=== PATIENT | male | born 1960 | race Caucasian/White ===

== ENCOUNTER 2017-04-04 11:56 | Inpatient (IN) | payer OTHER ==
--- NOTE | 2017-04-04 12:45 | ED ---
General Adult HPI - General Chief complaint: Shortness of Breath Stated complaint: SOB Time Seen by Provider: 04/04/17 12:10 Source: patient, RN notes reviewed Mode of arrival: wheelchair Limitations: no limitations - History of Present Illness Initial comments: This is a 57-year-old male who presents to the emergency department with difficulty breathing. Patient states he is also noted that his swelling in his legs become worse. Patient states his been ongoing for about 5 days. Patient states lying flat also increases the difficulty breathing. Patient states he has no history of any heart disease that he knows of his never been diagnosed are heard of congestive heart failure. Patient denies any recent trip or travel. Patient denies any abdominal pain patient denies nausea vomiting diarrhea. Patient denies headache patient denies numbness weakness. Patient denies any lightheadedness dizziness or near syncopal episode. - Related Data Home Medications Medication Instructions Recorded Confirmed Fluticasone/Vilanterol [Breo 1 inhalation INHALATION RT-DAILY 04/04/17 04/04/17 Ellipta 200-25 Mcg INH] Allergies Allergy/AdvReac Type Severity Reaction Status Date / Time ibuprofen Allergy Rash/Hives Verified 04/04/17 12:45 Review of Systems ROS Statement: Those systems with pertinent positive or pertinent negative responses have been documented in the HPI. ROS Other: All systems not noted in ROS Statement are negative. Past Medical History Past Medical History: COPD Additional Past Medical History / Comment(s): pad History of Any Multi-Drug Resistant Organisms: None Reported Additional Past Surgical History / Comment(s): varicose veins Past Psychological History: No Psychological Hx Reported Smoking Status: Never smoker Past Alcohol Use History: None Reported Past Drug Use History: None Reported General Exam - General Exam Comments Initial Comments: GENERAL: Patient is well-developed and well-nourished. Patient is nontoxic and well- hydrated and is in mild distress. ENT: Neck is soft and supple. No significant lymphadenopathy is noted. Oropharynx is clear. Moist mucous membranes. Neck has full range of motion without eliciting any pain. EYES: The sclera were anicteric and conjunctiva were pink and moist. Extraocular movements were intact and pupils were equal round and reactive to light. Eyelids were unremarkable. PULMONARY: Unlabored respirations. Good breath sounds bilaterally. No audible rales rhonchi or wheezing was noted. CARDIOVASCULAR: Patient is tachycardic at about 100 beats a minute. ABDOMEN: Soft and nontender with normal bowel sounds. No palpable organomegaly was noted. There is no palpable pulsatile mass. SKIN: Skin is clear with no lesions or rashes and otherwise unremarkable. NEUROLOGIC: Patient is alert and oriented x3. Cranial nerves II through XII are grossly intact. Motor and sensory are also intact. Normal speech, volume and content. Symmetrical smile. MUSCULOSKELETAL: Normal extremities with adequate strength and full range of motion. 2+ edema bilaterally patient has no calf tenderness. LYMPHATICS: No significant lymphadenopathy is noted PSYCHIATRIC: Normal psychiatric evaluation. Normal interpersonal interactions appears functionally intact in deals appropriately with others. No signs of depression. No signs of anxiety. Limitations: no limitations Course Vital Signs 04/04/17 04/04/17 04/04/17 12:09 14:22 14:23 Temperature 97.4 F L Pulse Rate 105 H 98 Respiratory 18 22 22 Rate Blood Pressure 136/82 139/88 O2 Sat by Pulse 93 L 97 Oximetry 04/04/17 16:04 Temperature Pulse Rate 79 Respiratory 16 Rate Blood Pressure 150/85 O2 Sat by Pulse 99 Oximetry Medical Decision Making - Medical Decision Making EKG shows sinus tachycardia with PVCs at about 104 bpm TN interval 186 QRS is 96 QT interval 348 QTC is 457. This EKG shows some T-wave inversions in leads V4 V5 and V6 Patient's d-dimer was elevated so I went ahead and did a CAT scan patient's CAT scan showed pulmonary embolism bilaterally. Spoke with Dr. Nava he agreed to admit the patient admitted the patient - Lab Data Result diagrams: 04/04/17 12:25 04/04/17 12:25 Lab Results 04/04/17 04/04/17 04/04/17 Range/Units 12:25 12:25 12:25 WBC 7.4 (3.8-10.6) k/uL RBC 5.05 (4.30-5.90) m/uL Hgb 16.2 (13.0-17.5) gm/dL Hct 48.0 (39.0-53.0) % MCV 95.0 (80.0-100.0) fL MCH 32.0 (25.0-35.0) pg MCHC 33.7 (31.0-37.0) g/dL RDW 13.8 (11.5-15.5) % Plt Count 190 (150-450) k/uL Neutrophils % 71 % Lymphocytes % 21 % Monocytes % 4 % Eosinophils % 2 % Basophils % 1 % Neutrophils # 5.2 (1.3-7.7) k/uL Lymphocytes # 1.5 (1.0-4.8) k/uL Monocytes # 0.3 (0-1.0) k/uL Eosinophils # 0.2 (0-0.7) k/uL Basophils # 0.1 (0-0.2) k/uL PT (9.0-12.0) sec INR (<1.2) APTT (22.0-30.0) sec D-Dimer (<0.60) mg/L FEU Sodium 140 (137-145) mmol/L Potassium 4.3 (3.5-5.1) mmol/L Chloride 104 (98-107) mmol/L Carbon Dioxide 26 (22-30) mmol/L Anion Gap 10 mmol/L BUN 15 (9-20) mg/dL Creatinine 0.87 (0.66-1.25) mg/dL Est GFR (MDRD) Af Amer >60 (>60 ml/min/1.73 sqM) Est GFR (MDRD) Non-Af >60 (>60 ml/min/1.73 sqM) Glucose 133 H (74-99) mg/dL Calcium 9.2 (8.4-10.2) mg/dL Magnesium 1.8 (1.6-2.3) mg/dL Total Bilirubin 1.1 (0.2-1.3) mg/dL AST 36 (17-59) U/L ALT 59 (21-72) U/L Alkaline Phosphatase 88 (38-126) U/L Total Creatine Kinase 72 (55-170) U/L CK-MB (CK-2) 2.6 H* (0.0-2.4) ng/mL CK-MB (CK-2) Rel Index 3.6 Troponin I 0.023 (0.000-0.034) ng/mL NT-Pro-B Natriuret Pep pg/mL Total Protein 6.4 (6.3-8.2) g/dL Albumin 4.0 (3.5-5.0) g/dL 04/04/17 04/04/17 Range/Units 12:25 12:25 WBC (3.8-10.6) k/uL RBC (4.30-5.90) m/uL Hgb (13.0-17.5) gm/dL Hct (39.0-53.0) % MCV (80.0-100.0) fL MCH (25.0-35.0) pg MCHC (31.0-37.0) g/dL RDW (11.5-15.5) % Plt Count (150-450) k/uL Neutrophils % % Lymphocytes % % Monocytes % % Eosinophils % % Basophils % % Neutrophils # (1.3-7.7) k/uL Lymphocytes # (1.0-4.8) k/uL Monocytes # (0-1.0) k/uL Eosinophils # (0-0.7) k/uL Basophils # (0-0.2) k/uL PT 11.2 (9.0-12.0) sec INR 1.1 (<1.2) APTT 24.7 (22.0-30.0) sec D-Dimer 1.64 H (<0.60) mg/L FEU Sodium (137-145) mmol/L Potassium (3.5-5.1) mmol/L Chloride (98-107) mmol/L Carbon Dioxide (22-30) mmol/L Anion Gap mmol/L BUN (9-20) mg/dL Creatinine (0.66-1.25) mg/dL Est GFR (MDRD) Af Amer (>60 ml/min/1.73 sqM) Est GFR (MDRD) Non-Af (>60 ml/min/1.73 sqM) Glucose (74-99) mg/dL Calcium (8.4-10.2) mg/dL Magnesium (1.6-2.3) mg/dL Total Bilirubin (0.2-1.3) mg/dL AST (17-59) U/L ALT (21-72) U/L Alkaline Phosphatase (38-126) U/L Total Creatine Kinase (55-170) U/L CK-MB (CK-2) (0.0-2.4) ng/mL CK-MB (CK-2) Rel Index Troponin I (0.000-0.034) ng/mL NT-Pro-B Natriuret Pep 1830 pg/mL Total Protein (6.3-8.2) g/dL Albumin (3.5-5.0) g/dL Critical Care Time Critical Care Time: Yes Total Critical Care Time: 35 Disposition Clinical Impression: Pulmonary embolism Disposition: ADMITTED IP TO THIS HOSP Referrals: Moreno Domingo MD [Primary Care Provider] - 1-2 days Time of Disposition: 16:50
--- NOTE | 2017-04-04 13:06 | XR ---
EXAMINATION TYPE: XR chest 2V DATE OF EXAM: 04/04/2017 COMPARISON: CT chest May 05, 2015 HISTORY: Difficulty in breathing. TECHNIQUE: Frontal and lateral views of the chest are obtained. FINDINGS: There is no focal air space opacity, pleural effusion, or pneumothorax seen. The cardiac silhouette size is mildly enlarged on current study. The osseous structures are intact. IMPRESSION: Cardiomegaly without acute pulmonary process.
[2017-04-04 13:07] LABS: Basophils # (A) 0.1 k/uL (0-0.2); Basophils % (A) 1 %; CH 32.1; Eosinophils # (A) 0.2 k/uL (0-0.7); Eosinophils % (A) 2 %; HDW 2.56; HGB 16.2 gm/dL (13.0-17.5); Luc # (Auto) 0.08; Luc % (Auto) 1; Lymphocytes # (A) 1.5 k/uL (1.0-4.8); Lymphocytes % (A) 21 %; MCHC 33.7 g/dL (31.0-37.0); Mean Platelet Volume 8.6; Monocytes # (A) 0.3 k/uL (0-1.0); Monocytes % (A) 4 %; Neutrophils # (A) 5.2 k/uL (1.3-7.7); Neutrophils % (A) 71 %; RBC 5.05 m/uL (4.30-5.90); RDW 13.8 % (11.5-15.5); WBC 7.4 k/uL (3.8-10.6); WBC (Perox) 7.16
[2017-04-04 13:17] LABS: ALT 59 U/L (21-72); AST 36 U/L (17-59); Alkaline Phosphatase 88 U/L (38-126); Anion Gap 10 mmol/L; Blood Urea Nitrogen 15 mg/dL (9-20); Calcium 9.2 mg/dL (8.4-10.2); Carbon Dioxide 26 mmol/L (22-30); Chloride 104 mmol/L (98-107); Glucose 133 mg/dL (74-99); Magnesium 1.8 mg/dL (1.6-2.3); Non-African American GFR(MDRD) >60 (>60 ml/min/1.73 sqM); Potassium 4.3 mmol/L (3.5-5.1); Sodium 140 mmol/L (137-145); Total Bilirubin 1.1 mg/dL (0.2-1.3); Total Protein 6.4 g/dL (6.3-8.2)
[2017-04-04 13:39] LABS: INR 1.1 (<1.2); Partial Thromboplastin Time 24.7 sec (22.0-30.0); Prothrombin Time 11.2 sec (9.0-12.0)
[2017-04-04 14:24] LABS: Troponin I 0.023 ng/mL (0.000-0.034)
[2017-04-04 14:35] LABS: Creatine Kinase MB 2.6 ng/mL (0.0-2.4)
[2017-04-04] MEDS ORDERED: RX INFO: IV CONTRAST WAS GIVEN 1 EACH MISC MISCELLANE PRN (14:51)
[2017-04-04] MEDS ORDERED: HEPARIN SODIUM,PORCINE 10,000 UNIT/ML 1 ML VIAL IV ONE (15:57)
--- NOTE | 2017-04-04 15:59 | CT ---
EXAMINATION TYPE: CT chest angio for PE DATE OF EXAM: 04/04/2017 COMPARISON: NONE HISTORY: SOB, limb swelling CT DLP: 855.6 mGycm. Automated Exposure Control for Dose Reduction was Utilized. CONTRAST: CTA scan of the thorax is performed with IV Contrast, patient injected with 80 mL of Omnipaque 350, p ulmonary embolism protocol. MIP Images are created on CT scanner and reviewed. FINDINGS: LUNGS: There is segmental and subsegmental pulmonary emboli to the left lower lobe and right lower lo be. The remainder of the pulmonary arteries are unaffected and well opacified. There is no evidence o f right heart strain as there is no bowing of the intraventricular septum. There is enlargement of th e main pulmonary artery measuring up to 3.5 cm, although this is thought to be unrelated. There is a small right pleural effusion and trace left pleural effusion with associated bibasilar dependent subs egmental atelectasis. Additionally there is mild interseptal lobular thickening and reflux of contras t into the inferior vena cava. Cardiomegaly is also seen. Findings suggest a degree of decompensated congestive heart failure. No pulmonary mass is identified. There is no pleural effusion or pneumoth orax seen. The tracheobronchial tree is patent. MEDIASTINUM: There is satisfactory enhancement of the pulmonary artery and its branches, there is no CT evidence for pulmonary embolism. There are no greater than 1 cm hilar or mediastinal lymph nodes. No cardiomegaly or pericardial effusion is seen. OTHER: No additional significant abnormality is seen. IMPRESSION: 1. Segmental and subsegmental pulmonary emboli to the lower lobes. 2. Small right pleural effusion and interseptal lobular thickening as well as cardiomegaly. Findings are favored to represent a degree of congestive heart failure rather than right heart strain. 3. Enlargement of the main pulmonary artery, which may clinically relate to pulmonary arterial hypert ension. Findings were communicated to Dr. Garcia by Dr. De La Fuente at 1556 on 04/04/2017.
[2017-04-04] MEDS ORDERED: SODIUM CHLORIDE 0.9% 1,000 ML IV STA (16:12)
[2017-04-04] MEDS: HEPARIN SODIUM,PORCINE/D5W PMX 25,000 UNIT in DEXTROSE/WATER 1 500ML.BAG IV SCH (16:17)
--- NOTE | 2017-04-04 20:15 | P.HPIM ---
History of Present Illness H&P Date: 04/04/17 Chief Complaint: shortness of breath chest pressure Mr. Baxter presented to the emergency room with difficulty breathing and chest pressure which initially 3 weeks ago. His a female cabana attendant had tried to get him to go to the Hospital for approximately 2 weeks,he finally consented. Upon evaluation it was discover had a DVT that appears in the left lower extreme I was subsequently called patient ri for anticoagulant therapy and subsequent antiplatelet therap. Patient has no other complaints, has a history of hypertension and low back pain Review of Systems Ears, nose, mouth and throat: Reports as per HPI Cardiovascular: Reports as per HPI, Reports decreased exercise tolerance, Reports high blood pressure, Reports rapid heart beat, Reports shortness of breath Respiratory: Reports dyspnea Gastrointestinal: Reports as per HPI Genitourinary: Reports as per HPI Musculoskeletal: Reports low back pain Integumentary: Reports as per HPI Neurological: Reports as per HPI Psychiatric: Reports as per HPI Endocrine: Reports as per HPI Past Medical History Past Medical History: COPD Additional Past Medical History / Comment(s): pad History of Any Multi-Drug Resistant Organisms: None Reported Additional Past Surgical History / Comment(s): varicose veins Past Psychological History: No Psychological Hx Reported Smoking Status: Never smoker Past Alcohol Use History: None Reported Past Drug Use History: None Reported Medications and Allergies Home Medications Medication Instructions Recorded Confirmed Type Fluticasone/Vilanterol [Breo 1 inhalation INHALATION RT-DAILY 04/04/17 04/04/17 History Ellipta 200-25 Mcg INH] Allergies Allergy/AdvReac Type Severity Reaction Status Date / Time ibuprofen Allergy Rash/Hives Verified 04/04/17 12:45 Physical Exam Osteopathic Statement: *. No significant issues noted on an osteopathic structural exam other than those noted in the History and Physical/Consult. Vitals: Vital Signs Temp Pulse Pulse Resp BP BP Pulse Ox 04/04/17 17:49 97 F L 102 H 20 139/91 94 L 04/04/17 17:23 98.2 F 97 20 147/91 95 04/04/17 16:04 79 16 150/85 99 04/04/17 14:23 22 04/04/17 14:22 98 22 139/88 97 04/04/17 12:09 97.4 F L 105 H 18 136/82 93 L Intake and Output 04/04/17 04/04/17 04/04/17 06:59 14:59 22:59 Other: Weight 127.006 kg Patient Weight 04/05/17 06:59 Weight 127.006 kg General: [Patient awake, alert and oriented times 3. Patient in no acute distress.] HEENT: [PERRL. EOMI. No pharyngeal erythema or exudate.] Neck: [No adenopathy.] Cardiac: [Heart regular in rate and rhythm. No S3. No S4. No clicks, rubs. No murmur.] Lungs: [Clear to auscultation bilaterally.]bilateral expiraton wheezes with fine crackles Abdomen: [No mass. No organomegaly. Bowel sounds presnt and normoactive in all 4 quadrants.] Extremes: [No edema no cyanosis no claudication normal pulses] : [] Musculoskeletal: [No joint erythema, edema or tenderness.] Skin: [No rash.] Neurologic: [No lateralizing deficits. CN II - XII grossly intact.] Lymphatic: [No adenopathy.] Results CBC & Chem 7: 04/04/17 12:25 04/04/17 12:25 Labs: Abnormal Lab Results - Last 24 Hours (Table) 04/04/17 04/04/17 04/04/17 Range/Units 12:25 12:25 12:25 D-Dimer 1.64 H (<0.60) mg/L FEU Glucose 133 H (74-99) mg/dL CK-MB (CK-2) 2.6 H* (0.0-2.4) ng/mL Thrombosis Risk Factor Assmnt - DVT/VTE Prophylaxis DVT/VTE Prophylaxis: Pharmacologic Prophylaxis ordered (patient's diagnosis is pulmonary embolus) - Choose All That Apply Each Factor Represents 1 point: Abnormal pulmonary function (COPD), Age 41-60 years, Obesity (BMI >25) Thrombosis Risk Factor Assessment Total Risk Factor Score: 3 Thrombosis Risk Factor Assessment Level: Moderate Risk Assessment and Plan (1) Pulmonary embolism Narrative/Plan: patient has known currently on rescue inhalers as well asfluticasone and Breo Patient is on heparin drip and will be switched over to xarelto or eliquis Status: Acute Time with Patient: Greater than 30
[2017-04-04] MEDS ORDERED: FUROSEMIDE 10 MG/ML 10 ML VIAL IV STA (23:28)
[2017-04-04] MEDS ORDERED: FUROSEMIDE 10 MG/ML 4 ML VIAL ONE (23:37)
[2017-04-05] MEDS: HEPARIN SODIUM,PORCINE/D5W PMX 25,000 UNIT in DEXTROSE/WATER 1 500ML.BAG IV SCH ×2 (03:54→16:27)
[2017-04-05] MEDS: SYMBICORT 160-4.5 MCG INHALER INHALATION SCH ×2 (08:43→21:10)
[2017-04-05] MEDS ORDERED: HEPARIN SODIUM,PORCINE 5,000 UNIT/ML 1 ML VIAL IV PRN (09:51)
--- NOTE | 2017-04-05 16:28 | P.PN ---
Subjective Principal diagnosis: Patient awake alert vital signs are stable patient has bilateral pulmonary embolus. Symptoms have improved patient has diminished chest discomfort as well as he is breathing significantly better Objective - Vital Signs Vital signs: Vital Signs Temp 96.7 F L 04/05/17 12:00 Pulse 95 04/05/17 12:00 Resp 22 04/05/17 12:00 BP 127/92 04/05/17 12:00 Pulse Ox 97 04/05/17 12:00 Intake & Output 04/04/17 04/05/17 04/05/17 18:59 06:59 18:59 Intake Total 543.020 7399 Output Total 6550 475 Balance -5721.991 1274 Weight 127.006 kg 135 kg Intake: IV 225 549 Heparin Sodium,Porcine/ 225 549 D5w Pmx 25,000 unit In Dextrose/Water 1 500ml. bag @ 18 UNITS/KG/HR 45. 72 mls/hr IV .[id number] TRISTEN Rx#:[id number] Intake, IV Titration 603.009 900 Amount Heparin Sodium,Porcine/ 453.009 D5w Pmx 25,000 unit In Dextrose/Water 1 500ml. bag @ 18 UNITS/KG/HR 45. 72 mls/hr IV .[id number] TRISTEN Rx#:[id number] Sodium Chloride 0.9% 1, 150 900 000 ml @ 75 mls/hr IV . [id number] STA Rx#:[id number] Oral 300 Output: Urine 6550 475 Other: Voiding Method Urinal Urinal # Voids 400 - Exam General: [Patient awake, alert and oriented times 3. Patient in no acute distress.] HEENT: [PERRL. EOMI. No pharyngeal erythema or exudate.] Neck: [No adenopathy.] Cardiac: [Heart regular in rate and rhythm. No S3. No S4. No clicks, rubs. No murmur.] Lungs: Patient's lungs are clear however slightly diminished bibasilar crackles are noted Abdomen: [No mass. No organomegaly. Bowel sounds presnt and normoactive in all 4 quadrants.] Extremes: [No edema no cyanosis no claudication normal pulses] : [] Musculoskeletal: [No joint erythema, edema or tenderness.] Skin: [No rash.] Neurologic: [No lateralizing deficits. CN II - XII grossly intact.] Lymphatic: [No adenopathy.] - Labs CBC & Chem 7: 04/04/17 12:25 04/04/17 12:25 Labs: Abnormal Lab Results - Last 24 Hours (Table) 04/04/17 04/04/17 04/05/17 Range/Units 22:27 22:37 05:52 APTT 110.2 H* 64.2 H (22.0-30.0) sec Troponin I 0.038 H* (0.000-0.034) ng/mL Assessment and Plan (1) Pulmonary embolism Narrative/Plan: patient has known currently on rescue inhalers as well asfluticasone and Breo Patient is on heparin drip and will be switched over to xarelto or eliquis Status: Acute Plan: Second troponin was elevated waiting on #3 we will consult cardiology
[2017-04-06] MEDS: HEPARIN SODIUM,PORCINE/D5W PMX 25,000 UNIT in DEXTROSE/WATER 1 500ML.BAG IV SCH ×3 (04:54→22:48)
[2017-04-06] MEDS: SYMBICORT 160-4.5 MCG INHALER INHALATION SCH ×2 (09:14→20:02)
--- NOTE | 2017-04-06 12:44 | P.CRDCN ---
History of Present Illness Consult date: 04/06/17 History of present illness: This is a 57-year-old gentleman with history of COPD who has been experiencing increasing shortness of breath over the last 2 weeks. He also noticed increasing swelling of the legs. In view of ongoing symptoms patient came to the emergency room. Evaluation is consistent with a DVT and also segmental and subsegmental pulmonary emboli. Patient is currently being treated with anti- cognition therapy. We're asked to see the patient because of abnormal troponin values and also BNP. Patient denied any hypertension, diabetes, previous myocardial infarctions or strokes. Patient seemed to feeling slightly better since admission here. We are going to get an echocardiogram to assess LV function. Chest x-ray however did not reveal any significant CHF. His troponin pattern is not consistent with acute myocardial injury pattern. Review of Systems REVIEW OF SYSTEMS: CONSTITUTIONAL:. Patient is doing well. No complaints of fever or chills. He doesn't appear to be in acute distress EYES: Denies diplopia, blurring of vision EARS, NOSE, MOUTH, THROAT: Denies headaches, denies sore throat. CARDIOVASCULAR: As per HPI RESPIRATORY: As per HPI. GASTROINTESTINAL: Denies change in appetite, denies abdominal pain, denies diarrhea GENITOURINARY: Denies hematuria, denies infections. MUSKULOSKELETAL: Denies pain, denies swelling. Denies any cramps or claudication INTEGUMENTARY: Bilateral leg swelling. NEUROLOGICAL: Denies focal weakness, or visual disturbance. Denies any dizziness or syncope PSYCHIATRIC: Denies anxiety, denies depression. HEMATOLOGIC/LYMPHATIC: Denies any bleeding, denies enlarged lymph nodes. Past Medical History Past Medical History: COPD, Rheumatoid Arthritis (RA) Additional Past Medical History / Comment(s): pad History of Any Multi-Drug Resistant Organisms: None Reported Additional Past Surgical History / Comment(s): varicose veins sx 1991 Past Anesthesia/Blood Transfusion Reactions: No Reported Reaction Smoking Status: Never smoker - Past Family History Mother Family Medical History: Cancer Additional Family Medical History / Comment(s): bone cancer Father History Unknown: Yes Additional Family Medical History / Comment(s): never knew his dad Medications and Allergies Home Medications Medication Instructions Recorded Confirmed Type Fluticasone/Vilanterol [Breo 1 inhalation INHALATION RT-DAILY 04/04/17 04/04/17 History Ellipta 200-25 Mcg INH] Allergies Allergy/AdvReac Type Severity Reaction Status Date / Time ibuprofen Allergy Rash/Hives Verified 04/04/17 12:45 Physical Exam Vitals: Vital Signs Temp Pulse Resp BP Pulse Ox 04/06/17 11:55 98 18 04/06/17 11:54 97.2 F L 98 18 125/79 98 04/06/17 09:15 100 04/06/17 08:00 96.9 F L 96 18 133/92 95 04/06/17 04:00 100 16 126/77 91 L 04/05/17 23:54 90 16 117/58 90 L 04/05/17 19:45 98.4 F 97 18 140/88 97 04/05/17 16:00 97.0 F L 102 H 22 116/73 95 Intake and Output 04/05/17 04/06/17 04/06/17 22:59 06:59 14:59 Intake Total 1450.155 584.345 Output Total 400 600 300 Balance 1050.155 -15.655 -300 Intake: IV 750 110 0.9 110 Sodium Chloride 0.9% 1, 750 000 ml @ 75 mls/hr IV . [id number] STA Rx#:[id number] Intake, IV Titration 478.155 474.345 Amount Heparin Sodium,Porcine/ 478.155 474.345 D5w Pmx 25,000 unit In Dextrose/Water 1 500ml. bag @ 18 UNITS/KG/HR 45. 72 mls/hr IV .[id number] TRISTEN Rx#:[id number] Oral 222 Output: Urine 400 600 300 Other: Voiding Method Urinal Urinal # Voids 1 Weight 135.2 kg GENERAL EXAM: Patient is alert and oriented and doesn't appear to be in any acute distress HEENT: Normocephalic. Normal reaction of pupils, equal size, normal range of extraocular motion. No erythema or exudates in the throat. NECK: No masses, no nuchal rigidity. CHEST: No chest wall deformity. LUNGS: Diminished air exchange and dullness to percussion HEART: S1 and S2 normal with no audible mumurs or gallops. Regular rhythm, femorals equal on both sides.. ABDOMEN: No hepatosplenomegaly, normal bowel sounds, no guarding or rigidity. SKIN: No rashes CENTRAL NERVOUS SYSTEM: No focal deficits. EXTREMITIES: No cyanosis, clubbing or edema. Results 04/04/17 12:25 04/04/17 12:25 Coagulation 04/06/17 Range/Units 06:46 APTT 58.5 H (22.0-30.0) sec Current Medications Generic Name Dose Route Start Last Admin Trade Name Freq PRN Reason Stop Dose Admin Budesonide/Formoterol Fumarate 2 puff 04/05/17 08:00 04/06/17 09:14 Symbicort 160-4.5 Mcg Inhaler INHALATION 2 puff RT-BID TRISTEN Administration Heparin Sodium (Porcine) 0 unit 04/05/17 09:51 Heparin IV PER PROTOCOL PRN PER PROTOCOL Protocol Heparin Sodium/Dextrose 25,000 500 mls @ 45.72 mls/hr 04/04/17 15:57 04:54 unit/ IV Solution IV 15 units/kg/hr .[id number] TRISTEN 38.1 mls/hr Protocol Administration 18 UNITS/KG/HR Miscellaneous Information 1 each 04/04/17 14:51 Rx Info: Iv Contrast Was Given MISCELLANE 04/06/17 14:51 DAILY PRN Per Protocol Intake and Output 04/05/17 04/06/17 04/06/17 22:59 06:59 14:59 Intake Total 1450.155 584.345 Output Total 400 600 300 Balance 1050.155 -15.655 -300 Intake: IV 750 110 0.9 110 Sodium Chloride 0.9% 1, 750 000 ml @ 75 mls/hr IV . [id number] STA Rx#:[id number] Intake, IV Titration 478.155 474.345 Amount Heparin Sodium,Porcine/ 478.155 474.345 D5w Pmx 25,000 unit In Dextrose/Water 1 500ml. bag @ 18 UNITS/KG/HR 45. 72 mls/hr IV .[id number] TRISTEN Rx#:[id number] Oral 222 Output: Urine 400 600 300 Other: Voiding Method Urinal Urinal # Voids 1 Weight 135.2 kg 04/04/17 12:25 04/04/17 12:25 EKG Interpretations (text) Sinus rhythm and sinus tachycardia and nonspecific ST-T abnormalities. APCs. Small Q waves in inferior leads Assessment and Plan (1) Troponin level elevated Status: Acute (2) Congestive heart failure Status: Acute (3) Pulmonary embolism Status: Acute Plan: Continue with current medical therapy. I will try to get an echocardiogram done to assess LV function. Troponin values are elevated but not consistent with acute coronary syndrome. However underlying ischemic heart disease cannot be completely excluded. May need further evaluation to rule out ischemic heart disease as an outpatient.
--- NOTE | 2017-04-06 15:03 | P.PN ---
Subjective Principal diagnosis: Patient awake alert vital signs are stable patient has bilateral pulmonary embolus. Symptoms have improved patient has diminished chest discomfort as well as he is breathing significantly better. However patient had elevated troponins and cardiology evaluation has been initiated Objective - Vital Signs Vital signs: Vital Signs Temp 97.2 F L 04/06/17 11:54 Pulse 98 04/06/17 11:55 Resp 18 04/06/17 11:55 BP 125/79 04/06/17 11:54 Pulse Ox 98 04/06/17 11:54 Intake & Output 04/05/17 04/06/17 04/06/17 18:59 06:59 18:59 Intake Total 2449.155 1334.345 824.935 Output Total 475 1000 300 Balance 1974.155 334.345 524.935 Weight 135.2 kg Intake: IV 549 860 456 0.9 110 Heparin Sodium,Porcine/ 549 456 D5w Pmx 25,000 unit In Dextrose/Water 1 500ml. bag @ 18 UNITS/KG/HR 45. 72 mls/hr IV .[id number] [facility] Rx#:[id number] Sodium Chloride 0.9% 1, 750 000 ml @ 75 mls/hr IV . [id number] [facility] Rx#:[id number] Intake, IV Titration 1378.155 474.345 368.935 Amount Heparin Sodium,Porcine/ 478.155 474.345 368.935 D5w Pmx 25,000 unit In Dextrose/Water 1 500ml. bag @ 18 UNITS/KG/HR 45. 72 mls/hr IV .[id number] [facility] Rx#:[id number] Sodium Chloride 0.9% 1, 900 000 ml @ 75 mls/hr IV . [id number] [facility] Rx#:[id number] Oral 522 Output: Urine 475 1000 300 Other: Voiding Method Urinal Urinal # Voids 1 - Exam General: [Patient awake, alert and oriented times 3. Patient in no acute distress.] HEENT: [PERRL. EOMI. No pharyngeal erythema or exudate.] Neck: [No adenopathy.] Cardiac: [Heart regular in rate and rhythm. No S3. No S4. No clicks, rubs. No murmur.] Lungs: Patient's lungs are clear however slightly diminished bibasilar crackles are noted Abdomen: [No mass. No organomegaly. Bowel sounds presnt and normoactive in all 4 quadrants.] Extremes: [No edema no cyanosis no claudication normal pulses] : [] Musculoskeletal: [No joint erythema, edema or tenderness.] Skin: [No rash.] Neurologic: [No lateralizing deficits. CN II - XII grossly intact.] Lymphatic: [No adenopathy.] - Labs CBC & Chem 7: 04/04/17 12:25 04/04/17 12:25 Labs: Abnormal Lab Results - Last 24 Hours (Table) 04/06/17 Range/Units 06:46 APTT 58.5 H (22.0-30.0) sec Assessment and Plan (1) Pulmonary embolism Narrative/Plan: patient has known currently on rescue inhalers as well asfluticasone and Breo Patient is on heparin drip and will be switched over to xarelto or eliquis Troponins were slightly elevated cardiology consult is pending echocardiogram to be obtained Status: Acute Plan: Second troponin was elevated waiting on #3 we will consult cardiology
[2017-04-07] MEDS: HEPARIN SODIUM,PORCINE/D5W PMX 25,000 UNIT in DEXTROSE/WATER 1 500ML.BAG IV SCH (02:42)
[2017-04-07 05:59] LABS: CH 32.3; CHCM 33.6; HCT 46.3 % (39.0-53.0); HDW 2.55; HGB 15.2 gm/dL (13.0-17.5); MCH 31.6 pg (25.0-35.0); MCHC 32.7 g/dL (31.0-37.0); MCV 96.5 fL (80.0-100.0); Mean Platelet Volume 7.9; WBC 6.6 k/uL (3.8-10.6)
[2017-04-07 07:09] LABS: Anion Gap 10 mmol/L; Blood Urea Nitrogen 14 mg/dL (9-20); Carbon Dioxide 23 mmol/L (22-30); Chloride 106 mmol/L (98-107); Glucose 115 mg/dL (74-99); Non-African American GFR(MDRD) >60 (>60 ml/min/1.73 sqM); Potassium 4.2 mmol/L (3.5-5.1); Sodium 139 mmol/L (137-145)
[2017-04-07] MEDS ORDERED: FUROSEMIDE 40 MG TAB PO STA (08:23)
[2017-04-07] MEDS: CARVEDILOL 3.125 MG TAB PO SCH ×2 (08:56→16:43)
[2017-04-07] MEDS: LISINOPRIL 2.5 MG TAB PO SCH (08:56)
[2017-04-07] MEDS: SPIRONOLACTONE 25 MG TAB PO SCH (08:56)
[2017-04-07] MEDS: SYMBICORT 160-4.5 MCG INHALER INHALATION SCH ×2 (08:57→20:06)
--- NOTE | 2017-04-07 11:01 | ECHOF ---
Referral Reason:elevated troponin MEASUREMENTS -------- HEIGHT: 182.9 cm WEIGHT: 136.1 kg BP: 117/77 RVIDd: 5.3 cm (< 3.3) IVSd: 1.5 cm (0.6 - 1.1) LVIDd: 6.1 cm (3.9 - 5.3) LVPWd: 1.2 cm (0.6 - 1.1) IVSs: 1.4 cm LVIDs: 5.9 cm LVPWs: 1.1 cm LAESV Index (A-L): 46.44 ml/m Ao Diam: 3.6 cm (2.0 - 3.7) AV Cusp: 2.2 cm (1.5 - 2.6) LA Diam: 5.2 cm (2.7 - 3.8) MV EXCURSION: 18.221 mm (> 18.000) MV EF SLOPE: 107 mm/s (70 - 150) EPSS: 1.6 cm MV E Juarez: 0.95 m/s MV DecT: 119 ms MV A Juarez: 0.23 m/s MV E/A Ratio: 4.07 RAP: 20.00 mmHg RVSP: 57.48 mmHg FINDINGS -------- Sinus rhythm. This was a technically adequate study. There is mild concentric left ventricular hypertrophy. There is severe global hypokinesis of LV . Overall left ventricular systolic function is severely impaired with, an EF < 20%. Mitral Doppler inflow pattern suggests diastolic filling abnormality 48.42. The right ventricle is severely enlarged. LA is severely dilated >40 ml/m2 The right atrial size is normal. 1.5MG OF DEFINITY UTLIZED: 2 OR MORE WALL SEGMENTS NOT VISUALIZED. There is mild aortic valve sclerosis. There is no evidence of aortic regurgitation. Mild mitral annular calcification present. Mild mitral regurgitation is present. Mild tricuspid regurgitation present. There is moderate pulmonary hypertension. The right ventricular systolic pressure, as measured by Doppler, is 57.48mmHg. There is no pulmonic regurgitation present. The aortic root size is normal. The inferior vena cava is dilated with no significant inspiratory collapse which is consistent estimated right atrial pressure of >20 mmHg. There is no pericardial effusion. CONCLUSIONS -------- 1. There is mild concentric left ventricular hypertrophy. 2. Mild mitral regurgitation is present. 3. Mild tricuspid regurgitation present. 4. There is moderate pulmonary hypertension. 5. The right ventricular systolic pressure, as measured by Doppler, is 57.48mmHg. 6. There is no pulmonic regurgitation present. 7. The inferior vena cava is dilated with no significant inspiratory collapse which is consistent estimated right atrial pressure of >20 mmHg. 8. There is no pericardial effusion. 9. There is severe global hypokinesis of LV . 10. Overall left ventricular systolic function is severely impaired with, an EF < 20%. 11. Mitral Doppler inflow pattern suggest diastolic filling abnormality 48.42. 12. The right ventricle is severely enlarged. 13. LA is severely dilated >40 ml/m2 14. 1.5MG OF DEFINITY UTLIZED: 2 OR MORE WALL SEGMENTS NOT VISUALIZED. 15. There is mild aortic valve sclerosis. 16. Mild mitral annular calcification present. [employer]ING [employer]UID TENDER: Ann Payan RDCS
--- NOTE | 2017-04-07 13:23 | P.PN ---
Subjective Principal diagnosis: Shortness of breath This is a 57-year-old gentleman with history of COPD who has been experiencing increasing shortness of breath over the last 2 weeks. He also noticed increasing swelling of the legs. In view of ongoing symptoms patient came to the emergency room. Evaluation is consistent with a DVT and also segmental and subsegmental pulmonary emboli. Patient is currently being treated with anti- cognition therapy. We're asked to see the patient because of abnormal troponin values and also BNP. Patient denied any hypertension, diabetes, previous myocardial infarctions or strokes. Patient seemed to feeling slightly better since admission here. We are going to get an echocardiogram to assess LV function. Chest x-ray however did not reveal any significant CHF. His troponin pattern is not consistent with acute myocardial injury pattern. 04/07/2017 Echocardiogram with Doppler study was performed which revealed an ejection fraction of less than 20%. EKG also suggests the possibility of old inferior wall myocardial infarction. We will start the patient on Coreg, Cipro, and Aldactone. Initiate Lasix as well. Continue IV heparin. Patient will need to be initiated on Xarelto per PE protocol. Patient will continue on anticoagulation for approximately 6 months, then he will require cardiac catheterization at that time to rule out any underlying coronary artery disease as part of the workup to determine why the patient has cardiomyopathy. Objective - Vital Signs Vital signs: Vital Signs Temp 97.7 F 04/07/17 08:30 Pulse 100 04/07/17 08:30 Resp 18 04/07/17 08:30 BP 122/72 04/07/17 08:30 Pulse Ox 94 L 04/07/17 08:30 Intake & Output 04/06/17 04/07/17 04/07/17 18:59 06:59 18:59 Intake Total 1064.935 535.155 0467.8 Output Total 834 168 1016 Balance 764.935 141.645 221.8 Weight 134.9 kg Intake: IV 456 180 384.8 0.9 180 80 Heparin Sodium,Porcine/ 456 304.8 D5w Pmx 25,000 unit In Dextrose/Water 1 500ml. bag @ 18 UNITS/KG/HR 45. 72 mls/hr IV .[id number] [facility] Rx#:[id number] Intake, IV Titration 368.935 461.645 Amount Heparin Sodium,Porcine/ 368.935 461.645 D5w Pmx 25,000 unit In Dextrose/Water 1 500ml. bag @ 18 UNITS/KG/HR 45. 72 mls/hr IV .[id number] [facility] Rx#:[id number] Oral 240 837 Output: Urine 817 995 1711 Other: Voiding Method Toilet Urinal # Voids 1 - Exam PHYSICAL EXAMINATION: HEENT: Head is atraumatic, normocephalic. Pupils equal, round. Neck is supple. There is elevated jugular venous pressure. HEART EXAMINATION: Heart S1, S2 normal. No murmur or gallop heard. CHEST EXAMINATION: Lungs are clear with mild diminished air entry to the bases. ABDOMEN: Soft, obese, nontender. Bowel sounds are heard. No organomegaly noted. EXTREMITIES: 2+ peripheral pulses with trace evidence of peripheral edema and no calf tenderness noted. NEUROLOGIC patient is awake, alert and oriented -3. . - Labs CBC & Chem 7: 04/07/17 05:50 04/07/17 05:50 Labs: Abnormal Lab Results - Last 24 Hours (Table) 04/07/17 04/07/17 Range/Units 05:50 05:50 APTT 67.4 H (22.0-30.0) sec Glucose 115 H (74-99) mg/dL Assessment and Plan (1) SOB (shortness of breath) Status: Acute (2) Pulmonary embolism Status: Acute (3) Systolic CHF, acute on chronic Status: Acute (4) Troponin level elevated Status: Acute (5) Cardiomyopathy Status: Acute Plan: From cardiology's perspective, we'll start the patient on Coreg and lisinopril and Aldactone today. We will also initiate Xarelto per PE protocol. Start the patient on a small dose of Lasix. Patient will require to be on anticoagulation for 6 months, following that will need further workup to rule out any underlying coronary artery disease. This was all explained to the patient in detail. We will also obtain a bilateral venous duplex study. DNP note has been reviewed, I agree with a documented findings and plan of care. Patient was seen and examined.
[2017-04-07] MEDS: RIVAROXABAN 15 MG TAB PO SCH (16:02)
[2017-04-07] MEDS: FUROSEMIDE 10 MG/ML 4 ML VIAL IV SCH ×2 (16:03→20:21)
--- NOTE | 2017-04-07 19:22 | P.PN ---
Subjective Principal diagnosis: Patient awake alert vital signs are stable patient has bilateral pulmonary embolus. Symptoms have improved patient has diminished chest discomfort as well as he is breathing significantly better. However patient had elevated troponins and cardiology evaluation has been initiated echocardiogram performed this morning revealed an ejection fraction of less than 20%. EKG also suggests the possibility of an old inferior wall myocardial infarction. Cardiology started this patient on lisinopril and Coreg and Aldactone. IV heparin was continuing. Patient was started on the Xarelto per PE protocol. Patient will be required to continue anticoagulant therapy for approximately 6 months, at which time he will require cardiac catheterization to rule out any underlying coronary artery disease process as part of the workup to determine why the patient has a cardiomyopathy. Objective - Vital Signs Vital signs: Vital Signs Temp 96.7 F L 04/07/17 16:00 Pulse 83 04/07/17 16:00 Resp 18 04/07/17 16:00 BP 126/84 04/07/17 16:00 Pulse Ox 94 L 04/07/17 16:00 Intake & Output 04/07/17 04/07/17 04/08/17 06:59 18:59 06:59 Intake Total 999.720 9849.8 Output Total 500 2500 Balance 141.645 -441.2 Weight 134.9 kg Intake: IV 180 384.8 0.9 180 80 Heparin Sodium,Porcine/ 304.8 D5w Pmx 25,000 unit In Dextrose/Water 1 500ml. bag @ 18 UNITS/KG/HR 45. 72 mls/hr IV .[id number] [facility] Rx#:[id number] Intake, IV Titration 461.645 Amount Heparin Sodium,Porcine/ 461.645 D5w Pmx 25,000 unit In Dextrose/Water 1 500ml. bag @ 18 UNITS/KG/HR 45. 72 mls/hr IV .[id number] [facility] Rx#:[id number] Oral 1674 Output: Urine 500 2500 - Exam General: [Patient awake, alert and oriented times 3. Patient in no acute distress.] HEENT: [PERRL. EOMI. No pharyngeal erythema or exudate.] Neck: [No adenopathy.] Cardiac: [Heart regular in rate and rhythm. No S3. No S4. No clicks, rubs. No murmur.] Lungs: Patient's lungs are clear however slightly diminished bibasilar crackles are noted Abdomen: [No mass. No organomegaly. Bowel sounds presnt and normoactive in all 4 quadrants.] Extremes: [No edema no cyanosis no claudication normal pulses] : [] Musculoskeletal: [No joint erythema, edema or tenderness.] Skin: [No rash.] Neurologic: [No lateralizing deficits. CN II - XII grossly intact.] Lymphatic: [No adenopathy.] - Labs CBC & Chem 7: 04/07/17 05:50 04/07/17 05:50 Labs: Abnormal Lab Results - Last 24 Hours (Table) 04/07/17 04/07/17 Range/Units 05:50 05:50 APTT 67.4 H (22.0-30.0) sec Glucose 115 H (74-99) mg/dL Assessment and Plan (1) Pulmonary embolism Narrative/Plan: Patient was started on xarelto per PE protocol. Will require further cardiac evaluation in the future. Echocardiogram revealed patient's ejection fraction was less than 20% Status: Acute Plan: Patient will be started on xarelto per PE protocol, and will require further cardiac evaluation to assess cardiomyopathy Time with Patient: Greater than 30
[2017-04-08] MEDS: RIVAROXABAN 15 MG TAB PO SCH ×2 (06:42→17:28)
[2017-04-08] MEDS: CARVEDILOL 3.125 MG TAB PO SCH ×2 (06:42→17:28)
[2017-04-08 07:12] LABS: Anion Gap 11 mmol/L; Blood Urea Nitrogen 19 mg/dL (9-20); Calcium 9.4 mg/dL (8.4-10.2); Carbon Dioxide 30 mmol/L (22-30); Chloride 99 mmol/L (98-107); Glucose 121 mg/dL (74-99); Non-African American GFR(MDRD) >60 (>60 ml/min/1.73 sqM); Potassium 4.1 mmol/L (3.5-5.1); Sodium 140 mmol/L (137-145)
[2017-04-08] MEDS: SYMBICORT 160-4.5 MCG INHALER INHALATION SCH ×2 (09:00→21:10)
[2017-04-08] MEDS: LISINOPRIL 2.5 MG TAB PO SCH (10:01)
[2017-04-08] MEDS: FUROSEMIDE 40 MG TAB PO SCH ×2 (10:01→17:28)
[2017-04-08] MEDS: SPIRONOLACTONE 25 MG TAB PO SCH (10:01)
--- NOTE | 2017-04-08 18:02 | P.PN ---
Subjective Principal diagnosis: Patient awake alert vital signs are stable patient has bilateral pulmonary embolus. Symptoms have improved patient has diminished chest discomfort as well as he is breathing significantly better. However patient had elevated troponins and cardiology evaluation has been initiated echocardiogram performed this morning revealed an ejection fraction of less than 20%. EKG also suggests the possibility of an old inferior wall myocardial infarction. Cardiology started this patient on lisinopril and Coreg and Aldactone. IV heparin was continuing. Patient was started on the Xarelto per PE protocol. Patient will be required to continue anticoagulant therapy for approximately 6 months, at which time he will require cardiac catheterization to rule out any underlying coronary artery disease process as part of the workup to determine why the patient has a cardiomyopathy. Objective - Vital Signs Vital signs: Vital Signs Temp 97.5 F L 04/08/17 16:50 Pulse 88 04/08/17 16:50 Resp 18 04/08/17 16:50 BP 126/82 04/08/17 16:50 Pulse Ox 94 L 04/08/17 16:50 Intake & Output 04/07/17 04/08/17 04/08/17 18:59 06:59 18:59 Intake Total 2058.8 240 Output Total 2500 3400 700 Balance -441.2 -3400 -460 Weight 128.4 kg Intake: IV 384.8 0.9 80 Heparin Sodium,Porcine/ 304.8 D5w Pmx 25,000 unit In Dextrose/Water 1 500ml. bag @ 18 UNITS/KG/HR 45. 72 mls/hr IV .[id number] [facility] Rx#:[id number] Oral 1674 240 Output: Urine 2500 3400 700 Other: Voiding Method Toilet Urinal # Voids 2 - Exam General: [Patient awake, alert and oriented times 3. Patient in no acute distress.] HEENT: [PERRL. EOMI. No pharyngeal erythema or exudate.] Neck: [No adenopathy.] Cardiac: [Heart regular in rate and rhythm. No S3. No S4. No clicks, rubs. No murmur.] Lungs: Patient's lungs are clear however slightly diminished bibasilar crackles are noted Abdomen: [No mass. No organomegaly. Bowel sounds presnt and normoactive in all 4 quadrants.] Extremes: [No edema no cyanosis no claudication normal pulses] : [] Musculoskeletal: [No joint erythema, edema or tenderness.] Skin: [No rash.] Neurologic: [No lateralizing deficits. CN II - XII grossly intact.] Lymphatic: [No adenopathy.] - Labs CBC & Chem 7: 04/07/17 05:50 04/08/17 06:31 Labs: Abnormal Lab Results - Last 24 Hours (Table) 04/08/17 Range/Units 06:31 Glucose 121 H (74-99) mg/dL Assessment and Plan (1) Pulmonary embolism Narrative/Plan: Patient was started on xarelto per PE protocol. Will require further cardiac evaluation in the future. Echocardiogram revealed patient's ejection fraction was less than 20% Status: Acute Plan: Patient will be started on xarelto per PE protocol, and will require further cardiac evaluation to assess cardiomyopathy
--- NOTE | 2017-04-08 18:30 | P.PN ---
Subjective Principal diagnosis: Bilateral pulmonary emboli, cardiomyopathy This patient was admitted to the hospital with increasing shortness of breath and evidence of bilateral pulmonary emboli. Patient also had some abnormal EKG findings. Echo Cardigan showed evidence of cardiomyopathy. Patient was started on several medications including Coreg and spironolactone . Patient is feeling much better. Patient activity to be increased. If stable, patient could be discharged home tomorrow. Follow-up in the office in about one to 2 weeks. Patient will require further cardiac workup as an outpatient to determine the etiology of his cardiomyopathy Objective - Vital Signs Vital signs: Vital Signs Temp 97.5 F L 04/08/17 16:50 Pulse 88 04/08/17 16:50 Resp 18 04/08/17 16:50 BP 126/82 04/08/17 16:50 Pulse Ox 94 L 04/08/17 16:50 Intake & Output 04/07/17 04/08/17 04/08/17 18:59 06:59 18:59 Intake Total 2058.8 240 Output Total 2500 3400 700 Balance -441.2 -3400 -460 Weight 128.4 kg Intake: IV 384.8 0.9 80 Heparin Sodium,Porcine/ 304.8 D5w Pmx 25,000 unit In Dextrose/Water 1 500ml. bag @ 18 UNITS/KG/HR 45. 72 mls/hr IV .[id number] [facility] Rx#:[id number] Oral 1674 240 Output: Urine 2500 3400 700 Other: Voiding Method Toilet Urinal # Voids 2 - Exam GENERAL EXAM: Patient is alert and oriented and doesn't appear to be in any acute distress HEENT: Normocephalic. Normal reaction of pupils, equal size, normal range of extraocular motion. No erythema or exudates in the throat. NECK: No masses, no nuchal rigidity. CHEST: No chest wall deformity. LUNGS: Accept the falls except the falls HEART: S1 and S2 normal with no audible mumurs or gallops. Regular rhythm, femorals equal on both sides.. ABDOMEN: No hepatosplenomegaly, normal bowel sounds, no guarding or rigidity. SKIN: No rashes CENTRAL NERVOUS SYSTEM: No focal deficits. EXTREMITIES: No cyanosis, clubbing or edema. - Labs CBC & Chem 7: 04/07/17 05:50 04/08/17 06:31 Labs: Abnormal Lab Results - Last 24 Hours (Table) 04/08/17 Range/Units 06:31 Glucose 121 H (74-99) mg/dL Assessment and Plan (1) Troponin level elevated Status: Acute (2) Congestive heart failure Status: Acute (3) Pulmonary embolism Status: Acute Plan: The patient is feeling much better. His lab values showed normal electrolytes and potassium levels. He'll continue current medical therapy. Possible discharge within next 24 hours
[2017-04-09 06:04] LABS: Anion Gap 13 mmol/L; Blood Urea Nitrogen 21 mg/dL (9-20); Calcium 9.8 mg/dL (8.4-10.2); Carbon Dioxide 26 mmol/L (22-30); Chloride 100 mmol/L (98-107); Glucose 104 mg/dL (74-99); Non-African American GFR(MDRD) >60 (>60 ml/min/1.73 sqM); Potassium 4.6 mmol/L (3.5-5.1); Sodium 139 mmol/L (137-145)
[2017-04-09] MEDS: CARVEDILOL 3.125 MG TAB PO SCH (06:19)
[2017-04-09] MEDS: RIVAROXABAN 15 MG TAB PO SCH (06:19)
[2017-04-09] MEDS: SYMBICORT 160-4.5 MCG INHALER INHALATION SCH (08:04)
[2017-04-09 08:17] VITALS: RESP 18
[2017-04-09] MEDS: LISINOPRIL 2.5 MG TAB PO SCH (09:59)
[2017-04-09] MEDS: FUROSEMIDE 40 MG TAB PO SCH (09:59)
[2017-04-09] MEDS: SPIRONOLACTONE 25 MG TAB PO SCH (09:59)
--- NOTE | 2017-04-09 10:41 | P.PN ---
Subjective Principal diagnosis: Severe cardiomyopathy This is a pleasant 57-year-old gentleman who presented to the hospital with difficulty breathing and was found to have bilateral PE. An echocardiogram was performed during his hospitalization and showed severe cardiomyopathy with an ejection fraction of 20% and the patient was started on medications including beta chino, JUANI inhibitor as well as Aldactone. I'll follow-up with him today, he denies having any chest pain or discomfort or difficulty breathing. From the cardiovascular standpoint overview he can be discharged home and he needs to follow-up with Dr. Dr. Jameson in about 2 weeks were further workup will be needed. Objective - Vital Signs Vital signs: Vital Signs Temp 97.0 F L 04/09/17 08:00 Pulse 90 04/09/17 08:00 Resp 18 04/09/17 08:00 BP 118/79 04/09/17 08:00 Pulse Ox 95 04/09/17 08:00 Intake & Output 04/08/17 04/09/17 04/09/17 18:59 06:59 18:59 Intake Total 600 360 Output Total 1700 1400 Balance -1100 -1040 Weight 125.8 kg Intake: Oral 600 360 Output: Urine 1700 1400 Other: Voiding Method Toilet Toilet Toilet Urinal Urinal Urinal - Constitutional General appearance: Present: no acute distress - Respiratory Respiratory: bilateral: CTA - Cardiovascular Rhythm: regular Heart sounds: normal: S1, S2 - Labs CBC & Chem 7: 04/07/17 05:50 04/09/17 05:26 Labs: Abnormal Lab Results - Last 24 Hours (Table) 04/09/17 Range/Units 05:26 BUN 21 H (9-20) mg/dL Glucose 104 H (74-99) mg/dL Assessment and Plan Plan: This is a pleasant 57-year-old gentleman who was admitted with bilateral PE and was found to have severe cardiomyopathy. The patient can be discharged home.
--- NOTE | 2017-04-09 12:26 | P.DS ---
Providers Date of admission: 04/04/17 16:50 Expected date of discharge: 04/09/17 Attending physician: Prasanth Nava Consults: 04/05/17 16:25 Consult Physician Urgent Consulting Provider: Kelly Aaron Consult Reason/Comments: Pulmonary embolus, second troponin was elevated waiting on #3 Do you want consulting provider notified?: Yes Primary care physician: Moreno Domingo - Discharge Diagnosis(es) (1) Pulmonary embolism Patient was admitted with bilateral pulmonary emboli started on heparin was subsequently started on xarelto Patient's second troponin was slightly elevated third troponin was elevated cardiology consult was performed and echo was ordered Was determined the patient had a cardiac ejection fraction of less than 20% this patient has never been studied and has been somewhat noncompliant with blood pressure meds over the years Mr. Ruiz is being discharged home today on his lisinopril and Coreg, Lasix, spironolactone,xarelto and Symbicort He is going to be on antiplatelet therapy per PE protocol for 4 months then he needs to be studied from a cardiac point of view to assess why he has the cardiomyopathy. Mr. Ruiz will be seen in our office in follow-up next week he'll also see cardiology in follow-up next week General: [Patient awake, alert and oriented times 3. Patient in no acute distress.] HEENT: [PERRL. EOMI. No pharyngeal erythema or exudate.] Neck: [No adenopathy.] Cardiac: [Heart regular in rate and rhythm. No S3. No S4. No clicks, rubs. No murmur.] Lungs: [Clear to auscultation bilaterally.] Abdomen: [No mass. No organomegaly. Bowel sounds presnt and normoactive in all 4 quadrants.] Extremes: [No edema no cyanosis no claudication normal pulses] : [] Musculoskeletal: [No joint erythema, edema or tenderness.] Skin: [No rash.] Neurologic: [No lateralizing deficits. CN II - XII grossly intact.] Lymphatic: [No adenopathy.] Current Visit: Yes Status: Acute Plan - Discharge Summary New Discharge Prescriptions: New Carvedilol [Coreg] 3.125 mg PO BID #30 tablet Furosemide [Lasix] 40 mg PO BID #60 tablet Lisinopril [Zestril] 2.5 mg PO DAILY #30 tab Rivaroxaban [Xarelto] 15 mg PO BID #60 tab Spironolactone [Aldactone] 25 mg PO DAILY #30 tablet No Action Fluticasone/Vilanterol [Breo Ellipta 200-25 Mcg INH] 1 inhalation INHALATION RT-DAILY Discharge Medication List Fluticasone/Vilanterol [Breo Ellipta 200-25 Mcg INH] 1 inhalation INHALATION RT- DAILY 04/04/17 [History] Carvedilol [Coreg] 3.125 mg PO BID #30 tablet 04/08/17 [Rx] Furosemide [Lasix] 40 mg PO BID #60 tablet 04/08/17 [Rx] Lisinopril [Zestril] 2.5 mg PO DAILY #30 tab 04/08/17 [Rx] Rivaroxaban [Xarelto] 15 mg PO BID #60 tab 04/08/17 [Rx] Spironolactone [Aldactone] 25 mg PO DAILY #30 tablet 04/08/17 [Rx] Follow up Appointment(s)/Referral(s): Moreno Domingo MD [Primary Care Provider] - 1-2 days Activity/Diet/Wound Care/Special Instructions: Pt has a 30 day free supply of Xarelto filled in [facility] pharmacy.
[2017-04-09 12:48] VITALS: BP 109/72; PULSE 88; TEMP 97.5
== END 2017-04-09 13:27 | disposition home or self-care (01) | DRG 175 ==
LOC: EC 11:56 → 6SEL 16:50
PROVIDERS: ADMIT Family Medicine; ATTEND Family Medicine
DX: I26.99 Other pulmonary embolism without acute cor pulmonale (principal); I50.23 Acute on chronic systolic (congestive) heart failure; I42.9 Cardiomyopathy, unspecified; I11.0 Hypertensive heart disease with heart failure; I25.2 Old myocardial infarction; J44.9 Chronic obstructive pulmonary disease, unspecified; M06.9 Rheumatoid arthritis, unspecified; I83.90 Asymptomatic varicose veins of unspecified lower extremity; R74.8 Abnormal levels of other serum enzymes; Z79.899 Other long term (current) drug therapy; Z88.6 Allergy status to analgesic agent; Z91.14 Patient's other noncompliance with medication regimen
CPT/HCPCS: 36415; 71020; 71275; 80048; 80053; 82550; 82553; 83735; 83880; 84484; 85025; 85027; 85379; 85610; 85730; 93005; 93306; 94640; 94760; 96365; 96375; 99291

== ENCOUNTER → 2018-06-28 | Outpatient (CLI) | payer MEDICARE ==
--- NOTE | 2018-06-28 12:08 | ECHOF ---
Referral Reason:I10 HTN/I42.0 dilated cardiomyopathy MEASUREMENTS -------- HEIGHT: 182.9 cm WEIGHT: 118.8 kg BP: RVIDd: 3.2 cm (< 3.3) IVSd: 1.3 cm (0.6 - 1.1) LVIDd: 6.1 cm (3.9 - 5.3) LVPWd: 1.1 cm (0.6 - 1.1) IVSs: 1.4 cm LVIDs: 5.5 cm LVPWs: 1.3 cm LA Diam: 4.5 cm (2.7 - 3.8) LAESV Index (A-L): 36.53 ml/m Ao Diam: 4.4 cm (2.0 - 3.7) AV Cusp: 2.0 cm (1.5 - 2.6) LA Diam: 4.5 cm (2.7 - 3.8) MV EXCURSION: 24.729 mm (> 18.000) MV EF SLOPE: 153 mm/s (70 - 150) EPSS: 1.7 cm MV E Juarez: 0.96 m/s MV DecT: 127 ms MV A Juarez: 0.40 m/s MV E/A Ratio: 2.44 RAP: 5.00 mmHg RVSP: 38.41 mmHg FINDINGS -------- Sinus rhythm. This was a technically adequate study. The left ventricular size is normal. There is borderline concentric left ventricular hypertrophy. Overall left ventricular systolic function is moderate-severely impaired with, an EF between 30 - 35 %. Anterseptal Hypokinesis Septal Hypokinesis The right ventricle is normal in size. The left atrium is mildly dilated. LA is moderately dilated 34-39 ml/m2 The right atrial size is normal. There is mild aortic valve sclerosis. There is no evidence of aortic regurgitation. Mild mitral annular calcification present. Mild mitral regurgitation is present. Mild tricuspid regurgitation present. There is mild pulmonary hypertension. The right ventricular systolic pressure, as measured by Doppler, is 38.41mmHg. There is no pulmonic regurgitation present. There is no pericardial effusion. CONCLUSIONS -------- 1. The left ventricular size is normal. 2. There is borderline concentric left ventricular hypertrophy. 3. Overall left ventricular systolic function is moderate-severely impaired with, an EF between 30 - 35 %. 4. Anterseptal Hypokinesis 5. Septal Hypokinesis 6. The right ventricle is normal in size. 7. The left atrium is mildly dilated. 8. LA is moderately dilated 34-39 ml/m2 9. The right atrial size is normal. 10. There is mild aortic valve sclerosis. 11. Mild mitral annular calcification present. 12. Mild mitral regurgitation is present. 13. Mild tricuspid regurgitation present. 14. There is mild pulmonary hypertension. 15. The right ventricular systolic pressure, as measured by Doppler, is 38.41mmHg. 16. There is no pulmonic regurgitation present. 17. There is no pericardial effusion. [employer]: Ann Payan RDCS
--- NOTE | 2018-06-28 15:25 | NM ---
EXAMINATION TYPE: NM stress cardiolite complete DATE OF EXAM: 06/28/2018 COMPARISON: NONE HISTORY: Chest pain dilated cardiomyopathy TECHNIQUE: After the intravenous administration of 10.4 mCi Tc 99m Sestamibi - Rest images obtained 45 minutes post injection. The patient exercised using a LINDA protocol and 1 minute prior to peak exercise was injected with 26.6 mCi Tc 99m Sestamibi - Stress images obtained 10 minutes post injecti on. FINDINGS: Targeted heart rate was achieved during performance of the study. Review of stress and rest SPECT yenny ges demonstrates a fixed defect involving the inferior and inferoapical myocardium.. Gated analysis shows diffuse abnormal wall motion with an estimated left ventricular ejection fraction of 22 %. Repo rt called to referring physician. IMPRESSION: 1. Large area of predominantly fixed defect involving the apex, inferior septum and inferior wall. A tiny area of reversibility involving the apex not entirely excluded correlate clinically. 2. Ejection fraction of only 22%.
--- NOTE | 2018-06-29 20:33 | EST ---
EXERCISE STRESS AGE: 58 SEX: M HT: 6 foot 2 WT: 262 PROTOCOL: Cardiolite Sarthak STAGE: I DURATION OF EXERCISE: 4:48 HEART RATE REST: 85 BLOOD PRESSURE REST: 123/91 MAXIMUM HEART RATE ACHIEVED: 134 MAXIMUM BLOOD PRESSURE: 152/102 85% MPHR: 137 100% MPHR: 161 METS: 6.0 INDICATIONS: Dilated cardiomyopathy. CLINICAL INFORMATION: Baseline heart rate 85 beats per minute. Baseline blood pressure 123/91 mmHg. Baseline 12-lead ECG shows sinus rhythm with T-wave inversions in V3 to V6 as well as a high lateral leads. Occasional PVCs noted. The patient exercised on a Sarthak protocol for 4 minutes 48 seconds achieving a peak heart rate of 134 beats per minute. Normal blood pressure response to exercise. There was no ECG evidence for ischemia. No arrhythmias were noted. Nuclear portion of the stress test will be reported separately. IMPRESSION: Low exercise capacity. The patient complained of shortness of breath. PVCs are noted during stress testing. No ECG evidence for ischemia. MMODL / IJN: [id number] /
== END | disposition home or self-care (01) ==
LOC: RADNMMAIN 07:55
PROVIDERS: ATTEND Family Medicine
DX: I08.1 Rheumatic disorders of both mitral and tricuspid valves (principal); I27.20 Pulmonary hypertension, unspecified; I49.3 Ventricular premature depolarization
CPT/HCPCS: 93017; 93306; 78452; A9500

== ENCOUNTER → 2018-07-20 | Day surgery (SDC) | payer MEDICARE ==
[2018-07-19 10:34] VITALS: BMI 34.7
[~2018-07-20] MED LIST: HEPARIN SODIUM 1,000 UN/ML (10ML VL) IV ONE; HEPARIN SODIUM 1,000 UN/ML (10ML VL) ONE; IOPAMIDOL-300 50ML BTL INJ ONE; IOPAMIDOL-370 125ML BTL INJ ONE; LIDOCAINE 1% INJ 10MG/ML (20 ML MDV) ONE; LIDOCAINE 2% INJ 20 MG/ML SQ ONE; MIDAZOLAM 2 MG/2 ML VIAL IVP ONE; MIDAZOLAM 2 MG/2 ML VIAL ONE; RX INFO: IV CONTRAST WAS GIVEN 1 EACH MISC MISCELLANE PRN; SODIUM CHLORIDE 0.9% 1,000 ML IV ONE; SODIUM CHLORIDE 0.9% 1,000 ML IV SCH; VERAPAMIL 2.5 MG/ML 2 ML AMP ONE; VERAPAMIL SYRINGE (5 MG/10 ML) INTRAARTER ONE; fentaNYL (PF) 50 MCG/ML 2 ML AMP IV ONE; fentaNYL (PF) 50 MCG/ML 2 ML AMP ONE
[2018-07-20 08:34] VITALS: RESP 18; TEMP 98.4
[2018-07-20 08:41] LABS: INR 1.1 (<1.2); Prothrombin Time 10.5 sec (9.0-12.0)
--- NOTE | 2018-07-20 10:11 | P.CARDCATH ---
Date of Procedure: 07/20/18 Preoperative Diagnosis: Cardiomyopathy and positive stress test and chronic CHF Postoperative Diagnosis: Normal coronary arteries, cardiomyopathy Procedure(s) Performed: Left heart catheterization, left ventriculography Description of Procedure: HISTORY: This is a 58-year-old gentleman with history of cardiomyopathy and congestive heart failure. He was recently evaluated by nuclear stress tests to the hospital. This was reported as showing evidence of exudate defect in the inferior wall and some reversible ischemia at the apex. Patient is advised to have a cardiac catheterization for definitive diagnosis. CONSENT:I have discussed the risks, benefits and alternative therapies for the above-mentioned procedure and for both sedation/analgesia as well as necessary blood product administration, if indicated, as they pertain to this patient. The patient has indicated understanding and acceptance of the risks and procedures discussed. [] PROCEDURE: Patient was brought to the lab in a fasting state. Patient was given some IV sedation. The right wrist is infiltrated with lidocaine and right radial artery was entered using Seldinger technique. A 6-Maori catheter was left in place and selective coronary arteriography and left ventriculography was performed. Patient tolerated the procedure well. TR band was applied for hemostasis. No immediate complications were noted and patient was transferred to [facility] in a stable condition Conscious Sedation: Versed 1mg Fentanyl 50 g Duration 31minutes HEMODYNAMICS: The aortic pressure is about 110/70. Left ankle end-diastolic pressure is about 20-25. There was no gradient across the aortic valve SELECTIVE CORONARY ARTERIOGRAPHY: LEFT MAIN: Normal length free of any occlusive disease THE LEFT ANTERIOR DESCENDING CORONARY ARTERY:. Good caliber vessel giving rise to small septal and diagonal branches. The LAD and branches are free of any occlusive disease. THE LEFT CIRCUMFLEX AND IS CORONARY ARTERY: Is a good caliber vessel giving rise to good OM branches and codominant in distribution. Free of occlusive disease THE RIGHT CORONARY ARTERY: Is a dominant vessel giving rise good-sized PDA and PLV and free of any occlusive disease LEFT VENTRICULOGRAPHY:. This revealed moderate to severely enlarged left ventricle with generalized hypokinesia suggestive of nonischemic cardiomyopathy. His ejection fraction about 20%. IMPRESSION : NORMAL CORONARY ARTERIES. Nonischemic cardiomyopathy with an ejection fraction of 20%. PLAN: Maximal medical therapy. AICD implantation. PROGNOSIS: guarded
[2018-07-20 15:38] VITALS: BP 123/77; PULSE 82
== END | disposition home or self-care (01) ==
LOC: CATHCVL 07:51
PROVIDERS: ATTEND Internal Medicine Cardiovascular Disease
DX: I42.0 Dilated cardiomyopathy (principal); R94.39 Abnormal result of other cardiovascular function study; I50.22 Chronic systolic (congestive) heart failure; I25.10 Atherosclerotic heart disease of native coronary artery without angina pectoris; Z86.711 Personal history of pulmonary embolism; Z79.01 Long term (current) use of anticoagulants; Z79.899 Other long term (current) drug therapy; Z88.6 Allergy status to analgesic agent
CPT/HCPCS: 93458; 85610; C1769; C1894; J2001; J2250; J3010; J1644; Q9967 ×2

== ENCOUNTER → 2018-08-30 | Outpatient (CLI) | payer MEDICARE ==
[2018-08-30 11:07] LABS: HGB 15.9 gm/dL (13.0-17.5); MCH 31.9 pg (25.0-35.0); MCHC 33.8 g/dL (31.0-37.0); MCV 94.4 fL (80.0-100.0); Mean Platelet Volume 6.7; Platelet Count 288 k/uL (150-450); RBC 4.98 m/uL (4.30-5.90); RDW 13.3 % (11.5-15.5); WBC 8.7 k/uL (3.8-10.6)
[2018-08-30 11:24] LABS: Anion Gap 7 mmol/L; Blood Urea Nitrogen 28 mg/dL (9-20); Carbon Dioxide 31 mmol/L (22-30); Chloride 103 mmol/L (98-107); Potassium 4.8 mmol/L (3.5-5.1); Sodium 141 mmol/L (137-145)
== END | disposition home or self-care (01) ==
LOC: LABPAT 10:42
PROVIDERS: ATTEND Internal Medicine Cardiovascular Disease
DX: Z01.812 Encounter for preprocedural laboratory examination (principal); I42.0 Dilated cardiomyopathy; I50.22 Chronic systolic (congestive) heart failure
CPT/HCPCS: 36415; 80051; 82565; 84520; 85027

== ENCOUNTER 2018-09-12 07:28 | Observation (INO) | payer MEDICARE ==
[2018-09-07 10:42] VITALS: BMI 34.7
[~2018-09-12 07:28] MED LIST changes: -HEPARIN SODIUM 1,000 UN/ML (10ML VL) IV ONE; -HEPARIN SODIUM 1,000 UN/ML (10ML VL) ONE; -IOPAMIDOL-300 50ML BTL INJ ONE; -IOPAMIDOL-370 125ML BTL INJ ONE; -LIDOCAINE 1% INJ 10MG/ML (20 ML MDV) ONE; -LIDOCAINE 2% INJ 20 MG/ML SQ ONE; -MIDAZOLAM 2 MG/2 ML VIAL IVP ONE; -MIDAZOLAM 2 MG/2 ML VIAL ONE; +MORPHINE SULFATE 2 MG/ML SYRINGE IV PRN; -RX INFO: IV CONTRAST WAS GIVEN 1 EACH MISC MISCELLANE PRN; -SODIUM CHLORIDE 0.9% 1,000 ML IV ONE; -SODIUM CHLORIDE 0.9% 1,000 ML IV SCH; -VERAPAMIL 2.5 MG/ML 2 ML AMP ONE; -VERAPAMIL SYRINGE (5 MG/10 ML) INTRAARTER ONE; +ceFAZolin 1,000 MG in SODIUM CHLORIDE 0.9% IRRIGATIO 250 ML IRRIGATION ONE; +ceFAZolin IN SWFI 2 GM/20 ML SYRINGE IVP ONE; -fentaNYL (PF) 50 MCG/ML 2 ML AMP IV ONE; -fentaNYL (PF) 50 MCG/ML 2 ML AMP ONE
[2018-09-12] MEDS: SODIUM CHLORIDE 0.9% 1,000 ML IV SCH ×2 (07:53→22:22)
[2018-09-12] MEDS ORDERED: LIDOCAINE 1% INJ 10MG/ML (20 ML MDV) ONE ×2 (08:04)
[2018-09-12 08:21] LABS: INR 1.5 (<1.2); Prothrombin Time 14.7 sec (9.0-12.0)
[2018-09-12] MEDS ORDERED: IOPAMIDOL-370 50ML BTL INJ ONE (10:12)
[2018-09-12] MEDS ORDERED: PROPOFOL 10 MG/ML 20 ML VIAL IV ONE (10:20)
[2018-09-12] MEDS ORDERED: MIDAZOLAM 2 MG/2 ML VIAL ONE (10:20)
[2018-09-12] MEDS ORDERED: fentaNYL (PF) 50 MCG/ML 2 ML AMP ONE (10:20)
[2018-09-12] MEDS ORDERED: LIDOCAINE 1% (PF) 10MG/ML VIAL SQ ONE (10:45)
[2018-09-12] MEDS ORDERED: ACETAMINOPHEN TAB 325 MG TAB PO PRN (11:50)
--- NOTE | 2018-09-12 12:04 | P.PCN ---
Date of Procedure: 09/12/18 Preoperative Diagnosis: Nonischemic cardiomyopathy Postoperative Diagnosis: The same Procedure(s) Performed: Prophylactic AICD implantation for primary prevention, single-chamber Description of Procedure: HISTORY: This is a 58-year-old gentleman with history of nonischemic cardiomyopathy and congestive heart failure with an ejection fraction of 30% is advised to have prophylactic AICD implantation for primary prevention. CONSENT:I have discussed the risks, benefits and alternative therapies for the above-mentioned procedure and for both sedation/analgesia as well as necessary blood product administration, if indicated, as they pertain to this patient. The patient has indicated understanding and acceptance of the risks and procedures discussed. PROCEDURE: Patient was brought to the lab in a fasting state. Patient was prepped and draped in the usual fashion. Patient was given IV sedation by department of anesthesia. The skin below the left clavicle was infiltrated with lidocaine. An incision was made parallel to deltopectoral groove was deepened until the pectoral fascia was exposed. A pocket was created by blunt dissection and cautery. Axillary venography was performed to delineate the course of the axillary vein. 1 venous stick was performed into extrathoracic portion of the axillary vein and a single sheath was advanced over the guidewires and left in subclavian vein. Conscious Sedation: As per anesthesia LEADS: VENTRICULAR: This is manufactured by [employer]. The model number is [id number] and the serial number is [id number]., no THE DEVICE: This is manufactured by [employer] . Model number is [id number] and the serial number is [id number]. The ventricular lead is maneuvered l with help of a straight and curved stylets into the left ventricle apical region. Satisfactory position was obtained and threshold measurements were made. . THRESHOLDS: VENTRICLE: The minimum patient threshold is 0.4 V at pulse width of 0.5 with impedance of 6 and 26 ohms. R-wave: 8.4. DFT TESTING: Patient was given deep anesthesia by department of anesthesia. Ventricle fibrillation was induced with T shock. This was appropriately detected with 4 dropouts at least sensitivity. A single shock of 15 J converted patient back to sinus rhythm. Patient tolerated the procedure well The leads and pulse generator remained in the pocket after it was washed with antibiotics. Pocket was closed in the usual fashion. The fascia was closed with 2-0 Prolene ,the subcutaneous tissue was closed with 3-0 Prolene and the skin was closed with 4-0 Prolene. PROGRAMMING: HORTENCIA PROGRAMMING: MODE: VVI mode RATE: 40 OUTPUT: Ventricle: 3.5 Tachycardia therapy : This is programmed to VF zone of 1 88 bpm. The detection is programmed to 30 out of 40 and the SVT rate is programmed to 12 out of 16. The therapies are programmed to 23 J shock followed by 35 J shocks from 5. The VT zone was programmed to a rate of 167. The therapies are programmed to a bus pacing followed by ramp pacing followed by cardioversion with 25 J followed by cardioversion with 353. Monitor zone is programmed to a rate of 1 50 bpm. FINAL IMPRESSION Successful implantation of single coil single-chamber AICD, axillary venography and DFT testing COMPLICATIONS:None] PLAN. Patient will be monitored here for the next 24 hours. Prophylactic antibacterial be continued. If stable patient be discharged home tomorrow. Chest x-ray in a.m.]
[2018-09-12] MEDS: CARVEDILOL 3.125 MG TAB PO SCH (17:14)
[2018-09-12] MEDS: ceFAZolin IN SWFI 2 GM/20 ML SYRINGE IVP SCH ×2 (17:14→22:55)
[2018-09-12] MEDS: HYDROcodone/APAP 5-325MG 1 EACH TAB PO PRN (21:33)
[2018-09-12] MEDS: LACTATED RINGERS 1,000 ML IV SCH (21:34)
[2018-09-13] MEDS: ceFAZolin IN SWFI 2 GM/20 ML SYRINGE IVP SCH ×4 (04:55→22:56)
--- NOTE | 2018-09-13 08:47 | XR ---
EXAMINATION TYPE: XR chest 2V DATE OF EXAM: 09/13/2018 COMPARISON: 04/04/2017 TECHNIQUE: PA and lateral views submitted. HISTORY: Lead placement check FINDINGS: Single lead pacemaker seen the tip of the lead overlying the region of the right ventricle. Hypertrop hic and degenerative change spine. No sizable pneumothorax. Left lower lobe infiltrate noted. Underly ing COPD suspected. No sizable pneumothorax. Ectasia of the thoracic aorta. Heart mildly prominent bu t stable. IMPRESSION: 1. No pneumothorax. There is a left lower lobe infiltrate. Correlate clinically.
[2018-09-13] MEDS: FUROSEMIDE 40 MG TAB PO SCH ×2 (09:53→17:21)
[2018-09-13] MEDS: LISINOPRIL 2.5 MG TAB PO SCH (09:53)
[2018-09-13] MEDS: SPIRONOLACTONE 25 MG TAB PO SCH (09:53)
[2018-09-13] MEDS: CARVEDILOL 3.125 MG TAB PO SCH ×2 (09:53→17:28)
[2018-09-13] MEDS ORDERED: ceFAZolin 2,000 MG in DEXTROSE/WATER 1 50ML.BAG IVPB STA (13:39)
[2018-09-13] MEDS ORDERED: ceFAZolin 1,000 MG in SODIUM CHLORIDE 0.9% IRRIGATIO 250 ML IRRIGATION STA (13:41)
[2018-09-13] MEDS ORDERED: ceFAZolin IN SWFI 2 GM/20 ML SYRINGE IVP STA (13:44)
[2018-09-13] MEDS ORDERED: SODIUM CHLORIDE 0.9% 500 ML 500 ML IV ONE (15:07)
[2018-09-13] MEDS ORDERED: fentaNYL (PF) 50 MCG/ML 2 ML AMP ONE ×2 (15:22→16:15)
[2018-09-13] MEDS: fentaNYL (PF) 50 MCG/ML 2 ML AMP IV ONE ×2 (15:24→15:38)
[2018-09-13] MEDS ORDERED: MIDAZOLAM 2 MG/2 ML VIAL IV ONE (15:25)
[2018-09-13] MEDS ORDERED: LIDOCAINE 1% INJ 10MG/ML (20 ML MDV) SQ ONE ×2 (15:30→15:39)
[2018-09-13] MEDS ORDERED: MIDAZOLAM 2 MG/2 ML VIAL ONE (16:15)
[2018-09-13] MEDS ORDERED: PROPOFOL 10 MG/ML 20 ML VIAL IV ONE (16:15)
[2018-09-13] MEDS ORDERED: diphenhydrAMINE 50 MG/ML 1 ML VIAL ONE (16:15)
--- NOTE | 2018-09-13 17:03 | P.PCN ---
Date of Procedure: 09/13/18 Preoperative Diagnosis: Ventricular lead dislodgment Postoperative Diagnosis: The same Procedure(s) Performed: Replacement of the ventricular lead and DFT testing Description of Procedure: PROCEDURE NOTE: This patient's ventricular lead showed a non-capture and evidence of dislodgment. Patient was brought to the lab in fasting state. He was prepped and draped in the usual fashion. He was given IV Versed 1 mg and fentanyl 50 mg for sedation. The skin over the existing pulse generator was infiltrated with lidocaine. An incision was made along the existing suture line and the pocket was opened. The device was extracted. The leads was disconnected from the device. The lead was unscrewed. Attempts were made to reposition the lead near the apex. There was difficulty and advanced the BERNAL to the apex and findings a good location. After several attempts a satisfactory position was obtained. The R waves are more than 6.5 mV and minimum patient threshold was 0.5 at pulse width of 0.4 ms. The impedance was thousand ohms. The shock impedance was about 75. Subsequently patient was given deep sedation by department of anesthesia. Ventricle fibrillation was induced with T shock. This was appropriately detected and a single shock of 15 J converted patient back to sinus rhythm. The pocket was irrigated with antibiotics. The device and lead were placed in the pocket and pocket was closed in the usual fashion. Patient tolerated the procedure well. He did complain of burning of the eyes and which became red. Patient was given IV Benadryl. The bradycardia and tachycardia programming was restored as before. Patient remained hemodynamically stable and that of the procedure and is being transferred to telemetry unit. #1. Successful repositioning of the ventricular lead #2. DFT testing. Plan: Patient will be to monitor on telemetry unit. Prophylactic antibiotics will be continued. Internal medicine consult was obtained for management of the irritation of the eyes. If Patient is stable and discharged from tomorrow.
[2018-09-13] MEDS: HYDROcodone/APAP 5-325MG 1 EACH TAB PO PRN (17:23)
[2018-09-13] MEDS ORDERED: WARFARIN 5 MG TAB PO SCH (18:00)
[2018-09-13] MEDS: LACTATED RINGERS 1,000 ML IV SCH (20:39)
[2018-09-13] MEDS: SODIUM CHLORIDE 0.9% 1,000 ML IV SCH (20:40)
[2018-09-14] MEDS: ceFAZolin IN SWFI 2 GM/20 ML SYRINGE IVP SCH ×2 (04:59→11:43)
[2018-09-14] MEDS: LACTATED RINGERS 1,000 ML IV SCH (05:00)
[2018-09-14 08:29] VITALS: RESP 18
[2018-09-14] MEDS: SPIRONOLACTONE 25 MG TAB PO SCH (08:55)
[2018-09-14] MEDS: FUROSEMIDE 40 MG TAB PO SCH (08:55)
[2018-09-14] MEDS: CARVEDILOL 3.125 MG TAB PO SCH (08:55)
[2018-09-14] MEDS: LISINOPRIL 2.5 MG TAB PO SCH (08:57)
--- NOTE | 2018-09-14 10:45 | P.DS ---
Providers Date of admission: 09/13/18 21:22 09/12/2018 Attending physician: Gladys Jameson Primary care physician: Prasanth Nava - Discharge Diagnosis(es) (1) Cardiac defibrillator in place Current Visit: Yes Status: Acute (2) Cardiomyopathy Current Visit: No Status: Acute (3) Congestive heart failure Current Visit: No Status: Acute Hospital Course: This 58-year-old gentleman with history of nonischemic cardiomyopathy and congestive heart failure was brought in for elective prophylactic AICD implantation. Pulses was performed on the eighth of this month. However, yesterday, There appeared to be dislodgment of the lead with increased patient thresholds. Patient was brought to the lab yesterday and had repositioning of the lead. Patient remains stable since the procedure. X-ray showed proper lead position, Today. Threshold remained excellent. The pacemaker site appeared to be free of any significant bruising or bleeding. Patient is being discharged home in stable condition. His vital signs have been stable. Patient will resume his medications including Coumadin. Patient will have INR in about 3 days. Patient is given usual instructions. He was advised to avoid any heavy lifting, pushing or pulling with the left arm. He is also advised to keep the left arm below the shoulder levels. He is advised to follow the office. He patient ANY significant pain, swelling or fever. Follow-up in the office in one week Plan - Discharge Summary Discharge Rx Participant: No New Discharge Prescriptions: New Cephalexin [Keflex] 500 mg PO Q8HR #10 cap Continue Furosemide [Lasix] 40 mg PO BID #60 tablet Lisinopril [Zestril] 2.5 mg PO DAILY #30 tab Spironolactone [Aldactone] 25 mg PO DAILY #30 tablet Warfarin [Coumadin] 5 mg PO DAILY Carvedilol [Coreg] 6.25 mg PO BID HYDROcodone/APAP 5-325MG [Neversink 5-325] 1 tab PO Q6HR PRN PRN Reason: Pain Discharge Medication List Furosemide [Lasix] 40 mg PO BID #60 tablet 04/08/17 [Rx] Lisinopril [Zestril] 2.5 mg PO DAILY #30 tab 04/08/17 [Rx] Spironolactone [Aldactone] 25 mg PO DAILY #30 tablet 04/08/17 [Rx] Carvedilol [Coreg] 6.25 mg PO BID 07/19/18 [History] Warfarin [Coumadin] 5 mg PO DAILY 07/19/18 [History] HYDROcodone/APAP 5-325MG [Neversink 5-325] 1 tab PO Q6HR PRN 09/07/18 [History] Cephalexin [Keflex] 500 mg PO Q8HR #10 cap 09/14/18 [Rx] Follow up Appointment(s)/Referral(s): Gladys Jameson MD [STAFF PHYSICIAN] - 1 Week Activity/Diet/Wound Care/Special Instructions: [facility] on September 20, 2018 @ 8:30
--- NOTE | 2018-09-14 11:01 | XR ---
EXAMINATION TYPE: XR chest 2V DATE OF EXAM: 09/14/2018 COMPARISON: Prior chest x-ray 09/13/2018 HISTORY: Lead placement check TECHNIQUE: Frontal and lateral views of the chest are obtained. FINDINGS: Generator has been re-oriented in the left pectoral region. There is a lead present which is likely within the right ventricle accounting for patient rotation. No pneumothorax or pleural effu marv. Cardiac mediastinal silhouette, pulmonary vascularity and berna are not significantly changed ac counting for differences in technique. Improved aeration at the left lung base. IMPRESSION: No evident complication status post revision.
[2018-09-14 11:53] VITALS: BP 109/74; PULSE 81; TEMP 97.8
== END 2018-09-14 13:54 | disposition home or self-care (01) ==
LOC: CATHEP 07:28 → 1SOBS 11:25 → CATHEP 09-13 21:41
PROVIDERS: ADMIT Internal Medicine Cardiovascular Disease; ATTEND Internal Medicine Cardiovascular Disease
DX: I42.0 Dilated cardiomyopathy (principal); Z00.6 Encounter for examination for normal comparison and control in clinical research program; I50.22 Chronic systolic (congestive) heart failure; J44.9 Chronic obstructive pulmonary disease, unspecified; M06.9 Rheumatoid arthritis, unspecified; I73.9 Peripheral vascular disease, unspecified; I49.9 Cardiac arrhythmia, unspecified; Z88.6 Allergy status to analgesic agent; Z79.01 Long term (current) use of anticoagulants; Z79.899 Other long term (current) drug therapy; Z86.711 Personal history of pulmonary embolism
CPT/HCPCS: 93641 ×2; 33249; 33215; 85610; 71046 ×2; G0378 ×2; C1895; C1722; J2250 ×2; J1200; J0690 ×5; J2001 ×2; J3010 ×2; J2704 ×2; Q9967; 99285

== ENCOUNTER 2021-11-07 16:44 | Inpatient (IN) | payer MEDICARE ==
[2021-11-07] MEDS ORDERED: IPRATROPIUM 0.5 MG/2.5 ML NEBU INHALATION STA (16:59)
[2021-11-07] MEDS ORDERED: methylPREDNISolone SOD SUCCI 125 MG/2 ML VIAL IV STA (16:59)
[2021-11-07] MEDS ORDERED: ALBUTEROL NEBULIZED 2.5 MG/3 ML INHALATION STA (16:59)
--- NOTE | 2021-11-07 17:13 | ED ---
General Adult HPI - General Chief complaint: Neuro Symptoms/Deficit Stated complaint: Speech issues/weakness Time Seen by Provider: 11/07/21 16:55 Source: patient, RN notes reviewed, old records reviewed Mode of arrival: wheelchair Limitations: no limitations - History of Present Illness Initial comments: 61-year-old male presenting for evaluation of dyspnea, and slurred speech. His symptoms have been present for at least 2 days, mainly 3 days. He has no reported limb numbness or weakness. No headache. He has a history of COPD and is having increased dyspnea as well. No central chest pain. He reports lower extremity edema. No vomiting. No fever. - Related Data Home Medications Medication Instructions Recorded Confirmed Warfarin [Coumadin] 5 mg PO DIRECTED 07/19/18 11/07/21 Atorvastatin [Lipitor] 10 mg PO DAILY 11/07/21 11/07/21 Carvedilol [Coreg] 25 mg PO BID 11/07/21 11/07/21 Furosemide [Lasix] 40 mg PO BID@0900,1400 11/07/21 11/07/21 Sildenafil Citrate 100 mg PO DAILY PRN 11/07/21 11/07/21 lisinopriL [Zestril] 5 mg PO HS 11/07/21 11/07/21 Previous Rx's Medication Instructions Recorded Spironolactone [Aldactone] 25 mg PO DAILY #30 tablet 04/08/17 Allergies Allergy/AdvReac Type Severity Reaction Status Date / Time ibuprofen Allergy Rash/Hives Verified 11/07/21 17:57 Review of Systems ROS Statement: Those systems with pertinent positive or pertinent negative responses have been documented in the HPI. ROS Other: All systems not noted in ROS Statement are negative. Past Medical History Past Medical History: COPD, Rheumatoid Arthritis (RA), Vascular Disorder Additional Past Medical History / Comment(s): pad, see Dr Jameson H & P, SOB w/exertion History of Any Multi-Drug Resistant Organisms: None Reported Past Surgical History: Heart Catheterization Additional Past Surgical History / Comment(s): varicose veins sx 1991 Past Anesthesia/Blood Transfusion Reactions: No Reported Reaction Past Psychological History: No Psychological Hx Reported Smoking Status: Never smoker Past Alcohol Use History: Occasional Past Drug Use History: None Reported - Past Family History Mother Family Medical History: Cancer Additional Family Medical History / Comment(s): bone cancer Father History Unknown: Yes Additional Family Medical History / Comment(s): never knew his dad General Exam Limitations: no limitations General appearance: alert, in distress Head exam: Present: atraumatic, normocephalic Eye exam: Present: normal appearance, PERRL ENT exam: Present: mucous membranes dry Neck exam: Present: normal inspection. Absent: tenderness, meningismus Respiratory exam: Present: respiratory distress, decreased breath sounds, prolonged expiratory Cardiovascular Exam: Present: regular rate, normal rhythm GI/Abdominal exam: Present: soft. Absent: distended, tenderness, guarding Extremities exam: Present: pedal edema Neurological exam: Present: alert, oriented X3, motor sensory deficit (Dysarthria, NIH of 1.) Psychiatric exam: Present: anxious Skin exam: Present: warm, intact, cyanosis Course Vital Signs 11/07/21 11/07/21 11/07/21 16:51 16:59 17:07 Temperature 98.9 F Pulse Rate 65 84 86 Respiratory 24 18 18 Rate Blood Pressure 124/80 O2 Sat by Pulse 83 L 96 Oximetry 11/07/21 11/07/21 11/07/21 17:28 17:50 18:00 Temperature Pulse Rate 86 89 100 Respiratory 18 Rate Blood Pressure 128/91 O2 Sat by Pulse 98 Oximetry 11/07/21 19:00 Temperature Pulse Rate 93 Respiratory 18 Rate Blood Pressure 125/74 O2 Sat by Pulse 95 Oximetry EKG Findings - EKG Comments: EKG Findings:: EKG: Sinus rhythm rate of 92, AK interval 181, QRS duration 102, QTC 411, no ST segment elevation. Medical Decision Making - Medical Decision Making 61-year-old male presenting with greater than 2 days of dysarthria and dyspnea. History of COPD. Patient is on Coumadin with history of atrial fibrillation. Workup is initiated. Head CT negative for intracranial hemorrhage or mass effect. Chest x-ray negative for acute cardiopulmonary disease but does show possible diaphragmatic paralysis and atelectasis. He has a normal CBC. He has an elevated CO2 consistent with chronic COPD. I did perform CT angiography is as patient has history of DVT and PE. This is negative for PE. I discussed case with Dr. Nava who will admit. Patient will be treated for COPD exacerbation with IV steroids and nebulizer been on Atrovent. He will be evaluated for the possibility of acute CVA. Neurology placed on consult. - Lab Data Result diagrams: 11/07/21 17:05 11/07/21 17:05 Lab Results 11/07/21 11/07/21 11/07/21 Range/Units 17: 17: 17:05 WBC 7.8 (3.8-10.6) k/uL RBC 5.09 (4.30-5.90) m/uL Hgb 16.9 (13.0-17.5) gm/dL Hct 50.3 (39.0-53.0) % MCV 98.8 (80.0-100.0) fL MCH 33.2 (25.0-35.0) pg MCHC 33.6 (31.0-37.0) g/dL RDW 13.2 (11.5-15.5) % Plt Count 198 (150-450) k/uL MPV 7.4 Neutrophils % 60 % Lymphocytes % 27 % Monocytes % 7 % Eosinophils % 3 % Basophils % 1 % Neutrophils # 4.6 (1.3-7.7) k/uL Lymphocytes # 2.1 (1.0-4.8) k/uL Monocytes # 0.6 (0-1.0) k/uL Eosinophils # 0.2 (0-0.7) k/uL Basophils # 0.1 (0-0.2) k/uL PT 17.2 H (9.0-12.0) sec INR 1.7 H (<1.2) APTT 35.0 H (22.0-30.0) sec VBG pH (7.31-7.41) VBG pCO2 (37-51) mmHg VBG HCO3 (24-28) mmol/L Sodium 138 (137-145) mmol/L Potassium 4.2 (3.5-5.1) mmol/L Chloride 94 L (98-107) mmol/L Carbon Dioxide 39 H (22-30) mmol/L Anion Gap 5 mmol/L BUN 21 H (9-20) mg/dL Creatinine 0.71 (0.66-1.25) mg/dL Est GFR (CKD-EPI)AfAm >90 (>60 ml/min/1.73 sqM) Est GFR (CKD-EPI)NonAf >90 (>60 ml/min/1.73 sqM) Glucose 99 (74-99) mg/dL Plasma Lactic Acid Geoff (0.7-2.0) mmol/L Calcium 9.3 (8.4-10.2) mg/dL Magnesium 2.1 (1.6-2.3) mg/dL Total Bilirubin 0.7 (0.2-1.3) mg/dL AST 68 H (17-59) U/L ALT 36 (4-49) U/L Alkaline Phosphatase 114 (38-126) U/L Troponin I (0.000-0.034) ng/mL NT-Pro-B Natriuret Pep pg/mL Total Protein 7.4 (6.3-8.2) g/dL Albumin 4.2 (3.5-5.0) g/dL Coronavirus (PCR) (Not Detectd) Influenza Type A RNA (Not Detectd) Influenza Type B (PCR) (Not Detectd) 11/07/21 11/07/21 11/07/21 Range/Units 17:05 17:05 17:05 WBC (3.8-10.6) k/uL RBC (4.30-5.90) m/uL Hgb (13.0-17.5) gm/dL Hct (39.0-53.0) % MCV (80.0-100.0) fL MCH (25.0-35.0) pg MCHC (31.0-37.0) g/dL RDW (11.5-15.5) % Plt Count (150-450) k/uL MPV Neutrophils % % Lymphocytes % % Monocytes % % Eosinophils % % Basophils % % Neutrophils # (1.3-7.7) k/uL Lymphocytes # (1.0-4.8) k/uL Monocytes # (0-1.0) k/uL Eosinophils # (0-0.7) k/uL Basophils # (0-0.2) k/uL PT (9.0-12.0) sec INR (<1.2) APTT (22.0-30.0) sec VBG pH (7.31-7.41) VBG pCO2 (37-51) mmHg VBG HCO3 (24-28) mmol/L Sodium (137-145) mmol/L Potassium (3.5-5.1) mmol/L Chloride (98-107) mmol/L Carbon Dioxide (22-30) mmol/L Anion Gap mmol/L BUN (9-20) mg/dL Creatinine (0.66-1.25) mg/dL Est GFR (CKD-EPI)AfAm (>60 ml/min/1.73 sqM) Est GFR (CKD-EPI)NonAf (>60 ml/min/1.73 sqM) Glucose (74-99) mg/dL Plasma Lactic Acid Geoff 1.3 (0.7-2.0) mmol/L Calcium (8.4-10.2) mg/dL Magnesium (1.6-2.3) mg/dL Total Bilirubin (0.2-1.3) mg/dL AST (17-59) U/L ALT (4-49) U/L Alkaline Phosphatase (38-126) U/L Troponin I <0.012 (0.000-0.034) ng/mL NT-Pro-B Natriuret Pep 93 pg/mL Total Protein (6.3-8.2) g/dL Albumin (3.5-5.0) g/dL Coronavirus (PCR) (Not Detectd) Influenza Type A RNA (Not Detectd) Influenza Type B (PCR) (Not Detectd) 11/07/21 11/07/21 11/07/21 Range/Units 17:05 17:05 17:10 WBC (3.8-10.6) k/uL RBC (4.30-5.90) m/uL Hgb (13.0-17.5) gm/dL Hct (39.0-53.0) % MCV (80.0-100.0) fL MCH (25.0-35.0) pg MCHC (31.0-37.0) g/dL RDW (11.5-15.5) % Plt Count (150-450) k/uL MPV Neutrophils % % Lymphocytes % % Monocytes % % Eosinophils % % Basophils % % Neutrophils # (1.3-7.7) k/uL Lymphocytes # (1.0-4.8) k/uL Monocytes # (0-1.0) k/uL Eosinophils # (0-0.7) k/uL Basophils # (0-0.2) k/uL PT (9.0-12.0) sec INR (<1.2) APTT (22.0-30.0) sec VBG pH 7.35 (7.31-7.41) VBG pCO2 67 H (37-51) mmHg VBG HCO3 36 H (24-28) mmol/L Sodium (137-145) mmol/L Potassium (3.5-5.1) mmol/L Chloride (98-107) mmol/L Carbon Dioxide (22-30) mmol/L Anion Gap mmol/L BUN (9-20) mg/dL Creatinine (0.66-1.25) mg/dL Est GFR (CKD-EPI)AfAm (>60 ml/min/1.73 sqM) Est GFR (CKD-EPI)NonAf (>60 ml/min/1.73 sqM) Glucose (74-99) mg/dL Plasma Lactic Acid Geoff (0.7-2.0) mmol/L Calcium (8.4-10.2) mg/dL Magnesium (1.6-2.3) mg/dL Total Bilirubin (0.2-1.3) mg/dL AST (17-59) U/L ALT (4-49) U/L Alkaline Phosphatase (38-126) U/L Troponin I (0.000-0.034) ng/mL NT-Pro-B Natriuret Pep pg/mL Total Protein (6.3-8.2) g/dL Albumin (3.5-5.0) g/dL Coronavirus (PCR) Not Detected (Not Detectd) Influenza Type A RNA Not Detected (Not Detectd) Influenza Type B (PCR) Not Detected (Not Detectd) Disposition Clinical Impression: Cerebrovascular accident (CVA), COPD (chronic obstructive pulmonary disease) Disposition: ADMITTED IP TO THIS HOSP Condition: Stable Is patient prescribed a controlled substance at d/c from ED?: No Referrals: Prasanth Nava Jr, [Primary Care Provider] - 1-2 days Decision to Admit Reason: Admit from EC Decision Date: 11/07/21 Decision Time: 19:29
[2021-11-07 17:20] LABS: VBG PH 7.35 (7.31-7.41)
[2021-11-07 17:20] LABS: Basophils # (A) 0.1 k/uL (0-0.2); Basophils % (A) 1 %; Eosinophils # (A) 0.2 k/uL (0-0.7); Eosinophils % (A) 3 %; HCT 50.3 % (39.0-53.0); HGB 16.9 gm/dL (13.0-17.5); Lymphocytes # (A) 2.1 k/uL (1.0-4.8); Lymphocytes % (A) 27 %; MCH 33.2 pg (25.0-35.0); MCHC 33.6 g/dL (31.0-37.0); MCV 98.8 fL (80.0-100.0); Mean Platelet Volume 7.4; Monocytes # (A) 0.6 k/uL (0-1.0); Monocytes % (A) 7 %; Neutrophils # (A) 4.6 k/uL (1.3-7.7); Neutrophils % (A) 60 %; Platelet Count 198 k/uL (150-450); RBC 5.09 m/uL (4.30-5.90); RDW 13.2 % (11.5-15.5); WBC 7.8 k/uL (3.8-10.6)
[2021-11-07 17:33] LABS: INR 1.7 (<1.2); Prothrombin Time 17.2 sec (9.0-12.0)
[2021-11-07 17:40] LABS: ALT 36 U/L (4-49); AST 68 U/L (17-59); African American GFR (CKD) >90 (>60 ml/min/1.73 sqM); Albumin 4.2 g/dL (3.5-5.0); Alkaline Phosphatase 114 U/L (38-126); Anion Gap 5 mmol/L; Blood Urea Nitrogen 21 mg/dL (9-20); Calcium 9.3 mg/dL (8.4-10.2); Carbon Dioxide 39 mmol/L (22-30); Chloride 94 mmol/L (98-107); Glucose 99 mg/dL (74-99); Magnesium 2.1 mg/dL (1.6-2.3); Non-African American GFR(CKD) >90 (>60 ml/min/1.73 sqM); Potassium 4.2 mmol/L (3.5-5.1); Sodium 138 mmol/L (137-145); Total Bilirubin 0.7 mg/dL (0.2-1.3); Total Protein 7.4 g/dL (6.3-8.2)
--- NOTE | 2021-11-07 17:54 | CT ---
EXAMINATION TYPE: CT brain wo con DATE OF EXAM: 11/07/2021 COMPARISON: None HISTORY: weakness x [address] DLP: 1125.4 mGycm Automated exposure control for dose reduction was used. Ventricles have normal size. There is no mass effect or midline shift. There is no sign of intracrani al hemorrhage. Calvarium is intact. There is normal aeration of the mastoid sinuses. Skull base is in tact. IMPRESSION: Negative unenhanced head CT scan.
--- NOTE | 2021-11-07 18:03 | XR ---
EXAMINATION TYPE: XR chest 1V portable DATE OF EXAM: 11/07/2021 COMPARISON: 09/14/2018 HISTORY: Weakness TECHNIQUE: Single view FINDINGS: There is significant elevation of the left diaphragm. There is atelectasis left lung base. There is left axillary pacemaker. Right lung is clear. There is no heart failure. IMPRESSION: There is significant atelectasis at the left lung base which is new compared to old exam. This could relate to diaphragm paralysis.
--- NOTE | 2021-11-07 19:06 | CT ---
EXAMINATION TYPE: CT angio chest DATE OF EXAM: 11/07/2021 COMPARISON: 04/04/2017 HISTORY: ISAAC CT DLP: 1125.1 mGycm Automated exposure control for dose reduction was used. CONTRAST: Performed with IV Contrast, patient injected with 100 mL of Isovue 370. There are 3-D postprocess images. Images obtained from the thoracic inlet to the diaphragm. FINDINGS: There is significant elevation of the left diaphragm with left basilar atelectasis. There is no media stinal adenopathy. Thoracic aorta is intact. There is no aneurysm or dissection. There is no hilar ma ss. There is normal contrast opacification of the pulmonary arteries. There are no filling defects. T here is a mild thoracic dextroscoliosis. There is some degenerative spurring in the midthoracic spine . There is mild subsegmental atelectasis right lung base. Thoracic spine is intact. There is no compr ession fracture. Upper abdominal soft tissues are intact. IMPRESSION: No evidence of pulmonary embolism. Significant elevation of left diaphragm with atelectasis left lung base which is new compared to old exam and could relate to diaphragm paralysis. No suspicious pulmonary mass.
[2021-11-07] MEDS ORDERED: IPRATROPIUM-ALBUTEROL 3 ML NEB INHALATION PRN (19:21)
[2021-11-07] MEDS: IPRATROPIUM-ALBUTEROL 3 ML NEB INHALATION SCH (21:14)
--- NOTE | 2021-11-07 21:42 | US ---
EXAMINATION TYPE: US carotid duplex BILAT DATE OF EXAM: 11/07/2021 COMPARISON: NONE CLINICAL HISTORY: Stenosis. CVA, Right paralysis EXAM MEASUREMENTS: RIGHT: Peak Systolic Velocity (PSV) cm/sec ----- Right CCA: 129.7 ----- Right ICA: 98.4 ----- Right ECA: 121.0 ICA/CCA ratio: 0.8 RIGHT: End Diastole cm/sec ----- Right CCA: 31.1 ----- Right ICA: 27.3 ----- Right ECA: 19.2 LEFT: Peak Systolic Velocity (PSV) cm/sec ----- Left CCA: 141.9 ----- Left ICA: 111.3 ----- Left ECA: 117.7 ICA/CCA ratio: 0.8 LEFT: End Diastole cm/sec ----- Left CCA: 33.2 ----- Left ICA: 24.1 ----- Left ECA: 12.8 VERTEBRALS (direction of flow): Right Vertebral: Antegrade Left Vertebral: Antegrade Rhythm: Arrhythmia No significant velocity elevations IMPRESSION: There is antegrade flow in the vertebral arteries. The images and measurement suggests less than 20% stenosis in both internal carotid arteries. Criteria for Assigning % of Stenosis / Diameter reduction (Estimation based on the indirect measurements of the internal carotid artery velocities (ICA PSV). 1. Normal (no stenosis)=ICA PSV < 125 cm/s: ratio < 2.0: ICA EDV<40 cm/s. 2. Less than 50% stenosis=ICA PSV < 125 cm/s: ratio < 2.0: ICA EDV<40 cm/s. 3. 50 to 69% stenosis=ICA PSV of 125 to 230 cm/s: ration 2.0 ? 4.0: ICA EDV 40-100 cm/s. 4. Greater than 70% stenosis to near occlusion= ICA PSV > 230 cm/s: ratio > 4.0: ICA EDV > 100 cm/s. 5. Near occlusion= ICA PSV velocities may be low or undetectable: variable ratio and ICA EDV. 6. Total occlusion=unable to detect flow.
[2021-11-07 23:39] LABS: Glucose,Whole Blood 215 mg/dL (75-99)
[2021-11-08] MEDS ORDERED: levETIRAcetam IV 1,000 MG in SALINE 1 100ML.BAG IVPB STA (00:03)
[2021-11-08] MEDS ORDERED: LORazepam 2 MG/ML INJ ONE (00:14)
[2021-11-08] MEDS: LORazepam 2 MG/ML INJ IV PRN ×2 (00:17→03:23)
[2021-11-08] MEDS: methylPREDNISolone SOD SUCCI 125 MG/2 ML VIAL IV SCH ×5 (00:17→23:59)
[2021-11-08 03:35] LABS: ABG Base Excess 12.4 mmol/L; ABG HCO3 39 mmol/L (21-25); ABG PH 7.29 (7.35-7.45); ABG PO2 65 mmHg (83-108); ABG TCO2 42 mmol/L (19-24); Allen Test Performed? Yes
[2021-11-08] MEDS ORDERED: LORazepam 2 MG/ML INJ IV STA (03:37)
[2021-11-08] MEDS ORDERED: propofoL 100 ML IV ONE (03:43)
[2021-11-08 03:45] LABS: Glucose,Whole Blood 176 mg/dL (75-99)
[2021-11-08] MEDS ORDERED: NALOXONE 0.4 MG/ML 1 ML VIAL IV PRN (04:03)
[2021-11-08 04:17] LABS: ABG PCO2 82 mmHg (35-45)
--- NOTE | 2021-11-08 04:18 | P.EN ---
A team called on this patient , who was admitted today for COPD exacerbation and acute/subacute stroke (slurred speech) initial workup in the ED, CTA no acute PE, CT brain no acute pathology , VBG slightly elevated CO2 however, while on the floor, he was having seizure like activity , and tongue biting, neuro recommended loading him with keppra. A team called for worsening mental status upon evalution he is having episode where he seems to be seizing and desating down to mid 80s , and clenching his jaws. then he relaxes and oxygen improves to 92% on 3 L NC, he is not on home oxygen at home. his mental status not improving between these episodes , concerning for status epilepticus , on exam he is not moving much air, diminished breath sounds throughout , ABG repeated showing acute hypercapnic respiratory failure case discussed with ICU to admit for intubation and starting him on midazolam assessment acute metabolic encephalopathy acute hypercapnic respiratory failure status epilepticus subacute stroke intubation continue with keppra bid neuro checks midazolam for sedation ICU supportive care Total amount of critical care time spent was 42 minutes not counting procedures performed.
[2021-11-08 04:20] LABS: Glucose,Whole Blood 161 mg/dL (75-99)
[2021-11-08] MEDS: MIDAZOLAM HCL 50 MG in SODIUM CHLORIDE 0.9% 40 ML IV SCH ×2 (04:29→11:59)
[2021-11-08 04:41] LABS: ABG HCO3 37 mmol/L (21-25); ABG Oxygen Saturation 93.2 % (94-97); ABG PO2 70 mmHg (83-108); ABG TCO2 40 mmol/L (19-24); Allen Test Performed? Yes
[2021-11-08 04:54] LABS: Appearance,Urine Clear (Clear); Bilirubin,Urine Negative (Negative); Blood,Urine Negative (Negative); Color,Urine Yellow; Glucose,Urine (UA) Trace (Negative); Ketones,Urine Negative (Negative); Leukocyte Esterase,Urine Negative (Negative); Nitrite,Urine Negative (Negative); PH, Urine 6.5 (5.0-8.0); Protein,Urine Trace (Negative); Specific Gravity,Urine 1.045 (1.001-1.035); Urobilinogen,Urine <2.0 mg/dL (<2.0)
[2021-11-08] MEDS ORDERED: SODIUM CHLORIDE 0.9% 2,000 ML IV ONE (05:00)
[2021-11-08 05:07] LABS: Basophils % (A) 1 %; Eosinophils % (A) 0 %; HCT 46.2 % (39.0-53.0); Lymphocytes # (A) 0.9 k/uL (1.0-4.8); Lymphocytes % (A) 14 %; MCH 32.5 pg (25.0-35.0); MCHC 32.5 g/dL (31.0-37.0); MCV 99.9 fL (80.0-100.0); Mean Platelet Volume 7.9; Monocytes # (A) 0.1 k/uL (0-1.0); Monocytes % (A) 1 %; Neutrophils # (A) 4.9 k/uL (1.3-7.7); Neutrophils % (A) 83 %; Platelet Count 176 k/uL (150-450); RBC 4.62 m/uL (4.30-5.90); RDW 12.6 % (11.5-15.5); WBC 5.9 k/uL (3.8-10.6)
[2021-11-08 05:12] LABS: ABG PCO2 76 mmHg (35-45)
--- NOTE | 2021-11-08 05:20 | XR ---
EXAMINATION TYPE: XR chest 1V portable DATE OF EXAM: 11/08/2021 COMPARISON: Yesterday HISTORY: Tube placement TECHNIQUE: FINDINGS: The endotracheal tube is 3 cm from the teodoro. There is nasogastric tube with tip probably in the gastric fundus. There is some atelectasis at the lung bases. No obvious heart failure. There i s left axillary pacemaker noted. The bony thorax is intact. IMPRESSION: There is some atelectasis at the lung bases there is improved on the left side and increa sed on the right side compared to exam yesterday. No heart failure seen.
[2021-11-08] MEDS: NOREPINEPHRINE 4 MG in SODIUM CHLORIDE 0.9% 250 ML IV SCH ×2 (05:22→16:17)
[2021-11-08 05:38] LABS: African American GFR (CKD) >90 (>60 ml/min/1.73 sqM); Anion Gap 3 mmol/L; Blood Urea Nitrogen 20 mg/dL (9-20); Calcium 8.3 mg/dL (8.4-10.2); Carbon Dioxide 35 mmol/L (22-30); Chloride 98 mmol/L (98-107); Glucose 164 mg/dL (74-99); Non-African American GFR(CKD) >90 (>60 ml/min/1.73 sqM); Potassium 4.5 mmol/L (3.5-5.1); Sodium 136 mmol/L (137-145)
[2021-11-08] MEDS: INSULIN ASPART (NovoLOG) 100 UNIT/ML VIAL SQ SCH ×4 (05:56→23:59)
[2021-11-08] MEDS: IPRATROPIUM-ALBUTEROL 3 ML NEB INHALATION SCH ×4 (08:19→19:52)
[2021-11-08 08:53] LABS: Chol/HDL Ratio 2.22 Ratio; LDL Cholesterol,Calculated 53.5 mg/dL (0.0-131.0)
[2021-11-08] MEDS: levETIRAcetam IV 500 MG in SODIUM CHLORIDE 0.9% 100 ML IVPB SCH ×2 (08:59→20:08)
[2021-11-08] MEDS ORDERED: levETIRAcetam 500 MG TAB PO SCH (09:00)
[2021-11-08] MEDS ORDERED: LEVOFLOXACIN 500 MG TAB PO SCH (09:00)
[2021-11-08 10:09] LABS: INR 1.5 (<1.2); Prothrombin Time 15.1 sec (9.0-12.0)
[2021-11-08] MEDS: THIAMINE 100 MG/ML 2 ML VIAL IVP SCH (10:44)
[2021-11-08] MEDS: PIPERACILLIN-TAZOBACTAM 3.375 GM in SODIUM CHLORIDE 0.9% 100 ML IVPB SCH ×3 (10:44→23:58)
[2021-11-08] MEDS: CHLORHEXIDINE GLUCONATE 15 ML CUP MUCOUS MEM SCH ×2 (10:44→20:59)
[2021-11-08 10:46] LABS: Amphetamine Screen,Urine Not Detected (NotDetected); Barbiturate Screen,Urine Not Detected (NotDetected); Benzodiazepines Screen,Urine Detected (NotDetected); Cocaine Screen,Urine Not Detected (NotDetected); Methadone Screen, Urine Not Detected (NotDetected); Opiate Screen,Urine Not Detected (NotDetected); Oxycodone Screen, Urine Not Detected (NotDetected); Phencyclidine Screen,Urine Not Detected (NotDetected); Tricyclic Antidepressant,Urine Not Detected (NotDetected); Urn Cannabinoid Scrn Not Detected (NotDetected)
--- NOTE | 2021-11-08 11:03 | P.CNNES ---
History of Present Illness Consult date: 11/08/21 Requesting physician: Maurice Camargo Reason for Consult: CVA History of Present Illness: This is a 61-year-old gentleman with medical history of COPD, peripheral arterial disease, rheumatoid arthritis who presented to the emergency department on 11/07/2021 for dyspnea and slurred speech. History is obtained from medical records as well as the patient nurse. Per the ED note he's been having these symptoms for the last 2-3 days and has been having increased dyspnea. He denies of any numbness or weakness, fever, any lower extremity at edema or chest pain per the ED note. It seems overnight while he was in the hospital, she was oriented 4 then his speech was somewhat unclear at 2100 and the patient then became confused and the was unarousable he was only oriented to self is seems that he urinated on himse lf. They contact me and stated that the patient had tongue bite but there is no seizure-like activity that they witnessed so I recommended Keppra of 1 g loading dose then to start the patient on 500 mg every 12 hours as well as give Ativan 1 mg when necessary for seizure. Then it seems that the patient had another episode of seizure-like activity per the nurse's notes with body jerking and clenched jaw and the D ordered 2 mg Ativan and the patient was transferred to ICU because of respiratory status. Patient was intubated and was transferred to the ICU. Per the nurse he is on IV versed 4mg/hr and IV Propofol 40mcg/kg/min. No further seizure-like activity per ICU nurse. Some other workup in the hospital consisted of: Initial vital signs is a blood pressure of 124/80, heart rate of 65, respiratory of 24, temperature of 98.9 Fahrenheit oral and pulse ox of 83 L at room air. The patient with differential is unremarkable Chemistry panel initial carbon dioxide is 39, chloride is 94, glucose is 99, calcium is 9.3, AST is 68, ALT of 36, calcium is 9.3 Also in the ED the patient had a venous pH of 7.35 while the CO2 was 67 and the bicarbonate was 36. Patient had ABG on 11/08/2021 around 3:30 and the CO2 was 82, pH is 7.29 bicarbonate is 39. Urinalysis negative for urinary tract infection Influenza Aand B as well as the olivas virus PCR is not detected. CT of the head is reported as negative on has had computed tomography scan. I personally reviewed the CT of the head and there is no acute or subacute ischemia Carotid duplex was reported as there is antegrade flow in the vertebral arteries. Images and measurements suggest less than 20% stenosis in both internal carotid arteries. Review of Systems Review of system is limited but the parent positive and negative as per HPI. Past Medical History Past Medical History: COPD, Rheumatoid Arthritis (RA), Vascular Disorder Additional Past Medical History / Comment(s): pad, see Dr Jameson H & P, SOB w/exertion History of Any Multi-Drug Resistant Organisms: None Reported Past Surgical History: Heart Catheterization Additional Past Surgical History / Comment(s): varicose veins sx 1991 Past Anesthesia/Blood Transfusion Reactions: No Reported Reaction Past Psychological History: No Psychological Hx Reported Additional Psychological History / Comment(s): pt is independant. lives withhis sig other of 35 years( vicky barajas) and 1 pet dog. no home care services recieved. no medical equipment at home. no service in back ground. used to work construction. currently on disabilty. Smoking Status: Never smoker Past Alcohol Use History: Occasional Past Drug Use History: None Reported - Past Family History Mother Family Medical History: Cancer Additional Family Medical History / Comment(s): bone cancer Father History Unknown: Yes Additional Family Medical History / Comment(s): never knew his dad Medications and Allergies Home Medications Medication Instructions Recorded Confirmed Type Spironolactone [Aldactone] 25 mg PO DAILY #30 tablet 04/08/17 11/07/21 Rx Warfarin [Coumadin] 5 mg PO DIRECTED 07/19/18 11/07/21 History Atorvastatin [Lipitor] 10 mg PO DAILY 11/07/21 11/07/21 History Carvedilol [Coreg] 25 mg PO BID 11/07/21 11/07/21 History Furosemide [Lasix] 40 mg PO BID@0900,1400 11/07/21 11/07/21 History Sildenafil Citrate 100 mg PO DAILY PRN 11/07/21 11/07/21 History lisinopriL [Zestril] 5 mg PO HS 11/07/21 11/07/21 History Allergies Allergy/AdvReac Type Severity Reaction Status Date / Time ibuprofen Allergy Rash/Hives Verified 11/07/21 17:57 Physical Examination - Vital Signs Vital Signs: Vital Signs Temp Pulse Pulse Resp BP BP Pulse Ox 11/08/21 08:50 67 11/08/21 08:29 66 11/08/21 08:00 98.0 F 67 18 117/75 94 L 11/08/21 07:45 71 0 L 112/75 92 L 11/08/21 07:30 65 18 105/70 92 L 11/08/21 07:15 66 18 104/70 92 L 11/08/21 07:00 67 18 104/67 91 L 11/08/21 06:50 72 18 118/78 91 L 11/08/21 06:40 89 18 109/77 92 L 11/08/21 06:30 86 18 105/76 91 L 11/08/21 06:20 73 18 121/77 90 L 11/08/21 06:10 73 18 124/81 92 L 11/08/21 06:00 96 18 115/80 92 L 11/08/21 05:50 95 18 100/75 92 L 11/08/21 05:40 95 18 85/56 92 L 11/08/21 05:30 94 18 116/76 93 L 11/08/21 05:20 93 18 80/56 94 L 11/08/21 05:10 97 18 74/43 93 L 11/08/21 05:00 98.3 F 98 18 76/43 93 L 11/08/21 04:50 102 H 18 78/52 93 L 11/08/21 04:40 105 H 18 96/66 95 11/08/21 04:30 105 H 18 89/60 94 L 11/08/21 04:20 105 H 18 73/51 94 L 11/08/21 04:10 110 H 32 H 66/44 96 11/08/21 04:00 114 H 30 H 119/87 90 L 11/08/21 03:56 109 H 35 H 11/08/21 00:00 99.3 F 109 H 18 147/83 92 L 11/07/21 21:27 88 11/07/21 21:17 98.8 F 97 19 133/82 92 L 11/07/21 21:14 88 92 L 11/07/21 19:00 93 18 125/74 95 11/07/21 18:00 100 18 128/91 98 11/07/21 17:50 89 11/07/21 17:28 86 11/07/21 17:07 86 18 96 11/07/21 16:59 84 18 11/07/21 16:51 98.9 F 65 24 124/80 83 L Intake and Output 11/07/21 11/08/21 11/08/21 22:59 06:59 14:59 Intake Total 2032.715 112.933 Output Total 350 30 Balance 1682.715 82.933 Intake: IV 1000 100 0.9 NACL 100 Bolus 1000 Intake, IV Titration 1032.715 12.933 Amount Midazolam HCl 50 mg In 0.567 12.933 Sodium Chloride 0.9% 40 ml @ 1 MG/HR 1 mls/hr IV .Q24H [facility] Rx#:[id number] Norepinephrine 4 mg In 2.074 Sodium Chloride 0.9% 250 ml @ 0.05 MCG/KG/MIN 25. 923 mls/hr IV .Q9H48M [facility] Rx#:[id number] Sodium Chloride 0.9% 2, 1000 000 ml @ 999 mls/hr IV . Q2H1M [facility] Rx#:[id number] propofoL 1,000 mg In 30.074 Empty Bag 1 bag @ Titrate IV .Q0M [facility] Rx#: [id number] Output: Urine 350 30 Other: Voiding Method Indwelling Catheter Weight 136.078 kg ABP, PAP, CO, CI - Last 8 Hours Arterial Blood Pressure 111/58 Arterial Blood Pressure 117/62 Arterial Blood Pressure 106/57 Arterial Blood Pressure 99/54 Arterial Blood Pressure 103/56 Arterial Blood Pressure 105/56 Arterial Blood Pressure 126/72 Arterial Blood Pressure 110/63 Arterial Blood Pressure 107/57 Arterial Blood Pressure 115/56 Arterial Blood Pressure 120/64 Arterial Blood Pressure 125/65 Arterial Blood Pressure 94/50 Arterial Blood Pressure 107/54 Arterial Blood Pressure 134/69 Arterial Blood Pressure 71/40 Arterial Blood Pressure 80/40 Arterial Blood Pressure 79/53 GENERAL: The patient is lying in bed and is not in acute distress. CHEST: The heart rate is regular rate rhythm. No murmurs to auscultation. No carotid bruit bilaterally. LUNG: Clear to auscultation bilaterally no wheezing noted throughout. Not labored breathing. Intubated on ventilator. ABDOMEN/GI: Bowel sounds present in all 4 quadrants. No tenderness to palpation throughout. NEUROLOGICAL: Limited since inutbated on ventilator and is on IV versed 4mg/hr-->decrease to 1mg/hr in the past 2 hours and IV Propofol 40mcg/kg/min. Higher mental function: The patient is comatose GCS 7 (E1, VT, M5) No verbalizing or following commands. Cranial nerves: The primary gaze is midline upon manually opening his eye. The pupils are round, pinpoint, equal. With suction it increases to 2mm and reactive to light. No facial weakness. +ve gag reflex and is breathing over vent. Motor: The strength is unable to assess but to painful stimuli is withdrawing. Normal tone and bulk. Cerebellum: Could not assess. Sensation: Could not assess light touch. But withdraws to painful stimuli throughout. Reflexes (right/left):1+ throughout. Plantars are downgoing bilaterally. Results - Laboratory Findings CBC and BMP: 11/08/21 04:30 11/08/21 04:30 Abnormal Lab Findings: Abnormal Labs 11/07/21 11/07/21 11/07/21 17:05 17:05 17:10 Lymphocytes # PT 17.2 H INR 1.7 H APTT 35.0 H ABG pH ABG pCO2 ABG pO2 ABG HCO3 ABG Total CO2 ABG O2 Saturation VBG pCO2 67 H VBG HCO3 36 H Sodium Chloride 94 L Carbon Dioxide 39 H BUN 21 H Glucose POC Glucose (mg/dL) Calcium AST 68 H Ur Specific [place] Urine Protein Urine Glucose (UA) 11/07/21 11/08/21 11/08/21 23:33 03:24 03:30 Lymphocytes # PT INR APTT ABG pH 7.29 L ABG pCO2 82 H* ABG pO2 65 L ABG HCO3 39 H ABG Total CO2 42 H ABG O2 Saturation 91.0 L VBG pCO2 VBG HCO3 Sodium Chloride Carbon Dioxide BUN Glucose POC Glucose (mg/dL) 215 H 176 H Calcium AST Ur Specific [place] Urine Protein Urine Glucose (UA) 11/08/21 11/08/21 11/08/21 04:18 04:30 04:30 Lymphocytes # 0.9 L PT INR APTT ABG pH ABG pCO2 ABG pO2 ABG HCO3 ABG Total CO2 ABG O2 Saturation VBG pCO2 VBG HCO3 Sodium 136 L Chloride Carbon Dioxide 35 H BUN Glucose 164 H POC Glucose (mg/dL) 161 H Calcium 8.3 L AST Ur Specific [place] Urine Protein Urine Glucose (UA) 11/08/21 11/08/21 04:38 04:40 Lymphocytes # PT INR APTT ABG pH 7.30 L ABG pCO2 76 H* ABG pO2 70 L ABG HCO3 37 H ABG Total CO2 40 H ABG O2 Saturation 93.2 L VBG pCO2 VBG HCO3 Sodium Chloride Carbon Dioxide BUN Glucose POC Glucose (mg/dL) Calcium AST Ur Specific [place] 1.045 H Urine Protein Trace H Urine Glucose (UA) Trace H Assessment and Plan Assessment: Dysarthria on presentation then possible seizure-like activity (tongue bite and urinary incontinence) seems due to hypoxia/hypercapnic from COPD exacerbation. Cannot rule out seizure due to epileptic in nature or actual stroke at this time. New onset possible seizure-like activity. Hypoxic-hypercapnic encephalopathy as well as a component altered mental status due to medication effect (IV Propofol and Versed) Acute COPD exacerbation Plan: I ordered an urgent EEG. In the meantime the patient is on Keppra 500 mg IV every 12 hours and if the EEG does not show any seizure-like activity will discontinue the medication. Ordered MRI of the brain and that will happen once the patient is extubated to assess if the patient truly has any stroke or any lesion. On Ativan 1 mg every 4 hours as needed for seizure I placed the patient on thiamine 100 mg IV daily. I ordered urine drug screen and alcohol level 2-D echo is ordered and is pending Continue neuro checks PT, OT and [employer] is consulted I'll not start the patient on antiplatelet until it confirmed that the patient has a stroke on the MRI. We'll defer the rest of the medical management to the primary as well as ICU tea m Plan discussed with the patient ICU nurse. Thank you for the consultation Dr. Zambrano will start neurology coverage tomorrow AM. Goldy Ritchie M.D. Neuro-hospitalist Time with Patient: Greater than 30
[2021-11-08 11:49] LABS: Glucose,Whole Blood 159 mg/dL (75-99)
--- NOTE | 2021-11-08 12:19 | P.CNPUL ---
History of Present Illness Consult date: 11/08/21 Reason for consult: dyspnea History of present illness: 61-year-old male patient, morbidly obese, with known history of chronic hypoxic and possibly hypercapnic respiratory failure and obvious elevation of the left hemidiaphragm on chest x-rays, came in yesterday to the emergency department with slurred speech and shortness of breath. I was unable to interview the patient as the patient's current intubated on a mechanical ventilator. I'll obtain the records from the chart. Apparently, the patient has been having symptoms for the past few days mainly slurred speech, lethargy and increased shortness of breath. No reported history of chest pain. No focal neurological deficit. No reported fever or chills. No reported worsening in lower extremity edema. The patient was admitted to the hospital under the diagnosis of COPD exacerbation. He was started on bronchodilators and steroids. At around 2100 yesterday, the patient had jerky body movements that were highly suspicious for seizures. The patient bit his tongue during the process. Apparently prior to that, he was becoming much more clear mentally and acutely became confused. He also urinated on himself. There was a concern for seizure activity and the patient was given Ativan and following that the patient was given. Following the 4 mg Ativan dose, the patient became quite lethargic and obtunded. He got transferred to the intensive care unit where he was intubated and placed on a mechanical ventilator. This morning, he is sedated with a combination of prop ofol which is running at 40 mg/kg per minute. He is also on Versed there was a 4 mg an hour and this was reduced on 4 mg an hour this morning. He remains on IV Keppra. No further seizure activities have been noted. The patient is currently on a mechanical ventilator within assist-control mode at the rate of 18, tidal volume of 450, FiO2 of 60% with a PEEP of 5. Note that his initial blood gas showed a pH of 7.29 with a pCO2 of 82 and pO2 of 65. Subsequent blood gases from this morning on the above-mentioned ventilator setting shows a pH of 7.3 with a pCO2 of 76 and pO2 of 70. His blood pressure was rather soft and he was started also norepinephrine infusion currently running at 0.05 mcg/kg per minute. He has cardiomegaly on his chest x-ray. ET tube is in a good location. There is a component of interstitial edema and chronic elevation of left hemidiaphragm which was also seen on prior chest x-rays. Patient is known to have nonischemic cardiomyopathy. He has had impaired ejection fraction of less than 20%. He was taken long-term anticoagulation for prior history of DVT and pulmonary embolism. Noted the current CT angiogram showed no evidence of any PE or filling defects. As for the neuro workup, the CAT scan of the brain, CT angios of the brain, and the Doppler of the carotids showed no evidence of any acute abnormalities. On his chest x-ray, he has an AICD in place. He is afebrile. No neck stiffness. No hemodynamic instability at this point with exception of some mild hypotension that was encountered active bleeding sedated with the above-mentioned medication. On a mechanical ventilator, the patient shows no signs of any bronchospasm wheezing. Peak airway pressures around 23 cm of water. 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 lives withhis sig other of 35 years( vicky barajas) and 1 pet dog. no home care services recieved. no medical equipment at home. no service in back ground. used to work construction. currently on disabilty. Smoking Status: Never smoker Past Alcohol Use History: Occasional Past Drug Use History: None Reported - Past Family History Mother Family Medical History: AICD/Pacemaker, Cancer Additional Family Medical History / Comment(s): bone cancer Father History Unknown: Yes Additional Family Medical History / Comment(s): never knew his dad Medications and Allergies Home Medications Medication Instructions Recorded Confirmed Type Spironolactone [Aldactone] 25 mg PO DAILY #30 tablet 04/08/17 11/07/21 Rx Warfarin [Coumadin] 5 mg PO DIRECTED 07/19/18 11/07/21 History Atorvastatin [Lipitor] 10 mg PO DAILY 11/07/21 11/07/21 History Carvedilol [Coreg] 25 mg PO BID 11/07/21 11/07/21 History Furosemide [Lasix] 40 mg PO BID@0900,1400 11/07/21 11/07/21 History Sildenafil Citrate 100 mg PO DAILY PRN 11/07/21 11/07/21 History lisinopriL [Zestril] 5 mg PO HS 11/07/21 11/07/21 History Allergies Allergy/AdvReac Type Severity Reaction Status Date / Time ibuprofen Allergy Rash/Hives Verified 11/07/21 17:57 Physical Exam Vitals: Vital Signs Temp Pulse Pulse Resp BP BP Pulse Ox 11/08/21 09:00 73 18 112/75 96 11/08/21 08:50 67 11/08/21 08:45 64 18 107/65 95 11/08/21 08:30 65 66 H 101/69 94 L 11/08/21 08:29 66 11/08/21 08:15 65 18 100/67 94 L 11/08/21 08:00 98.0 F 67 18 117/75 94 L 11/08/21 07:45 71 0 L 112/75 92 L 11/08/21 07:30 65 18 105/70 92 L 11/08/21 07:15 66 18 104/70 92 L 11/08/21 07:00 67 18 104/67 91 L 11/08/21 06:50 72 18 118/78 91 L 11/08/21 06:40 89 18 109/77 92 L 11/08/21 06:30 86 18 105/76 91 L 11/08/21 06:20 73 18 121/77 90 L 11/08/21 06:10 73 18 124/81 92 L 11/08/21 06:00 96 18 115/80 92 L 11/08/21 05:50 95 18 100/75 92 L 11/08/21 05:40 95 18 85/56 92 L 11/08/21 05:30 94 18 116/76 93 L 11/08/21 05:20 93 18 80/56 94 L 11/08/21 05:10 97 18 74/43 93 L 11/08/21 05:00 98.3 F 98 18 76/43 93 L 11/08/21 04:50 102 H 18 78/52 93 L 11/08/21 04:40 105 H 18 96/66 95 11/08/21 04:30 105 H 18 89/60 94 L 11/08/21 04:20 105 H 18 73/51 94 L 11/08/21 04:10 110 H 32 H 66/44 96 11/08/21 04:00 114 H 30 H 119/87 90 L 11/08/21 03:56 109 H 35 H 11/08/21 00:00 99.3 F 109 H 18 147/83 92 L 11/07/21 21:27 88 11/07/21 21:17 98.8 F 97 19 133/82 92 L 11/07/21 21:14 88 92 L 11/07/21 19:00 93 18 125/74 95 11/07/21 18:00 100 18 128/91 98 11/07/21 17:50 89 11/07/21 17:28 86 11/07/21 17:07 86 18 96 11/07/21 16:59 84 18 11/07/21 16:51 98.9 F 65 24 124/80 83 L Intake and Output 11/07/21 11/08/21 11/08/21 22:59 06:59 14:59 Intake Total 2032.715 296.763 Output Total 350 330 Balance 1682.715 -33.237 Intake: IV 1000 200 0.9 NACL 200 Bolus 1000 Intake, IV Titration 1032.715 96.763 Amount Midazolam HCl 50 mg In 0.567 14.933 Sodium Chloride 0.9% 40 ml @ 1 MG/HR 1 mls/hr IV .Q24H [facility] Rx#:[id number] Norepinephrine 4 mg In 2.074 81.830 Sodium Chloride 0.9% 250 ml @ 0.05 MCG/KG/MIN 25. 923 mls/hr IV .Q9H48M [facility] Rx#:[id number] Sodium Chloride 0.9% 2, 1000 000 ml @ 999 mls/hr IV . Q2H1M ONE Rx#:[id number] propofoL 1,000 mg In 30.074 Empty Bag 1 bag @ Titrate IV .Q0M TRISTEN Rx#: [id number] Output: Urine 350 330 Other: Voiding Method Indwelling Catheter Weight 136.078 kg ABP, PAP, CO, CI - Last 8 Hours Arterial Blood Pressure 124/56 Arterial Blood Pressure 117/58 Arterial Blood Pressure 111/56 Arterial Blood Pressure 99/52 Arterial Blood Pressure 111/58 Arterial Blood Pressure 117/62 Arterial Blood Pressure 106/57 Arterial Blood Pressure 99/54 Arterial Blood Pressure 103/56 Arterial Blood Pressure 105/56 Arterial Blood Pressure 126/72 Arterial Blood Pressure 110/63 Arterial Blood Pressure 107/57 Arterial Blood Pressure 115/56 Arterial Blood Pressure 120/64 Arterial Blood Pressure 125/65 Arterial Blood Pressure 94/50 Arterial Blood Pressure 107/54 Arterial Blood Pressure 134/69 Arterial Blood Pressure 71/40 Arterial Blood Pressure 80/40 Arterial Blood Pressure 79/53 The patient is currently obese, comfortable with a body mass index of 38.5. The patient is sedated, and comfortable. He is on a combination of Versed and propofol. Head exam was generally normal. There was no scleral icterus or corneal arcus. Mucous membranes were moist. Neck was supple and without jugular venous distension, thyromegaly, or carotid bruits. Carotids were easily palpable bilaterally. There was no adenopathy. The patient has a laceration on his tongue tip due to a bite. The patient also has orogastric and orotracheal tube are both of them are in place. Head exam was generally normal. There was no scleral icterus or corneal arcus. Mucous membranes were moist. Lungs were clear to auscultation and percussion, and with normal diaphragmatic excursion. No wheezes or rales were noted. Cardiac exam revealed the PMI to be normally situated and sized. The rhythm was regular and no extrasystoles were noted during several minutes of auscultation. The first and second heart sounds were normal and physiologic splitting of the second heart sound was noted. There were no murmurs, rubs, clicks, or gallops. The patient is an AICD over the left anterior chest area. Incision site is dry clean and intact. Abdominal exam revealed normal bowel sounds. The abdomen was soft, non-tender, and without masses, organomegaly, or appreciable enlargement of the abdominal aorta. Examination of the extremities revealed easily palpable radial, femoral and pedal pulses. There was no cyanosis, clubbing. Trace edema lower oximetry is bilaterally. Neurologically sedated and calm and comfortable. He was around 2-3 mm in size and sluggishly reactive to light. Withdraws to deep painful stimulation all 4 extremities. No Babinski. No clonus. Results - Laboratory Findings CBC and BMP: 11/08/21 04:30 11/08/21 04:30 ABG ABG pH 7.30 (7.35-7.45) L 11/08/21 04:38 ABG pCO2 76 mmHg (35-45) H* 11/08/21 04:38 ABG pO2 70 mmHg (83-108) L 11/08/21 04:38 ABG O2 Saturation 93.2 % (94-97) L 11/08/21 04:38 PT/INR, D-dimer PT 17.2 sec (9.0-12.0) H 11/07/21 17:05 INR 1.7 (<1.2) H 11/07/21 17:05 Abnormal lab findings: Abnormal Labs 11/07/21 11/07/21 11/07/21 17:05 17:05 17:10 Lymphocytes # PT 17.2 H INR 1.7 H APTT 35.0 H ABG pH ABG pCO2 ABG pO2 ABG HCO3 ABG Total CO2 ABG O2 Saturation VBG pCO2 67 H VBG HCO3 36 H Sodium Chloride 94 L Carbon Dioxide 39 H BUN 21 H Glucose POC Glucose (mg/dL) Calcium AST 68 H Ur Specific [place] Urine Protein Urine Glucose (UA) 11/07/21 11/08/21 11/08/21 23:33 03:24 03:30 Lymphocytes # PT INR APTT ABG pH 7.29 L ABG pCO2 82 H* ABG pO2 65 L ABG HCO3 39 H ABG Total CO2 42 H ABG O2 Saturation 91.0 L VBG pCO2 VBG HCO3 Sodium Chloride Carbon Dioxide BUN Glucose POC Glucose (mg/dL) 215 H 176 H Calcium AST Ur Specific [place] Urine Protein Urine Glucose (UA) 11/08/21 11/08/21 11/08/21 04:18 04:30 04:30 Lymphocytes # 0.9 L PT INR APTT ABG pH ABG pCO2 ABG pO2 ABG HCO3 ABG Total CO2 ABG O2 Saturation VBG pCO2 VBG HCO3 Sodium 136 L Chloride Carbon Dioxide 35 H BUN Glucose 164 H POC Glucose (mg/dL) 161 H Calcium 8.3 L AST Ur Specific [place] Urine Protein Urine Glucose (UA) 11/08/21 11/08/21 04:38 04:40 Lymphocytes # PT INR APTT ABG pH 7.30 L ABG pCO2 76 H* ABG pO2 70 L ABG HCO3 37 H ABG Total CO2 40 H ABG O2 Saturation 93.2 L VBG pCO2 VBG HCO3 Sodium Chloride Carbon Dioxide BUN Glucose POC Glucose (mg/dL) Calcium AST Ur Specific [place] 1.045 H Urine Protein Trace H Urine Glucose (UA) Trace H - Diagnostic Findings Chest x-ray: image reviewed Assessment and Plan Plan: 1 altered mentation with a possibility of a seizure as the patient had seizure- like activity associated with a tongue bite and urinary incontinence. Highly likelihood for underlying malignancy. Meanwhile, the patient was having issues with dysarthria prior to his hospital admission. CAT scan of the brain and a CT angiogram came back negative for any CVA. The patient currently sedated with a combination of propofol and Versed. He was given Ativan during his seizure episodes and the patient is also on Keppra. 2 possible new onset seizure activity currently on Keppra 3 acute on chronic hypoxic and hypercapnic respiratory failure. Chest x-ray showing interstitial edema/CHF along with chronic left hemidiaphragmatic el evation or contributing to his respiratory failure in a setting of an acute neurologic event and intake of Ativan. 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 Plan Keep the patient sedated with propofol wean off Versed and discontinue monitor mental status and watch for any seizure activity continue IV Keppra proceed with an EEG Repeat the CAT scan of the brain upon discretion of neurology All of the quadrants for now and monitor the PT/INR Repeat an echocardiogram to evaluate LV function IV fluids to KVO , The patient empirically with IV Zosyn Continue bronchodilators and steroids although I'm not episodes occur breath and the patient is in a typical COPD exacerbation. He has chronic hypoxic and hypercapnic respiratory failure probably related to his obesity, diaphragmatic elevation and possibly a component of obstructive sleep apnea/obesity hypoventilation syndrome Consult neurology Keep the patient nothing by mouth for the next 24 hours and will continue to follow Hold lisinopril and Lasix and Aldactone and Coreg as the patient's blood pressure is soft and this point in time Wean off norepinephrine infusion and discontinue based on the blood pressure response Condition is critical at this point in time.
--- NOTE | 2021-11-08 12:34 | P.HPIM ---
History of Present Illness H&P Date: 11/08/21 Chief Complaint: Mental status change, slurred speech, weakness deficits This is a 61-year-old male well-known to the practice presented to the emergency room for dyspnea slurred speech symptoms apparently have been present for approximately 2 days possibly 3. Denies headache, denies chest pain, does present with increased dyspnea no lower extreme edema no vomiting no fever,poss history of COPD, patient did quit smoking several years ago, past history of paroxysmal atrial fibrillation one episode several years ago also patient has past history of myocardial infarction with cardiomyopathy and bilateral PEs approximately 7 years ago Review of Systems ROS unobtainable: due to endotracheal tube, due to mental status Constitutional: Reports as per HPI Past Medical History Past Medical History: COPD, Rheumatoid Arthritis (RA), Vascular Disorder Additional Past Medical History / Comment(s): pad, see Dr Jameson H & P, SOB w/exertion. Patient has significant history of bilateral pulmonary embolus, myocardial infarction, and paroxysmal A. fib, however the A. fib presented itself only once several years ago and his rate has been well controlled and anticoagulated with Coumadin. Patient has moderate to severe cardiomyopathy his LVEF on the last echo was approximately 34% History of Any Multi-Drug Resistant Organisms: None Reported Past Surgical History: Heart Catheterization Additional Past Surgical History / Comment(s): varicose veins sx 1991 Past Anesthesia/Blood Transfusion Reactions: No Reported Reaction Past Psychological History: No Psychological Hx Reported Additional Psychological History / Comment(s): pt is independant. lives withhis sig other of 35 years( vicky barajas) and 1 pet dog. no home care services recieved. no medical equipment at home. no service in back ground. used to work construction. currently on disabilty. Smoking Status: Never smoker Past Alcohol Use History: Occasional Past Drug Use History: None Reported - Past Family History Mother Family Medical History: Cancer Additional Family Medical History / Comment(s): bone cancer Father History Unknown: Yes Additional Family Medical History / Comment(s): never knew his dad Medications and Allergies Home Medications Medication Instructions Recorded Confirmed Type Spironolactone [Aldactone] 25 mg PO DAILY #30 tablet 04/08/17 11/07/21 Rx Warfarin [Coumadin] 5 mg PO DIRECTED 07/19/18 11/07/21 History Atorvastatin [Lipitor] 10 mg PO DAILY 11/07/21 11/07/21 History Carvedilol [Coreg] 25 mg PO BID 11/07/21 11/07/21 History Furosemide [Lasix] 40 mg PO BID@0900,1400 11/07/21 11/07/21 History Sildenafil Citrate 100 mg PO DAILY PRN 11/07/21 11/07/21 History lisinopriL [Zestril] 5 mg PO HS 11/07/21 11/07/21 History Allergies Allergy/AdvReac Type Severity Reaction Status Date / Time ibuprofen Allergy Rash/Hives Verified 11/07/21 17:57 Physical Exam Osteopathic Statement: *. No significant issues noted on an osteopathic structural exam other than those noted in the History and Physical/Consult. Vitals: Vital Signs Temp Pulse Pulse Resp BP BP Pulse Ox 11/08/21 12:00 98.0 F 68 18 101/65 94 L 11/08/21 11:45 71 111/74 95 11/08/21 11:30 70 108/71 92 L 11/08/21 11:24 68 11/08/21 11:15 65 18 100/60 93 L 11/08/21 11:13 90 11/08/21 11:00 72 21 137/85 95 11/08/21 10:45 74 18 113/65 95 11/08/21 10:30 90 24 94 L 11/08/21 10:15 74 17 105/69 95 11/08/21 10:00 89 18 97/63 94 L 11/08/21 09:45 72 18 90/59 94 L 11/08/21 09:30 74 18 119/75 94 L 11/08/21 09:15 66 18 92/62 95 11/08/21 09:00 73 18 112/75 96 11/08/21 08:50 67 11/08/21 08:45 64 18 107/65 95 11/08/21 08:30 65 101/69 94 L 11/08/21 08:29 66 11/08/21 08:15 65 18 100/67 94 L 11/08/21 08:00 98.0 F 67 18 117/75 95 11/08/21 07:45 71 112/75 92 L 11/08/21 07:30 65 18 105/70 92 L 11/08/21 07:15 66 18 104/70 92 L 11/08/21 07:00 67 18 104/67 91 L 11/08/21 06:50 72 18 118/78 91 L 11/08/21 06:40 89 18 109/77 92 L 11/08/21 06:30 86 18 105/76 91 L 11/08/21 06:20 73 18 121/77 90 L 11/08/21 06:10 73 18 124/81 92 L 11/08/21 06:00 96 18 115/80 92 L 11/08/21 05:50 95 18 100/75 92 L 11/08/21 05:40 95 18 85/56 92 L 11/08/21 05:30 94 18 116/76 93 L 11/08/21 05:20 93 18 80/56 94 L 11/08/21 05:10 97 18 74/43 93 L 11/08/21 05:00 98.3 F 98 18 76/43 93 L 11/08/21 04:50 102 H 18 78/52 93 L 11/08/21 04:40 105 H 18 96/66 95 11/08/21 04:30 105 H 18 89/60 94 L 11/08/21 04:20 105 H 18 73/51 94 L 11/08/21 04:10 110 H 32 H 66/44 96 11/08/21 04:00 114 H 30 H 119/87 90 L 11/08/21 03:56 109 H 35 H 11/08/21 00:00 99.3 F 109 H 18 147/83 92 L 11/07/21 21:27 88 11/07/21 21:17 98.8 F 97 19 133/82 92 L 11/07/21 21:14 88 92 L 11/07/21 19:00 93 18 125/74 95 11/07/21 18:00 100 18 128/91 98 11/07/21 17:50 89 11/07/21 17:28 86 11/07/21 17:07 86 18 96 11/07/21 16:59 84 18 11/07/21 16:51 98.9 F 65 24 124/80 83 L Intake and Output 11/07/21 11/08/21 11/08/21 22:59 06:59 14:59 Intake Total 2032.715 732.840 Output Total 350 630 Balance 1682.715 102.840 Intake: IV 1000 460 0.9 NACL 260 Bolus 1000 Keppra 100 zosyn 100 Intake, IV Titration 1032.715 272.840 Amount Midazolam HCl 50 mg In 0.567 18.616 Sodium Chloride 0.9% 40 ml @ 1 MG/HR 1 mls/hr IV .Q24H [facility] Rx#:[id number] Norepinephrine 4 mg In 2.074 81.830 Sodium Chloride 0.9% 250 ml @ 0.05 MCG/KG/MIN 25. 923 mls/hr IV .Q9H48M [facility] Rx#:[id number] Sodium Chloride 0.9% 2, 1000 000 ml @ 999 mls/hr IV . Q2H1M [facility] Rx#:[id number] propofoL 1,000 mg In 30.074 172.394 Empty Bag 1 bag @ Titrate IV .Q0M [facility] Rx#: [id number] Output: Urine 350 630 Other: Voiding Method Indwelling Catheter Indwelling Catheter Weight 136.078 kg ABP, PAP, CO, CI - Last 8 Hours Arterial Blood Pressure 108/51 Arterial Blood Pressure 124/59 Arterial Blood Pressure 106/53 Arterial Blood Pressure 109/51 Arterial Blood Pressure 138/62 Arterial Blood Pressure 124/60 Arterial Blood Pressure 95/51 Arterial Blood Pressure 96/52 Arterial Blood Pressure 82/42 Arterial Blood Pressure 112/57 Arterial Blood Pressure 123/63 Arterial Blood Pressure 124/56 Arterial Blood Pressure 117/58 Arterial Blood Pressure 111/56 Arterial Blood Pressure 99/52 Arterial Blood Pressure 111/58 Arterial Blood Pressure 117/62 Arterial Blood Pressure 106/57 Arterial Blood Pressure 99/54 Arterial Blood Pressure 103/56 Arterial Blood Pressure 105/56 Arterial Blood Pressure 126/72 Arterial Blood Pressure 110/63 Arterial Blood Pressure 107/57 Arterial Blood Pressure 115/56 Arterial Blood Pressure 120/64 Arterial Blood Pressure 125/65 Arterial Blood Pressure 94/50 Arterial Blood Pressure 107/54 Arterial Blood Pressure 134/69 Arterial Blood Pressure 71/40 Arterial Blood Pressure 80/40 Arterial Blood Pressure 79/53 General: Patient is intubated, mechanically ventilated, sedated, HEENT: [PERRL. EOMI. No pharyngeal erythema or exudate.] Neck: [No adenopathy.] Cardiac: [Heart regular in rate and rhythm. No S3. No S4. No clicks, rubs. No murmur.] Lungs: [Clear to auscultation bilaterally.] Abdomen: [No mass. No organomegaly. Bowel sounds presnt and normoactive in all 4 quadrants.] Extremes: [No edema no cyanosis no claudication normal pulses] : [] Musculoskeletal: [No joint erythema, edema or tenderness.] Skin: [No rash.] Neurologic: [No lateralizing deficits. CN II - XII grossly intact.] Lymphatic: [No adenopathy.] Results CBC & Chem 7: 11/08/21 04:30 11/08/21 04:30 Labs: Abnormal Lab Results - Last 24 Hours (Table) 11/07/21 11/07/21 11/07/21 Range/Units 17:05 17:05 17:10 Lymphocytes # (1.0-4.8) k/uL PT 17.2 H (9.0-12.0) sec INR 1.7 H (<1.2) APTT 35.0 H (22.0-30.0) sec ABG pH (7.35-7.45) ABG pCO2 (35-45) mmHg ABG pO2 (83-108) mmHg ABG HCO3 (21-25) mmol/L ABG Total CO2 (19-24) mmol/L ABG O2 Saturation (94-97) % VBG pCO2 67 H (37-51) mmHg VBG HCO3 36 H (24-28) mmol/L Sodium (137-145) mmol/L Chloride 94 L (98-107) mmol/L Carbon Dioxide 39 H (22-30) mmol/L BUN 21 H (9-20) mg/dL Glucose (74-99) mg/dL POC Glucose (mg/dL) (75-99) mg/dL Calcium (8.4-10.2) mg/dL AST 68 H (17-59) U/L Ur Specific Howard (1.001-1.035) Urine Protein (Negative) Urine Glucose (UA) (Negative) U Benzodiazepines Scrn (NotDetected) 11/07/21 11/08/21 11/08/21 Range/Units 23:33 03:24 03:30 Lymphocytes # (1.0-4.8) k/uL PT (9.0-12.0) sec INR (<1.2) APTT (22.0-30.0) sec ABG pH 7.29 L (7.35-7.45) ABG pCO2 82 H* (35-45) mmHg ABG pO2 65 L (83-108) mmHg ABG HCO3 39 H (21-25) mmol/L ABG Total CO2 42 H (19-24) mmol/L ABG O2 Saturation 91.0 L (94-97) % VBG pCO2 (37-51) mmHg VBG HCO3 (24-28) mmol/L Sodium (137-145) mmol/L Chloride (98-107) mmol/L Carbon Dioxide (22-30) mmol/L BUN (9-20) mg/dL Glucose (74-99) mg/dL POC Glucose (mg/dL) 215 H 176 H (75-99) mg/dL Calcium (8.4-10.2) mg/dL AST (17-59) U/L Ur Specific Howard (1.001-1.035) Urine Protein (Negative) Urine Glucose (UA) (Negative) U Benzodiazepines Scrn (NotDetected) 11/08/21 11/08/21 11/08/21 Range/Units 04:18 04:30 04:30 Lymphocytes # 0.9 L (1.0-4.8) k/uL PT (9.0-12.0) sec INR (<1.2) APTT (22.0-30.0) sec ABG pH (7.35-7.45) ABG pCO2 (35-45) mmHg ABG pO2 (83-108) mmHg ABG HCO3 (21-25) mmol/L ABG Total CO2 (19-24) mmol/L ABG O2 Saturation (94-97) % VBG pCO2 (37-51) mmHg VBG HCO3 (24-28) mmol/L Sodium 136 L (137-145) mmol/L Chloride (98-107) mmol/L Carbon Dioxide 35 H (22-30) mmol/L BUN (9-20) mg/dL Glucose 164 H (74-99) mg/dL POC Glucose (mg/dL) 161 H (75-99) mg/dL Calcium 8.3 L (8.4-10.2) mg/dL AST (17-59) U/L Ur Specific Howard (1.001-1.035) Urine Protein (Negative) Urine Glucose (UA) (Negative) U Benzodiazepines Scrn (NotDetected) 11/08/21 11/08/21 11/08/21 Range/Units 04:38 04:40 09:35 Lymphocytes # (1.0-4.8) k/uL PT 15.1 H (9.0-12.0) sec INR 1.5 H (<1.2) APTT (22.0-30.0) sec ABG pH 7.30 L (7.35-7.45) ABG pCO2 76 H* (35-45) mmHg ABG pO2 70 L (83-108) mmHg ABG HCO3 37 H (21-25) mmol/L ABG Total CO2 40 H (19-24) mmol/L ABG O2 Saturation 93.2 L (94-97) % VBG pCO2 (37-51) mmHg VBG HCO3 (24-28) mmol/L Sodium (137-145) mmol/L Chloride (98-107) mmol/L Carbon Dioxide (22-30) mmol/L BUN (9-20) mg/dL Glucose (74-99) mg/dL POC Glucose (mg/dL) (75-99) mg/dL Calcium (8.4-10.2) mg/dL AST (17-59) U/L Ur Specific Howard 1.045 H (1.001-1.035) Urine Protein Trace H (Negative) Urine Glucose (UA) Trace H (Negative) U Benzodiazepines Scrn (NotDetected) 11/08/21 11/08/21 Range/Units 10:00 11:47 Lymphocytes # (1.0-4.8) k/uL PT (9.0-12.0) sec INR (<1.2) APTT (22.0-30.0) sec ABG pH (7.35-7.45) ABG pCO2 (35-45) mmHg ABG pO2 (83-108) mmHg ABG HCO3 (21-25) mmol/L ABG Total CO2 (19-24) mmol/L ABG O2 Saturation (94-97) % VBG pCO2 (37-51) mmHg VBG HCO3 (24-28) mmol/L Sodium (137-145) mmol/L Chloride (98-107) mmol/L Carbon Dioxide (22-30) mmol/L BUN (9-20) mg/dL Glucose (74-99) mg/dL POC Glucose (mg/dL) 159 H (75-99) mg/dL Calcium (8.4-10.2) mg/dL AST (17-59) U/L Ur Specific Howard (1.001-1.035) Urine Protein (Negative) Urine Glucose (UA) (Negative) U Benzodiazepines Scrn Detected H (NotDetected) Microbiology - Last 24 Hours (Table) 11/08/21 04:55 Sputum Culture - Preliminary Sputum Thrombosis Risk Factor Assmnt - DVT/VTE Prophylaxis DVT/VTE Prophylaxis: Pharmacologic Prophylaxis ordered - Choose All That Apply Each Factor Represents 1 point: Abnormal pulmonary function (COPD), History of: (Pulmonary embolus 2) Each Risk Factor Represents 2 Points: Age 61-74 years Each Risk Factor Represents 3 Points: History of DVT/PE Thrombosis Risk Factor Assessment Total Risk Factor Score: 7 Thrombosis Risk Factor Assessment Level: High Risk Assessment and Plan Assessment: Hypoxia, intubated sedated Hypercapnia, possible CVA Known history of ischemic cardiomyopathy with paroxysmal atrial tachycardia and bilateral pulmonary embolus in the past Chronic anticoagulation with warfarin Past Ef approximately 34% History of VINOD very noncompliant with treatment could not tolerate masks Time with Patient: Greater than 30
[2021-11-08 18:37] LABS: Glucose,Whole Blood 137 mg/dL (75-99)
[2021-11-08 23:52] LABS: Glucose,Whole Blood 143 mg/dL (75-99)
[2021-11-09] MEDS: NOREPINEPHRINE 4 MG in SODIUM CHLORIDE 0.9% 250 ML IV SCH (00:33)
[2021-11-09 03:38] LABS: Basophils % (A) 0 %; Eosinophils % (A) 0 %; HGB 15.6 gm/dL (13.0-17.5); Lymphocytes # (A) 1.2 k/uL (1.0-4.8); Lymphocytes % (A) 11 %; MCH 33.1 pg (25.0-35.0); MCHC 33.2 g/dL (31.0-37.0); MCV 99.8 fL (80.0-100.0); Mean Platelet Volume 7.6; Monocytes # (A) 0.2 k/uL (0-1.0); Monocytes % (A) 2 %; Neutrophils # (A) 9.5 k/uL (1.3-7.7); Neutrophils % (A) 87 %; Platelet Count 227 k/uL (150-450); RBC 4.71 m/uL (4.30-5.90); RDW 12.9 % (11.5-15.5)
[2021-11-09] MEDS: MIDAZOLAM HCL 50 MG in SODIUM CHLORIDE 0.9% 40 ML IV SCH (03:46)
[2021-11-09 03:49] LABS: African American GFR (CKD) >90 (>60 ml/min/1.73 sqM); Anion Gap 0 mmol/L; Blood Urea Nitrogen 16 mg/dL (9-20); Calcium 8.9 mg/dL (8.4-10.2); Carbon Dioxide 35 mmol/L (22-30); Chloride 103 mmol/L (98-107); Glucose 155 mg/dL (74-99); Non-African American GFR(CKD) >90 (>60 ml/min/1.73 sqM); Potassium 4.1 mmol/L (3.5-5.1); Sodium 138 mmol/L (137-145)
[2021-11-09 05:33] LABS: ABG Base Excess 9.1 mmol/L; ABG HCO3 34 mmol/L (21-25); ABG PCO2 51 mmHg (35-45); ABG PH 7.43 (7.35-7.45); ABG PO2 73 mmHg (83-108); ABG TCO2 35 mmol/L (19-24); Allen Test Performed? Yes
[2021-11-09 05:49] LABS: Glucose,Whole Blood 135 mg/dL (75-99)
[2021-11-09] MEDS: methylPREDNISolone SOD SUCCI 125 MG/2 ML VIAL IV SCH ×3 (05:50→17:41)
[2021-11-09] MEDS: INSULIN ASPART (NovoLOG) 100 UNIT/ML VIAL SQ SCH ×3 (05:50→18:06)
[2021-11-09] MEDS: IPRATROPIUM-ALBUTEROL 3 ML NEB INHALATION SCH ×4 (08:20→19:51)
[2021-11-09] MEDS: levETIRAcetam IV 500 MG in SODIUM CHLORIDE 0.9% 100 ML IVPB SCH ×2 (08:22→20:07)
[2021-11-09] MEDS: CHLORHEXIDINE GLUCONATE 15 ML CUP MUCOUS MEM SCH ×2 (08:22→20:20)
[2021-11-09] MEDS: PIPERACILLIN-TAZOBACTAM 3.375 GM in SODIUM CHLORIDE 0.9% 100 ML IVPB SCH ×2 (08:23→15:32)
[2021-11-09] MEDS: THIAMINE 100 MG/ML 2 ML VIAL IVP SCH (08:23)
--- NOTE | 2021-11-09 09:37 | XR ---
EXAMINATION TYPE: XR chest 1V portable DATE OF EXAM: 11/09/2021 COMPARISON: 11/08/2021 HISTORY: Tube placement TECHNIQUE: Single frontal view of the chest is obtained. FINDINGS: ET and NG tube noted. There is a cardiac device. Bilateral infiltrate and small effusion. No pneumothorax. Heart size is normal. Hypertrophic and degenerative change of the spine. IMPRESSION: Stable bilateral infiltrate and small pleural effusion.
--- NOTE | 2021-11-09 09:52 | ECHOF ---
Referral Reason:Thrombus MEASUREMENTS -------- HEIGHT: 182.9 cm WEIGHT: 139.7 kg BP: IVSd: 1.3 cm (0.6 - 1.1) LVIDd: 6.1 cm (3.9 - 5.3) LVPWd: 1.2 cm (0.6 - 1.1) IVSs: 1.3 cm LVIDs: 4.8 cm LVPWs: 1.4 cm MV EXCURSION: 13.601 mm (> 18.000) MV EF SLOPE: 74 mm/s (70 - 150) EPSS: 4.1 cm MV E Juarez: 0.98 m/s MV DecT: 234 ms MV A Juarez: 0.88 m/s MV E/A Ratio: 1.11 RAP: 5.00 mmHg RVSP: 7.51 mmHg FINDINGS -------- This was a technically difficult study with suboptimal views. Pt. on a vent. The left ventricular size is normal. Left ventricular wall thickness is normal. Overall left vent ricular systolic function is mild-moderately impaired with, an EF between 40 - 45 %. The RV was not well visualized. The left atrium was not well visualized. The right atrium was not well visualized. The aortic valve was not well visualized. The mitral valve was not well visualized. The tricuspid valve was not well visualized. The pulmonic valve was not well visualized. There is no pericardial effusion. CONCLUSIONS -------- 1. Pt. on a vent. 2. The left ventricular size is normal. 3. Left ventricular wall thickness is normal. 4. Overall left ventricular systolic function is mild-moderately impaired with, an EF between 40 - 45 %. 5. There is no pericardial effusion. BREAST BUFFER: Codi Abernathy, [facility]
[2021-11-09] MEDS: PANTOPRAZOLE 40 MG/10 ML VIAL IVP SCH (10:03)
[2021-11-09] MEDS: ENOXAPARIN 40 MG/0.4 ML SYRINGE SQ SCH (10:03)
--- NOTE | 2021-11-09 10:29 | P.PN ---
Subjective Progress Note Date: 11/09/21 Principal diagnosis: Respiratory failure. 61-year-old male patient, morbidly obese, with known history of chronic hypoxic and possibly hypercapnic respiratory failure and obvious elevation of the left hemidiaphragm on chest x-rays, came in yesterday to the emergency department w ith slurred speech and shortness of breath. I was unable to interview the patient as the patient's current intubated on a mechanical ventilator. I'll obtain the records from the chart. Apparently, the patient has been having symptoms for the past few days mainly slurred speech, lethargy and increased shortness of breath. No reported history of chest pain. No focal neurological deficit. No reported fever or chills. No reported worsening in lower extremity edema. The patient was admitted to the hospital under the diagnosis of COPD exacerbation. He was started on bronchodilators and steroids. At around 2100 yesterday, the patient had jerky body movements that were highly suspicious for seizures. The patient bit his tongue during the process. Apparently prior to that, he was becoming much more clear mentally and acutely became confused. He also urinated on himself. There was a concern for seizure activity and the patient was given Ativan and following that the patient was given. Following the 4 mg Ativan dose, the patient became quite lethargic and obtunded. He got transferred to the intensive care unit where he was intubated and placed on a mechanical ventilator. This morning, he is sedated with a combination of propofol which is running at 40 mg/kg per minute. He is also on Versed there was a 4 mg an hour and this was reduced on 4 mg an hour this morning. He re madelin on IV Keppra. No further seizure activities have been noted. The patient is currently on a mechanical ventilator within assist-control mode at the rate of 18, tidal volume of 450, FiO2 of 60% with a PEEP of 5. Note that his initial blood gas showed a pH of 7.29 with a pCO2 of 82 and pO2 of 65. Subsequent blood gases from this morning on the above-mentioned ventilator setting shows a pH of 7.3 with a pCO2 of 76 and pO2 of 70. His blood pressure was rather soft and he was started also norepinephrine infusion currently running at 0.05 mcg/kg per minute. He has cardiomegaly on his chest x-ray. ET tube is in a good location. There is a component of interstitial edema and chronic elevation of left hemidiaphragm which was also seen on prior chest x-rays. Patient is known to have nonischemic cardiomyopathy. He has had impaired ejection fraction of less than 20%. He was taken long-term anticoagulation for prior history of DVT and pulmonary embolism. Noted the current CT angiogram showed no evidence of any PE or filling defects. As for the neuro workup, the CAT scan of the brain, CT angios of the brain, and the Doppler of the carotids showed no evidence of any acute abnormalities. On his chest x-ray, he has an AICD in place. He is afebrile. No neck stiffness. No hemodynamic instability at this point with exception of some mild hypotension that was encountered active bleeding sedated with the above-mentioned medication. On a mechanical ventilator, the patient shows no signs of any bronchospasm wheezing. Peak airway pressures around 23 cm of water. Progress note dated 11/09/2021. This is a 61-year-old male who was admitted to the hospital on November 07 with concerns of possible CVA. The patient was actually admitted with a COPD exacerbation, and because of worsening respiratory failure, requiring intubation on November 08. He was seen by my partner yesterday in consultation. The patient came to the intensive care unit on 11/08/2021. He currently remains on the ventilator. Ventilator settings include the volume assist control mode, rate 18, tidal volume 450, FiO2 50%, PEEP of 5. Blood gases show pO2 73, pCO2 51, and pH is 7.43. Patient is currently on saline at 20 mL an hour, propofol at 50 mcg/kg/m, and a Versed drip at 1 mg an hour. Tube feedings have not yet been started. Today, we will attempt a daily interruption of sedation, and possibly a spontaneous breathing trial. If he does poorly, we will start tube feeds. White count 11, hemoglobin hematocrit and platelet count all normal. Sodium 138, potassium 4.1, chlorides 103, CO2 35, BUN 16, creatinine 0.63. Calcium is 8.9. Chest x-ray shows stable bilateral infiltrates, and a small effusion. CT angiogram was negative for pulmonary embolism. Brain CT was negative. Objective - Vital Signs Vital signs: Vital Signs Temp 97.8 F 11/09/21 08:00 Pulse 62 11/09/21 09:00 Resp 18 11/09/21 09:00 BP 91/54 11/09/21 09:00 Pulse Ox 92 L 11/09/21 09:00 Intake & Output 11/08/21 11/09/21 11/09/21 18:59 06:59 18:59 Intake Total 3882.331 7811.943 325.267 Output Total 1210 1005 120 Balance -65.649 183.943 205.267 Weight 140 kg Intake: IV 580 440 220 0.9 NACL 380 240 20 Keppra 100 100 100 zosyn 100 100 100 Intake, IV Titration 564.351 748.943 105.267 Amount Midazolam HCl 50 mg In 18.616 30.701 5.267 Sodium Chloride 0.9% 40 ml @ 1 MG/HR 1 mls/hr IV .Q24H [facility] Rx#:[id number] Norepinephrine 4 mg In 192.782 267.180 Sodium Chloride 0.9% 250 ml @ 0.05 MCG/KG/MIN 25. 923 mls/hr IV .Q9H48M [facility] Rx#:[id number] propofoL 1,000 mg In 352.953 451.062 100 Empty Bag 1 bag @ Titrate IV .Q0M [facility] Rx#: [id number] Output: Urine 1210 1005 120 Other: Voiding Method Indwelling Catheter Indwelling Catheter Indwelling Catheter ABP, PAP, CO, CI - Last Documented Arterial Blood Pressure 105/59 - Exam No acute distress, sedated, with an orally placed endotracheal tube and NG tube. HEENT examination is grossly unremarkable. Neck supple. Full range of motion. No adenopathy thyromegaly or neck vein distention. Cardiovascular examination reveals regular rhythm rate. S1-S2 normal. No S3 or S4. No discernible murmur noted. Heart rate 64 bpm. Heart sounds are distant. Lungs reveal scattered bilateral rhonchi. Breath sounds are equal. Basilar crackles are noted. No wheezes. Breath sounds are equal bilaterally. Abdomen is soft, without bowel sounds. No masses. Extremities reveal some lower extremity edema. Some chronic venous stasis changes are also noted. No cyanosis or clubbing. Skin is without rash or lesion. Neurologic examination cannot be fully evaluated the patient's currently sedated. - Labs CBC & Chem 7: 11/09/21 03:30 11/09/21 03:30 Labs: Abnormal Lab Results - Last 24 Hours (Table) 11/08/21 11/08/21 11/08/21 Range/Units 10:00 11:47 18:36 WBC (3.8-10.6) k/uL Neutrophils # (1.3-7.7) k/uL ABG pCO2 (35-45) mmHg ABG pO2 (83-108) mmHg ABG HCO3 (21-25) mmol/L ABG Total CO2 (19-24) mmol/L Carbon Dioxide (22-30) mmol/L Creatinine (0.66-1.25) mg/dL Glucose (74-99) mg/dL POC Glucose (mg/dL) 159 H 137 H (75-99) mg/dL U Benzodiazepines Scrn Detected H (NotDetected) 11/08/21 11/09/21 11/09/21 Range/Units 23:50 03:30 03:30 WBC 11.0 H (3.8-10.6) k/uL Neutrophils # 9.5 H (1.3-7.7) k/uL ABG pCO2 (35-45) mmHg ABG pO2 (83-108) mmHg ABG HCO3 (21-25) mmol/L ABG Total CO2 (19-24) mmol/L Carbon Dioxide 35 H (22-30) mmol/L Creatinine 0.63 L (0.66-1.25) mg/dL Glucose 155 H (74-99) mg/dL POC Glucose (mg/dL) 143 H (75-99) mg/dL U Benzodiazepines Scrn (NotDetected) 11/09/21 11/09/21 Range/Units 05:30 05:47 WBC (3.8-10.6) k/uL Neutrophils # (1.3-7.7) k/uL ABG pCO2 51 H (35-45) mmHg ABG pO2 73 L (83-108) mmHg ABG HCO3 34 H (21-25) mmol/L ABG Total CO2 35 H (19-24) mmol/L Carbon Dioxide (22-30) mmol/L Creatinine (0.66-1.25) mg/dL Glucose (74-99) mg/dL POC Glucose (mg/dL) 135 H (75-99) mg/dL U Benzodiazepines Scrn (NotDetected) Microbiology - Last 24 Hours (Table) 11/08/21 04:55 Gram Stain - Preliminary Sputum Sputum Culture - Preliminary Assessment and Plan Assessment: 1 Altered mentation with a possibility of a seizure as the patient had seizure- like activity associated with a tongue bite and urinary incontinence. Highly likelihood for underlying malignancy. Meanwhile, the patient was having issues with dysarthria prior to his hospital admission. CAT scan of the brain and a CT came back negative for any CVA. The patient currently sedated with a combination of propofol and Versed. He was given Ativan during his seizure epi sodes and the patient is also on Keppra. The patient was intubated for respiratory failure on November 08. 2 Possible new onset seizure activity currently on Keppra. 3 Acute on chronic hypoxic and hypercapnic respiratory failure. Chest x-ray showing interstitial edema/CHF along with chronic left hemidiaphragmatic elevation or contributing to his respiratory failure in a setting of an acute neurologic event and intake of Ativan. Aspiration is felt to be less likely at this point in time. 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 5 COPD per history although I doubt the diagnosis and the patient has been less than nonsmoker and the patient does not show any signs of bronchospasm wheezing on today's evaluation. 6 Nonischemic cardiomyopathy with impaired left a ejection fraction of less than 20%. 7 History of AICD placement. 8 Borderline hypotension, likely drug-induced. 9 History of rheumatoid arthritis. 9 Peripheral vascular disease. 10 Previous history of DVT or pulmonary embolism and the patient was taken warfarin on outpatient basis, INR was subtherapeutic at 1.7 at time of admission. Plan: Plan dated 11/09/2021. Blood gases are reasonable. Labs and x-rays are reviewed. The patient will be taken off the Versed drip. We will attempt a daily interruption of sedation, and possibly, a spontaneous breathing trial. The patient will also be started on tube feedings if he does poorly with his daily interruption of sedation. Medications, ALLERGIES, and labs are all reviewed. Prognosis is guarded. We will continue to follow make recommendations were appropriate. Time with Patient: Greater than 30
[2021-11-09 11:38] LABS: Glucose,Whole Blood 98 mg/dL (75-99)
--- NOTE | 2021-11-09 12:06 | P.PN ---
Subjective Progress Note Date: 11/09/21 This is a 61-year-old male well-known to the practice presented to the emergency room for dyspnea slurred speech symptoms apparently have been present for approximately 2 days possibly 3. Denies headache, denies chest pain, does present with increased dyspnea no lower extreme edema no vomiting no fever,poss history of COPD, patient did quit smoking several years ago, past history of paroxysmal atrial fibrillation one episode several years ago also patient has past history of myocardial infarction with cardiomyopathy and bilateral PEs approximately 7 years ago 11/09/2021 mechanical ventilator-dependent, FiO2 50%/+5 of PEEP. Chest x-ray reporting stable bilateral infiltrates and small pleural effusion. Maintained on diprovan, Versed drips, Levophed currently off, Zosyn, IV steroids, nebulized bronchodilators. Blood sugars controlled. Sedation holiday pending. Continues on Keppra with no further seizure activity reported. Neuro. workup in progress. Echo pending. Toxicology screen detected benzodiazepines, serum alcohol less than 10. Afebrile, WBC 11. Objective - Vital Signs Vital signs: Vital Signs Temp 97.8 F 11/09/21 08:00 Pulse 64 11/09/21 10:00 Resp 19 11/09/21 10:00 BP 100/63 11/09/21 10:00 Pulse Ox 93 L 11/09/21 10:00 Intake & Output 11/08/21 11/09/21 11/09/21 18:59 06:59 18:59 Intake Total 1853.923 0751.943 349.767 Output Total 1210 1005 180 Balance -65.649 183.943 169.767 Weight 140 kg Intake: IV 580 440 220 0.9 NACL 380 240 20 Keppra 100 100 100 zosyn 100 100 100 Intake, IV Titration 564.351 748.943 129.767 Amount Midazolam HCl 50 mg In 18.616 30.701 5.267 Sodium Chloride 0.9% 40 ml @ 1 MG/HR 1 mls/hr IV .Q24H [facility] Rx#:[id number] Norepinephrine 4 mg In 192.782 267.180 Sodium Chloride 0.9% 250 ml @ 0.05 MCG/KG/MIN 25. 923 mls/hr IV .Q9H48M [facility] Rx#:[id number] propofoL 1,000 mg In 352.953 451.062 124.50 Empty Bag 1 bag @ Titrate IV .Q0M [facility] Rx#: [id number] Output: Urine 1210 1005 180 Other: Voiding Method Indwelling Catheter Indwelling Catheter Indwelling Catheter ABP, PAP, CO, CI - Last Documented Arterial Blood Pressure 149/73 - Exam PHYSICAL EXAM: VITAL SIGNS: [As above] GENERAL: mechanically ventilated,ETT present, sedated HEENT: Conjunctivae normal. eyes normal. NECK: Supple, No JVD. CARDIOVASCULAR: S1, S2 regular. No murmur RESPIRATION: Coarse, Breath sounds diminished in the bases with bibasilar crackles ABDOMEN: Soft, nontender . No guarding. no masses palpable. Bowel sounds present. LEGS: No edema. no swelling NERVOUS SYSTEM: Unable to evaluate at this time, sedated, intubated. Skin: Warm and dry, no rash Microbiology 11/08/21 04:55 Sputum Gram Stain - Preliminary 11/08/21 04:55 Sputum Sputum Culture - Preliminary - Labs CBC & Chem 7: 11/09/21 03:30 11/09/21 03:30 Labs: Abnormal Lab Results - Last 24 Hours (Table) 11/08/21 11/08/21 11/08/21 Range/Units 11:47 18:36 23:50 WBC (3.8-10.6) k/uL Neutrophils # (1.3-7.7) k/uL ABG pCO2 (35-45) mmHg ABG pO2 (83-108) mmHg ABG HCO3 (21-25) mmol/L ABG Total CO2 (19-24) mmol/L Carbon Dioxide (22-30) mmol/L Creatinine (0.66-1.25) mg/dL Glucose (74-99) mg/dL POC Glucose (mg/dL) 159 H 137 H 143 H (75-99) mg/dL 11/09/21 11/09/21 11/09/21 Range/Units 03:30 03:30 05:30 WBC 11.0 H (3.8-10.6) k/uL Neutrophils # 9.5 H (1.3-7.7) k/uL ABG pCO2 51 H (35-45) mmHg ABG pO2 73 L (83-108) mmHg ABG HCO3 34 H (21-25) mmol/L ABG Total CO2 35 H (19-24) mmol/L Carbon Dioxide 35 H (22-30) mmol/L Creatinine 0.63 L (0.66-1.25) mg/dL Glucose 155 H (74-99) mg/dL POC Glucose (mg/dL) (75-99) mg/dL 11/09/21 Range/Units 05:47 WBC (3.8-10.6) k/uL Neutrophils # (1.3-7.7) k/uL ABG pCO2 (35-45) mmHg ABG pO2 (83-108) mmHg ABG HCO3 (21-25) mmol/L ABG Total CO2 (19-24) mmol/L Carbon Dioxide (22-30) mmol/L Creatinine (0.66-1.25) mg/dL Glucose (74-99) mg/dL POC Glucose (mg/dL) 135 H (75-99) mg/dL Microbiology - Last 24 Hours (Table) 11/08/21 04:55 Gram Stain - Preliminary Sputum Sputum Culture - Preliminary Assessment and Plan Assessment: Acute COPD exacerbation Acute hypoxic, hypercapnic respiratory failure secondary to the above, mechanical ventilator-dependent Change in mental status with Dysarthria, present on admission with possible seizure-like activity, tongue bit with urinary incontinence, suspect related to the above, possible new onset seizure activity, maintained on Keppra. Hypotension, pressor dependent Hypoxic, hypercapnic encephalopathy, present on admission Chronic elevated left hemidiaphragm AICD placement related to history of ischemic cardiomyopathy, past EF less than 20% with proximal atrial tachycardia, echo pending History of bilateral pulmonary embolism Chronic anticoagulated with warfarin History of VINOD, noncompliant unable to tolerate mask Peripheral vascular disease Rheumatoid arthritis Plan: Continue current medication regime, monitoring and symptomatic treatment. Echo pending. Maintained on Keppra with Neurology workup in progress. ICU management as per commuter pilot. Scheduled for sedation holiday. Prognosis guarded given multiple complex medical issues. The impression and plan of care has been dictated as directed. : I performed a history and examination of this patient, discussed the same with the dictator. I agree with the dictator's note ,documented as a scribe. Any additional findings or plans will be noted.
[2021-11-09 12:16] LABS: ABG Base Excess 10.2 mmol/L; ABG HCO3 35 mmol/L (21-25); ABG PCO2 58 mmHg (35-45); ABG PH 7.39 (7.35-7.45); ABG PO2 67 mmHg (83-108); ABG TCO2 37 mmol/L (19-24); Allen Test Performed? Yes
[2021-11-09 17:54] LABS: Glucose,Whole Blood 127 mg/dL (75-99)
--- NOTE | 2021-11-09 18:38 | XR ---
EXAMINATION TYPE: XR chest 1V portable DATE OF EXAM: 11/09/2021 6:16 PM COMPARISON:Chest radiographs from 11/09/2021 TECHNIQUE: XR chest 1V portable Frontal view of the chest. CLINICAL INDICATION:Male, 61 years old with history of new ogt for feeding; FINDINGS: Lungs/Pleura: Similar bibasilar opacities. No evidence pneumothorax or pleural effusion. Pulmonary vascularity: Unremarkable. Heart/mediastinum: Cardiomediastinal silhouette is unremarkable. Single-lead cardiac conduction dev ice overlying the left hemithorax with lead projecting over the right ventricle. Musculoskeletal: No acute osseous pathology. Lines/Tubes: Endotracheal tube with distal tip 3.6 cm above the teodoro Nasogastric tube with its distal tip and side-port projecting under the diaphragm. IMPRESSION: 1. Nasogastric tube in appropriate position. 2. Similar bibasilar opacities which may represent atelectasis and/or airspace disease.
--- NOTE | 2021-11-09 21:02 | P.PN ---
Subjective Progress Note Date: 11/09/21 Patient was initially seen by Dr. Goldy Ritchie. Please refer to his note for details. Patient is a 61-year-old male who had questionable seizure-like episode with urine incontinence and tongue bite. He has COPD and wasn't not sure if COPD exacerbation caused ? Seizure-like activity. Patient was started on Keppra 500 mg twice a day. Patient originally came for shortness of breath, slurred speech and lethargy, and stroke has been ruled out. No evidence of PE. Patient developed respiratory distress, for which rapid response team was called and patient was found to have pCO2 of 82. Patient was intubated. Patient is intubated on ventilator and is on IV propofol running at 40 mcg/kg/m. Patient is also on Keppra 500 mg twice a day. No seizure-like activity has been noticed in the last 24 hours. Spoke to patient's nurse, who mentioned that earlier patient was off sedation for 1-1/2 hours, he did squeeze hands slightly, did not do much thumbs up. Blood gases were not favorable for extubation today. Patient was placed back on propofol. Objective - Vital Signs Vital signs: Vital Signs Temp 98.9 F 11/09/21 16:00 Pulse 82 11/09/21 19:51 Resp 20 11/09/21 19:00 BP 95/60 11/09/21 19:00 Pulse Ox 93 L 11/09/21 19:00 Intake & Output 11/09/21 11/09/21 11/10/21 06:59 18:59 06:59 Intake Total 1188.943 709.397 152.28 Output Total 1005 630 60 Balance 183.943 79.397 92.28 Weight 140 kg 140 kg Intake: IV 440 460 20 0.9 NACL 240 160 20 Keppra 100 100 zosyn 100 200 Intake, IV Titration 748.943 249.397 112.28 Amount Midazolam HCl 50 mg In 30.701 5.267 Sodium Chloride 0.9% 40 ml @ 1 MG/HR 1 mls/hr IV .Q24H [facility] Rx#:[id number] Norepinephrine 4 mg In 267.180 Sodium Chloride 0.9% 250 ml @ 0.05 MCG/KG/MIN 25. 923 mls/hr IV .Q9H48M [facility] Rx#:[id number] propofoL 1,000 mg In 451.062 244.13 112.28 Empty Bag 1 bag @ Titrate IV .Q0M [facility] Rx#: [id number] Tube Feeding 20 Output: Urine 1005 630 60 Other: Voiding Method Indwelling Catheter Indwelling Catheter ABP, PAP, CO, CI - Last Documented Arterial Blood Pressure 97/55 - Labs CBC & Chem 7: 11/09/21 03:30 11/09/21 03:30 Labs: Abnormal Lab Results - Last 24 Hours (Table) 11/08/21 11/09/21 11/09/21 Range/Units 23:50 03:30 03:30 WBC 11.0 H (3.8-10.6) k/uL Neutrophils # 9.5 H (1.3-7.7) k/uL ABG pCO2 (35-45) mmHg ABG pO2 (83-108) mmHg ABG HCO3 (21-25) mmol/L ABG Total CO2 (19-24) mmol/L ABG O2 Saturation (94-97) % Carbon Dioxide 35 H (22-30) mmol/L Creatinine 0.63 L (0.66-1.25) mg/dL Glucose 155 H (74-99) mg/dL POC Glucose (mg/dL) 143 H (75-99) mg/dL 11/09/21 11/09/21 11/09/21 Range/Units 05:30 05:47 12:08 WBC (3.8-10.6) k/uL Neutrophils # (1.3-7.7) k/uL ABG pCO2 51 H 58 H (35-45) mmHg ABG pO2 73 L 67 L (83-108) mmHg ABG HCO3 34 H 35 H (21-25) mmol/L ABG Total CO2 35 H 37 H (19-24) mmol/L ABG O2 Saturation 93.0 L (94-97) % Carbon Dioxide (22-30) mmol/L Creatinine (0.66-1.25) mg/dL Glucose (74-99) mg/dL POC Glucose (mg/dL) 135 H (75-99) mg/dL 11/09/21 Range/Units 17:52 WBC (3.8-10.6) k/uL Neutrophils # (1.3-7.7) k/uL ABG pCO2 (35-45) mmHg ABG pO2 (83-108) mmHg ABG HCO3 (21-25) mmol/L ABG Total CO2 (19-24) mmol/L ABG O2 Saturation (94-97) % Carbon Dioxide (22-30) mmol/L Creatinine (0.66-1.25) mg/dL Glucose (74-99) mg/dL POC Glucose (mg/dL) 127 H (75-99) mg/dL Microbiology - Last 24 Hours (Table) 11/08/21 04:55 Gram Stain - Preliminary Sputum Sputum Culture - Preliminary Assessment and Plan Assessment: Dysarthria on presentation then possible seizure-like activity (tongue bite and urinary incontinence) seems due to hypoxia/hypercapnic from COPD exacerbation. Cannot rule out focal seizure or actual stroke at this time. New onset possible seizure-like activity. Hypoxic-hypercapnic encephalopathy as well as a component altered mental status due to medication effect (IV Propofol) Acute COPD exacerbation Plan: Patient has not had anymore seizure activity. Patient is maintained on Keppra 500 mg IV every 12 hours, as per recommendation from Dr. Ritchie. EEG was abnormal drowsy and sleep EEG, as it should background slowing of moderate to severe degree, consistent with encephalopathy of toxic metabolic causes or medications. No epileptiform activity was seen. I would discontinue Keppra once patient is extubated and mentation normal. Ordered MRI of the brain and that will happen once the patient is extubated to assess if the patient truly has any stroke or any lesion. On Ativan 1 mg every 4 hours as needed for seizure Continue thiamine 100 mg IV daily. Urine drug screen positive for benzodiazepine. Blood alcohol level is nondetectable. 2-D echo revealed normal left ventricular size. Left ventricular wall thickness is normal. Overall left-ventricular systolic function is mildly to moderately impaired with an EF between 40-45%. No pericardial effusion. Continue neuro checks PT, OT and PACKAGE SEALER is consulted, when patient is extubated We'll defer the rest of the medical management to the primary as well as ICU team CT of the head is reported as negative on has had computed tomography scan. I could not review computed tomography scan of the head because the radiology system is down. Carotid duplex was reported as there is antegrade flow in the vertebral arteries. Images and measurements suggest less than 20% stenosis in both internal carotid arteries. Continue present management. Neurology will follow.
--- NOTE | 2021-11-09 21:08 | EEG ---
ELECTROENCEPHALOGRAM REPORT DATE OF SERVICE: 11/09/2021 PREAMBLE: This is a 61-year-old male with altered mental status. EEG FINDINGS: This is a 21-channel digital EEG recorded with video component, utilizing 10/20 international system with referential and bipolar montages. Background consists of moderately well developed and regulated, mixed frequencies of low amplitude 2-3 hertz delta, intermixed with some theta and some fast frequency beta activity seen in bihemispheric region. Background does not seem to be reactive to eye opening and closing. Some periods of generalized suppression were noted intermittently. Some intermittent sleep spindles were also seen suggestive of attainment of stage 2 sleep. Photic driving response was seen with some flash frequencies. No focal or generalized epileptiform activity was seen. IMPRESSION: This is an abnormal drowsy and sleep EEG due to background slowing of moderate to severe degree, which is suggestive of generalized cerebral dysfunction as can be seen with encephalopathy. No obvious epileptiform activity was seen. No electrographic seizures were recorded. MMODL / IJN: [id number] /
[2021-11-10 00:01] LABS: Glucose,Whole Blood 122 mg/dL (75-99)
[2021-11-10] MEDS: PIPERACILLIN-TAZOBACTAM 3.375 GM in SODIUM CHLORIDE 0.9% 100 ML IVPB SCH ×4 (00:04→23:17)
[2021-11-10] MEDS: methylPREDNISolone SOD SUCCI 125 MG/2 ML VIAL IV SCH ×5 (00:04→23:18)
[2021-11-10] MEDS: INSULIN ASPART (NovoLOG) 100 UNIT/ML VIAL SQ SCH ×5 (00:04→23:22)
[2021-11-10 04:12] LABS: Basophils % (A) 0 %; Eosinophils % (A) 0 %; HCT 45.4 % (39.0-53.0); HGB 15.2 gm/dL (13.0-17.5); Lymphocytes # (A) 0.9 k/uL (1.0-4.8); Lymphocytes % (A) 8 %; MCH 33.2 pg (25.0-35.0); MCHC 33.4 g/dL (31.0-37.0); MCV 99.5 fL (80.0-100.0); Mean Platelet Volume 7.8; Monocytes # (A) 0.4 k/uL (0-1.0); Monocytes % (A) 3 %; Neutrophils # (A) 9.6 k/uL (1.3-7.7); Neutrophils % (A) 88 %; Platelet Count 213 k/uL (150-450); RBC 4.57 m/uL (4.30-5.90); RDW 12.7 % (11.5-15.5); WBC 10.9 k/uL (3.8-10.6)
[2021-11-10 04:43] LABS: African American GFR (CKD) >90 (>60 ml/min/1.73 sqM); Anion Gap 1 mmol/L; Blood Urea Nitrogen 23 mg/dL (9-20); Carbon Dioxide 34 mmol/L (22-30); Chloride 103 mmol/L (98-107); Glucose 154 mg/dL (74-99); Non-African American GFR(CKD) >90 (>60 ml/min/1.73 sqM); Sodium 138 mmol/L (137-145)
[2021-11-10 05:41] LABS: Glucose,Whole Blood 107 mg/dL (75-99)
[2021-11-10 05:59] LABS: ABG Base Excess 10.4 mmol/L; ABG HCO3 34 mmol/L (21-25); ABG Oxygen Saturation 89.2 % (94-97); ABG PCO2 50 mmHg (35-45); ABG PH 7.45 (7.35-7.45); ABG TCO2 36 mmol/L (19-24); Allen Test Performed? Yes
[2021-11-10 06:32] LABS: ABG PO2 55 mmHg (83-108)
[2021-11-10] MEDS: IPRATROPIUM-ALBUTEROL 3 ML NEB INHALATION SCH ×4 (08:01→19:13)
[2021-11-10] MEDS: ENOXAPARIN 40 MG/0.4 ML SYRINGE SQ SCH (08:15)
[2021-11-10] MEDS: PANTOPRAZOLE 40 MG/10 ML VIAL IVP SCH (08:15)
[2021-11-10] MEDS: CHLORHEXIDINE GLUCONATE 15 ML CUP MUCOUS MEM SCH ×2 (08:15→20:41)
[2021-11-10] MEDS: levETIRAcetam IV 500 MG in SODIUM CHLORIDE 0.9% 100 ML IVPB SCH ×2 (08:16→20:41)
--- NOTE | 2021-11-10 08:24 | XR ---
EXAMINATION TYPE: XR chest 1V portable DATE OF EXAM: 11/10/2021 COMPARISON: Prior chest x-ray 11/09/2021 HISTORY: Intubated TECHNIQUE: Single frontal view of the chest is obtained. FINDINGS: Endotracheal tube, NG tube, defibrillator are all again noted. Heart is possibly enlarged although patient is rotated. No evident pneumothorax. Central vascularity appears somewhat prominentl y, abnormal attenuation is present at the left lung base. Minimal patchy basilar density noted on the right. IMPRESSION: Cardiomegaly, basilar atelectasis versus pneumonia, findings similar to prior exam there is elevation of left hemidiaphragm, rotated exam
[2021-11-10] MEDS: THIAMINE 100 MG/ML 2 ML VIAL IVP SCH (08:38)
--- NOTE | 2021-11-10 09:07 | P.PN ---
Subjective Progress Note Date: 11/10/21 Principal diagnosis: Respiratory failure. 61-year-old male patient, morbidly obese, with known history of chronic hypoxic and possibly hypercapnic respiratory failure and obvious elevation of the left hemidiaphragm on chest x-rays, came in yesterday to the emergency department w ith slurred speech and shortness of breath. I was unable to interview the patient as the patient's current intubated on a mechanical ventilator. I'll obtain the records from the chart. Apparently, the patient has been having symptoms for the past few days mainly slurred speech, lethargy and increased shortness of breath. No reported history of chest pain. No focal neurological deficit. No reported fever or chills. No reported worsening in lower extremity edema. The patient was admitted to the hospital under the diagnosis of COPD exacerbation. He was started on bronchodilators and steroids. At around 2100 yesterday, the patient had jerky body movements that were highly suspicious for seizures. The patient bit his tongue during the process. Apparently prior to that, he was becoming much more clear mentally and acutely became confused. He also urinated on himself. There was a concern for seizure activity and the patient was given Ativan and following that the patient was given. Following the 4 mg Ativan dose, the patient became quite lethargic and obtunded. He got transferred to the intensive care unit where he was intubated and placed on a mechanical ventilator. This morning, he is sedated with a combination of propofol which is running at 40 mg/kg per minute. He is also on Versed there was a 4 mg an hour and this was reduced on 4 mg an hour this morning. He re madelin on IV Keppra. No further seizure activities have been noted. The patient is currently on a mechanical ventilator within assist-control mode at the rate of 18, tidal volume of 450, FiO2 of 60% with a PEEP of 5. Note that his initial blood gas showed a pH of 7.29 with a pCO2 of 82 and pO2 of 65. Subsequent blood gases from this morning on the above-mentioned ventilator setting shows a pH of 7.3 with a pCO2 of 76 and pO2 of 70. His blood pressure was rather soft and he was started also norepinephrine infusion currently running at 0.05 mcg/kg per minute. He has cardiomegaly on his chest x-ray. ET tube is in a good location. There is a component of interstitial edema and chronic elevation of left hemidiaphragm which was also seen on prior chest x-rays. Patient is known to have nonischemic cardiomyopathy. He has had impaired ejection fraction of less than 20%. He was taken long-term anticoagulation for prior history of DVT and pulmonary embolism. Noted the current CT angiogram showed no evidence of any PE or filling defects. As for the neuro workup, the CAT scan of the brain, CT angios of the brain, and the Doppler of the carotids showed no evidence of any acute abnormalities. On his chest x-ray, he has an AICD in place. He is afebrile. No neck stiffness. No hemodynamic instability at this point with exception of some mild hypotension that was encountered active bleeding sedated with the above-mentioned medication. On a mechanical ventilator, the patient shows no signs of any bronchospasm wheezing. Peak airway pressures around 23 cm of water. Progress note dated 11/09/2021. This is a 61-year-old male who was admitted to the hospital on November 07, initi llkinsey with concerns of possible CVA. The patient was actually admitted with a COPD exacerbation, and because of worsening respiratory failure, requiring intubation on November 08. He was seen by my partner yesterday in consultation. The patient came to the intensive care unit on 11/08/2021. He currently remains on the ventilator. Ventilator settings include the volume assist control mode, rate 18, tidal volume 450, FiO2 50%, PEEP of 5. Blood gases show pO2 73, pCO2 51, and pH is 7.43. Patient is currently on saline at 20 mL an hour, propofol at 50 mcg/kg/m, and a Versed drip at 1 mg an hour. Tube feedings have not yet been started. Today, we will attempt a daily interruption of sedation, and possibly a spontaneous breathing trial. If he does poorly, we will start tube feeds. White count 11, hemoglobin hematocrit and platelet count all normal. Sodium 138, potassium 4.1, chlorides 103, CO2 35, BUN 16, creatinine 0.63. Calcium is 8.9. Chest x-ray shows stable bilateral infiltrates, and a small effusion. CT angiogram was negative for pulmonary embolism. Brain CT was negative. Progress note dated 11/10/2021. 62-year-old male, was admitted to the hospital on November 07, initially with concerns of possible CVA. In actuality, the patient was having a COPD exacerbation. Unfortunately, for worsening respiratory failure he required intubation on 11/08/2021. The patient remains on the ventilator. We did attempt a daily interruption of sedation yesterday, but he did not do well. He remains on volume assist control, rate 18, tidal volume 450, FiO2 50%, PEEP of 5. Blood gases show pO2 of 55, pCO2 of 50, and a pH is 7.45. Saturations L, currently 95%. He is on propofol at 50 mcg/kg/m, saline at 20 mL an hour, and vital high protein at 35 mL an hour, which is goal. White count 10.9, hemoglobin 15.2, hematocrit 45.4, and platelet count 313,000. Sodium 138, potassium 4, chlorides 103, CO2 34, anion gap 1, BUN 23, and creatinine 0.7. Chest x-ray reveals left greater than right basilar infiltrates. There also may be a left-sided pleural effusion. Objective - Vital Signs Vital signs: Vital Signs Temp 98.6 F 11/10/21 08:00 Pulse 80 11/10/21 08:13 Resp 22 11/10/21 08:00 BP 139/80 11/10/21 07:00 Pulse Ox 93 L 11/10/21 08:00 Intake & Output 11/09/21 11/10/21 11/10/21 18:59 06:59 18:59 Intake Total 018.219 4109.85 191.87 Output Total 630 600 165 Balance 79.397 679.85 26.87 Weight 140 kg Intake: IV 460 440 40 0.9 NACL 160 240 40 Keppra 100 100 zosyn 200 100 Intake, IV Titration 249.397 464.85 51.87 Amount Midazolam HCl 50 mg In 5.267 Sodium Chloride 0.9% 40 ml @ 1 MG/HR 1 mls/hr IV .Q24H TRISTEN Rx#:[id number] propofoL 1,000 mg In 244.13 464.85 51.87 Empty Bag 1 bag @ Titrate IV .Q0M TRISTEN Rx#: [id number] Tube Feeding 285 70 Other 90 30 Output: Urine 630 600 165 Other: Voiding Method Indwelling Catheter Indwelling Catheter Indwelling Catheter ABP, PAP, CO, CI - Last Documented Arterial Blood Pressure 146/73 - Exam No acute distress, sedated, with an orally placed endotracheal tube and NG tube. HEENT examination is grossly unremarkable. Neck supple. Full range of motion. No adenopathy thyromegaly or neck vein distention. Cardiovascular examination reveals regular rhythm rate. S1-S2 normal. No S3 or S4. No discernible murmur noted. Heart rate 80 bpm. Heart sounds are distant. Lungs reveal scattered bilateral rhonchi. Breath sounds are equal. Basilar crackles are noted. No wheezes. Breath sounds are equal bilaterally. Abdomen is soft, without bowel sounds. No masses. Extremities reveal some lower extremity edema. Some chronic venous stasis changes are also noted. No cyanosis or clubbing. Skin is without rash or lesion. Neurologic examination cannot be fully evaluated the patient's currently sedated. - Labs CBC & Chem 7: 11/10/21 03:18 11/10/21 03:18 Labs: Abnormal Lab Results - Last 24 Hours (Table) 11/09/21 11/09/21 11/10/21 Range/Units 12:08 17:52 00:00 WBC (3.8-10.6) k/uL Neutrophils # (1.3-7.7) k/uL Lymphocytes # (1.0-4.8) k/uL ABG pCO2 58 H (35-45) mmHg ABG pO2 67 L (83-108) mmHg ABG HCO3 35 H (21-25) mmol/L ABG Total CO2 37 H (19-24) mmol/L ABG O2 Saturation 93.0 L (94-97) % Carbon Dioxide (22-30) mmol/L BUN (9-20) mg/dL Glucose (74-99) mg/dL POC Glucose (mg/dL) 127 H 122 H (75-99) mg/dL 11/10/21 11/10/21 11/10/21 Range/Units 03:18 03:18 05:39 WBC 10.9 H (3.8-10.6) k/uL Neutrophils # 9.6 H (1.3-7.7) k/uL Lymphocytes # 0.9 L (1.0-4.8) k/uL ABG pCO2 (35-45) mmHg ABG pO2 (83-108) mmHg ABG HCO3 (21-25) mmol/L ABG Total CO2 (19-24) mmol/L ABG O2 Saturation (94-97) % Carbon Dioxide 34 H (22-30) mmol/L BUN 23 H (9-20) mg/dL Glucose 154 H (74-99) mg/dL POC Glucose (mg/dL) 107 H (75-99) mg/dL 11/10/21 Range/Units 05:55 WBC (3.8-10.6) k/uL Neutrophils # (1.3-7.7) k/uL Lymphocytes # (1.0-4.8) k/uL ABG pCO2 50 H (35-45) mmHg ABG pO2 55 L* (83-108) mmHg ABG HCO3 34 H (21-25) mmol/L ABG Total CO2 36 H (19-24) mmol/L ABG O2 Saturation 89.2 L (94-97) % Carbon Dioxide (22-30) mmol/L BUN (9-20) mg/dL Glucose (74-99) mg/dL POC Glucose (mg/dL) (75-99) mg/dL Assessment and Plan Assessment: 1 Altered mentation with a possibility of a seizure as the patient had seizure- like activity associated with a tongue bite and urinary incontinence. Highly likelihood for underlying malignancy. Meanwhile, the patient was having issues with dysarthria prior to his hospital admission. CAT scan of the brain and a CT came back negative for any CVA. The patient currently sedated with a combination of propofol and Versed. He was given Ativan during his seizure episodes and the patient is also on Keppra. The patient was intubated for respiratory failure on November 08. 2 Possible new onset seizure activity currently on Keppra. 3 Acute on chronic hypoxic and hypercapnic respiratory failure. Status post intubation and mechanical ventilation on 11/08/2021. Chest x-ray showing interstitial edema/CHF along with chronic left hemidiaphragmatic elevation or contributing to his respiratory failure in a setting of an acute neurologic event and intake of Ativan. Aspiration is felt to be less likely at this point in time. 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 5 COPD per history although I doubt the diagnosis and the patient has been less than nonsmoker and the patient does not show any signs of bronchospasm wheezing on today's evaluation. 6 Nonischemic cardiomyopathy with impaired left a ejection fraction of less than 20%. 7 History of AICD placement. 8 Borderline hypotension, likely drug-induced. 9 History of rheumatoid arthritis. 9 Peripheral vascular disease. 10 Previous history of DVT or pulmonary embolism and the patient was taken warfarin on outpatient basis, INR was subtherapeutic at 1.7 at time of admission. Plan: Plan dated 11/09/2021. Blood gases are reasonable. Labs and x-rays are reviewed. The patient will be taken off the Versed drip. We will attempt a daily interruption of sedation, and possibly, a spontaneous breathing trial. The patient will also be started on tube feedings if he does poorly with his daily interruption of sedation. Medications, ALLERGIES, and labs are all reviewed. Prognosis is guarded. We will continue to follow make recommendations were appropriate. Plan dated 11/10/2021. We will again attempt a daily interruption of sedation. Yesterday, he was quite agitated. He had to be re-sedated. Labs, x-rays, and medications are all reviewed. Chest x-ray reveals diffuse bilateral infiltrates, left base greater than other areas. The patient remains on Solu-Medrol, albuterol sulfate, and ipratropium bromide, and Zosyn. Continue to follow make recommendations where appropriate. Prognosis is very guarded. Time with Patient: Greater than 30
[2021-11-10 11:30] LABS: Glucose,Whole Blood 144 mg/dL (75-99)
--- NOTE | 2021-11-10 11:42 | P.PN ---
Subjective Progress Note Date: 11/10/21 This is a 61-year-old male well-known to the practice presented to the emergency room for dyspnea slurred speech symptoms apparently have been present for approximately 2 days possibly 3. Denies headache, denies chest pain, does present with increased dyspnea no lower extreme edema no vomiting no fever,poss history of COPD, patient did quit smoking several years ago, past history of paroxysmal atrial fibrillation one episode several years ago also patient has past history of myocardial infarction with cardiomyopathy and bilateral PEs approximately 7 years ago 11/09/2021 mechanical ventilator-dependent, FiO2 50%/+5 of PEEP. Chest x-ray reporting stable bilateral infiltrates and small pleural effusion. Maintained on diprovan, Versed drips, Levophed currently off, Zosyn, IV steroids, nebulized bronchodilators. Blood sugars controlled. Sedation holiday pending. Continues on Keppra with no further seizure activity reported. Neuro. workup in progress. Echo pending. Toxicology screen detected benzodiazepines, serum alcohol less than 10. Afebrile, WBC 11. 11/10/2021 continues on nebulized bronchodilators, IV steroids and Zosyn .Vent dependent, FiO2 50% /+5 PEEP. Maintained on diprovan drip. Chest x-ray cardiomegaly, basilar atelectasis versus pneumonia, central vascularity more prominent in the left lung base with minimal patchy basilar density noted on the right. Tolerating tube feeds at goal. Failed sedation holiday yesterday. No further seizure activity reported, maintained on Keppra. EEG reported abnormal drowsy and sleep EEG, background slowing of moderate to severe degree, consistent with encephalopathy of toxic metabolic causes or medications. No epileptiform activity was seen. Echo reported mild to moderate and. LV function, EF 40-45%. Objective - Vital Signs Vital signs: Vital Signs Temp 98.6 F 11/10/21 08:00 Pulse 59 L 11/10/21 10:00 Resp 20 11/10/21 10:00 BP 104/69 11/10/21 10:00 Pulse Ox 91 L 11/10/21 10:00 Intake & Output 11/09/21 11/10/21 11/10/21 18:59 06:59 18:59 Intake Total 433.705 9433.85 577.25 Output Total 630 600 300 Balance 79.397 679.85 277.25 Weight 140 kg Intake: IV 460 440 260 0.9 NACL 160 240 60 Keppra 100 100 100 zosyn 200 100 100 Intake, IV Titration 249.397 464.85 147.25 Amount Midazolam HCl 50 mg In 5.267 Sodium Chloride 0.9% 40 ml @ 1 MG/HR 1 mls/hr IV .Q24H [facility] Rx#:[id number] propofoL 1,000 mg In 244.13 464.85 147.25 Empty Bag 1 bag @ Titrate IV .Q0M [facility] Rx#: [id number] Tube Feeding 285 140 Other 90 30 Output: Urine 630 600 300 Other: Voiding Method Indwelling Catheter Indwelling Catheter Indwelling Catheter ABP, PAP, CO, CI - Last Documented Arterial Blood Pressure 107/55 - Exam PHYSICAL EXAM: VITAL SIGNS: [As above] GENERAL: mechanically ventilated,ETT present, sedated HEENT: Conjunctivae normal. eyes normal. NECK: Supple, No JVD. CARDIOVASCULAR: S1, S2 regular. No murmur RESPIRATION: Coarse, Breath sounds diminished in the bases with bibasilar crackles ABDOMEN: Soft, nontender . No guarding. no masses palpable. Bowel sounds present. LEGS: No edema. no swelling NERVOUS SYSTEM: Unable to evaluate at this time, sedated, intubated. Skin: Warm and dry, no rash - Labs CBC & Chem 7: 11/10/21 03:18 11/10/21 03:18 Labs: Abnormal Lab Results - Last 24 Hours (Table) 11/09/21 11/09/21 11/10/21 Range/Units 12:08 17:52 00:00 WBC (3.8-10.6) k/uL Neutrophils # (1.3-7.7) k/uL Lymphocytes # (1.0-4.8) k/uL ABG pCO2 58 H (35-45) mmHg ABG pO2 67 L (83-108) mmHg ABG HCO3 35 H (21-25) mmol/L ABG Total CO2 37 H (19-24) mmol/L ABG O2 Saturation 93.0 L (94-97) % Carbon Dioxide (22-30) mmol/L BUN (9-20) mg/dL Glucose (74-99) mg/dL POC Glucose (mg/dL) 127 H 122 H (75-99) mg/dL 11/10/21 11/10/21 11/10/21 Range/Units 03:18 03:18 05:39 WBC 10.9 H (3.8-10.6) k/uL Neutrophils # 9.6 H (1.3-7.7) k/uL Lymphocytes # 0.9 L (1.0-4.8) k/uL ABG pCO2 (35-45) mmHg ABG pO2 (83-108) mmHg ABG HCO3 (21-25) mmol/L ABG Total CO2 (19-24) mmol/L ABG O2 Saturation (94-97) % Carbon Dioxide 34 H (22-30) mmol/L BUN 23 H (9-20) mg/dL Glucose 154 H (74-99) mg/dL POC Glucose (mg/dL) 107 H (75-99) mg/dL 11/10/21 Range/Units 05:55 WBC (3.8-10.6) k/uL Neutrophils # (1.3-7.7) k/uL Lymphocytes # (1.0-4.8) k/uL ABG pCO2 50 H (35-45) mmHg ABG pO2 55 L* (83-108) mmHg ABG HCO3 34 H (21-25) mmol/L ABG Total CO2 36 H (19-24) mmol/L ABG O2 Saturation 89.2 L (94-97) % Carbon Dioxide (22-30) mmol/L BUN (9-20) mg/dL Glucose (74-99) mg/dL POC Glucose (mg/dL) (75-99) mg/dL Microbiology - Last 24 Hours (Table) 11/08/21 04:55 Gram Stain - Final Sputum Sputum Culture - Final Assessment and Plan Assessment: Acute COPD exacerbation Acute hypoxic, hypercapnic respiratory failure secondary to the above, mechanical ventilator-dependent Change in mental status with Dysarthria, present on admission with possible seizure-like activity, tongue bit with urinary incontinence, suspect related to the above, possible new onset seizure activity, maintained on Keppra. Hypotension, pressor dependent Hypoxic, hypercapnic encephalopathy, present on admission Chronic elevated left hemidiaphragm AICD placement related to history of ischemic cardiomyopathy, past EF less than 20% with proximal atrial tachycardia, echo pending History of bilateral pulmonary embolism Chronic anticoagulated with warfarin History of VINOD, noncompliant unable to tolerate mask Peripheral vascular disease Rheumatoid arthritis Plan: Continue current medication regime, monitoring and symptomatic treatment. Neurology recommendations noted. ICU management as per manager pricing. Scheduled for sedation holiday. Prognosis guarded given multiple complex medical issues. The impression and plan of care has been dictated as directed. : I performed a history and examination of this patient, discussed the same with the dictator. I agree with the dictator's note ,documented as a scribe. Any additional findings or plans will be noted.
[2021-11-10] MEDS: SODIUM CHLORIDE 0.9% 1,000 ML IV SCH (14:18)
[2021-11-10 17:42] LABS: Glucose,Whole Blood 138 mg/dL (75-99)
[2021-11-10 23:23] LABS: Glucose,Whole Blood 118 mg/dL (75-99)
[2021-11-11] MEDS: SODIUM CHLORIDE 0.9% 1,000 ML IV SCH ×2 (01:09→14:47)
[2021-11-11 04:40] LABS: Basophils % (A) 0 %; Eosinophils % (A) 0 %; HCT 45.2 % (39.0-53.0); HGB 14.6 gm/dL (13.0-17.5); Lymphocytes # (A) 0.6 k/uL (1.0-4.8); Lymphocytes % (A) 9 %; MCH 32.8 pg (25.0-35.0); MCHC 32.3 g/dL (31.0-37.0); MCV 101.5 fL (80.0-100.0); Macrocytosis Slight; Mean Platelet Volume 8.1; Monocytes # (A) 0.3 k/uL (0-1.0); Monocytes % (A) 4 %; Neutrophils # (A) 6.2 k/uL (1.3-7.7); Neutrophils % (A) 87 %; Platelet Count 232 k/uL (150-450); RBC 4.45 m/uL (4.30-5.90); RDW 13.2 % (11.5-15.5); WBC 7.1 k/uL (3.8-10.6)
[2021-11-11 04:56] LABS: African American GFR (CKD) >90 (>60 ml/min/1.73 sqM); Anion Gap 2 mmol/L; Blood Urea Nitrogen 23 mg/dL (9-20); Calcium 8.8 mg/dL (8.4-10.2); Carbon Dioxide 34 mmol/L (22-30); Chloride 102 mmol/L (98-107); Glucose 145 mg/dL (74-99); Non-African American GFR(CKD) >90 (>60 ml/min/1.73 sqM); Potassium 4.1 mmol/L (3.5-5.1); Sodium 138 mmol/L (137-145)
[2021-11-11 05:44] LABS: ABG Base Excess 9.4 mmol/L; ABG HCO3 33 mmol/L (21-25); ABG Oxygen Saturation 91.9 % (94-97); ABG PCO2 48 mmHg (35-45); ABG PH 7.45 (7.35-7.45); ABG PO2 62 mmHg (83-108); ABG TCO2 35 mmol/L (19-24)
[2021-11-11 05:52] LABS: Glucose,Whole Blood 126 mg/dL (75-99)
[2021-11-11] MEDS: INSULIN ASPART (NovoLOG) 100 UNIT/ML VIAL SQ SCH ×2 (05:52→11:17)
[2021-11-11] MEDS: methylPREDNISolone SOD SUCCI 125 MG/2 ML VIAL IV SCH ×4 (05:52→23:43)
[2021-11-11 05:59] LABS: Allen Test Performed? no
[2021-11-11] MEDS: PIPERACILLIN-TAZOBACTAM 3.375 GM in SODIUM CHLORIDE 0.9% 100 ML IVPB SCH ×3 (07:49→23:43)
[2021-11-11] MEDS: IPRATROPIUM-ALBUTEROL 3 ML NEB INHALATION SCH ×4 (08:03→18:59)
[2021-11-11] MEDS: THIAMINE 100 MG/ML 2 ML VIAL IVP SCH (08:04)
[2021-11-11] MEDS: PANTOPRAZOLE 40 MG/10 ML VIAL IVP SCH (08:04)
[2021-11-11] MEDS: levETIRAcetam IV 500 MG in SODIUM CHLORIDE 0.9% 100 ML IVPB SCH ×2 (08:05→20:38)
[2021-11-11] MEDS: CHLORHEXIDINE GLUCONATE 15 ML CUP MUCOUS MEM SCH (08:05)
[2021-11-11] MEDS: ENOXAPARIN 40 MG/0.4 ML SYRINGE SQ SCH (08:05)
--- NOTE | 2021-11-11 08:31 | XR ---
EXAMINATION TYPE: XR chest 1V portable DATE OF EXAM: 11/11/2021 COMPARISON: X-ray dated 11/10/2021 HISTORY: Tube placement TECHNIQUE: Single frontal view of the chest is obtained. FINDINGS: The tip of endotracheal tube is about 2.6 cm proximal to the teodoro. NG tube is seen with the tip is difficult to properly visualize, probably inferior to the diaphragm yet difficult to confirm. Left up per chest wall single lead pacemaker. Persistent pulmonary vascular congestion, pulmonary interstitial lung markings and bilateral basal pu lmonary opacities/atelectasis, which may suggest pulmonary edema however acute infection cannot be ex cluded. Please correlate clinically. Suspected pleural effusions more on the left side. Increased cardiac transverse diameter. Unchanged b jim thoracic cage. IMPRESSION: Persistent signs of pulmonary edema versus pneumonia, please correlate clinically. Other findings as described above.
--- NOTE | 2021-11-11 10:12 | P.PN ---
Subjective Progress Note Date: 11/11/21 Principal diagnosis: Respiratory failure. 61-year-old male patient, morbidly obese, with known history of chronic hypoxic and possibly hypercapnic respiratory failure and obvious elevation of the left hemidiaphragm on chest x-rays, came in yesterday to the emergency department w ith slurred speech and shortness of breath. I was unable to interview the patient as the patient's current intubated on a mechanical ventilator. I'll obtain the records from the chart. Apparently, the patient has been having symptoms for the past few days mainly slurred speech, lethargy and increased shortness of breath. No reported history of chest pain. No focal neurological deficit. No reported fever or chills. No reported worsening in lower extremity edema. The patient was admitted to the hospital under the diagnosis of COPD exacerbation. He was started on bronchodilators and steroids. At around 2100 yesterday, the patient had jerky body movements that were highly suspicious for seizures. The patient bit his tongue during the process. Apparently prior to that, he was becoming much more clear mentally and acutely became confused. He also urinated on himself. There was a concern for seizure activity and the patient was given Ativan and following that the patient was given. Following the 4 mg Ativan dose, the patient became quite lethargic and obtunded. He got transferred to the intensive care unit where he was intubated and placed on a mechanical ventilator. This morning, he is sedated with a combination of propofol which is running at 40 mg/kg per minute. He is also on Versed there was a 4 mg an hour and this was reduced on 4 mg an hour this morning. He re madelin on IV Keppra. No further seizure activities have been noted. The patient is currently on a mechanical ventilator within assist-control mode at the rate of 18, tidal volume of 450, FiO2 of 60% with a PEEP of 5. Note that his initial blood gas showed a pH of 7.29 with a pCO2 of 82 and pO2 of 65. Subsequent blood gases from this morning on the above-mentioned ventilator setting shows a pH of 7.3 with a pCO2 of 76 and pO2 of 70. His blood pressure was rather soft and he was started also norepinephrine infusion currently running at 0.05 mcg/kg per minute. He has cardiomegaly on his chest x-ray. ET tube is in a good location. There is a component of interstitial edema and chronic elevation of left hemidiaphragm which was also seen on prior chest x-rays. Patient is known to have nonischemic cardiomyopathy. He has had impaired ejection fraction of less than 20%. He was taken long-term anticoagulation for prior history of DVT and pulmonary embolism. Noted the current CT angiogram showed no evidence of any PE or filling defects. As for the neuro workup, the CAT scan of the brain, CT angios of the brain, and the Doppler of the carotids showed no evidence of any acute abnormalities. On his chest x-ray, he has an AICD in place. He is afebrile. No neck stiffness. No hemodynamic instability at this point with exception of some mild hypotension that was encountered active bleeding sedated with the above-mentioned medication. On a mechanical ventilator, the patient shows no signs of any bronchospasm wheezing. Peak airway pressures around 23 cm of water. Progress note dated 11/09/2021. This is a 61-year-old male who was admitted to the hospital on November 07, initi llkinsey with concerns of possible CVA. The patient was actually admitted with a COPD exacerbation, and because of worsening respiratory failure, requiring intubation on November 08. He was seen by my partner yesterday in consultation. The patient came to the intensive care unit on 11/08/2021. He currently remains on the ventilator. Ventilator settings include the volume assist control mode, rate 18, tidal volume 450, FiO2 50%, PEEP of 5. Blood gases show pO2 73, pCO2 51, and pH is 7.43. Patient is currently on saline at 20 mL an hour, propofol at 50 mcg/kg/m, and a Versed drip at 1 mg an hour. Tube feedings have not yet been started. Today, we will attempt a daily interruption of sedation, and possibly a spontaneous breathing trial. If he does poorly, we will start tube feeds. White count 11, hemoglobin hematocrit and platelet count all normal. Sodium 138, potassium 4.1, chlorides 103, CO2 35, BUN 16, creatinine 0.63. Calcium is 8.9. Chest x-ray shows stable bilateral infiltrates, and a small effusion. CT angiogram was negative for pulmonary embolism. Brain CT was negative. Progress note dated 11/10/2021. 62-year-old male, was admitted to the hospital on November 07, initially with concerns of possible CVA. In actuality, the patient was having a COPD exacerbation. Unfortunately, for worsening respiratory failure he required intubation on 11/08/2021. The patient remains on the ventilator. We did attempt a daily interruption of sedation yesterday, but he did not do well. He remains on volume assist control, rate 18, tidal volume 450, FiO2 50%, PEEP of 5. Blood gases show pO2 of 55, pCO2 of 50, and a pH is 7.45. Saturations L, currently 95%. He is on propofol at 50 mcg/kg/m, saline at 20 mL an hour, and vital high protein at 35 mL an hour, which is goal. White count 10.9, hemoglobin 15.2, hematocrit 45.4, and platelet count 313,000. Sodium 138, potassium 4, chlorides 103, CO2 34, anion gap 1, BUN 23, and creatinine 0.7. Chest x-ray reveals left greater than right basilar infiltrates. There also may be a left-sided pleural effusion. Progress note dated 11/11/2021. 61-year-old male, again seen in room 258. He was initially admitted to the hospital on November 07, and was admitted with a diagnosis of COPD exacerbation, respiratory failure, and required intubation on 11/08/2021. The patient remains on the ventilator. We have attempted daily interruption's of sedation, without success. We will attempt that again today. He is on the volume assist control mode, rate 18, tidal volume 450, FiO2 50%, and PEEP of 5. His gases show a pO2 of 61, pCO2 47, and pH is 7.45. The patient is receiving saline at 80 mL an hour, propofol at 25 mcg/kg/m, and vital high protein at 35 mL an hour, which is goal. On yesterday's daily interruption of sedation, the patient became very agitated. White count 7.1, hemoglobin 14.6, hematocrit 45.2, and platelet count normal. Sodium 138, potassium 4.1, chlorides 102, CO2 34, BUN 23, and creatinine 0.71. Calcium is 8.8. Chest x-rays consistent with either fluid overload and/or pneumonia. Objective - Vital Signs Vital signs: Vital Signs Temp 98.6 F 11/11/21 08:00 Pulse 76 11/11/21 10:00 Resp 29 H 11/11/21 10:00 BP 104/69 11/10/21 10:00 Pulse Ox 92 L 11/11/21 10:00 Intake & Output 11/10/21 11/11/21 11/11/21 18:59 06:59 18:59 Intake Total 1825.30 1914.7 569.869 Output Total 895 1100 275 Balance 930.30 814.7 294.869 Weight 139 kg Intake: IV 910 920 360 0.9 NACL 210 Keppra 100 100 100 Sodium Chloride 0.9% 1, 400 720 160 000 ml @ 80 mls/hr IV . [id number] TRISTEN Rx#:[id number] zosyn 200 100 100 Intake, IV Titration 435.30 484.7 109.869 Amount propofoL 1,000 mg In 435.30 484.7 109.869 Empty Bag 1 bag @ Titrate IV .Q0M TRISTEN Rx#: [id number] Tube Feeding 420 420 70 Other 60 90 30 Output: Urine 895 1100 275 Other: Voiding Method Indwelling Catheter Indwelling Catheter Indwelling Catheter ABP, PAP, CO, CI - Last Documented Arterial Blood Pressure 139/68 - Exam No acute distress, sedated, with an orally placed endotracheal tube and NG tube. Saturations are 92%. HEENT examination is grossly unremarkable. Neck supple. Full range of motion. No adenopathy thyromegaly or neck vein distention. Cardiovascular examination reveals regular rhythm rate. S1-S2 normal. No S3 or S4. No discernible murmur noted. Heart rate 76 bpm. Heart sounds are distant. Lungs reveal scattered bilateral rhonchi. Breath sounds are equal. Basilar crackles are noted. No wheezes. Breath sounds are equal bilaterally. Abdomen is soft, without bowel sounds. No masses. Extremities reveal some lower extremity edema. Some chronic venous stasis changes are also noted. No cyanosis or clubbing. Skin is without rash or lesion. Neurologic examination cannot be fully evaluated the patient's currently sedated. - Labs CBC & Chem 7: 11/11/21 03:30 11/11/21 03:30 Labs: Abnormal Lab Results - Last 24 Hours (Table) 11/10/21 11/10/21 11/10/21 Range/Units 11:29 17:40 23:22 MCV (80.0-100.0) fL Lymphocytes # (1.0-4.8) k/uL ABG pCO2 (35-45) mmHg ABG pO2 (83-108) mmHg ABG HCO3 (21-25) mmol/L ABG Total CO2 (19-24) mmol/L ABG O2 Saturation (94-97) % Carbon Dioxide (22-30) mmol/L BUN (9-20) mg/dL Glucose (74-99) mg/dL POC Glucose (mg/dL) 144 H 138 H 118 H (75-99) mg/dL 11/11/21 11/11/21 11/11/21 Range/Units 03:30 03:30 05:43 MCV 101.5 H (80.0-100.0) fL Lymphocytes # 0.6 L (1.0-4.8) k/uL ABG pCO2 48 H (35-45) mmHg ABG pO2 62 L (83-108) mmHg ABG HCO3 33 H (21-25) mmol/L ABG Total CO2 35 H (19-24) mmol/L ABG O2 Saturation 91.9 L (94-97) % Carbon Dioxide 34 H (22-30) mmol/L BUN 23 H (9-20) mg/dL Glucose 145 H (74-99) mg/dL POC Glucose (mg/dL) (75-99) mg/dL 11/11/21 Range/Units 05:51 MCV (80.0-100.0) fL Lymphocytes # (1.0-4.8) k/uL ABG pCO2 (35-45) mmHg ABG pO2 (83-108) mmHg ABG HCO3 (21-25) mmol/L ABG Total CO2 (19-24) mmol/L ABG O2 Saturation (94-97) % Carbon Dioxide (22-30) mmol/L BUN (9-20) mg/dL Glucose (74-99) mg/dL POC Glucose (mg/dL) 126 H (75-99) mg/dL Microbiology - Last 24 Hours (Table) 11/08/21 04:55 Gram Stain - Final Sputum Sputum Culture - Final Assessment and Plan Assessment: 1 Altered mentation with a possibility of a seizure as the patient had seizure- like activity associated with a tongue bite and urinary incontinence. Highly likelihood for underlying malignancy. Meanwhile, the patient was having issues with dysarthria prior to his hospital admission. CAT scan of the brain and a CT came back negative for any CVA. The patient currently sedated with a combination of propofol and Versed. He was given Ativan during his seizure episodes and the patient is also on Keppra. The patient was intubated for res piratory failure on November 08. 2 Possible new onset seizure activity currently on Keppra. 3 Acute on chronic hypoxic and hypercapnic respiratory failure. Status post intubation and mechanical ventilation on 11/08/2021. Chest x-ray showing interstitial edema/CHF along with chronic left hemidiaphragmatic elevation or contributing to his respiratory failure in a setting of an acute neurologic event and intake of Ativan. Aspiration is felt to be less likely at this point in time. 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 5 COPD per history although I doubt the diagnosis and the patient has been less than nonsmoker and the patient does not show any signs of bronchospasm wheezing on today's evaluation. 6 Nonischemic cardiomyopathy with impaired left a ejection fraction of less than 20%. 7 History of AICD placement. 8 Borderline hypotension, likely drug-induced. 9 History of rheumatoid arthritis. 9 Peripheral vascular disease. 10 Previous history of DVT or pulmonary embolism and the patient was taken warfarin on outpatient basis, INR was subtherapeutic at 1.7 at time of admission. Plan: Plan dated 11/09/2021. Blood gases are reasonable. Labs and x-rays are reviewed. The patient will be taken off the Versed drip. We will attempt a daily interruption of sedation, and possibly, a spontaneous breathing trial. The patient will also be started on tube feedings if he does poorly with his daily interruption of sedation. Medications, ALLERGIES, and labs are all reviewed. Prognosis is guarded. We will continue to follow make recommendations were appropriate. Plan dated 11/10/2021. We will again attempt a daily interruption of sedation. Yesterday, he was quite agitated. He had to be re-sedated. Labs, x-rays, and medications are all reviewed. Chest x-ray reveals diffuse bilateral infiltrates, left base greater than other areas. The patient remains on Solu-Medrol, albuterol sulfate, and ipratropium bromide, and Zosyn. Continue to follow make recommendations where appropriate. Prognosis is very guarded. Plan dated 11/11/2021. The patient remains on GI and DVT prophylaxis. The patient also remains on Zosyn, as well as updrafts with albuterol sulfate and ipratropium bromide. We will attempt another a daily interruption of sedation today. Recently, the patient has done poorly. The patient also remains on Solu-Medrol 60 mg IV push, every 6 hours. We'll follow and make recommendations where appropriate. Overall prognosis remains guarded. Additional recommendations and suggestions are forthcoming. Time with Patient: Greater than 30
--- NOTE | 2021-11-11 10:23 | P.PN ---
Subjective Progress Note Date: 11/10/21 11/10/2021: Patient was seen for a follow-up. Patient's significant other was present today. Patient continues to be intubated. Patient currently on propofol 50 mcg/kg Per minute. Per nursing report, when patient underwent a sedation holiday for half an hour, he was not communicating, extremely agitated moving all 4 extremities but not to commands. His ABG was not looking good, therefore was put back on sedation. He is not ready for extubation. I spoke to patient's significant other, who confirms that patient does have AICD. She has noticed that at his home, he sits all day, sleeps constantly. He has never been checked for sleep apnea. No history of seizures. She has noticed in the past that while he is sleeping, sometimes he would jerk. 11/09/2021: Patient was initially seen by Dr. Goldy Ritchie. Please refer to his note for details. Patient is a 61-year-old male who had questionable seizure-like episode with urine incontinence and tongue bite. He has COPD and wasn't not sure if COPD exacerbation caused ? Seizure-like activity. Patient was started on Keppra 500 mg twice a day. Patient originally came for shortness of breath, slurred speech and lethargy, and stroke has been ruled out. No evidence of PE. Patient developed respiratory distress, for which rapid response team was called and patient was found to have pCO2 of 82. Patient was intubated. Patient is intubated on ventilator and is on IV propofol running at 40 mcg/kg/m. Patient is also on Keppra 500 mg twice a day. No seizure-like activity has been noticed in the last 24 hours. Spoke to patient's nurse, who mentioned that earlier patient was off sedation for 1-1/2 hours, he did squeeze hands slightly, did not do much thumbs up. Blood gases were not favorable for extubation today. Patient was placed back on propofol. Objective - Vital Signs Vital signs: Vital Signs Temp 98.6 F 11/11/21 08:00 Pulse 76 11/11/21 10:00 Resp 29 H 11/11/21 10:00 BP 104/69 11/10/21 10:00 Pulse Ox 92 L 11/11/21 10:00 Intake & Output 11/10/21 11/11/21 11/11/21 18:59 06:59 18:59 Intake Total 1825.30 1914.7 569.869 Output Total 895 1100 275 Balance 930.30 814.7 294.869 Weight 139 kg Intake: IV 910 920 360 0.9 NACL 210 Keppra 100 100 100 Sodium Chloride 0.9% 1, 400 720 160 000 ml @ 80 mls/hr IV . [id number] TRISTEN Rx#:[id number] zosyn 200 100 100 Intake, IV Titration 435.30 484.7 109.869 Amount propofoL 1,000 mg In 435.30 484.7 109.869 Empty Bag 1 bag @ Titrate IV .Q0M TRISTEN Rx#: [id number] Tube Feeding 420 420 70 Other 60 90 30 Output: Urine 895 1100 275 Other: Voiding Method Indwelling Catheter Indwelling Catheter Indwelling Catheter ABP, PAP, CO, CI - Last Documented Arterial Blood Pressure 139/68 - Exam On examination patient is intubated, sedated. Patient on propofol 50 mcg/kg/m. Pills are round and reacting. Oculocephalics are absent. Patient has peripheral edema. Rest of the examination limited. Tone is equal. - Labs CBC & Chem 7: 11/11/21 03:30 11/11/21 03:30 Labs: Abnormal Lab Results - Last 24 Hours (Table) 11/10/21 11/10/21 11/10/21 Range/Units 11:29 17:40 23:22 MCV (80.0-100.0) fL Lymphocytes # (1.0-4.8) k/uL ABG pCO2 (35-45) mmHg ABG pO2 (83-108) mmHg ABG HCO3 (21-25) mmol/L ABG Total CO2 (19-24) mmol/L ABG O2 Saturation (94-97) % Carbon Dioxide (22-30) mmol/L BUN (9-20) mg/dL Glucose (74-99) mg/dL POC Glucose (mg/dL) 144 H 138 H 118 H (75-99) mg/dL 11/11/21 11/11/21 11/11/21 Range/Units 03:30 03:30 05:43 MCV 101.5 H (80.0-100.0) fL Lymphocytes # 0.6 L (1.0-4.8) k/uL ABG pCO2 48 H (35-45) mmHg ABG pO2 62 L (83-108) mmHg ABG HCO3 33 H (21-25) mmol/L ABG Total CO2 35 H (19-24) mmol/L ABG O2 Saturation 91.9 L (94-97) % Carbon Dioxide 34 H (22-30) mmol/L BUN 23 H (9-20) mg/dL Glucose 145 H (74-99) mg/dL POC Glucose (mg/dL) (75-99) mg/dL 11/11/21 Range/Units 05:51 MCV (80.0-100.0) fL Lymphocytes # (1.0-4.8) k/uL ABG pCO2 (35-45) mmHg ABG pO2 (83-108) mmHg ABG HCO3 (21-25) mmol/L ABG Total CO2 (19-24) mmol/L ABG O2 Saturation (94-97) % Carbon Dioxide (22-30) mmol/L BUN (9-20) mg/dL Glucose (74-99) mg/dL POC Glucose (mg/dL) 126 H (75-99) mg/dL Microbiology - Last 24 Hours (Table) 11/08/21 04:55 Gram Stain - Final Sputum Sputum Culture - Final Assessment and Plan Assessment: Dysarthria on presentation then possible seizure-like activity (tongue bite and urinary incontinence) seems due to hypoxia/hypercapnic from COPD exacerbation. Cannot rule out focal seizure or actual stroke at this time. New onset possible seizure-like activity. Hypoxic-hypercapnic encephalopathy as well as a component altered mental status due to medication effect (IV Propofol) Ventilator-dependent respiratory failure on mechanical ventilation Acute COPD exacerbation Nonischemic cardiomyopathy with impaired EF of less than 20%. History of AICD placement. Peripheral vascular disease. History of DVT. Patient on warfarin, INR was subtherapeutic 1.7 on admission. Plan: Patient has not had anymore seizure activity. Patient is maintained on Keppra 500 mg IV every 12 hours, as per recommendation from Dr. Ritchie. EEG was abnormal drowsy and sleep EEG, as it should background slowing of moderate to severe degree, consistent with encephalopathy of toxic metabolic causes or medications. No epileptiform activity was seen. I would discontinue Keppra once patient is extubated and mentation normal. Continue Keppra for now. Patient cannot have MRI because of AICD. We will check CT head. Continue thiamine 100 mg IV daily. Urine drug screen positive for benzodiazepine. Blood alcohol level is nondetectable. 2-D echo revealed normal left ventricular size. Left ventricular wall thickness is normal. Overall left-ventricular systolic function is mildly to moderately impaired with an EF between 40-45%. No pericardial effusion. We'll defer the rest of the medical management to the primary as well as ICU tea m Carotid duplex reported antegrade flow in the vertebral arteries. Images and measurements suggest less than 20% stenosis in both internal carotid arteries. Continue present management. Neurology will follow.
[2021-11-11 11:15] LABS: Glucose,Whole Blood 106 mg/dL (75-99)
[2021-11-11] MEDS ORDERED: ENALAPRILAT 1.25 MG/ML 1 ML VIAL IVP STA (11:58)
--- NOTE | 2021-11-11 13:08 | CT ---
EXAMINATION TYPE: CT brain wo con DATE OF EXAM: 11/11/2021 COMPARISON: CT dated 11/07/2021 HISTORY: AMS CT DLP: 1212.4 mGycm Automated exposure control for dose reduction was used. TECHNIQUE: CT scan of the brain is performed without IV contrast administration. FINDINGS: Unremarkable morphology of the cerebral hemispheres, cerebellum and brainstem. No acute intracranial hemorrhage. No gross acute cortical infarct. No midline shift, herniation or ventriculomegaly. Unremarkable jain-white matter differentiation, basal cisterns, sella and CP angles. No gross space-o ccupying lesion, vasogenic edema or mass effect. Unremarkable orbits. Clear visualized paranasal sinuses and mastoid air cells. Unremarkable calvarial bones. IMPRESSION: No acute intracranial hemorrhage or gross acute cortical infarct however a small acute or hyperacute infarct cannot be excluded by this CT scan. Further MRI with DWI assessment can be considered if clin ically required.
--- NOTE | 2021-11-11 13:12 | P.PN ---
Subjective Progress Note Date: 11/11/21 This is a 61-year-old male well-known to the practice presented to the emergency room for dyspnea slurred speech symptoms apparently have been present for approximately 2 days possibly 3. Denies headache, denies chest pain, does present with increased dyspnea no lower extreme edema no vomiting no fever,poss history of COPD, patient did quit smoking several years ago, past history of paroxysmal atrial fibrillation one episode several years ago also patient has past history of myocardial infarction with cardiomyopathy and bilateral PEs approximately 7 years ago 11/09/2021 mechanical ventilator-dependent, FiO2 50%/+5 of PEEP. Chest x-ray reporting stable bilateral infiltrates and small pleural effusion. Maintained on diprovan, Versed drips, Levophed currently off, Zosyn, IV steroids, nebulized bronchodilators. Blood sugars controlled. Sedation holiday pending. Continues on Keppra with no further seizure activity reported. Neuro. workup in progress. Echo pending. Toxicology screen detected benzodiazepines, serum alcohol less than 10. Afebrile, WBC 11. 11/10/2021 continues on nebulized bronchodilators, IV steroids and Zosyn .Vent dependent, FiO2 50% /+5 PEEP. Maintained on diprovan drip. Chest x-ray cardiomegaly, basilar atelectasis versus pneumonia, central vascularity more prominent in the left lung base with minimal patchy basilar density noted on the right. Tolerating tube feeds at goal. Failed sedation holiday yesterday. No further seizure activity reported, maintained on Keppra. EEG reported abnormal drowsy and sleep EEG, background slowing of moderate to severe degree, consistent with encephalopathy of toxic metabolic causes or medications. No epileptiform activity was seen. Echo reported mild to moderate and. LV function, EF 40-45%. 11/11/2021 extubated, maintaining O2 sats in the high 80s to low 90s on 5 L nasal cannula. Hypertensive .Swallow evaluation pending. IV push Vasotec 1 as per PCP, with orders to resume oral JUANI inhibitor and beta chino pending patient passes swallow evaluation . Neurology adjusted and radiology studies from MRI to head CT-pending. Alert and oriented 2-3, disoriented to year. Afebrile, normal WBC. Blood sugars controlled. Objective - Vital Signs Vital signs: Vital Signs Temp 97.9 F 11/11/21 12:00 Pulse 80 11/11/21 12:00 Resp 18 11/11/21 12:00 BP 191/95 11/11/21 12:00 Pulse Ox 88 L 11/11/21 12:00 Intake & Output 11/10/21 11/11/21 11/11/21 18:59 06:59 18:59 Intake Total 1825.30 1914.7 729.869 Output Total 895 1100 615 Balance 930.30 814.7 114.869 Weight 139 kg Intake: IV 910 920 520 0.9 NACL 210 Keppra 100 100 100 Sodium Chloride 0.9% 1, 400 720 320 000 ml @ 80 mls/hr IV . [id number] TRISTEN Rx#:[id number] zosyn 200 100 100 Intake, IV Titration 435.30 484.7 109.869 Amount propofoL 1,000 mg In 435.30 484.7 109.869 Empty Bag 1 bag @ Titrate IV .Q0M TRISTEN Rx#: [id number] Tube Feeding 420 420 70 Other 60 90 30 Output: Urine 895 1100 615 Other: Voiding Method Indwelling Catheter Indwelling Catheter Indwelling Catheter ABP, PAP, CO, CI - Last Documented Arterial Blood Pressure 158/78 - Exam PHYSICAL EXAM: VITAL SIGNS: [As above] GENERAL: Sitting up in bed, droggy, alert and oriented 2-3, disoriented to year HEENT: Conjunctivae normal. eyes normal. NECK: Supple, No JVD. CARDIOVASCULAR: S1, S2 regular. No murmur RESPIRATION: Coarse, Breath sounds diminished in the bases with bibasilar crackles ABDOMEN: Soft, nontender . No guarding. no masses palpable. Bowel sounds present. LEGS: Chronic venous stasis, minimal lower extremity edema. NERVOUS SYSTEM: Cranial nerves II through XII grossly intact Skin: Warm and dry, no rash - Labs CBC & Chem 7: 11/11/21 03:30 11/11/21 03:30 Labs: Abnormal Lab Results - Last 24 Hours (Table) 11/10/21 11/10/21 11/11/21 Range/Units 17:40 23:22 03:30 MCV 101.5 H (80.0-100.0) fL Lymphocytes # 0.6 L (1.0-4.8) k/uL ABG pCO2 (35-45) mmHg ABG pO2 (83-108) mmHg ABG HCO3 (21-25) mmol/L ABG Total CO2 (19-24) mmol/L ABG O2 Saturation (94-97) % Carbon Dioxide (22-30) mmol/L BUN (9-20) mg/dL Glucose (74-99) mg/dL POC Glucose (mg/dL) 138 H 118 H (75-99) mg/dL 11/11/21 11/11/21 11/11/21 Range/Units 03:30 05:43 05:51 MCV (80.0-100.0) fL Lymphocytes # (1.0-4.8) k/uL ABG pCO2 48 H (35-45) mmHg ABG pO2 62 L (83-108) mmHg ABG HCO3 33 H (21-25) mmol/L ABG Total CO2 35 H (19-24) mmol/L ABG O2 Saturation 91.9 L (94-97) % Carbon Dioxide 34 H (22-30) mmol/L BUN 23 H (9-20) mg/dL Glucose 145 H (74-99) mg/dL POC Glucose (mg/dL) 126 H (75-99) mg/dL 11/11/21 Range/Units 11:14 MCV (80.0-100.0) fL Lymphocytes # (1.0-4.8) k/uL ABG pCO2 (35-45) mmHg ABG pO2 (83-108) mmHg ABG HCO3 (21-25) mmol/L ABG Total CO2 (19-24) mmol/L ABG O2 Saturation (94-97) % Carbon Dioxide (22-30) mmol/L BUN (9-20) mg/dL Glucose (74-99) mg/dL POC Glucose (mg/dL) 106 H (75-99) mg/dL Microbiology - Last 24 Hours (Table) 11/08/21 04:55 Gram Stain - Final Sputum Sputum Culture - Final Assessment and Plan Assessment: Acute COPD exacerbation Acute hypoxic, hypercapnic respiratory failure secondary to the above, status post mechanical ventilator-dependent Change in mental status with Dysarthria, present on admission with possible seizure-like activity, tongue bit with urinary incontinence, suspect related to the above, possible new onset seizure activity, maintained on Keppra. Hypotension, pressor dependent, resolved Hypertension Hypoxic, hypercapnic encephalopathy, present on admission Chronic elevated left hemidiaphragm AICD placement related to history of ischemic cardiomyopathy, past EF less than 20% with proximal atrial tachycardia, echo now reporting mild to moderately impaired LV function, EF 40-45% History of bilateral pulmonary embolism Chronic anticoagulated with warfarin History of VINOD, noncompliant unable to tolerate mask Peripheral vascular disease Rheumatoid arthritis Plan: Continue current medication regime, monitoring and symptomatic treatment. Brain CT pending. Aggressive pulmonary toileting, nebulized bronchodilators, antibiotic, IV steroids .ICU management as per logistics supervisor. Prognosis guarded given multiple complex medical issues. The impression and plan of care has been dictated as directed. : I performed a history and examination of this patient, discussed the same with the dictator. I agree with the dictator's note ,documented as a scribe. Any additional findings or plans will be noted.
[2021-11-11] MEDS: FUROSEMIDE 40 MG TAB PO SCH (14:40)
[2021-11-11] MEDS: carvediloL 12.5 MG TAB PO SCH (17:52)
[2021-11-11] MEDS: lisinopriL 5 MG TAB PO SCH (20:56)
[2021-11-12] MEDS: SODIUM CHLORIDE 0.9% 1,000 ML IV SCH ×2 (03:25→15:40)
[2021-11-12] MEDS: methylPREDNISolone SOD SUCCI 125 MG/2 ML VIAL IV SCH (05:37)
[2021-11-12 06:24] LABS: Basophils % (A) 0 %; Eosinophils % (A) 0 %; Lymphocytes # (A) 0.5 k/uL (1.0-4.8); Lymphocytes % (A) 7 %; MCH 32.3 pg (25.0-35.0); MCHC 31.9 g/dL (31.0-37.0); MCV 101.3 fL (80.0-100.0); Mean Platelet Volume 7.7; Monocytes # (A) 0.2 k/uL (0-1.0); Monocytes % (A) 3 %; Neutrophils % (A) 90 %; Platelet Count 235 k/uL (150-450); RBC 4.65 m/uL (4.30-5.90); RDW 13.1 % (11.5-15.5); WBC 7.8 k/uL (3.8-10.6)
[2021-11-12 06:56] LABS: African American GFR (CKD) >90 (>60 ml/min/1.73 sqM); Anion Gap -1 mmol/L; Blood Urea Nitrogen 24 mg/dL (9-20); Calcium 8.4 mg/dL (8.4-10.2); Carbon Dioxide 36 mmol/L (22-30); Chloride 105 mmol/L (98-107); Glucose 127 mg/dL (74-99); Non-African American GFR(CKD) >90 (>60 ml/min/1.73 sqM); Potassium 4.2 mmol/L (3.5-5.1); Sodium 140 mmol/L (137-145)
[2021-11-12] MEDS ORDERED: FUROSEMIDE 10 MG/ML 4 ML VIAL IV STA (07:34)
[2021-11-12] MEDS: PIPERACILLIN-TAZOBACTAM 3.375 GM in SODIUM CHLORIDE 0.9% 100 ML IVPB SCH ×2 (07:40→16:02)
[2021-11-12] MEDS: ENOXAPARIN 40 MG/0.4 ML SYRINGE SQ SCH (07:41)
[2021-11-12] MEDS: carvediloL 12.5 MG TAB PO SCH ×2 (07:42→17:16)
[2021-11-12] MEDS: PANTOPRAZOLE 40 MG/10 ML VIAL IVP SCH (07:42)
[2021-11-12] MEDS: THIAMINE 100 MG/ML 2 ML VIAL IVP SCH (07:42)
[2021-11-12] MEDS: FUROSEMIDE 40 MG TAB PO SCH ×2 (07:42→14:08)
[2021-11-12] MEDS: SPIRONOLACTONE 25 MG TAB PO SCH (07:42)
[2021-11-12] MEDS: ATORVASTATIN 10 MG TAB PO SCH (07:42)
[2021-11-12] MEDS: levETIRAcetam IV 500 MG in SODIUM CHLORIDE 0.9% 100 ML IVPB SCH ×2 (07:44→21:16)
[2021-11-12] MEDS: IPRATROPIUM-ALBUTEROL 3 ML NEB INHALATION SCH ×4 (08:01→20:20)
--- NOTE | 2021-11-12 08:03 | XR ---
EXAMINATION TYPE: XR chest 1V portable DATE OF EXAM: 11/12/2021 COMPARISON: Chest x-ray 11/11/2021 HISTORY: Extubated, abnormal chest x-ray TECHNIQUE: Single frontal view of the chest is obtained. FINDINGS: Endotracheal tube and NG tube have been removed. No evident pneumothorax. Patchy basilar d ensity persists, the left hemidiaphragm is elevated, there is interval improved visualization of the hemidiaphragms. Cardiac mediastinal silhouette is likely stable accounting for differences in techniq ue. Defibrillator shows a stable appearance. Lung volumes are low. IMPRESSION: Interval extubation. Suspect some improvement in aeration. Follow-up PA and lateral ches t x-ray when stable.
--- NOTE | 2021-11-12 08:57 | P.PN ---
Subjective Progress Note Date: 11/11/21 11/11/2021: Patient apparently was extubated today. He is doing wonderful. Patient is talking appropriately. His mentation is perfectly normal, making appropriate commands. Patient is able to be redirected. Denies any focal symptoms. Patient's significant other was also present today. Patient is sl ightly short of breath. 11/10/2021: Patient was seen for a follow-up. Patient's significant other was present today. Patient continues to be intubated. Patient currently on propofol 50 mcg/kg Per minute. Per nursing report, when patient underwent a sedation holiday for half an hour, he was not communicating, extremely agitated moving all 4 extremities but not to commands. His ABG was not looking good, therefore was put back on sedation. He is not ready for extubation. I spoke to patient's significant other, who confirms that patient does have AICD. She has noticed that at his home, he sits all day, sleeps constantly. He has never been checked for sleep apnea. No history of seizures. She has noticed in the past that while he is sleeping, sometimes he would jerk. 11/09/2021: Patient was initially seen by Dr. Goldy iRtchie. Please refer to his note for details. Patient is a 61-year-old male who had questionable seizure-like episode with urine incontinence and tongue bite. He has COPD and wasn't not sure if COPD exacerbation caused ? Seizure-like activity. Patient was started on Keppra 500 mg twice a day. Patient originally came for shortness of breath, slurred speech and lethargy, and stroke has been ruled out. No evidence of PE. Patient developed respiratory distress, for which rapid response team was called and patient was found to have pCO2 of 82. Patient was intubated. Patient is intubated on ventilator and is on IV propofol running at 40 mcg/kg/m. Patient is also on Keppra 500 mg twice a day. No seizure-like activity has been noticed in the last 24 hours. Spoke to patient's nurse, who mentioned that earlier patient was off sedation for 1-1/2 hours, he did squeeze hands slightly, did not do much thumbs up. Blood gases were not favorable for extubation today. Patient was placed back on propofol. Objective - Vital Signs Vital signs: Vital Signs Temp 97.2 F L 11/12/21 08:00 Pulse 72 11/12/21 08:12 Resp 17 11/12/21 08:00 BP 116/68 11/12/21 08:00 Pulse Ox 97 11/12/21 08:00 Intake & Output 11/11/21 11/12/21 11/12/21 18:59 06:59 18:59 Intake Total 6658.798 0429 280 Output Total 1915 890 100 Balance -205.131 670 180 Weight 137.8 kg Intake: IV 1100 1160 280 Keppra 100 100 100 Sodium Chloride 0.9% 1, 800 960 80 000 ml @ 80 mls/hr IV . [id number] TRISTEN Rx#:[id number] zosyn 200 100 100 Intake, IV Titration 109.869 Amount propofoL 1,000 mg In 109.869 Empty Bag 1 bag @ Titrate IV .Q0M TRISTEN Rx#: [id number] Oral 400 400 Tube Feeding 70 Other 30 Output: Urine 1915 890 100 Other: Voiding Method Indwelling Catheter Indwelling Catheter Indwelling Catheter ABP, PAP, CO, CI - Last Documented Arterial Blood Pressure 135/71 - Exam Patient is extubated. He is fully alert and awake. Patient is oriented [address] and person. He knows he is in [place] in [place]. He could not tell the current month or year. Speech and language functions are normal. No aphasia or dysarthria. Patient can name and repeat. Cranial examination shows pupils round and reacting to light, visual crowe are full, extraocular muscles are intact. Face is symmetric and tongue protrudes to the midline. Palatal elevation is normal hearing appears normal for conversation. Muscle strength is normal in the arms and legs. Reflexes are normal. Plantars are downgoing. Sensations equal. No obvious ataxia. - Labs CBC & Chem 7: 11/12/21 05:45 11/12/21 05:45 Labs: Abnormal Lab Results - Last 24 Hours (Table) 11/11/21 11/12/21 11/12/21 Range/Units 11:14 05:45 05:45 MCV 101.3 H (80.0-100.0) fL Lymphocytes # 0.5 L (1.0-4.8) k/uL Carbon Dioxide 36 H (22-30) mmol/L BUN 24 H (9-20) mg/dL Glucose 127 H (74-99) mg/dL POC Glucose (mg/dL) 106 H (75-99) mg/dL Assessment and Plan Assessment: Dysarthria on presentation then possible seizure-like activity (tongue bite and urinary incontinence) seems due to hypoxia/hypercapnic from COPD exacerbation. Cannot rule out focal seizure or actual stroke at this time. New onset possible seizure-like activity. Hypoxic-hypercapnic encephalopathy, now resolved. Status post Ventilator-dependent respiratory failure, extubated today. Acute COPD exacerbation Nonischemic cardiomyopathy with impaired EF of less than 20%. History of AICD placement. Peripheral vascular disease. History of DVT. Patient on warfarin, INR was subtherapeutic 1.7 on admission. Plan: Patient is extubated, his mentation is normal examination is nonfocal. Repeat CT head performed today, showed no acute intracranial hemorrhage across acute cortical infarct, however a small acute or hyperacute infarct cannot be excluded at this computed tomography scan. I personally reviewed CT head and agree with the findings. Patient has not had anymore seizure activity. Continue Keppra 500 mg twice a day for now. May slowly wean off, once patient continues to be medically stable. EEG was abnormal drowsy and sleep EEG, as it should background slowing of moderate to severe degree, consistent with encephalopathy of toxic metabolic causes or medications. No epileptiform activity was seen. Continue thiamine 100 mg IV daily. 2-D echo revealed normal left ventricular size. Left ventricular wall thickness is normal. Overall left-ventricular systolic function is mildly to moderately impaired with an EF between 40-45%. No pericardial effusion. We'll defer the rest of the medical management to the primary as well as ICU team Carotid duplex reported antegrade flow in the vertebral arteries. Images and measurements suggest less than 20% stenosis in both internal carotid arteries. Continue present management. Neurology will follow sporadically.
--- NOTE | 2021-11-12 09:25 | P.PN ---
Subjective Progress Note Date: 11/12/21 Principal diagnosis: Respiratory failure. 61-year-old male patient, morbidly obese, with known history of chronic hypoxic and possibly hypercapnic respiratory failure and obvious elevation of the left hemidiaphragm on chest x-rays, came in yesterday to the emergency department w ith slurred speech and shortness of breath. I was unable to interview the patient as the patient's current intubated on a mechanical ventilator. I'll obtain the records from the chart. Apparently, the patient has been having symptoms for the past few days mainly slurred speech, lethargy and increased shortness of breath. No reported history of chest pain. No focal neurological deficit. No reported fever or chills. No reported worsening in lower extremity edema. The patient was admitted to the hospital under the diagnosis of COPD exacerbation. He was started on bronchodilators and steroids. At around 2100 yesterday, the patient had jerky body movements that were highly suspicious for seizures. The patient bit his tongue during the process. Apparently prior to that, he was becoming much more clear mentally and acutely became confused. He also urinated on himself. There was a concern for seizure activity and the patient was given Ativan and following that the patient was given. Following the 4 mg Ativan dose, the patient became quite lethargic and obtunded. He got transferred to the intensive care unit where he was intubated and placed on a mechanical ventilator. This morning, he is sedated with a combination of propofol which is running at 40 mg/kg per minute. He is also on Versed there was a 4 mg an hour and this was reduced on 4 mg an hour this morning. He re madelin on IV Keppra. No further seizure activities have been noted. The patient is currently on a mechanical ventilator within assist-control mode at the rate of 18, tidal volume of 450, FiO2 of 60% with a PEEP of 5. Note that his initial blood gas showed a pH of 7.29 with a pCO2 of 82 and pO2 of 65. Subsequent blood gases from this morning on the above-mentioned ventilator setting shows a pH of 7.3 with a pCO2 of 76 and pO2 of 70. His blood pressure was rather soft and he was started also norepinephrine infusion currently running at 0.05 mcg/kg per minute. He has cardiomegaly on his chest x-ray. ET tube is in a good location. There is a component of interstitial edema and chronic elevation of left hemidiaphragm which was also seen on prior chest x-rays. Patient is known to have nonischemic cardiomyopathy. He has had impaired ejection fraction of less than 20%. He was taken long-term anticoagulation for prior history of DVT and pulmonary embolism. Noted the current CT angiogram showed no evidence of any PE or filling defects. As for the neuro workup, the CAT scan of the brain, CT angios of the brain, and the Doppler of the carotids showed no evidence of any acute abnormalities. On his chest x-ray, he has an AICD in place. He is afebrile. No neck stiffness. No hemodynamic instability at this point with exception of some mild hypotension that was encountered active bleeding sedated with the above-mentioned medication. On a mechanical ventilator, the patient shows no signs of any bronchospasm wheezing. Peak airway pressures around 23 cm of water. Progress note dated 11/09/2021. This is a 61-year-old male who was admitted to the hospital on November 07, initi llkinsey with concerns of possible CVA. The patient was actually admitted with a COPD exacerbation, and because of worsening respiratory failure, requiring intubation on November 08. He was seen by my partner yesterday in consultation. The patient came to the intensive care unit on 11/08/2021. He currently remains on the ventilator. Ventilator settings include the volume assist control mode, rate 18, tidal volume 450, FiO2 50%, PEEP of 5. Blood gases show pO2 73, pCO2 51, and pH is 7.43. Patient is currently on saline at 20 mL an hour, propofol at 50 mcg/kg/m, and a Versed drip at 1 mg an hour. Tube feedings have not yet been started. Today, we will attempt a daily interruption of sedation, and possibly a spontaneous breathing trial. If he does poorly, we will start tube feeds. White count 11, hemoglobin hematocrit and platelet count all normal. Sodium 138, potassium 4.1, chlorides 103, CO2 35, BUN 16, creatinine 0.63. Calcium is 8.9. Chest x-ray shows stable bilateral infiltrates, and a small effusion. CT angiogram was negative for pulmonary embolism. Brain CT was negative. Progress note dated 11/10/2021. 62-year-old male, was admitted to the hospital on November 07, initially with concerns of possible CVA. In actuality, the patient was having a COPD exacerbation. Unfortunately, for worsening respiratory failure he required intubation on 11/08/2021. The patient remains on the ventilator. We did attempt a daily interruption of sedation yesterday, but he did not do well. He remains on volume assist control, rate 18, tidal volume 450, FiO2 50%, PEEP of 5. Blood gases show pO2 of 55, pCO2 of 50, and a pH is 7.45. Saturations L, currently 95%. He is on propofol at 50 mcg/kg/m, saline at 20 mL an hour, and vital high protein at 35 mL an hour, which is goal. White count 10.9, hemoglobin 15.2, hematocrit 45.4, and platelet count 313,000. Sodium 138, potassium 4, chlorides 103, CO2 34, anion gap 1, BUN 23, and creatinine 0.7. Chest x-ray reveals left greater than right basilar infiltrates. There also may be a left-sided pleural effusion. Progress note dated 11/11/2021. 61-year-old male, again seen in room 258. He was initially admitted to the hospital on November 07, and was admitted with a diagnosis of COPD exacerbation, respiratory failure, and required intubation on 11/08/2021. The patient remains on the ventilator. We have attempted daily interruption's of sedation, without success. We will attempt that again today. He is on the volume assist control mode, rate 18, tidal volume 450, FiO2 50%, and PEEP of 5. His gases show a pO2 of 61, pCO2 47, and pH is 7.45. The patient is receiving saline at 80 mL an hour, propofol at 25 mcg/kg/m, and vital high protein at 35 mL an hour, which is goal. On yesterday's daily interruption of sedation, the patient became very agitated. White count 7.1, hemoglobin 14.6, hematocrit 45.2, and platelet count normal. Sodium 138, potassium 4.1, chlorides 102, CO2 34, BUN 23, and creatinine 0.71. Calcium is 8.8. Chest x-rays consistent with either fluid overload and/or pneumonia. Progress note dated 11/12/2021. 62-year-old male, again seen in room 258. The patient was extubated successfully on November 11. Currently, he is on 5 L nasal cannula. He is getting saline at 80 mL an hour. Tube feedings have been discontinued. The patient will get Lasix 40 mg IV push today. If the patient is stable as the day progresses, the patient could be considered to be transferred out to the general medical floor, without telemetry. Today's labs include a white count 7.8, hemoglobin 15, hematocrit 47, and platelet count 235,000. Sodium 140, potassium 4.2, chlorides 105, CO2 36, BUN 24, and creatinine 0.72. Glucose 127. Sputum Gram stain is negative. Chest x-ray shows improved aeration, and some atelectasis or infiltrate at the left base. There is elevation of the left hemidiaphragm. Objective - Vital Signs Vital signs: Vital Signs Temp 97.2 F L 11/12/21 08:00 Pulse 56 L 11/12/21 09:00 Resp 20 11/12/21 09:00 BP 109/71 11/12/21 09:00 Pulse Ox 97 11/12/21 09:00 Intake & Output 11/11/21 11/12/21 11/12/21 18:59 06:59 18:59 Intake Total 3380.139 6739 280 Output Total 1915 890 100 Balance -205.131 670 180 Weight 137.8 kg Intake: IV 1100 1160 280 Keppra 100 100 100 Sodium Chloride 0.9% 1, 800 960 80 000 ml @ 80 mls/hr IV . [id number] TRISTEN Rx#:[id number] zosyn 200 100 100 Intake, IV Titration 109.869 Amount propofoL 1,000 mg In 109.869 Empty Bag 1 bag @ Titrate IV .Q0M TRISTEN Rx#: [id number] Oral 400 400 Tube Feeding 70 Other 30 Output: Urine 1915 890 100 Other: Voiding Method Indwelling Catheter Indwelling Catheter Indwelling Catheter ABP, PAP, CO, CI - Last Documented Arterial Blood Pressure 135/71 - Exam No acute distress, extubated, currently on 5 L nasal cannula. Saturations are 97%. HEENT examination is grossly unremarkable. Neck supple. Full range of motion. No adenopathy thyromegaly or neck vein distention. Cardiovascular examination reveals regular rhythm rate. S1-S2 normal. No S3 or S4. No discernible murmur noted. Heart rate 56 bpm. Heart sounds are distant. Lungs reveal scattered bilateral rhonchi. Breath sounds are equal. Basilar crackles are noted. No wheezes. Breath sounds are equal bilaterally. Abdomen is soft, without bowel sounds. No masses. Extremities reveal some lower extremity edema. Some chronic venous stasis changes are also noted. No cyanosis or clubbing. Skin is without rash or lesion. Neurologic examination is brief but nonfocal. - Labs CBC & Chem 7: 11/12/21 05:45 11/12/21 05:45 Labs: Abnormal Lab Results - Last 24 Hours (Table) 11/11/21 11/12/21 11/12/21 Range/Units 11:14 05:45 05:45 MCV 101.3 H (80.0-100.0) fL Lymphocytes # 0.5 L (1.0-4.8) k/uL Carbon Dioxide 36 H (22-30) mmol/L BUN 24 H (9-20) mg/dL Glucose 127 H (74-99) mg/dL POC Glucose (mg/dL) 106 H (75-99) mg/dL Assessment and Plan Assessment: 1 Altered mentation with a possibility of a seizure as the patient had seizure- like activity associated with a tongue bite and urinary incontinence. Highly l ikelihood for underlying malignancy. Meanwhile, the patient was having issues with dysarthria prior to his hospital admission. CAT scan of the brain and a CT came back negative for any CVA. The patient currently sedated with a combination of propofol and Versed. He was given Ativan during his seizure episodes and the patient is also on Keppra. The patient was intubated for respiratory failure on November 08. The patient was successfully extubated on November 11. 2 Possible new onset seizure activity currently on Keppra. 3 Acute on chronic hypoxic and hypercapnic respiratory failure. Status post intubation and mechanical ventilation on 11/08/2021. Chest x-ray showing interstitial edema/CHF along with chronic left hemidiaphragmatic elevation or contributing to his respiratory failure in a setting of an acute neurologic event and intake of Ativan. Aspiration is felt to be less likely at this point in time. 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 5 COPD per history although I doubt the diagnosis and the patient has been less than nonsmoker and the patient does not show any signs of bronchospasm wheezing on today's evaluation. 6 Nonischemic cardiomyopathy with impaired left a ejection fraction of less than 20%. 7 History of AICD placement. 8 Borderline hypotension, likely drug-induced. 9 History of rheumatoid arthritis. 9 Peripheral vascular disease. 10 Previous history of DVT or pulmonary embolism and the patient was taken warfarin on outpatient basis, INR was subtherapeutic at 1.7 at time of admission. Plan: Plan dated 11/09/2021. Blood gases are reasonable. Labs and x-rays are reviewed. The patient will be taken off the Versed drip. We will attempt a daily interruption of sedation, and possibly, a spontaneous breathing trial. The patient will also be started on tube feedings if he does poorly with his daily interruption of sedation. Medications, ALLERGIES, and labs are all reviewed. Prognosis is guarded. We will continue to follow make recommendations were appropriate. Plan dated 11/10/2021. We will again attempt a daily interruption of sedation. Yesterday, he was quite agitated. He had to be re-sedated. Labs, x-rays, and medications are all reviewed. Chest x-ray reveals diffuse bilateral infiltrates, left base greater than other areas. The patient remains on Solu-Medrol, albuterol sulfate, and ip ratropium bromide, and Zosyn. Continue to follow make recommendations where appropriate. Prognosis is very guarded. Plan dated 11/11/2021. The patient remains on GI and DVT prophylaxis. The patient also remains on Zosyn, as well as updrafts with albuterol sulfate and ipratropium bromide. We will attempt another a daily interruption of sedation today. Recently, the patient has done poorly. The patient also remains on Solu-Medrol 60 mg IV push, every 6 hours. We'll follow and make recommendations where appropriate. Overall prognosis remains guarded. Additional recommendations and suggestions are forthcoming. Plan dated 11/12/2021. The patient was successfully extubated yesterday, November 11. Today, the patient's on 5 L nasal cannula and saline at 80 mL an hour. We will go ahead and reduce the IV rate, down to 10 mL an hour. In addition, the patient will get Lasix 40 mg IV push once. The patient is eating and drinking. The patient can be considered for transfer to the general medical floor without telemetry later today. We will continue to follow. Labs, x-rays, and medications are reviewed. Unnecessary medications are discontinued. Time with Patient: Less than 30
[2021-11-12 10:47] VITALS: BMI 38.9
--- NOTE | 2021-11-12 13:54 | P.PN ---
Subjective Progress Note Date: 11/12/21 This is a 61-year-old male well-known to the practice presented to the emergency room for dyspnea slurred speech symptoms apparently have been present for approximately 2 days possibly 3. Denies headache, denies chest pain, does present with increased dyspnea no lower extreme edema no vomiting no fever,poss history of COPD, patient did quit smoking several years ago, past history of paroxysmal atrial fibrillation one episode several years ago also patient has past history of myocardial infarction with cardiomyopathy and bilateral PEs approximately 7 years ago 11/09/2021 mechanical ventilator-dependent, FiO2 50%/+5 of PEEP. Chest x-ray reporting stable bilateral infiltrates and small pleural effusion. Maintained on diprovan, Versed drips, Levophed currently off, Zosyn, IV steroids, nebulized bronchodilators. Blood sugars controlled. Sedation holiday pending. Continues on Keppra with no further seizure activity reported. Neuro. workup in progress. Echo pending. Toxicology screen detected benzodiazepines, serum alcohol less than 10. Afebrile, WBC 11. 11/10/2021 continues on nebulized bronchodilators, IV steroids and Zosyn .Vent dependent, FiO2 50% /+5 PEEP. Maintained on diprovan drip. Chest x-ray cardiomegaly, basilar atelectasis versus pneumonia, central vascularity more prominent in the left lung base with minimal patchy basilar density noted on the right. Tolerating tube feeds at goal. Failed sedation holiday yesterday. No further seizure activity reported, maintained on Keppra. EEG reported abnormal drowsy and sleep EEG, background slowing of moderate to severe degree, consistent with encephalopathy of toxic metabolic causes or medications. No epileptiform activity was seen. Echo reported mild to moderate and. LV function, EF 40-45%. 11/11/2021 extubated, maintaining O2 sats in the high 80s to low 90s on 5 L nasal cannula. Hypertensive .Swallow evaluation pending. IV push Vasotec 1 as per PCP, with orders to resume oral JUANI inhibitor and beta chino pending patient passes swallow evaluation . Neurology adjusted and radiology studies from MRI to head CT-pending. Alert and oriented 2-3, disoriented to year. Afebrile, normal WBC. Blood sugars controlled. 11/12/2021 maintaining O2 sats in the 90s on 5 L nasal cannula. Chest x-ray reports improvement in aeration, patchy basilar severe left base, left hemidiaphragm elevated.. Continues on Zosyn, IV fluid hydration. BUN 24, creatinine 0.72. Afebrile, normal WBC. No further seizure activity reported ,on Keppra. Brain CT reported no acute intracranial hemorrhage or gross acute cortical infarct, however a small acute or hyper acute infarct cannot be excluded. Objective - Vital Signs Vital signs: Vital Signs Temp 97.3 F L 11/12/21 12:45 Pulse 54 L 11/12/21 12:45 Resp 19 11/12/21 12:45 BP 127/71 11/12/21 12:45 Pulse Ox 96 11/12/21 12:45 Intake & Output 11/11/21 11/12/21 11/12/21 18:59 06:59 18:59 Intake Total 9212.019 8490 280 Output Total 1915 890 900 Balance -205.131 670 -620 Weight 137.8 kg 137.8 kg Intake: IV 1100 1160 280 Keppra 100 100 100 Sodium Chloride 0.9% 1, 800 960 80 000 ml @ 80 mls/hr IV . [id number] TRISTEN Rx#:[id number] zosyn 200 100 100 Intake, IV Titration 109.869 Amount propofoL 1,000 mg In 109.869 Empty Bag 1 bag @ Titrate IV .Q0M TRISTEN Rx#: [id number] Oral 400 400 Tube Feeding 70 Other 30 Output: Urine 1915 890 900 Other: Voiding Method Indwelling Catheter Indwelling Catheter Indwelling Catheter ABP, PAP, CO, CI - Last Documented Arterial Blood Pressure 135/71 - Exam PHYSICAL EXAM: VITAL SIGNS: [As above] GENERAL: Alert and oriented 3, sitting up in chair, no acute distress. HEENT: Conjunctivae normal. eyes normal. MMM. NECK: Supple, No JVD. CARDIOVASCULAR: S1, S2 regular. No murmur RESPIRATION: Coarse, Breath sounds diminished in the bases with bibasilar crackles ABDOMEN: Soft, nontender. No guarding. no masses palpable. Bowel sounds present. LEGS: Chronic venous stasis, minimal lower extremity edema. NERVOUS SYSTEM: Cranial nerves II through XII grossly intact Skin: Warm and dry, no rash - Labs CBC & Chem 7: 11/12/21 05:45 11/12/21 05:45 Labs: Abnormal Lab Results - Last 24 Hours (Table) 11/12/21 11/12/21 Range/Units 05:45 05:45 MCV 101.3 H (80.0-100.0) fL Lymphocytes # 0.5 L (1.0-4.8) k/uL Carbon Dioxide 36 H (22-30) mmol/L BUN 24 H (9-20) mg/dL Glucose 127 H (74-99) mg/dL Assessment and Plan Assessment: Acute COPD exacerbation Acute hypoxic, hypercapnic respiratory failure secondary to the above, status post mechanical ventilator-dependent Change in mental status with Dysarthria, present on admission with possible seizure-like activity, tongue bit with urinary incontinence, suspect related to the above, possible new onset seizure activity, maintained on Keppra. Hypotension, pressor dependent, resolved Hypertension Hypoxic, hypercapnic encephalopathy, present on admission Chronic elevated left hemidiaphragm AICD placement related to history of ischemic cardiomyopathy, past EF less than 20% with proximal atrial tachycardia, echo now reporting mild to moderately impaired LV function, EF 40-45% History of bilateral pulmonary embolism Chronic anticoagulated with warfarin History of VINOD, noncompliant unable to tolerate mask Peripheral vascular disease Rheumatoid arthritis Plan: Continue current medication regime, monitoring and symptomatic treatment. Potential transfer out of ICU today. Maintain aggressive pulmonary toileting, nebulized bronchodilators, antibiotic, IV steroids .Prognosis guarded given multiple complex medical issues. The impression and plan of care has been dictated as directed. : I performed a history and examination of this patient, discussed the same with the dictator. I agree with the dictator's note ,documented as a scribe. Any additional findings or plans will be noted.
[2021-11-12] MEDS: methylPREDNISolone SOD SUCCI 40 MG/ML 1 ML VIAL IV SCH (16:25)
[2021-11-12] MEDS: lisinopriL 5 MG TAB PO SCH (21:17)
[2021-11-13] MEDS: PIPERACILLIN-TAZOBACTAM 3.375 GM in SODIUM CHLORIDE 0.9% 100 ML IVPB SCH ×4 (00:11→23:22)
[2021-11-13] MEDS: methylPREDNISolone SOD SUCCI 40 MG/ML 1 ML VIAL IV SCH ×4 (00:11→23:22)
[2021-11-13] MEDS: SODIUM CHLORIDE 0.9% 1,000 ML IV SCH ×2 (06:20→10:03)
[2021-11-13] MEDS: IPRATROPIUM-ALBUTEROL 3 ML NEB INHALATION SCH ×4 (07:13→19:09)
[2021-11-13] MEDS: ENOXAPARIN 40 MG/0.4 ML SYRINGE SQ SCH (09:16)
[2021-11-13] MEDS: PANTOPRAZOLE 40 MG/10 ML VIAL IVP SCH (09:16)
[2021-11-13] MEDS: FUROSEMIDE 40 MG TAB PO SCH ×2 (09:17→13:49)
[2021-11-13] MEDS: carvediloL 12.5 MG TAB PO SCH ×2 (09:17→17:35)
[2021-11-13] MEDS: ATORVASTATIN 10 MG TAB PO SCH (09:17)
[2021-11-13] MEDS: levETIRAcetam IV 500 MG in SODIUM CHLORIDE 0.9% 100 ML IVPB SCH ×2 (09:18→21:32)
[2021-11-13] MEDS: SPIRONOLACTONE 25 MG TAB PO SCH (09:18)
[2021-11-13] MEDS: THIAMINE 100 MG/ML 2 ML VIAL IVP SCH (09:18)
--- NOTE | 2021-11-13 11:39 | P.PN ---
Subjective Progress Note Date: 11/13/21 61-year-old male patient, morbidly obese, with known history of chronic hypoxic and possibly hypercapnic respiratory failure and obvious elevation of the left hemidiaphragm on chest x-rays, came in yesterday to the emergency department with slurred speech and shortness of breath. I was unable to interview the patient as the patient's current intubated on a mechanical ventilator. I'll obtain the records from the chart. Apparently, the patient has been having symptoms for the past few days mainly slurred speech, lethargy and increased shortness of breath. No reported history of chest pain. No focal neurological deficit. No reported fever or chills. No reported worsening in lower extremity edema. The patient was admitted to the hospital under the diagnosis of COPD exacerbation. He was started on bronchodilators and steroids. At around 2100 yesterday, the patient had jerky body movements that were highly suspicious for seizures. The patient bit his tongue during the process. Apparently prior to that, he was becoming much more clear mentally and acutely became confused. He also urinated on himself. There was a concern for seizure activity and the patient was given Ativan and following that the patient was given. Following the 4 mg Ativan dose, the patient became quite lethargic and obtunded. He got transferred to the intensive care unit where he was intubated and placed on a mechanical ventilator. This morning, he is sedated with a combination of propofol which is running at 40 mg/kg per minute. He is also on Versed there was a 4 mg an hour and this was reduced on 4 mg an hour this morning. He remains on IV Keppra. No further seizure activities have been noted. The patient is currently on a mechanical ventilator within assist-control mode at the rate of 18, tidal volume of 450, FiO2 of 60% with a PEEP of 5. Note that his initial blood gas showed a pH of 7.29 with a pCO2 of 82 and pO2 of 65. Subsequent blood gases from this morning on the above-mentioned ventilator setting shows a pH of 7.3 with a pCO2 of 76 and pO2 of 70. His blood pressure was rather soft and he was started also norepinephrine infusion currently running at 0.05 mcg/kg per minute. He has cardiomegaly on his chest x-ray. ET tube is in a good location. There is a component of interstitial edema and chronic elevation of left hemidiaphragm which was also seen on prior chest x-ray s. Patient is known to have nonischemic cardiomyopathy. He has had impaired ejection fraction of less than 20%. He was taken long-term anticoagulation for prior history of DVT and pulmonary embolism. Noted the current CT angiogram showed no evidence of any PE or filling defects. As for the neuro workup, the CAT scan of the brain, CT angios of the brain, and the Doppler of the carotids showed no evidence of any acute abnormalities. On his chest x-ray, he has an AICD in place. He is afebrile. No neck stiffness. No hemodynamic instability at this point with exception of some mild hypotension that was encountered active bleeding sedated with the above-mentioned medication. On a mechanical ventilator, the patient shows no signs of any bronchospasm wheezing. Peak airway pressures around 23 cm of water. Progress note dated 11/09/2021. This is a 61-year-old male who was admitted to the hospital on November 07, initially with concerns of possible CVA. The patient was actually admitted with a COPD exacerbation, and because of worsening respiratory failure, requiring intubation on November 08. He was seen by my partner yesterday in consultation. The patient came to the intensive care unit on 11/08/2021. He currently remains on the ventilator. Ventilator settings include the volume assist control mode, rate 18, tidal volume 450, FiO2 50%, PEEP of 5. Blood gases show pO2 73, pCO2 51, and pH is 7.43. Patient is currently on saline at 20 mL an hour, propofol at 50 mcg/kg/m, and a Versed drip at 1 mg an hour. Tube feedings have not yet been started. Today, we will attempt a daily interruption of sedation, and possibly a spontaneous breathing trial. If he does poorly, we will start tube feeds. White count 11, hemoglobin hematocrit and platelet count all normal. Sodium 138, potassium 4.1, chlorides 103, CO2 35, BUN 16, creatinine 0.63. Calcium is 8.9. Chest x-ray shows stable bilateral infiltrates, and a small effusion. CT angiogram was negative for pulmonary embolism. Brain CT was negative. Progress note dated 11/10/2021. 62-year-old male, was admitted to the hospital on November 07, initially with concerns of possible CVA. In actuality, the patient was having a COPD exacerbation. Unfortunately, for worsening respiratory failure he required intubation on 11/08/2021. The patient remains on the ventilator. We did attempt a daily interruption of sedation yesterday, but he did not do well. He remains on volume assist control, rate 18, tidal volume 450, FiO2 50%, PEEP of 5. Blood gases show pO2 of 55, pCO2 of 50, and a pH is 7.45. Saturations L, currently 95%. He is on propofol at 50 mcg/kg/m, saline at 20 mL an hour, and vital high protein at 35 mL an hour, which is goal. White count 10.9, hemoglobin 15.2, hematocrit 45.4, and platelet count 313,000. Sodium 138, potassium 4, chlorides 103, CO2 34, anion gap 1, BUN 23, and creatinine 0.7. C hest x-ray reveals left greater than right basilar infiltrates. There also may be a left-sided pleural effusion. Progress note dated 11/11/2021. 61-year-old male, again seen in room 258. He was initially admitted to the hospital on November 07, and was admitted with a diagnosis of COPD exacerbation, respiratory failure, and required intubation on 11/08/2021. The patient remains on the ventilator. We have attempted daily interruption's of sedation, without success. We will attempt that again today. He is on the volume assist control mode, rate 18, tidal volume 450, FiO2 50%, and PEEP of 5. His gases show a pO2 of 61, pCO2 47, and pH is 7.45. The patient is receiving saline at 80 mL an h our, propofol at 25 mcg/kg/m, and vital high protein at 35 mL an hour, which is goal. On yesterday's daily interruption of sedation, the patient became very agitated. White count 7.1, hemoglobin 14.6, hematocrit 45.2, and platelet count normal. Sodium 138, potassium 4.1, chlorides 102, CO2 34, BUN 23, and creatinine 0.71. Calcium is 8.8. Chest x-rays consistent with either fluid overload and/or pneumonia. Progress note dated 11/12/2021. 62-year-old male, again seen in room 258. The patient was extubated successfully on November 11. Currently, he is on 5 L nasal cannula. He is getting saline at 80 mL an hour. Tube feedings have been discontinued. The patient will get Lasix 40 mg IV push today. If the patient is stable as the day progresses, the patient could be considered to be transferred out to the general medical floor, without telemetry. Today's labs include a white count 7.8, hemoglobin 15, hematocrit 47, and platelet count 235,000. Sodium 140, potassium 4.2, chlorides 105, CO2 36, BUN 24, and creatinine 0.72. Glucose 127. Sputum Gram stain is negative. Chest x-ray shows improved aeration, and some atelectasis or infiltrate at the left base. There is elevation of the left hemidiaphragm. The patient is seen today 11/13/2021 in follow-up on the regular medical floor. He is currently sitting up in a chair at the bedside. Awake and alert in no acute distress. He is maintaining O2 saturations in the mid 90s on 5 L/m per nasal cannula. Sputum culture revealed no growth. No new labs today. He is continued on bronchodilators, IV Solu-Medrol, antibiotics in the form of Zosyn. Remains on normal saline at 80 MLS per hour. Lovenox for DVT prophylaxis. Objective - Vital Signs Vital signs: Vital Signs Temp 97.9 F 11/13/21 03:35 Pulse 72 11/13/21 11:22 Resp 18 11/13/21 03:35 BP 103/62 11/13/21 09:18 Pulse Ox 95 11/13/21 09:18 Intake & Output 11/12/21 11/13/21 11/13/21 18:59 06:59 18:59 Intake Total 280 960 Output Total 900 Balance -620 960 Weight 137.8 kg 145.2 kg Intake: IV 280 960 Keppra 100 Sodium Chloride 0.9% 1, 80 960 000 ml @ 80 mls/hr IV . [id number] [facility] Rx#:[id number] zosyn 100 Output: Urine 900 Other: Voiding Method Indwelling Catheter Indwelling Catheter # Voids 1 ABP, PAP, CO, CI - Last Documented Arterial Blood Pressure 135/71 - Exam GENERAL EXAM: Alert, pleasant 61-year-old gentleman, on 5 L nasal cannula, up in a chair at the bedside, comfortable in no apparent distress. HEAD: Normocephalic. EYES: Normal reaction of pupils, equal size. NOSE: Clear with pink turbinates. THROAT: No erythema or exudates. NECK: No masses, no JVD. CHEST: No chest wall deformity. LUNGS: Equal air entry with few scattered rhonchi, bilateral basilar crackles. CVS: S1 and S2 normal with no audible murmur, regular rhythm. ABDOMEN: No hepatosplenomegaly, normal bowel sounds, no guarding or rigidity. SPINE: No scoliosis or deformity SKIN: No rashes CENTRAL NERVOUS SYSTEM: No focal deficits, tone is normal in all 4 extremities. EXTREMITIES: Changes of chronic venous stasis of lower extremities. There is 1+ peripheral edema. No clubbing, no cyanosis. Peripheral pulses are intact. - Labs CBC & Chem 7: 11/12/21 05:45 11/12/21 05:45 Assessment and Plan Assessment: 1 Altered mentation with a possibility of a seizure as the patient had seizure- like activity associated with a tongue bite and urinary incontinence. Highly likelihood for underlying malignancy. Meanwhile, the patient was having issues with dysarthria prior to his hospital admission. CAT scan of the brain and a CT came back negative for any CVA. He was given Ativan during his seizure episodes and the patient is also on Keppra. The patient was intubated for respiratory failure on November 08. The patient was successfully extubated on November 11. Currently on 5 L nasal cannula. 2 Possible new onset seizure activity currently on Keppra. 3 Acute on chronic hypoxic and hypercapnic respiratory failure. Status post intubation and mechanical ventilation on 11/08/2021. Chest x-ray showing i nterstitial edema/CHF along with chronic left hemidiaphragmatic elevation or contributing to his respiratory failure in a setting of an acute neurologic event and intake of Ativan. Aspiration is felt to be less likely at this point in time. 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 5 COPD per history although doubt the diagnosis and the patient has been less than nonsmoker and the patient does not show any signs of bronchospasm wheezing on today's evaluation. 6 Nonischemic cardiomyopathy with impaired left a ejection fraction of less than 20%. 7 History of AICD placement. 8 Borderline hypotension, likely drug-induced. 9 History of rheumatoid arthritis. 9 Peripheral vascular disease. 10 Previous history of DVT or pulmonary embolism and the patient was taken [facility] on outpatient basis, INR was subtherapeutic at 1.7 at time of admission. Plan: The patient was seen and evaluated Currently on 5 L nasal cannula Titrate the FiO2 as tolerated Continue Zosyn, bronchodilators Continue IV Solu-Medrol Up in a chair at the bedside Increase his activity as tolerated Follow-up chest x-ray in the a.m. We will continue to follow I have personally seen and examined the patient, performed the documentation and the assessment and plan as written. Number of minutes spent on the visit: 10.
--- NOTE | 2021-11-13 14:00 | P.PN ---
Subjective This is a 61-year-old male well-known to the practice presented to the emergency room for dyspnea slurred speech symptoms apparently have been present for approximately 2 days possibly 3. Denies headache, denies chest pain, does present with increased dyspnea no lower extreme edema no vomiting no fever,poss history of COPD, patient did quit smoking several years ago, past history of paroxysmal atrial fibrillation one episode several years ago also patient has past history of myocardial infarction with cardiomyopathy and bilateral PEs approximately 7 years ago 11/09/2021 mechanical ventilator-dependent, FiO2 50%/+5 of PEEP. Chest x-ray reporting stable bilateral infiltrates and small pleural effusion. Maintained on diprovan, Versed drips, Levophed currently off, Zosyn, IV steroids, nebulized bronchodilators. Blood sugars controlled. Sedation holiday pending. Continues on Keppra with no further seizure activity reported. Neuro. workup in progress. Echo pending. Toxicology screen detected benzodiazepines, serum alcohol less than 10. Afebrile, WBC 11. 11/10/2021 continues on nebulized bronchodilators, IV steroids and Zosyn .Vent dependent, FiO2 50% /+5 PEEP. Maintained on diprovan drip. Chest x-ray cardiomegaly, basilar atelectasis versus pneumonia, central vascularity more prominent in the left lung base with minimal patchy basilar density noted on the right. Tolerating tube feeds at goal. Failed sedation holiday yesterday. No further seizure activity reported, maintained on Keppra. EEG reported abnormal drowsy and sleep EEG, background slowing of moderate to severe degree, consistent with encephalopathy of toxic metabolic causes or medications. No epileptiform activity was seen. Echo reported mild to moderate and. LV function, EF 40-45%. 11/11/2021 extubated, maintaining O2 sats in the high 80s to low 90s on 5 L nasal cannula. Hypertensive .Swallow evaluation pending. IV push Vasotec 1 as per PCP, with orders to resume oral JUANI inhibitor and beta chino pending patient passes swallow evaluation . Neurology adjusted and radiology studies from MRI to head CT-pending. Alert and oriented 2-3, disoriented to year. Afebrile, normal WBC. Blood sugars controlled. 11/12/2021 maintaining O2 sats in the 90s on 5 L nasal cannula. Chest x-ray reports improvement in aeration, patchy basilar severe left base, left hemidiaphragm elevated.. Continues on Zosyn, IV fluid hydration. BUN 24, crea tinine 0.72. Afebrile, normal WBC. No further seizure activity reported ,on Keppra. Brain CT reported no acute intracranial hemorrhage or gross acute cortical infarct, however a small acute or hyper acute infarct cannot be excluded. November 13, 2021: patient found in his room, in the chair. He is feeling better. He denies any chest pain, shortness breath, nausea or vomiting at this time. He's currently on 5 L of oxygen via nasal cannula. He is afebrile heart rate is sinus, restroom rate controlled, blood pressure stable, he's currently on 4 L of oxygen at 93% Laboratory studies are pending He remains on atorvastatin for hyperlipidemia, Couric, for us and I, lisinopril hospital lactone for CHF hypertension, Lovenox for anticoagulation, Keppra for seizures, methylprednisolone, Zosyn Douneb, an oxygen for COPD. Objective - Vital Signs Vital signs: Vital Signs Temp 98.0 F 11/13/21 11:30 Pulse 75 11/13/21 11:30 Resp 18 11/13/21 11:30 BP 99/58 11/13/21 11:30 Pulse Ox 93 L 11/13/21 11:30 Intake & Output 11/12/21 11/13/21 11/13/21 18:59 06:59 18:59 Intake Total 280 960 Output Total 900 Balance -620 960 Weight 137.8 kg 145.2 kg Intake: IV 280 960 Keppra 100 Sodium Chloride 0.9% 1, 80 960 000 ml @ 80 mls/hr IV . [id number] [facility] Rx#:[id number] zosyn 100 Output: Urine 900 Other: Voiding Method Indwelling Catheter Indwelling Catheter # Voids 1 ABP, PAP, CO, CI - Last Documented Arterial Blood Pressure 135/71 - Exam GENERAL: Alert and oriented 3, sitting up in chair, no acute distress. NECK: Supple, No JVD. CARDIOVASCULAR: S1, S2 regular. No murmur RESPIRATION: Coarse, Breath sounds diminished in the bases with bibasilar crackles ABDOMEN: Soft, nontender. No guarding. no masses palpable. Bowel sounds present. LEGS: Chronic venous stasis, minimal lower extremity edema. NERVOUS SYSTEM: Cranial nerves II through XII grossly intact Skin: Warm and dry, no rash - Labs CBC & Chem 7: 11/12/21 05:45 11/12/21 05:45 Assessment and Plan Plan: Acute COPD exacerbation Acute hypoxic, hypercapnic respiratory failure secondary to the above, status post mechanical ventilator-dependent Change in mental status with Dysarthria, present on admission with possible seizure-like activity, tongue bit with urinary incontinence, suspect related to the above, possible new onset seizure activity, maintained on Keppra. Hypotension, pressor dependent, resolved Hypertension Hypoxic, hypercapnic encephalopathy, present on admission Chronic elevated left hemidiaphragm AICD placement related to history of ischemic cardiomyopathy, past EF less than 20% with proximal atrial tachycardia, echo now reporting mild to moderately impaired LV function, EF 40-45% History of bilateral pulmonary embolism Chronic anticoagulated with warfarin History of VINOD, noncompliant unable to tolerate mask Peripheral vascular disease Rheumatoid arthritis Repeat labs in a.m., wean oxygen as tolerated, wait on pulmonology recommendations, plan for home care with home physical therapy on discharge as ECF has been refused
[2021-11-13] MEDS ORDERED: SODIUM CHLORIDE 0.9% 500 ML 250 ML IV ONE (17:24)
[2021-11-13] MEDS: lisinopriL 5 MG TAB PO SCH (21:32)
[2021-11-14 05:29] VITALS: RESP 20; TEMP 98.2
[2021-11-14] MEDS: SODIUM CHLORIDE 0.9% 1,000 ML IV SCH (05:30)
--- NOTE | 2021-11-14 07:13 | XR ---
EXAMINATION TYPE: XR chest 2V DATE OF EXAM: 11/14/2021 COMPARISON: 11/12/2021 HISTORY: Follow-up for lung infiltrates TECHNIQUE: Frontal and lateral views of the chest are obtained. FINDINGS: There is marked cardiomegaly and mild pulmonary vascular congestion. There is a single bridgette d cardiac pacemaker. There are bibasilar opacities unchanged compared to previous posterior reflectin g combination of atelectasis and pleural effusion. The osseous structures are intact. There is no pneumothorax. IMPRESSION: No change in the acute cardiopulmonary as described above.
[2021-11-14] MEDS: IPRATROPIUM-ALBUTEROL 3 ML NEB INHALATION SCH ×2 (08:14→11:31)
[2021-11-14] MEDS: carvediloL 12.5 MG TAB PO SCH (08:48)
[2021-11-14] MEDS: SPIRONOLACTONE 25 MG TAB PO SCH (08:48)
[2021-11-14] MEDS: ATORVASTATIN 10 MG TAB PO SCH (08:48)
[2021-11-14] MEDS: ENOXAPARIN 40 MG/0.4 ML SYRINGE SQ SCH (08:49)
[2021-11-14] MEDS: FUROSEMIDE 40 MG TAB PO SCH ×2 (08:53→12:44)
[2021-11-14] MEDS ORDERED: THIAMINE 100 MG TAB PO SCH (09:00)
[2021-11-14] MEDS ORDERED: PANTOPRAZOLE 40 MG TABLET PO SCH (09:00)
[2021-11-14 09:18] VITALS: BP 133/70
[2021-11-14] MEDS: levETIRAcetam IV 500 MG in SODIUM CHLORIDE 0.9% 100 ML IVPB SCH (09:26)
[2021-11-14] MEDS ORDERED: levETIRAcetam 500 MG TAB PO STA (09:27)
[2021-11-14] MEDS: methylPREDNISolone SOD SUCCI 40 MG/ML 1 ML VIAL IV SCH (10:34)
[2021-11-14] MEDS: PIPERACILLIN-TAZOBACTAM 3.375 GM in SODIUM CHLORIDE 0.9% 100 ML IVPB SCH ×2 (10:34→12:45)
--- NOTE | 2021-11-14 11:17 | P.DS ---
Providers Date of admission: 11/07/21 19:23 Expected date of discharge: 11/07/21 Attending physician: Prasanth Nava Consults: 11/07/21 19:22 Consult Physician Routine Consulting Provider: Goldy Ritchie Consult Reason/Comments: CVA Do you want consulting provider notified?: Yes 11/08/21 03:57 Consult Physician Stat Consulting Provider: Vaishali Durbin Consult Reason/Comments: ICU management Do you want consulting provider notified?: Yes Primary care physician: [facility] Course: This is a 61-year-old male well-known to the practice presented to the emergency room for dyspnea slurred speech symptoms apparently have been present for approximately 2 days possibly 3. Denies headache, denies chest pain, does present with increased dyspnea no lower extreme edema no vomiting no fever,poss history of COPD, patient did quit smoking several years ago, past history of paroxysmal atrial fibrillation one episode several years ago also patient has past history of myocardial infarction with cardiomyopathy and bilateral PEs approximately 7 years ago 11/09/2021 mechanical ventilator-dependent, FiO2 50%/+5 of PEEP. Chest x-ray reporting stable bilateral infiltrates and small pleural effusion. Maintained on diprovan, Versed drips, Levophed currently off, Zosyn, IV steroids, nebulized bronchodilators. Blood sugars controlled. Sedation holiday pending. Continues on Keppra with no further seizure activity reported. Neuro. workup in progress. Echo pending. Toxicology screen detected benzodiazepines, serum alcohol less than 10. Afebrile, WBC 11. 11/10/2021 continues on nebulized bronchodilators, IV steroids and Zosyn .Vent dependent, FiO2 50% /+5 PEEP. Maintained on diprovan drip. Chest x-ray cardiomegaly, basilar atelectasis versus pneumonia, central vascularity more prominent in the left lung base with minimal patchy basilar density noted on the right. Tolerating tube feeds at goal. Failed sedation holiday yesterday. No further seizure activity reported, maintained on Keppra. EEG reported abnormal drowsy and sleep EEG, background slowing of moderate to severe degree, consistent with encephalopathy of toxic metabolic causes or medications. No epileptiform activity was seen. Echo reported mild to moderate and. LV function, EF 40-45%. 11/11/2021 extubated, maintaining O2 sats in the high 80s to low 90s on 5 L nasal cannula. Hypertensive .Swallow evaluation pending. IV push Vasotec 1 as per PCP, with orders to resume oral JUANI inhibitor and beta chino pending patient passes swallow evaluation . Neurology adjusted and radiology studies from MRI to head CT-pending. Alert and oriented 2-3, disoriented to year. Afebrile, normal WBC. Blood sugars controlled. 11/12/2021 maintaining O2 sats in the 90s on 5 L nasal cannula. Chest x-ray reports improvement in aeration, patchy basilar severe left base, left hemidiaphragm elevated.. Continues on Zosyn, IV fluid hydration. BUN 24, creatinine 0.72. Afebrile, normal WBC. No further seizure activity reported ,on Keppra. Brain CT reported no acute intracranial hemorrhage or gross acute cortical infarct, however a small acute or hyper acute infarct cannot be exclude d. November 13, 2021: patient found in his room, in the chair. He is feeling better. He denies any chest pain, shortness breath, nausea or vomiting at this time. He's currently on 5 L of oxygen via nasal cannula. He is afebrile heart rate is sinus, restroom rate controlled, blood pressure stable, he's currently on 4 L of oxygen at 93% Laboratory studies are pending He remains on atorvastatin for hyperlipidemia, Couric, for us and I, lisinopril hospital lactone for CHF hypertension, Lovenox for anticoagulation, Keppra for seizures, methylprednisolone, Zosyn Douneb, an oxygen for COPD. Large 08/24/2022: Patient is doing well. Currently he is on 3 L oxygen 97%. Remains on IV antibiotics and steroids at this time, but his IV has been gone subcutaneous and there were unable to restart it. We discussed him possibly going home today. He has quite a bit of assistance at home including his daughter and girlfriend. We discussed that it oxygen can be set up at home, we'll plan on him being discharged today with home care, outpatient neurology follow-up, and medications per his discharge summary. Patient Condition at Discharge: Stable Plan - Discharge Summary New Discharge Prescriptions: New Thiamine [Vitamin B-1] 100 mg PO DAILY tab Rivaroxaban [Xarelto] 20 mg PO DAILY 5 Days #5 tab levETIRAcetam [Keppra] 500 mg PO Q12HR 30 Days #60 tab predniSONE See Taper PO DIRECTED 12 Days #30 tab Umeclidinium Brm/Vilanterol Tr [Anoro Ellipta 62.5-25 Mcg INH] 1 puff INHALATION DAILY 30 Days #1 each Amoxicillin/Potassium Clav [Augmentin 875-125 Tablet] 1 tab PO Q12HR 5 Days #10 tab Pantoprazole [Protonix] 40 mg PO AC-BRKFST #30 tab Continue Spironolactone [Aldactone] 25 mg PO DAILY #30 tablet Warfarin [Coumadin] 5 mg PO DIRECTED Carvedilol [Coreg] 25 mg PO BID Atorvastatin [Lipitor] 10 mg PO DAILY Sildenafil Citrate 100 mg PO DAILY PRN PRN Reason: E.D. lisinopriL [Zestril] 5 mg PO HS Furosemide [Lasix] 40 mg PO BID@0900,1400 Discharge Medication List Spironolactone [Aldactone] 25 mg PO DAILY #30 tablet 04/08/17 [Rx] Warfarin [Coumadin] 5 mg PO DIRECTED 07/19/18 [History] Atorvastatin [Lipitor] 10 mg PO DAILY 11/07/21 [History] Carvedilol [Coreg] 25 mg PO BID 11/07/21 [History] Furosemide [Lasix] 40 mg PO BID@0900,1400 11/07/21 [History] Sildenafil Citrate 100 mg PO DAILY PRN 11/07/21 [History] lisinopriL [Zestril] 5 mg PO HS 11/07/21 [History] Amoxicillin/Potassium Clav [Augmentin 875-125 Tablet] 1 tab PO Q12HR 5 Days #10 tab 11/14/21 [Rx] Pantoprazole [Protonix] [facility] tab 11/14/21 [Rx] Rivaroxaban [Xarelto] 20 mg PO DAILY 5 Days #5 tab 11/14/21 [Rx] Thiamine [Vitamin B-1] 100 mg PO DAILY tab 11/14/21 [Rx] Umeclidinium Brm/Vilanterol Tr [Anoro Ellipta 62.5-25 Mcg INH] 1 puff INHALATION DAILY 30 Days #1 each 11/14/21 [Rx] levETIRAcetam [Keppra] 500 mg PO Q12HR 30 Days #60 tab 11/14/21 [Rx] predniSONE See Taper PO DIRECTED 12 Days #30 tab 11/14/21 [Rx] Follow up Appointment(s)/Referral(s): Prasanth Nava Jr, DO [Primary Care Provider] - 1-2 days Goldy Rodrigues MD [STAFF PHYSICIAN] - 1 Week [facility], [NON-STAFF] - 1 Week Discharge Disposition: HOME WITH HOME HEALTH SERVICES
[2021-11-14 11:19] LABS: Basophils # (A) 0.02 X 10*3/uL (0.00-0.10); Basophils % (A) 0.2 %; Eosinophils # (A) 0 X 10*3/uL (0.04-0.35); Eosinophils % (A) 0 %; HCT 49.9 % (39.6-50.0); HGB 15.5 g/dL (13.0-17.0); Immature Grans, Automated 1.1 %; Lymphocytes % (A) 5.4 %; MCH 31.4 pg (27.0-32.0); MCHC 31.1 g/dL (32.0-37.0); Monocytes # (A) 0.43 X 10*3/uL (0.20-1.00); Monocytes % (A) 3.8 %; NRBC Per 100 WBC 0 /100 WBCS (0.0-0.0); Neutrophils # (A) 10.02 X 10*3/uL (1.80-7.70); Neutrophils % (A) 89.5 %; Platelet Count 255 X 10*3/uL (140-440); RBC 4.94 X 10*6/uL (4.40-5.60); RDW 12.3 % (11.5-14.5); WBC 11.19 X 10*3/uL (4.50-10.00)
[2021-11-14 11:34] VITALS: PULSE 69
[2021-11-14 11:37] LABS: African American GFR (CKD) 121.7 (60.0-200.0); Anion Gap 7.5 mmol/L (10.00-18.00); BUN/Creat Ratio 28.64 Ratio (12.00-20.00); Blood Urea Nitrogen 18.3 mg/dL (9.0-27.0); Carbon Dioxide 34.6 mmol/L (20.0-27.5); Magnesium 2.6 mg/dL (1.5-2.4); Potassium 4.7 mmol/L (3.5-5.5)
--- NOTE | 2021-11-14 15:05 | P.PN ---
Subjective Progress Note Date: 11/14/21 61-year-old male patient, morbidly obese, with known history of chronic hypoxic and possibly hypercapnic respiratory failure and obvious elevation of the left hemidiaphragm on chest x-rays, came in yesterday to the emergency department with slurred speech and shortness of breath. I was unable to interview the patient as the patient's current intubated on a mechanical ventilator. I'll obtain the records from the chart. Apparently, the patient has been having symptoms for the past few days mainly slurred speech, lethargy and increased shortness of breath. No reported history of chest pain. No focal neurological deficit. No reported fever or chills. No reported worsening in lower extremity edema. The patient was admitted to the hospital under the diagnosis of COPD exacerbation. He was started on bronchodilators and steroids. At around 2100 yesterday, the patient had jerky body movements that were highly suspicious for seizures. The patient bit his tongue during the process. Apparently prior to that, he was becoming much more clear mentally and acutely became confused. He also urinated on himself. There was a concern for seizure activity and the patient was given Ativan and following that the patient was given. Following the 4 mg Ativan dose, the patient became quite lethargic and obtunded. He got transferred to the intensive care unit where he was intubated and placed on a mechanical ventilator. This morning, he is sedated with a combination of propofol which is running at 40 mg/kg per minute. He is also on Versed there was a 4 mg an hour and this was reduced on 4 mg an hour this morning. He remains on IV Keppra. No further seizure activities have been noted. The patient is currently on a mechanical ventilator within assist-control mode at the rate of 18, tidal volume of 450, FiO2 of 60% with a PEEP of 5. Note that his initial blood gas showed a pH of 7.29 with a pCO2 of 82 and pO2 of 65. Subsequent blood gases from this morning on the above-mentioned ventilator setting shows a pH of 7.3 with a pCO2 of 76 and pO2 of 70. His blood pressure was rather soft and he was started also norepinephrine infusion currently running at 0.05 mcg/kg per minute. He has cardiomegaly on his chest x-ray. ET tube is in a good location. There is a component of interstitial edema and chronic elevation of left hemidiaphragm which was also seen on prior chest x-ray s. Patient is known to have nonischemic cardiomyopathy. He has had impaired ejection fraction of less than 20%. He was taken long-term anticoagulation for prior history of DVT and pulmonary embolism. Noted the current CT angiogram showed no evidence of any PE or filling defects. As for the neuro workup, the CAT scan of the brain, CT angios of the brain, and the Doppler of the carotids showed no evidence of any acute abnormalities. On his chest x-ray, he has an AICD in place. He is afebrile. No neck stiffness. No hemodynamic instability at this point with exception of some mild hypotension that was encountered active bleeding sedated with the above-mentioned medication. On a mechanical ventilator, the patient shows no signs of any bronchospasm wheezing. Peak airway pressures around 23 cm of water. Progress note dated 11/09/2021. This is a 61-year-old male who was admitted to the hospital on November 07, initially with concerns of possible CVA. The patient was actually admitted with a COPD exacerbation, and because of worsening respiratory failure, requiring intubation on November 08. He was seen by my partner yesterday in consultation. The patient came to the intensive care unit on 11/08/2021. He currently remains on the ventilator. Ventilator settings include the volume assist control mode, rate 18, tidal volume 450, FiO2 50%, PEEP of 5. Blood gases show pO2 73, pCO2 51, and pH is 7.43. Patient is currently on saline at 20 mL an hour, propofol at 50 mcg/kg/m, and a Versed drip at 1 mg an hour. Tube feedings have not yet been started. Today, we will attempt a daily interruption of sedation, and possibly a spontaneous breathing trial. If he does poorly, we will start tube feeds. White count 11, hemoglobin hematocrit and platelet count all normal. Sodium 138, potassium 4.1, chlorides 103, CO2 35, BUN 16, creatinine 0.63. Calcium is 8.9. Chest x-ray shows stable bilateral infiltrates, and a small effusion. CT angiogram was negative for pulmonary embolism. Brain CT was negative. Progress note dated 11/10/2021. 62-year-old male, was admitted to the hospital on November 07, initially with concerns of possible CVA. In actuality, the patient was having a COPD exacerbation. Unfortunately, for worsening respiratory failure he required intubation on 11/08/2021. The patient remains on the ventilator. We did attempt a daily interruption of sedation yesterday, but he did not do well. He remains on volume assist control, rate 18, tidal volume 450, FiO2 50%, PEEP of 5. Blood gases show pO2 of 55, pCO2 of 50, and a pH is 7.45. Saturations L, currently 95%. He is on propofol at 50 mcg/kg/m, saline at 20 mL an hour, and vital high protein at 35 mL an hour, which is goal. White count 10.9, hemoglobin 15.2, hematocrit 45.4, and platelet count 313,000. Sodium 138, potassium 4, chlorides 103, CO2 34, anion gap 1, BUN 23, and creatinine 0.7. C hest x-ray reveals left greater than right basilar infiltrates. There also may be a left-sided pleural effusion. Progress note dated 11/11/2021. 61-year-old male, again seen in room 258. He was initially admitted to the hospital on November 07, and was admitted with a diagnosis of COPD exacerbation, respiratory failure, and required intubation on 11/08/2021. The patient remains on the ventilator. We have attempted daily interruption's of sedation, without success. We will attempt that again today. He is on the volume assist control mode, rate 18, tidal volume 450, FiO2 50%, and PEEP of 5. His gases show a pO2 of 61, pCO2 47, and pH is 7.45. The patient is receiving saline at 80 mL an h our, propofol at 25 mcg/kg/m, and vital high protein at 35 mL an hour, which is goal. On yesterday's daily interruption of sedation, the patient became very agitated. White count 7.1, hemoglobin 14.6, hematocrit 45.2, and platelet count normal. Sodium 138, potassium 4.1, chlorides 102, CO2 34, BUN 23, and creatinine 0.71. Calcium is 8.8. Chest x-rays consistent with either fluid overload and/or pneumonia. Progress note dated 11/12/2021. 62-year-old male, again seen in room 258. The patient was extubated successfully on November 11. Currently, he is on 5 L nasal cannula. He is getting saline at 80 mL an hour. Tube feedings have been discontinued. The patient will get Lasix 40 mg IV push today. If the patient is stable as the day progresses, the patient could be considered to be transferred out to the general medical floor, without telemetry. Today's labs include a white count 7.8, hemoglobin 15, hematocrit 47, and platelet count 235,000. Sodium 140, potassium 4.2, chlorides 105, CO2 36, BUN 24, and creatinine 0.72. Glucose 127. Sputum Gram stain is negative. Chest x-ray shows improved aeration, and some atelectasis or infiltrate at the left base. There is elevation of the left hemidiaphragm. The patient is seen today 11/13/2021 in follow-up on the regular medical floor. He is currently sitting up in a chair at the bedside. Awake and alert in no acute distress. He is maintaining O2 saturations in the mid 90s on 5 L/m per nasal cannula. Sputum culture revealed no growth. No new labs today. He is continued on bronchodilators, IV Solu-Medrol, antibiotics in the form of Zosyn. Remains on normal saline at 80 MLS per hour. Lovenox for DVT prophylaxis. The patient is seen today 11/14/2021 follow-up on the regular medical floor. He is up ambulating with a walker. Awake and alert in no acute distress. Denies any worsening shortness of breath, cough or congestion. He is maintaining good O2 saturations in the 90s on 3 L/m per nasal cannula. He did drop to 87% with ambulation on room air. He is qualified for home oxygen. Chest x-ray reveals no acute cardiopulmonary process. Sputum culture revealed no growth. White count 11. Hemoglobin 15.5. Sodium 141. Potassium 4.7. BUN 18. Creatinine 0.6. Glucose 119. He is continued on DuoNeb inhalations, IV Solu-Medrol, Zosyn Objective - Vital Signs Vital signs: Vital Signs Temp 98.2 F 11/14/21 05:00 Pulse 69 11/14/21 11:43 Resp 20 11/14/21 08:15 BP 133/70 11/14/21 09:17 Pulse Ox 96 11/14/21 10:46 Intake & Output 11/13/21 11/14/21 11/14/21 18:59 06:59 18:59 Intake Total 960 Output Total 1800 1150 Balance -1800 -190 Weight 146 kg Intake: IV 960 Sodium Chloride 0.9% 1, 960 000 ml @ 80 mls/hr IV . [id number] [facility] Rx#:[id number] Output: Urine 1800 1150 Other: Voiding Method Indwelling Catheter # Voids 4 ABP, PAP, CO, CI - Last Documented Arterial Blood Pressure 135/71 - Exam GENERAL EXAM: Alert, pleasant 61-year-old gentleman, on 3 L nasal cannula, comfortable in no apparent distress. HEAD: Normocephalic. EYES: Normal reaction of pupils, equal size. NOSE: Clear with pink turbinates. THROAT: No erythema or exudates. NECK: No masses, no JVD. CHEST: No chest wall deformity. LUNGS: Equal air entry with few scattered rhonchi, bilateral basilar crackles. CVS: S1 and S2 normal with no audible murmur, regular rhythm. ABDOMEN: No hepatosplenomegaly, normal bowel sounds, no guarding or rigidity. SPINE: No scoliosis or deformity SKIN: No rashes CENTRAL NERVOUS SYSTEM: No focal deficits, tone is normal in all 4 extremities. EXTREMITIES: Changes of chronic venous stasis of lower extremities. There is 1+ peripheral edema. No clubbing, no cyanosis. Peripheral pulses are intact. - Labs CBC & Chem 7: 11/14/21 06:43 11/14/21 06:43 Labs: Abnormal Lab Results - Last 24 Hours (Table) 11/14/21 11/14/21 Range/Units 06:43 06:43 WBC 11.19 H (4.50-10.00) X 10*3/uL MCV 101.0 H (80.0-97.0) fL MCHC 31.1 L (32.0-37.0) g/dL Immature Gran # 0.12 H (0.00-0.04) X 10*3/uL Neutrophils # 10.02 H (1.80-7.70) X 10*3/uL Lymphocytes # 0.60 L (0.90-5.00) X 10*3/uL Eosinophils # 0 L (0.04-0.35) X 10*3/uL Carbon Dioxide 34.6 H (20.0-27.5) mmol/L Anion Gap 7.50 L (10.00-18.00) mmol/L BUN/Creatinine Ratio 28.64 H (12.00-20.00) Ratio Glucose 119 H (70-110) mg/dL Magnesium 2.6 H (1.5-2.4) mg/dL Assessment and Plan Assessment: 1 Altered mentation with a possibility of a seizure as the patient had seizure- like activity associated with a tongue bite and urinary incontinence. Highly likelihood for underlying malignancy. Meanwhile, the patient was having issues with dysarthria prior to his hospital admission. CAT scan of the brain and a CT came back negative for any CVA. He was given Ativan during his seizure episodes and the patient is also on Keppra. The patient was intubated for respiratory failure on November 08. The patient was successfully extubated on November 11. Currently on 3 L nasal cannula. 2 Possible new onset seizure activity currently on Keppra. 3 Acute on chronic hypoxic and hypercapnic respiratory failure. Status post intubation and mechanical ventilation on 11/08/2021. Chest x-ray showing in terstitial edema/CHF along with chronic left hemidiaphragmatic elevation or contributing to his respiratory failure in a setting of an acute neurologic event and intake of Ativan. Aspiration is felt to be less likely at this point in time. 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 5 COPD per history although doubt the diagnosis and the patient has been less than nonsmoker and the patient does not show any signs of bronchospasm wheezing on today's evaluation. 6 Nonischemic cardiomyopathy with impaired left a ejection fraction of less than 20%. 7 History of AICD placement. 8 Borderline hypotension, likely drug-induced. 9 History of rheumatoid arthritis. 9 Peripheral vascular disease. 10 Previous history of DVT or pulmonary embolism and the patient was taken warfarin on outpatient basis, INR was subtherapeutic at 1.7 at time of admission. Plan: The patient was seen and evaluated Chest x-ray and labs reviewed Currently on 3 L nasal cannula Cleared for discharge from pulmonary standpoint Complete a course of antibiotics Continue his home pulmonary medications Complete prednisone taper Follow up in the office in 1-2 weeks' I have personally seen and examined the patient, performed the documentation and the assessment and plan as written. Number of minutes spent on the visit: 10.
[2021-11-14] MEDS ORDERED: WARFARIN 5 MG TAB PO SCH (18:00)
[2021-11-14] MEDS ORDERED: levETIRAcetam 500 MG TAB PO SCH (21:00)
== END 2021-11-14 14:32 | disposition home health service (06) | DRG 208 ==
LOC: EC 16:44 → 3SCARD 19:23 → 2SICU 11-08 03:51 → 5NMEDONC 11-12 12:30
PROVIDERS: ADMIT Family Medicine; ATTEND Family Medicine
PROC: 5A1945Z Respiratory Ventilation, 24-96 Consecutive Hours (ICD-10-PCS; principal; 2021-11-08)
PROC: 0BH17EZ Insertion of Endotracheal Airway into Trachea, Via Natural or Artificial Opening (ICD-10-PCS; 2021-11-08)
DX: J44.1 Chronic obstructive pulmonary disease with (acute) exacerbation (principal); G92.8 Other toxic encephalopathy; J96.21 Acute and chronic respiratory failure with hypoxia; J96.22 Acute and chronic respiratory failure with hypercapnia; I42.8 Other cardiomyopathies; G93.1 Anoxic brain damage, not elsewhere classified; J98.11 Atelectasis; Z99.11 Dependence on respirator [ventilator] status; J91.8 Pleural effusion in other conditions classified elsewhere; I50.9 Heart failure, unspecified; S01.552A Open bite of oral cavity, initial encounter; R32 Unspecified urinary incontinence; T41.295A Adverse effect of other general anesthetics, initial encounter; J98.6 Disorders of diaphragm; R53.1 Weakness; R47.1 Dysarthria and anarthria; I87.8 Other specified disorders of veins; E66.01 Morbid (severe) obesity due to excess calories; E78.5 Hyperlipidemia, unspecified; M06.9 Rheumatoid arthritis, unspecified; I11.0 Hypertensive heart disease with heart failure; I25.2 Old myocardial infarction; I25.5 Ischemic cardiomyopathy; I48.0 Paroxysmal atrial fibrillation; I73.9 Peripheral vascular disease, unspecified; R56.9 Unspecified convulsions; X58.XXXA Exposure to other specified factors, initial encounter; Z79.01 Long term (current) use of anticoagulants; Z79.52 Long term (current) use of systemic steroids; Z79.899 Other long term (current) drug therapy; Z86.711 Personal history of pulmonary embolism; Z86.718 Personal history of other venous thrombosis and embolism; Z87.891 Personal history of nicotine dependence; Z91.19 Patient's noncompliance with other medical treatment and regimen; Z95.810 Presence of automatic (implantable) cardiac defibrillator
CPT/HCPCS: 36415; 36600; 70450; 71045; 71046; 71275; 80048; 80053; 80061; 80306; 80320; 81003; 82803; 82805; 83605; 83735; 83880; 84100; 84484; 85025; 85610; 85730; 87070; 87205; 87502; 87635; 93005; 93306; 93880; 94002; 94003; 94640; 94760; 95822; 96374; 99285

== ENCOUNTER → 2022-06-30 | Outpatient (CLI) | payer MEDICARE ==
--- NOTE | 2022-07-02 09:11 | US ---
EXAMINATION TYPE: US arterial LE single level DATE OF EXAM: 06/30/2022 1:49 PM CLINICAL HISTORY: M79.605 left leg pain. History of prior heart attack and vascular surgery. Doppler Waveforms: Right: Monophasic Left: Monophasic Ankle-Brachial Indices: Right: 1.21 Left: 1.10 Toe Brachial Indices: Right: 0.54 Left: 0.77 IMPRESSION: Loss of phasicity is nonspecific. Mild diminished right TBI consistent with at least mild peripheral arterial disease in the right foot. Further workup and follow-up advised.
== END | disposition home or self-care (01) ==
LOC: RADUSWWP 12:54
PROVIDERS: ATTEND Family Medicine
DX: M79.605 Pain in left leg (principal)
CPT/HCPCS: 93922

== ENCOUNTER 2023-01-07 04:11 | Emergency (ER) | payer MEDICARE ==
[2023-01-07 04:15] VITALS: RESP 18; TEMP 98.4
[2023-01-07 05:06] LABS: ALT 29 U/L (4-49); AST 43 U/L (17-59); African American GFR (CKD) >90 (>60 ml/min/1.73 sqM); Albumin 3.6 g/dL (3.5-5.0); Alkaline Phosphatase 112 U/L (38-126); Anion Gap 7 mmol/L; Blood Urea Nitrogen 23 mg/dL (9-20); Calcium 8.6 mg/dL (8.4-10.2); Carbon Dioxide 32 mmol/L (22-30); Chloride 93 mmol/L (98-107); Glucose 117 mg/dL (74-99); Non-African American GFR(CKD) >90 (>60 ml/min/1.73 sqM); Potassium 4.2 mmol/L (3.5-5.1); Sodium 132 mmol/L (137-145); Total Bilirubin 0.7 mg/dL (0.2-1.3); Total Protein 6.4 g/dL (6.3-8.2)
[2023-01-07 05:08] LABS: Basophils % (A) 0 %; Eosinophils # (A) 0.1 k/uL (0-0.7); Eosinophils % (A) 1 %; HCT 44.6 % (39.0-53.0); HGB 15.1 gm/dL (13.0-17.5); Lymphocytes # (A) 1.4 k/uL (1.0-4.8); Lymphocytes % (A) 15 %; MCH 31.9 pg (25.0-35.0); MCHC 33.9 g/dL (31.0-37.0); MCV 94.1 fL (80.0-100.0); Monocytes # (A) 0.6 k/uL (0-1.0); Monocytes % (A) 7 %; Neutrophils # (A) 6.6 k/uL (1.3-7.7); Neutrophils % (A) 73 %; Platelet Count 160 k/uL (150-450); RBC 4.74 m/uL (4.30-5.90); RDW 12.8 % (11.5-15.5)
[2023-01-07 05:12] LABS: INR 1.3 (<1.2); Partial Thromboplastin Time 40.8 sec (22.0-30.0); Prothrombin Time 13.1 sec (9.0-12.0)
--- NOTE | 2023-01-07 05:27 | ED ---
General Adult HPI - General Chief complaint: Shortness of Breath Stated complaint: Kaylee Time Seen by Provider: 01/07/23 04:16 Source: patient, family Mode of arrival: wheelchair Limitations: no limitations - History of Present Illness Initial comments: Dictation was produced using [employer] dictation software. please excuse any grammatical, word or spelling errors. Chief Complaint: 62-year-old male past surgical history of COPD and Mandi presents to the ER for 1 week of shortness of breath History of Present Illness: 62-year-old male with multiple cardiac bony comorbidities. Her last week is feeling short of breath. Patient states that his legs feel more swollen usual. So things much worse on the right. Denies any lower extremity pain. Patient complain of worsening shortness of breath. States it is worse when his flat. He notices more when he is sleeping at night. Denies any fevers. No cough or chest pain. No rales a sore throat. No obvious sick contacts. Patient's been compliant with his medications. He sta jarek that he has very low ejection fraction of approximately 20%. Patient takes 40 mg of Lasix twice a day The ROS documented in this emergency department record has been reviewed and confirmed by me. Those systems with pertinent positive or negative responses have been documented in the HPI. All other systems are other negative and/or noncontributory. - Related Data Home Medications Medication Instructions Recorded Confirmed Warfarin [Coumadin] 5 mg PO DIRECTED 07/19/18 11/07/21 Atorvastatin [Lipitor] 10 mg PO DAILY 11/07/21 11/07/21 Furosemide [Lasix] 40 mg PO BID@0900,1400 11/07/21 11/07/21 Sildenafil Citrate 100 mg PO DAILY PRN 11/07/21 11/07/21 carvediloL [Coreg] 25 mg PO BID 11/07/21 11/07/21 lisinopriL [Zestril] 5 mg PO HS 11/07/21 11/07/21 Previous Rx's Medication Instructions Recorded Spironolactone [Aldactone] 25 mg PO DAILY #30 tablet 04/08/17 Amoxicillin/Potassium Clav 1 tab PO Q12HR 5 Days #10 tab 11/14/21 [Augmentin 875-125 Tablet] Pantoprazole [Protonix] 40 mg PO AC-BRKFST #30 tab 11/14/21 Rivaroxaban [Xarelto] 20 mg PO DAILY 5 Days #5 tab 11/14/21 Thiamine [Vitamin B-1] 100 mg PO DAILY tab 11/14/21 Umeclidinium Brm/Vilanterol Tr 1 puff INHALATION DAILY 30 Days #1 11/14/21 [Anoro Ellipta 62.5-25 Mcg INH] each levETIRAcetam [Keppra] 500 mg PO Q12HR 30 Days #60 tab 11/14/21 predniSONE See Taper PO DIRECTED 12 Days 11/14/21 #30 tab Albuterol Nebulized (Conc) 2.5 mg INHALATION Q6H 6 Days #75 ml 01/07/23 [Ventolin Nebulized (Conc)] Allergies Allergy/AdvReac Type Severity Reaction Status Date / Time ibuprofen Allergy Rash/Hives Verified 01/07/23 04:15 Review of Systems ROS Statement: Those systems with pertinent positive or pertinent negative responses have been documented in the HPI. ROS Other: All systems not noted in ROS Statement are negative. Past Medical History Past Medical History: COPD, Rheumatoid Arthritis (RA), Vascular Disorder Additional Past Medical History / Comment(s): pad, see Dr Jameson H & P, SOB w/exertion History of Any Multi-Drug Resistant Organisms: None Reported Past Surgical History: Heart Catheterization Additional Past Surgical History / Comment(s): varicose veins sx 1991 Past Anesthesia/Blood Transfusion Reactions: No Reported Reaction Past Psychological History: No Psychological Hx Reported Smoking Status: Never smoker Past Alcohol Use History: Occasional Past Drug Use History: None Reported - Past Family History Mother Family Medical History: Cancer Additional Family Medical History / Comment(s): bone cancer Father History Unknown: Yes Additional Family Medical History / Comment(s): never knew his dad General Exam - General Exam Comments Initial Comments: PHYSICAL EXAM: General Impression: Alert and oriented x3, mildly dyspneic HEENT: Normocephalic atraumatic, extra-ocular movements intact, pupils equal and reactive to light bilaterally, mucous membranes moist. Cardiovascular: Heart regular rate and rhythm Chest: Able to complete full sentences, no retractions, no tachypnea Abdomen: abdomen soft, non-tender, non-distended, no organomegaly Musculoskeletal: Pulses present and equal in all extremities, 2+ pitting edema bilaterally Motor: no focal deficits noted Neurological: CN II-XII grossly intact, no focal motor or sensory deficits noted Skin: Intact with no visualized rashes Psych: Normal affect and mood Limitations: no limitations Course Vital Signs 01/07/23 01/07/23 01/07/23 04:13 06:14 06:23 Temperature 98.4 F Pulse Rate 76 81 82 Respiratory 18 Rate Blood Pressure 109/61 O2 Sat by Pulse 91 L Oximetry - Reevaluation(s) Reevaluation #1: 01/07/23 06:48 Patient's labs do not suggest heart failure. X-ray did not show any focal infiltrate. Dyspnea is likely secondary to COPD. Patient or for breathing treatment reevaluated at 650 after breathing treatment. Patient reports significant improvement of his symptoms. EKG Findings - EKG Comments: EKG Findings:: My EKG interpretation: Ventricular rate 77, sinus rhythm,. Interval 200, QRS 107, QTC 419. No DC prolongation, no QTC prolongation, no ST or T-wave changes noted. EKG compared to 11/07/2021 showing no changes. Overall, this EKG is unremarkable Medical Decision Making - Medical Decision Making Was pt. sent in by a medical professional or institution (, PA, DIRECTOR OF STRATEGIC COMMUNICATIONS, urgent care, hospital, or prison...) When possible be specific @ -No Did you speak to anyone other than the patient for history (EMS, parent, family, police, friend...)? What history was obtained from this source @ -Significant other at the bedside Did you review nursing and triage notes (agree or disagree)? Why? @ -I reviewed and agree with nursing and triage notes Were old charts reviewed (outside hosp., previous admission, EMS record, old EKG, old radiological studies, urgent care reports/EKG's, prison records)? Report findings @ -Recent documentation from cardiology and pulmonology in patient's history of heart failure and COPD. Differential Diagnosis (chest pain, altered mental status, abdominal pain women, abdominal pain men, vaginal bleeding, musculoskeletal, weakness, fever, dyspnea, syncope, headache, dizziness, GI bleed, back pain, seizure, CVA, palpatations, mental health)? @ -Differential Dyspnea: Coronary syndrome, arrhythmia, tamponade, asthma, COPD, pulmonary embolism, pneumonia, pneumothorax, pulmonary effusion, anaphylaxis, diabetic ketoacidosis, flailed chest, pulmonary contusion, diaphragmatic rupture, anemia, neuromuscular, this is not meant to be an all-inclusive list. EKG interpreted by me (3pts min.). @ -See above X-rays interpreted by me (1pt min.). @ -Nonacute when compared to x-ray from November 14 CT interpreted by me (1pt min.). @ -None done U/S interpreted by me (1pt. min.). @ -None done What testing was considered but not performed or refused? (CT, X-rays, U/S, labs)? Why? @ -None What meds were considered but not given or refused? Why? @ -None Did you discuss the management of the patient with other professionals (professionals i.e. DrQian, PA, DIRECTOR OF STRATEGIC COMMUNICATIONS, lab, RT, psych nurse, elementary school social worker, sales representative graphic art, teacher, training and development officer, manager case)? Give summary @ -Discussed with patient's prior care physician, Dr. Nava. Dr. Nava's agreeable with discharge and will follow-up with patient in the clinic Was smoking cessation discussed for >3mins.? @ -No Was critical care preformed (if so, how long)? @ -No Were there social determinants of health that impacted care today? How? (Homelessness, low income, unemployed, alcoholism, drug addiction, transportatio n, low edu. Level, literacy, decrease access to med. care, longterm, rehab)? @ -No Was there de-escalation of care discussed even if they declined (Discuss DNR or withdrawal of care, Hospice)? DNR status @ -No What co-morbidities impacted this encounter? (DM, HTN, Smoking, COPD, CAD, Cancer, CVA, ARF, Chemo, Hep., AIDS, mental health diagnosis, sleep apnea, morbid obesity)? @ -COPD and CHF Was patient admitted / discharged? Hospital course, mention meds given and route, prescriptions, significant lab abnormalities, going to OR and other pertinent info. @ -62-year-old male with multiple cardiac bony comorbidities presents to emergency department for persistent dyspnea. Vital signs upon arrival are within acceptable limits. Patient not overtly dyspneic. Laboratory evaluation obtained. CBC, coag panel, metabolic panel is within acceptable limits per troponins negative. Brain atretic peptide is negative. Chest x-ray is unchanged since November 14. Patient's breathing symptoms improved with DuoNeb. Patient given Decadron Case discussed with primary care doctor who is agreeable with patient being discharged follow-up with the clinic. Nebulizer refills provided Undiagnosed new problem with uncertain prognosis? @ -No Drug Therapy requiring intensive monitoring for toxicity (Heparin, Nitro, Insul in, Cardizem)? @ -No Were any procedures done? @ -No Diagnosis/symptom? Acute, or Chronic, or Acute on Chronic? Uncomplicated (without systemic symptoms) or Complicated (systemic symptoms)? @ -1. COPD exacerbation Side effects of treatment? @ -No Exacerbation, Progression, or Severe Exacerbatioyesn? @ Yes, exacerbation Poses a threat to life or bodily function? How? (Chest pain, [place], [place], pneumonia, PE, COPD, DKA, ARF, appy, cholecystitis, CVA, Diverticulitis, Homicidal, Suicidal, threat to staff... and all critical care pts) @ -yes - Lab Data Result diagrams: 01/07/23 04:24 01/07/23 04:24 Lab Results 01/07/23 01/07/23 01/07/23 Range/Units 04:24 04:24 04:24 WBC 9.0 (3.8-10.6) k/uL RBC 4.74 (4.30-5.90) m/uL Hgb 15.1 (13.0-17.5) gm/dL Hct 44.6 (39.0-53.0) % MCV 94.1 (80.0-100.0) fL MCH 31.9 (25.0-35.0) pg MCHC 33.9 (31.0-37.0) g/dL RDW 12.8 (11.5-15.5) % Plt Count 160 (150-450) k/uL MPV 8.0 Neutrophils % 73 % Lymphocytes % 15 % Monocytes % 7 % Eosinophils % 1 % Basophils % 0 % Neutrophils # 6.6 (1.3-7.7) k/uL Lymphocytes # 1.4 (1.0-4.8) k/uL Monocytes # 0.6 (0-1.0) k/uL Eosinophils # 0.1 (0-0.7) k/uL Basophils # 0.0 (0-0.2) k/uL PT 13.1 H (9.0-12.0) sec INR 1.3 H (<1.2) APTT 40.8 H (22.0-30.0) sec Sodium 132 L (137-145) mmol/L Potassium 4.2 (3.5-5.1) mmol/L Chloride 93 L (98-107) mmol/L Carbon Dioxide 32 H (22-30) mmol/L Anion Gap 7 mmol/L BUN 23 H (9-20) mg/dL Creatinine 0.78 (0.66-1.25) mg/dL Est GFR (CKD-EPI)AfAm >90 (>60 ml/min/1.73 sqM) Est GFR (CKD-EPI)NonAf >90 (>60 ml/min/1.73 sqM) Glucose 117 H (74-99) mg/dL Plasma Lactic Acid Geoff (0.7-2.0) mmol/L Calcium 8.6 (8.4-10.2) mg/dL Magnesium 2.0 (1.6-2.3) mg/dL Total Bilirubin 0.7 (0.2-1.3) mg/dL AST 43 (17-59) U/L ALT 29 (4-49) U/L Alkaline Phosphatase 112 (38-126) U/L Troponin I (0.000-0.034) ng/mL NT-Pro-B Natriuret Pep pg/mL Total Protein 6.4 (6.3-8.2) g/dL Albumin 3.6 (3.5-5.0) g/dL 01/07/23 01/07/23 01/07/23 Range/Units 04:24 04:24 04:24 WBC (3.8-10.6) k/uL RBC (4.30-5.90) m/uL Hgb (13.0-17.5) gm/dL Hct (39.0-53.0) % MCV (80.0-100.0) fL MCH (25.0-35.0) pg MCHC (31.0-37.0) g/dL RDW (11.5-15.5) % Plt Count (150-450) k/uL MPV Neutrophils % % Lymphocytes % % Monocytes % % Eosinophils % % Basophils % % Neutrophils # (1.3-7.7) k/uL Lymphocytes # (1.0-4.8) k/uL Monocytes # (0-1.0) k/uL Eosinophils # (0-0.7) k/uL Basophils # (0-0.2) k/uL PT (9.0-12.0) sec INR (<1.2) APTT (22.0-30.0) sec Sodium (137-145) mmol/L Potassium (3.5-5.1) mmol/L Chloride (98-107) mmol/L Carbon Dioxide (22-30) mmol/L Anion Gap mmol/L BUN (9-20) mg/dL Creatinine (0.66-1.25) mg/dL Est GFR (CKD-EPI)AfAm (>60 ml/min/1.73 sqM) Est GFR (CKD-EPI)NonAf (>60 ml/min/1.73 sqM) Glucose (74-99) mg/dL Plasma Lactic Acid Geoff 1.0 (0.7-2.0) mmol/L Calcium (8.4-10.2) mg/dL Magnesium (1.6-2.3) mg/dL Total Bilirubin (0.2-1.3) mg/dL AST (17-59) U/L ALT (4-49) U/L Alkaline Phosphatase (38-126) U/L Troponin I <0.012 (0.000-0.034) ng/mL NT-Pro-B Natriuret Pep 104 pg/mL Total Protein (6.3-8.2) g/dL Albumin (3.5-5.0) g/dL Disposition Clinical Impression: COPD (chronic obstructive pulmonary disease) Disposition: HOME SELF-CARE Condition: Fair Instructions (If sedation given, give patient instructions): COPD (Chronic Obstructive Pulmonary Disease) (ED) Prescriptions: Albuterol Nebulized (Conc) [Ventolin Nebulized (Conc)] 2.5 mg INHALATION Q6H 6 Days #75 ml Is patient prescribed a controlled substance at d/c from ED?: No Referrals: Prasanth Nava Jr, [Primary Care Provider] - 1-2 days Time of Disposition: 06:56
[2023-01-07] MEDS ORDERED: DEXAMETHASONE SOD PHOSPHATE 10 MG/ML 1 ML VIAL IV STA (05:48)
[2023-01-07] MEDS ORDERED: IPRATROPIUM-ALBUTEROL 3 ML NEB INHALATION STA (05:48)
--- NOTE | 2023-01-07 07:00 | XR ---
EXAMINATION TYPE: XR chest 2V DATE OF EXAM: 01/07/2023 4:57 AM COMPARISON: Chest radiographs from 11/14/2021 TECHNIQUE: XR chest 2V Frontal and lateral views of the chest. CLINICAL INDICATION:Male, 62 years old with history of dyspnea; FINDINGS: Lungs/Pleura: No pneumothorax. Blunting of the left costophrenic angle.. Left basilar linear scarring and/or atelectasis. Pulmonary vascularity: Pulmonary vascular congestion. Heart/mediastinum: Cardiomediastinal silhouette is enlarged and stable. Single-lead cardiac conductio n device overlying the left hemithorax with lead projecting over the right ventricle. Musculoskeletal: No acute osseous pathology. Bilateral AC joint arthropathy. IMPRESSION: Cardiomegaly with pulmonary vascular congestion and small left pleural effusion. Correlated with BNP for congestive heart failure.
[2023-01-07 07:08] VITALS: BP 95/47; PULSE 81
== END 2023-01-07 07:14 | disposition home or self-care (01) ==
LOC: EC 04:11
DX: J44.9 Chronic obstructive pulmonary disease, unspecified (principal); M06.9 Rheumatoid arthritis, unspecified; Z88.8 Allergy status to other drugs, medicaments and biological substances; Z79.01 Long term (current) use of anticoagulants; Z79.899 Other long term (current) drug therapy
CPT/HCPCS: 36415; 94640; 93005; 83880; 80053; 83605; 83735; 84484; 85025; 85610; 85730; 71046; 99285; 96374; J1100

== ENCOUNTER 2023-01-10 08:53 | Emergency (ER) | payer MEDICARE ==
[2023-01-10 09:05] VITALS: RESP 20; TEMP 97.8
[2023-01-10 10:39] LABS: Basophils # (A) 0.1 k/uL (0-0.2); Basophils % (A) 1 %; Eosinophils # (A) 0.2 k/uL (0-0.7); Eosinophils % (A) 2 %; HCT 46.2 % (39.0-53.0); HGB 15.6 gm/dL (13.0-17.5); Lymphocytes # (A) 1.9 k/uL (1.0-4.8); Lymphocytes % (A) 22 %; MCH 31.5 pg (25.0-35.0); MCHC 33.7 g/dL (31.0-37.0); MCV 93.3 fL (80.0-100.0); Mean Platelet Volume 7.8; Monocytes # (A) 0.5 k/uL (0-1.0); Monocytes % (A) 6 %; Neutrophils # (A) 5.8 k/uL (1.3-7.7); Neutrophils % (A) 67 %; Platelet Count 260 k/uL (150-450); RBC 4.95 m/uL (4.30-5.90); RDW 13.2 % (11.5-15.5); WBC 8.7 k/uL (3.8-10.6)
--- NOTE | 2023-01-10 11:01 | XR ---
EXAMINATION TYPE: XR chest 2V DATE OF EXAM: 01/10/2023 COMPARISON: 01/07/2023 INDICATION: Cough, pain TECHNIQUE: Frontal and lateral views of the chest are obtained. FINDINGS: The heart size is enlarged. The pulmonary vasculature is normal. Some atelectatic type changes are at the left base. Pneumonia could be within the differential Findin gs have improved from comparison. IMPRESSION: 1. Left lower lobe atelectasis or pneumonia.
[2023-01-10 11:06] LABS: INR 1.2 (<1.2); Partial Thromboplastin Time 31.3 sec (22.0-30.0); Prothrombin Time 11.9 sec (9.0-12.0)
[2023-01-10 11:09] LABS: ALT 58 U/L (4-49); AST 34 U/L (17-59); African American GFR (CKD) >90 (>60 ml/min/1.73 sqM); Albumin 3.7 g/dL (3.5-5.0); Alkaline Phosphatase 103 U/L (38-126); Anion Gap 10 mmol/L; Blood Urea Nitrogen 26 mg/dL (9-20); Calcium 9.1 mg/dL (8.4-10.2); Carbon Dioxide 33 mmol/L (22-30); Chloride 93 mmol/L (98-107); Glucose 145 mg/dL (74-99); Non-African American GFR(CKD) >90 (>60 ml/min/1.73 sqM); Potassium 4.6 mmol/L (3.5-5.1); Sodium 136 mmol/L (137-145); Total Bilirubin 0.7 mg/dL (0.2-1.3); Total Protein 6.7 g/dL (6.3-8.2)
--- NOTE | 2023-01-10 11:19 | ED ---
SOB HPI - General Chief Complaint: Shortness of Breath Stated Complaint: Recheck per Dr Nava Time Seen by Provider: 01/10/23 09:05 Source: patient Mode of arrival: ambulatory Limitations: no limitations - History of Present Illness Initial Comments: 62-year-old male past medical history of COPD who presents to the emergency department for evaluation by his primary care. He was seen in the emergency department a few days ago for shortness of breath. He was given a prescription for albuterol which he states he has been using and he does feel improved. His primary care called him today to check up on him. He thought he was told that he needed to go to the emergency department to be evaluated by his primary care. Patient denies any worsening symptoms however thought his primary care was going to meet him here in the emergency department. He denies any chest pain. No lower extremity swelling. No other alleviating, precipitating or modifying factors - Related Data Home Medications Medication Instructions Recorded Confirmed Warfarin [Coumadin] 5 mg PO DIRECTED 07/19/18 11/07/21 Atorvastatin [Lipitor] 10 mg PO DAILY 11/07/21 11/07/21 Furosemide [Lasix] 40 mg PO BID@0900,1400 11/07/21 11/07/21 Sildenafil Citrate 100 mg PO DAILY PRN 11/07/21 11/07/21 carvediloL [Coreg] 25 mg PO BID 11/07/21 11/07/21 lisinopriL [Zestril] 5 mg PO HS 11/07/21 11/07/21 Previous Rx's Medication Instructions Recorded Spironolactone [Aldactone] 25 mg PO DAILY #30 tablet 04/08/17 Amoxicillin/Potassium Clav 1 tab PO Q12HR 5 Days #10 tab 11/14/21 [Augmentin 875-125 Tablet] Pantoprazole [Protonix] 40 mg PO AC-BRKFST #30 tab 11/14/21 Rivaroxaban [Xarelto] 20 mg PO DAILY 5 Days #5 tab 11/14/21 Thiamine [Vitamin B-1] 100 mg PO DAILY tab 11/14/21 Umeclidinium Brm/Vilanterol Tr 1 puff INHALATION DAILY 30 Days #1 11/14/21 [Anoro Ellipta 62.5-25 Mcg INH] each levETIRAcetam [Keppra] 500 mg PO Q12HR 30 Days #60 tab 11/14/21 predniSONE See Taper PO DIRECTED 12 Days 11/14/21 #30 tab Albuterol Nebulized (Conc) 2.5 mg INHALATION Q6H 6 Days #75 ml 01/07/23 [Ventolin Nebulized (Conc)] Allergies Allergy/AdvReac Type Severity Reaction Status Date / Time ibuprofen Allergy Rash/Hives Verified 01/10/23 09:05 Review of Systems ROS Statement: Those systems with pertinent positive or pertinent negative responses have been documented in the HPI. ROS Other: All systems not noted in ROS Statement are negative. Past Medical History Past Medical History: COPD, Rheumatoid Arthritis (RA), Vascular Disorder Additional Past Medical History / Comment(s): pad, see Dr Jameson H & P, SOB w/exertion History of Any Multi-Drug Resistant Organisms: None Reported Past Surgical History: Heart Catheterization Additional Past Surgical History / Comment(s): varicose veins sx 1991, heart defibrillator Past Anesthesia/Blood Transfusion Reactions: No Reported Reaction Past Psychological History: No Psychological Hx Reported Smoking Status: Never smoker Past Alcohol Use History: Occasional Past Drug Use History: None Reported - Past Family History Mother Family Medical History: Cancer Additional Family Medical History / Comment(s): bone cancer Father History Unknown: Yes Additional Family Medical History / Comment(s): never knew his dad General Exam Limitations: no limitations General appearance: alert, in no apparent distress Head exam: Present: atraumatic, normocephalic, normal inspection Eye exam: Present: normal appearance, PERRL, EOMI. Absent: scleral icterus, conjunctival injection, periorbital swelling ENT exam: Present: normal exam, mucous membranes moist Neck exam: Present: normal inspection. Absent: tenderness, meningismus, lymphadenopathy Respiratory exam: Present: normal lung sounds bilaterally. Absent: respiratory distress, wheezes, rales, rhonchi, stridor Cardiovascular Exam: Present: regular rate, normal rhythm, normal heart sounds. Absent: systolic murmur, diastolic murmur, rubs, gallop, clicks GI/Abdominal exam: Present: soft, normal bowel sounds. Absent: distended, te nderness, guarding, rebound, rigid Extremities exam: Present: normal inspection, full ROM, normal capillary refill. Absent: tenderness, pedal edema, joint swelling, calf tenderness Back exam: Present: normal inspection Neurological exam: Present: alert, oriented X3, CN II-XII intact Psychiatric exam: Present: normal affect, normal mood Skin exam: Present: warm, dry, intact, normal color. Absent: rash Course Vital Signs 01/10/23 01/10/23 09:02 11:48 Temperature 97.8 F Pulse Rate 83 82 Respiratory 20 20 Rate Blood Pressure 114/63 132/64 O2 Sat by Pulse 98 97 Oximetry Medical Decision Making - Medical Decision Making Was pt. sent in by a medical professional or institution (, PA, PIGMENT GRINDER, urgent care, hospital, or assisted...) When possible be specific @ -Dr. Woods office Did you speak to anyone other than the patient for history (EMS, parent, family, police, friend...)? What history was obtained from this source @ -Dr. Domingo - to ask why patient was coming into the ED for a followup Did you review nursing and triage notes (agree or disagree)? Why? @ -I reviewed and agree with nursing and triage notes Were old charts reviewed (outside hosp., previous admission, EMS record, old EKG, old radiological studies, urgent care reports/EKG's, assisted records)? Report findings @ -Recent ED note reviewed - patient states he is following up in the ED for re-evaluation of his recent ED visit Differential Diagnosis (chest pain, altered mental status, abdominal pain women, abdominal pain men, vaginal bleeding, weakness, fever, dyspnea, syncope, headache, dizziness, GI bleed, back pain, seizure, CVA, palpatations, mental health, musculoskeletal)? @ -pneumonia, chf, pe, bronchitis, tracheobronchitis EKG interpreted by me (3pts min.). @ -Yes, EKG interpreted by myself. Please see EKG box for interpretation X-rays interpreted by me (1pt min.). @ -yes - interpreted by me - improving CT interpreted by me (1pt min.). @ Not done U/S interpreted by me (1pt. min.). @ -None done What testing was considered but not performed or refused? (CT, X-rays, U/S, labs)? Why? @ -None What meds were considered but not given or refused? Why? @ -None Did you discuss the management of the patient with other professionals (professionals i.e. , PA, PIGMENT GRINDER, lab, RT, psych nurse, social welfare administrator, mission planner, t eacher, correctional officer chief, rn field case manager)? Give summary @ -I spoke with Dr. Domingo to ask why patient was in ED for re-evaluation and not at the primary care office since he is feeling improved Was smoking cessation discussed for >3mins.? @ -No Was critical care preformed (if so, how long)? @ -No Were there social determinants of health that impacted care today? How? (Homelessness, low income, unemployed, alcoholism, drug addiction, transportation, low edu. Level, literacy, decrease access to med. care, intermediate, rehab)? @ -No Was there de-escalation of care discussed even if they declined (Discuss DNR or withdrawal of care, Hospice)? DNR status @ -No What co-morbidities impacted this encounter? (DM, HTN, Smoking, COPD, CAD, Cancer, CVA, ARF, Chemo, Hep., AIDS, mental health diagnosis, sleep apnea, morbi d obesity)? @ -COPD Was patient admitted / discharged? Hospital course, mention meds given and route, prescriptions, significant lab abnormalities, going to OR and other pertinent info. @ -Upon arrival patient was placed into room 25. History and physical exam was performed. IV access established and laboratory studies are conducted. Chest x-ray was performed. Chest x-ray does appear improved from 4 days ago. Laboratory studies are within normal limits. Called and spoke with Dr. Domingo. States that the patient can follow up in office since he is feeling better. Patient is instructed to call to make an appointment for the office for which she understood. He was discharged home in stable condition Undiagnosed new problem with uncertain prognosis? @ -No Drug Therapy requiring intensive monitoring for toxicity (Heparin, Nitro, Insulin, Cardizem)? @ -No Were any procedures done? @ -No Diagnosis/symptom? @ -acute/chronic resp insuff, copd exacerbation - improving Acute, or Chronic, or Acute on Chronic? @ -subacute Uncomplicated (without systemic symptoms) or Complicated (systemic symptoms)? @ -complicated Side effects of treatment? @ -No Exacerbation, Progression, or Severe Exacerbation? @ -yes Poses a threat to life or bodily function? How? (Chest pain, [place], [place], pneumonia, PE, COPD, DKA, ARF, appy, cholecystitis, CVA, Diverticulitis, Homicidal, Suicidal, threat to staff... and all critical care pts) @ -No - Lab Data Result diagrams: 01/10/23 10:24 01/10/23 10:24 Lab Results 01/10/23 01/10/23 01/10/23 Range/Units 10:24 10:24 10:24 WBC 8.7 (3.8-10.6) k/uL RBC 4.95 (4.30-5.90) m/uL Hgb 15.6 (13.0-17.5) gm/dL Hct 46.2 (39.0-53.0) % MCV 93.3 (80.0-100.0) fL MCH 31.5 (25.0-35.0) pg MCHC 33.7 (31.0-37.0) g/dL RDW 13.2 (11.5-15.5) % Plt Count 260 (150-450) k/uL MPV 7.8 Neutrophils % 67 % Lymphocytes % 22 % Monocytes % 6 % Eosinophils % 2 % Basophils % 1 % Neutrophils # 5.8 (1.3-7.7) k/uL Lymphocytes # 1.9 (1.0-4.8) k/uL Monocytes # 0.5 (0-1.0) k/uL Eosinophils # 0.2 (0-0.7) k/uL Basophils # 0.1 (0-0.2) k/uL PT 11.9 (9.0-12.0) sec INR 1.2 H (<1.2) APTT 31.3 H (22.0-30.0) sec Sodium 136 L (137-145) mmol/L Potassium 4.6 (3.5-5.1) mmol/L Chloride 93 L (98-107) mmol/L Carbon Dioxide 33 H (22-30) mmol/L Anion Gap 10 mmol/L BUN 26 H (9-20) mg/dL Creatinine 0.73 (0.66-1.25) mg/dL Est GFR (CKD-EPI)AfAm >90 (>60 ml/min/1.73 sqM) Est GFR (CKD-EPI)NonAf >90 (>60 ml/min/1.73 sqM) Glucose 145 H (74-99) mg/dL Plasma Lactic Acid Geoff (0.7-2.0) mmol/L Calcium 9.1 (8.4-10.2) mg/dL Total Bilirubin 0.7 (0.2-1.3) mg/dL AST 34 (17-59) U/L ALT 58 H (4-49) U/L Alkaline Phosphatase 103 (38-126) U/L Troponin I (0.000-0.034) ng/mL NT-Pro-B Natriuret Pep pg/mL Total Protein 6.7 (6.3-8.2) g/dL Albumin 3.7 (3.5-5.0) g/dL 01/10/23 01/10/23 01/10/23 Range/Units 10:24 10:24 10:24 WBC (3.8-10.6) k/uL RBC (4.30-5.90) m/uL Hgb (13.0-17.5) gm/dL Hct (39.0-53.0) % MCV (80.0-100.0) fL MCH (25.0-35.0) pg MCHC (31.0-37.0) g/dL RDW (11.5-15.5) % Plt Count (150-450) k/uL MPV Neutrophils % % Lymphocytes % % Monocytes % % Eosinophils % % Basophils % % Neutrophils # (1.3-7.7) k/uL Lymphocytes # (1.0-4.8) k/uL Monocytes # (0-1.0) k/uL Eosinophils # (0-0.7) k/uL Basophils # (0-0.2) k/uL PT (9.0-12.0) sec INR (<1.2) APTT (22.0-30.0) sec Sodium (137-145) mmol/L Potassium (3.5-5.1) mmol/L Chloride (98-107) mmol/L Carbon Dioxide (22-30) mmol/L Anion Gap mmol/L BUN (9-20) mg/dL Creatinine (0.66-1.25) mg/dL Est GFR (CKD-EPI)AfAm (>60 ml/min/1.73 sqM) Est GFR (CKD-EPI)NonAf (>60 ml/min/1.73 sqM) Glucose (74-99) mg/dL Plasma Lactic Acid Geoff 1.1 (0.7-2.0) mmol/L Calcium (8.4-10.2) mg/dL Total Bilirubin (0.2-1.3) mg/dL AST (17-59) U/L ALT (4-49) U/L Alkaline Phosphatase (38-126) U/L Troponin I <0.012 (0.000-0.034) ng/mL NT-Pro-B Natriuret Pep 103 pg/mL Total Protein (6.3-8.2) g/dL Albumin (3.5-5.0) g/dL - EKG Data EKG Comments: EKG demonstrates sinus rhythm with a rate of 68. OK interval 197. QRS 102. QTC of 409. No acute ST segment elevations or depressions Disposition Clinical Impression: COPD (chronic obstructive pulmonary disease), Acute respiratory insufficiency Disposition: HOME SELF-CARE Condition: Stable Instructions (If sedation given, give patient instructions): COPD (Chronic Obstructive Pulmonary Disease) (ED) Additional Instructions: Please continue using your breathing treatments as directed. Call to make an appointment with Dr. Nava in office Is patient prescribed a controlled substance at d/c from ED?: No Referrals: Prasanth Nava Jr, [Primary Care Provider] - 1-2 days Time of Disposition: 11:39
[2023-01-10 11:49] VITALS: BP 132/64; PULSE 82
== END 2023-01-10 11:49 | disposition home or self-care (01) ==
LOC: EC 08:53
DX: J96.00 Acute respiratory failure, unspecified whether with hypoxia or hypercapnia (principal); J44.9 Chronic obstructive pulmonary disease, unspecified; Z88.6 Allergy status to analgesic agent
CPT/HCPCS: 36415; 71046; 80053; 83605; 83880; 84484; 85025; 85610; 85730; 93005; 99285

== ENCOUNTER → 2023-09-02 | Outpatient (CLI) | payer MEDICARE ==
--- NOTE | 2023-09-02 16:31 | US ---
EXAMINATION TYPE: US arterial LE single level DATE OF EXAM: 09/02/2023 2:16 PM CLINICAL INDICATION: Male, 63 years old with history of I87.2; History of: Smoker: no Hypertension: no Diabetic: no Hyperlipidemia: no TIA/CVA: no Previous Vascular Surgery: yes CAD: yes HI: 4- years berto Vascular Ulcers: yes x 2 weeks Claudication: no Gangrene: no Doppler Waveforms: Right: Biphasic Left: Biphasic Pulse Volume Recording: NA Pressure Gradients: NA Right Brachial Pressure: 162 Left Brachial Pressure: 157 Ankle-Brachial Indices: Right: 1.17 Left: 1.06 Toe Brachial Indices: Right: 0.92 Left: 0.92 IMPRESSION: Ankle-brachial indices within normal limits bilaterally.
== END | disposition home or self-care (01) ==
LOC: RADUSWWP 13:47
PROVIDERS: ATTEND Family Medicine
DX: I87.2 Venous insufficiency (chronic) (peripheral) (principal)
CPT/HCPCS: 93922

== ENCOUNTER 2023-10-09 12:39 | Emergency (ER) | payer MEDICARE ==
--- NOTE | 2023-10-09 13:37 | ED ---
General Adult HPI - General Chief complaint: Wound/Laceration Stated complaint: L Leg Wound leaking fluid Time Seen by Provider: 10/09/23 12:57 Source: patient, RN notes reviewed Mode of arrival: ambulatory Limitations: no limitations - History of Present Illness Initial comments: 63-year-old male presents to the emergency department for evaluation of leg wound. Patient has a wound to the left leg with clear to yellow drainage. He states that this has been there for quite some time and he is followed with wound care for this but he was just cleared from wound care for this wound. He states that the wound has returned. He does still go to wound care for wounds on the right leg. He denies any worsening swelling in his legs, denies fever, chills, nausea, vomiting. - Related Data Home Medications Medication Instructions Recorded Confirmed Warfarin [Coumadin] 5 mg PO DIRECTED 07/19/18 11/07/21 Atorvastatin [Lipitor] 10 mg PO DAILY 11/07/21 11/07/21 Furosemide [Lasix] 40 mg PO BID@0900,1400 11/07/21 11/07/21 Sildenafil Citrate 100 mg PO DAILY PRN 11/07/21 11/07/21 carvediloL [Coreg] 25 mg PO BID 11/07/21 11/07/21 lisinopriL [Zestril] 5 mg PO HS 11/07/21 11/07/21 Previous Rx's Medication Instructions Recorded Spironolactone [Aldactone] 25 mg PO DAILY #30 tablet 04/08/17 Amoxicillin/Potassium Clav 1 tab PO Q12HR 5 Days #10 tab 11/14/21 [Augmentin 875-125 Tablet] Pantoprazole [Protonix] 40 mg PO AC-BRKFST #30 tab 11/14/21 Rivaroxaban [Xarelto] 20 mg PO DAILY 5 Days #5 tab 11/14/21 Thiamine [Vitamin B-1] 100 mg PO DAILY tab 11/14/21 Umeclidinium Brm/Vilanterol Tr 1 puff INHALATION DAILY 30 Days #1 11/14/21 [Anoro Ellipta 62.5-25 Mcg INH] each levETIRAcetam [Keppra] 500 mg PO Q12HR 30 Days #60 tab 11/14/21 predniSONE See Taper PO DIRECTED 12 Days 11/14/21 #30 tab Albuterol Nebulized (Conc) 2.5 mg INHALATION Q6H 6 Days #75 ml 01/07/23 [Ventolin Nebulized (Conc)] Cephalexin [Keflex] 500 mg PO Q6HR #40 cap 10/09/23 Allergies Allergy/AdvReac Type Severity Reaction Status Date / Time ibuprofen Allergy Rash/Hives Verified 10/09/23 12:54 Review of Systems ROS Statement: Those systems with pertinent positive or pertinent negative responses have been documented in the HPI. ROS Other: All systems not noted in ROS Statement are negative. Past Medical History Past Medical History: COPD, Rheumatoid Arthritis (RA), Vascular Disorder Additional Past Medical History / Comment(s): pad, see Dr Jamesno H & P, SOB w/exertion History of Any Multi-Drug Resistant Organisms: None Reported Past Surgical History: Heart Catheterization Additional Past Surgical History / Comment(s): varicose veins sx 1991, heart defibrillator Past Anesthesia/Blood Transfusion Reactions: No Reported Reaction Past Psychological History: No Psychological Hx Reported Smoking Status: Never smoker Past Alcohol Use History: Occasional Past Drug Use History: None Reported - Past Family History Mother Family Medical History: Cancer Additional Family Medical History / Comment(s): bone cancer Father History Unknown: Yes Additional Family Medical History / Comment(s): never knew his dad General Exam Limitations: no limitations General appearance: alert, in no apparent distress Course Vital Signs 10/09/23 10/09/23 12:50 14:30 Temperature 97.7 F 98.1 F Pulse Rate 69 72 Respiratory 18 16 Rate Blood Pressure 130/76 131/76 O2 Sat by Pulse 97 99 Oximetry Medical Decision Making - Medical Decision Making Was pt. sent in by a medical professional or institution (, PA, FLOWER SHOP LABORER/DESIGNER, urgent care, hospital, or residential...) When possible be specific @ -No Did you speak to anyone other than the patient for history (EMS, parent, family, police, friend...)? What history was obtained from this source @ -No Did you review nursing and triage notes (agree or disagree)? Why? @ -I reviewed and agree with nursing and triage notes Were old charts reviewed (outside hosp., previous admission, EMS record, old EKG, old radiological studies, urgent care reports/EKG's, residential records)? Report findings @ -No old charts were reviewed Differential Diagnosis (chest pain, altered mental status, abdominal pain women, abdominal pain men, vaginal bleeding, weakness, fever, dyspnea, syncope, headache, dizziness, GI bleed, back pain, seizure, CVA, palpatations, mental health, musculoskeletal)? @ -Chronic leg wounds, cellulitis, this was nonocclusive EKG interpreted by me (3pts min.). @ -None X-rays interpreted by me (1pt min.). @ -None done CT interpreted by me (1pt min.). @ -None done U/S interpreted by me (1pt. min.). @ -None done What testing was considered but not performed or refused? (CT, X-rays, U/S, labs)? Why? @ -None What meds were considered but not given or refused? Why? @ -None Did you discuss the management of the patient with other professionals (professionals i.e. , PA, FLOWER SHOP LABORER/DESIGNER, lab, RT, psych nurse, outreach and education social worker, exercise equipment repair technician, teacher, credit risk review officer, supportive employment case manager)? Give summary @ -No Was smoking cessation discussed for >3mins.? @ -No Was critical care preformed (if so, how long)? @ -No Were there social determinants of health that impacted care today? How? (Homelessness, low income, unemployed, alcoholism, drug addiction, transportation, low edu. Level, literacy, decrease access to med. care, custodial, rehab)? @ -No Was there de-escalation of care discussed even if they declined (Discuss DNR or withdrawal of care, Hospice)? DNR status @ -No What co-morbidities impacted this encounter? (DM, HTN, Smoking, COPD, CAD, Cancer, CVA, ARF, Chemo, Hep., AIDS, mental health diagnosis, sleep apnea, morbid obesity)? @ -None Was patient admitted / discharged? Hospital course, mention meds given and route, prescriptions, significant lab abnormalities, going to OR and other pertinent info. @ -Discharge. Patient presented to the emergency department for evaluation of left leg wound. Drainage from this wound is nonpurulent. Patient denies fever, chills. Patient still has appointments with wound care for his right leg. Advised to follow-up with them for wounds to bilateral legs and to follow the wound care instructions that they had previously given him. Patient will be started on empiric antibiotics. Patient understanding agreeable discharge plan. Patient stable at time of discharge. Case discussed with Dr. Garcia. Undiagnosed new problem with uncertain prognosis? @ -No Drug Therapy requiring intensive monitoring for toxicity (Heparin, Nitro, Insulin, Cardizem)? @ -No Were any procedures done? @ -No Diagnosis/symptom? @ -Leg wound Acute, or Chronic, or Acute on Chronic? @ -Chronic Uncomplicated (without systemic symptoms) or Complicated (systemic symptoms)? @ -Uncomplicated Side effects of treatment? @ -No Exacerbation, Progression, or Severe Exacerbation? @ -No Poses a threat to life or bodily function? How? (Chest pain, [place], [place], pneumonia, PE, COPD, DKA, ARF, appy, cholecystitis, CVA, Diverticulitis, Homicidal, Suicidal, threat to staff... and all critical care pts) @ -No Disposition Clinical Impression: Chronic wound Disposition: HOME SELF-CARE Condition: Stable Instructions (If sedation given, give patient instructions): Chronic Wound Care (ED) Additional Instructions: Please follow up with wound care. Keep wound clean and dry. Return to the emergency department for new or worsening symptoms. Prescriptions: Cephalexin [Keflex] 500 mg PO Q6HR #40 cap Is patient prescribed a controlled substance at d/c from ED?: No Referrals: Prasanth Nava Jr, [Primary Care Provider] - 1-2 days
[2023-10-09 14:46] VITALS: BP 131/76; PULSE 72; RESP 16; TEMP 98.1
== END 2023-10-09 14:33 | disposition home or self-care (01) ==
LOC: EC 12:39
DX: S81.802A Unspecified open wound, left lower leg, initial encounter (principal); J44.9 Chronic obstructive pulmonary disease, unspecified; Z88.6 Allergy status to analgesic agent; X58.XXXA Exposure to other specified factors, initial encounter
CPT/HCPCS: 99282

== ENCOUNTER 2025-02-08 09:28 | Inpatient (IN) | payer MEDICARE ==
[2025-02-08 10:12] LABS: Basophils # (A) 0.03 10*3/uL (0.00-0.10); Basophils % (A) 0.4 %; Eosinophils # (A) 0.11 10*3/uL (0.04-0.35); Eosinophils % (A) 1.6 %; HCT 49.8 % (39.6-50.0); HGB 16.6 g/dL (13.0-17.0); Lymphocytes # (A) 1.61 10*3/uL (0.90-5.00); Lymphocytes % (A) 22.9 %; MCH 32.2 pg (27.0-32.0); MCHC 33.3 g/dL (32.0-37.0); MCV 96.5 fL (80.0-97.0); Mean Platelet Volume 9.6 fL (9.5-12.2); Monocytes # (A) 0.71 10*3/uL (0.20-1.00); Monocytes % (A) 10.1 %; Neutrophils # (A) 4.56 10*3/uL (1.80-7.70); Neutrophils % (A) 64.7 %; Platelet Count 192 10*3/uL (140-440); RBC 5.16 10*6/uL (4.40-5.60); RDW 13.2 % (11.5-14.5); WBC 7.04 10*3/uL (4.50-10.00)
[2025-02-08 10:24] LABS: INR 1.1 (<1.2); Prothrombin Time 11.6 sec (10.0-12.5)
[2025-02-08 10:28] LABS: ALT 18 U/L (4-49); AST 23 U/L (17-59); African American GFR (CKD) >90 (>60 ml/min/1.73 sqM); Alkaline Phosphatase 102 U/L (38-126); Blood Urea Nitrogen 10 mg/dL (9-20); Calcium 9.4 mg/dL (8.4-10.2); Chloride 96 mmol/L (98-107); Glucose 139 mg/dL (74-99); Magnesium 1.9 mg/dL (1.6-2.3); Non-African American GFR(CKD) >90 (>60 ml/min/1.73 sqM); Potassium 4.3 mmol/L (3.5-5.1); Sodium 139 mmol/L (137-145); Total Bilirubin 0.7 mg/dL (0.2-1.3); Total Protein 7.1 g/dL (6.3-8.2)
[2025-02-08 10:34] LABS: Anion Gap 7 mmol/L
[2025-02-08 10:36] LABS: NT-Pro-B-Type Natriuretic Pept 257 pg/mL
[2025-02-08 10:42] LABS: Carbon Dioxide 36 mmol/L (22-30)
--- NOTE | 2025-02-08 10:48 | ED ---
SOB HPI - General Chief Complaint: Shortness of Breath Stated Complaint: shortness of breath, fluid on back of left leg Time Seen by Provider: 02/08/25 09:37 Source: patient Mode of arrival: ambulatory Limitations: no limitations - History of Present Illness Initial Comments: This is a 64-year-old male with history including heart failure, COPD, DVT and PAD presenting from wound care center for LLE edema/pain (03/14) x 3 days. Patient notes wound care noted some "fluid around left calf", causing them concern. Patient states he has been having ulcers on his bilateral lower extremities being treated at the wound care center for the past 70 weeks. Patient states he had not noticed any lower extremity swelling but has noted more shallow breathing for the past several days. Patient endorses breathing worsened when supine and denies pleuritic chest pain with inspiration. Patient states he has had a history of pulmonary edema in the past. Endorses use of furosemide, spironolactone and Xarelto. States he does not normally use O2 at home. Patient states he is not currently taking antibiotics. Denies fever, chills, dizziness, chest pain, abdominal pain, N/V/D, urinary symptoms. MD Complaint: shortness of breath Onset/Timin -: days(s) Severity scale (1-10): 7 Consistency: constant Improves With: oxygen Known History Of: COPD, congestive heart failure, DVT Associated Symptoms: lower extremity pain Treatments Prior to Arrival: none - Related Data Home Medications Medication Instructions Recorded Confirmed Atorvastatin [Lipitor] 10 mg PO DAILY 11/07/21 02/08/25 carvediloL [Coreg] 25 mg PO BID 11/07/21 02/08/25 lisinopriL [Zestril] 5 mg PO DAILY 11/07/21 02/08/25 Furosemide [Lasix] 80 mg PO DAILY 02/08/25 02/08/25 Ketoconazole 2% Cream [Nizoral 2%] 1 applic TOPICAL BID 02/08/25 02/08/25 Previous Rx's Medication Instructions Recorded Spironolactone [Aldactone] 25 mg PO DAILY #30 tablet 04/08/17 Rivaroxaban [Xarelto] 20 mg PO DAILY 5 Days #5 tab 11/14/21 Allergies Allergy/AdvReac Type Severity Reaction Status Date / Time ibuprofen Allergy Rash/Hives Verified 02/08/25 14:17 Review of Systems ROS Statement: Those systems with pertinent positive or pertinent negative responses have been documented in the HPI. ROS Other: All systems not noted in ROS Statement are negative. Past Medical History Past Medical History: COPD, Rheumatoid Arthritis (RA), Vascular Disorder Additional Past Medical History / Comment(s): pad, see Dr Jameson H & P, SOB w/exertion History of Any Multi-Drug Resistant Organisms: None Reported Past Surgical History: Heart Catheterization Additional Past Surgical History / Comment(s): varicose veins sx 1991, heart defibrillator Past Anesthesia/Blood Transfusion Reactions: No Reported Reaction Past Psychological History: No Psychological Hx Reported Smoking Status: Never smoker Past Alcohol Use History: Occasional Past Drug Use History: None Reported - Past Family History Mother Family Medical History: Cancer Additional Family Medical History / Comment(s): bone cancer Father History Unknown: Yes Additional Family Medical History / Comment(s): never knew his dad General Exam Limitations: no limitations General appearance: alert, in no apparent distress, obese Head exam: Present: atraumatic, normocephalic, normal inspection Eye exam: Present: normal appearance, PERRL, EOMI. Absent: scleral icterus, conjunctival injection, periorbital swelling ENT exam: Present: normal exam, mucous membranes moist Neck exam: Present: normal inspection. Absent: tenderness, meningismus, lymphadenopathy Respiratory exam: Present: wheezes, decreased breath sounds, prolonged expiratory. Absent: respiratory distress, rales, rhonchi, stridor, chest wall tenderness, accessory muscle use Cardiovascular Exam: Present: regular rate, irregular rhythm, normal heart sounds. Absent: systolic murmur, diastolic murmur, rubs, gallop, clicks GI/Abdominal exam: Present: soft, normal bowel sounds. Absent: distended, tenderness, guarding, rebound, rigid Extremities exam: Present: normal inspection, full ROM, normal capillary refill, pedal edema (Positive BLE pitting edema with swelling and LLE significantly worse compared to RLE, extending to knees), calf tenderness (Positive LLE Homans' sign), other (BLE stasis dermatitis with 2 x 2 cm ulceration noted on right medial ankle and diffuse shallow ulceration across majority of dorsal left calf with tenderness. Negative surrounding tenderness. BLE neurovascular and motor function intact. Bilateral dorsalis pedis pulse +2, capillary refill <2 sec). Absent: tenderness, joint swelling Back exam: Present: normal inspection Neurological exam: Present: alert, oriented X3, CN II-XII intact Psychiatric exam: Present: normal affect, normal mood Skin exam: Present: warm, dry, intact, normal color. Absent: rash Course Vital Signs 02/08/25 02/08/25 02/08/25 09:36 09:45 10:42 Temperature 97.6 F Pulse Rate 91 Respiratory 18 Rate Blood Pressure 147/85 O2 Sat by Pulse 89 L 94 L 97 Oximetry 02/08/25 02/08/25 02/08/25 11:41 11:49 12:02 Temperature Pulse Rate 95 96 Respiratory 20 18 Rate Blood Pressure 145/94 O2 Sat by Pulse 95 Oximetry 02/08/25 02/08/25 02/08/25 12:16 12:45 15:15 Temperature Pulse Rate 92 101 H 83 Respiratory 22 19 Rate Blood Pressure 130/78 124/71 O2 Sat by Pulse 91 L 94 L Oximetry 02/08/25 16:32 Temperature Pulse Rate 81 Respiratory 20 Rate Blood Pressure 167/109 O2 Sat by Pulse 96 Oximetry Medical Decision Making - Medical Decision Making Was pt. sent in by a medical professional or institution (, PA, [employer] DIRECTION SPECIALIST, urgent care, hospital, or assisted...) When possible be specific @ -Wound care center Did you speak to anyone other than the patient for history (EMS, parent, family, police, friend...)? What history was obtained from this source @ -No Did you review nursing and triage notes (agree or disagree)? Why? @ -I reviewed and agree with nursing and triage notes Were old charts reviewed (outside hosp., previous admission, EMS record, old EKG, old radiological studies, urgent care reports/EKG's, assisted records)? Report findings @ -Echocardiogram from 11/09/2021 reviewed into creating LVEF between 40-45%. Differential Diagnosis (chest pain, altered mental status, abdominal pain women, abdominal pain men, vaginal bleeding, weakness, fever, dyspnea, syncope, headache, dizziness, GI bleed, back pain, seizure, CVA, palpatations, mental health, musculoskeletal)? @ -Differential Dyspnea: Coronary syndrome, arrhythmia, tamponade, asthma, COPD, pulmonary embolism, pneumonia, pneumothorax, pulmonary effusion, anaphylaxis, diabetic ketoacidosis, flailed chest, pulmonary contusion, diaphragmatic rupture, anemia, neuromuscular, this is not meant to be an all-inclusive list. Differential Musculoskeletal Muscular strain, contusion, ligament sprain, fracture, arthritis, septic arth ritis, bursitis, cellulitis, muscle spasm, nerve compression, DVT, arterial occlusion, herpes zoster, electrolyte abnormality, tumor.... This is not meant to be in all inclusive list EKG interpreted by me (3pts min.). @ -As above X-rays interpreted by me (1pt min.). @ - Left tib-fib x-ray shows no suspicious bony destruction with moderate/severe diffuse subcutaneous edema. CXR shows persistent cardiomegaly with persistent elevated left hemidiaphragm and left basilar opacity. Central vascular congestion correlated with CHF exacerbation/fluid overload CT interpreted by me (1pt min.). @ -None done U/S interpreted by me (1pt. min.). @ -None done What testing was considered but not performed or refused? (CT, X-rays, U/S, labs)? Why? @ -None What meds were considered but not given or refused? Why? @ -None Did you discuss the management of the patient with other professionals (professionals i.e. , PA, [employer] SPECIALIST, lab, RT, psych nurse, marriage and family social worker, gang tailer, teacher, amphibious operations officer, oil field caser)? Give summary @ -Spoke to Dr. Domingo for obs admission who advised cardiac consult. Was smoking cessation discussed for >3mins.? @ -No Was critical care preformed (if so, how long)? @ -No Were there social determinants of health that impacted care today? How? (Homelessness, low income, unemployed, alcoholism, drug addiction, transportation, low edu. Level, literacy, decrease access to med. care, intermediate, rehab)? @ -No Was there de-escalation of care discussed even if they declined (Discuss DNR or withdrawal of care, Hospice)? DNR status @ -No What co-morbidities impacted this encounter? (DM, HTN, Smoking, COPD, CAD, Cancer, CVA, ARF, Chemo, Hep., AIDS, mental health diagnosis, sleep apnea, morbid obesity)? @ -None Was patient admitted / discharged? Hospital course, mention meds given and route, prescriptions, significant lab abnormalities, going to OR and other pertinent info. @ -Patient initially provided IV normal saline and DuoNeb breathing treatment. Lab work notable for CO2 36, glucose 139. Troponin, BNP unremarkable. Normal LFTs and kidney function. WBC 7.04. Cepheid test negative. Patient notes improved work of breathing following DuoNeb treatment. Provided p.o. Tylenol and IV morphine for LLE pain. Left tib-fib x-ray shows no suspicious bony destruction with moderate/severe diffuse subcutaneous edema. CXR shows persistent cardiomegaly with persistent elevated left hemidiaphragm and left basilar opacity. Central vascular congestion correlated with CHF exacerbation/fluid overload. Patient provided IV Lasix. Patient notes minimal dyspnea while on nasal cannula and seated. Patient taken off nasal cannula SPO2 dropped to 90-91% RA, with patient noting increased dyspnea. Spoke to Dr. Domingo for obs admission who advised cardiac consult. Discussed patient with Dr. Camargo. Undiagnosed new problem with uncertain prognosis? @ -No Drug Therapy requiring intensive monitoring for toxicity (Heparin, Nitro, Insulin, Cardizem)? @ -No Were any procedures done? @ -No Diagnosis/symptom? @ -Pulmonary edema, hypoxia, BLE edema Acute, or Chronic, or Acute on Chronic? @ -Acute Uncomplicated (without systemic symptoms) or Complicated (systemic symptoms)? @ -Complicated Side effects of treatment? @ -No Exacerbation, Progression, or Severe Exacerbation? @ -Exacerbation Poses a threat to life or bodily function? How? (Chest pain, [place], [place], pneumonia, PE, COPD, DKA, ARF, appy, cholecystitis, CVA, Diverticulitis, Homicidal, Suicidal, threat to staff... and all critical care pts) @ -Pulmonary edema, potential for respiratory failure - Lab Data Result diagrams: 02/08/25 09:49 02/08/25 09:49 Lab Results 02/08/25 02/08/25 02/08/25 Range/Units 09:49 09:49 09:49 WBC 7.04 (4.50-10.00) 10*3/uL RBC 5.16 (4.40-5.60) 10*6/uL Hgb 16.6 (13.0-17.0) g/dL Hct 49.8 (39.6-50.0) % MCV 96.5 (80.0-97.0) fL MCH 32.2 H (27.0-32.0) pg MCHC 33.3 (32.0-37.0) g/dL Plt Count 192 (140-440) 10*3/uL MPV 9.6 (9.5-12.2) fL Immature Gran % (Auto) 0.3 % Neutrophils % 64.7 % Lymphocytes % 22.9 % Monocytes % 10.1 % Eosinophils % 1.6 % Basophils % 0.4 % Immature Gran # 0.02 (0.00-0.04) 10*3/uL Neutrophils # 4.56 (1.80-7.70) 10*3/uL Lymphocytes # 1.61 (0.90-5.00) 10*3/uL Monocytes # 0.71 (0.20-1.00) 10*3/uL Eosinophils # 0.11 (0.04-0.35) 10*3/uL Basophils # 0.03 (0.00-0.10) 10*3/uL PT 11.6 (10.0-12.5) sec INR 1.1 (<1.2) APTT 29.0 (22.0-30.0) sec Sodium 139 (137-145) mmol/L Potassium 4.3 (3.5-5.1) mmol/L Chloride 96 L (98-107) mmol/L Carbon Dioxide 36 H (22-30) mmol/L Anion Gap 7 mmol/L BUN 10 (9-20) mg/dL Creatinine 0.66 (0.66-1.25) mg/dL Est GFR (CKD-EPI)AfAm >90 (>60 ml/min/1.73 sqM) Est GFR (CKD-EPI)NonAf >90 (>60 ml/min/1.73 sqM) Glucose 139 H (74-99) mg/dL Plasma Lactic Acid Geoff (0.7-2.0) mmol/L Calcium 9.4 (8.4-10.2) mg/dL Magnesium 1.9 (1.6-2.3) mg/dL Total Bilirubin 0.7 (0.2-1.3) mg/dL AST 23 (17-59) U/L ALT 18 (4-49) U/L Alkaline Phosphatase 102 (38-126) U/L Troponin I (0.000-0.034) ng/mL NT-Pro-B Natriuret Pep 257 pg/mL Total Protein 7.1 (6.3-8.2) g/dL Albumin 4.0 (3.5-5.0) g/dL Influenza Type A (PCR) (Not Detectd) Influenza Type B (PCR) (Not Detectd) RSV (PCR) (Not Detectd) SARS-CoV-2 (PCR) (Not Detectd) 02/08/25 02/08/25 02/08/25 Range/Units 09:49 09:49 11:49 WBC (4.50-10.00) 10*3/uL RBC (4.40-5.60) 10*6/uL Hgb (13.0-17.0) g/dL Hct (39.6-50.0) % MCV (80.0-97.0) fL MCH (27.0-32.0) pg MCHC (32.0-37.0) g/dL Plt Count (140-440) 10*3/uL MPV (9.5-12.2) fL Immature Gran % (Auto) % Neutrophils % % Lymphocytes % % Monocytes % % Eosinophils % % Basophils % % Immature Gran # (0.00-0.04) 10*3/uL Neutrophils # (1.80-7.70) 10*3/uL Lymphocytes # (0.90-5.00) 10*3/uL Monocytes # (0.20-1.00) 10*3/uL Eosinophils # (0.04-0.35) 10*3/uL Basophils # (0.00-0.10) 10*3/uL PT (10.0-12.5) sec INR (<1.2) APTT (22.0-30.0) sec Sodium (137-145) mmol/L Potassium (3.5-5.1) mmol/L Chloride (98-107) mmol/L Carbon Dioxide (22-30) mmol/L Anion Gap mmol/L BUN (9-20) mg/dL Creatinine (0.66-1.25) mg/dL Est GFR (CKD-EPI)AfAm (>60 ml/min/1.73 sqM) Est GFR (CKD-EPI)NonAf (>60 ml/min/1.73 sqM) Glucose (74-99) mg/dL Plasma Lactic Acid Geoff 1.1 (0.7-2.0) mmol/L Calcium (8.4-10.2) mg/dL Magnesium (1.6-2.3) mg/dL Total Bilirubin (0.2-1.3) mg/dL AST (17-59) U/L ALT (4-49) U/L Alkaline Phosphatase (38-126) U/L Troponin I <0.012 (0.000-0.034) ng/mL NT-Pro-B Natriuret Pep pg/mL Total Protein (6.3-8.2) g/dL Albumin (3.5-5.0) g/dL Influenza Type A (PCR) Not Detected (Not Detectd) Influenza Type B (PCR) Not Detected (Not Detectd) RSV (PCR) Not Detected (Not Detectd) SARS-CoV-2 (PCR) Not Detected (Not Detectd) Disposition Clinical Impression: Congestive heart failure, Acute pulmonary edema, Hypoxia, Chronic ulcer of lower extremity Disposition: ADMITTED IP TO THIS [facility] Condition: Fair Time of Disposition: 16:30 Decision Date: 02/08/25 Decision Time: 16:30
[2025-02-08] MEDS: SODIUM CHLORIDE 0.9% 1,000 ML IV STA (11:45)
[2025-02-08] MEDS: IPRATROPIUM-ALBUTEROL 3 ML NEB INHALATION STA (12:02)
[2025-02-08 12:36] LABS: Influenza A Not Detected (Not Detectd); Influenza B Not Detected (Not Detectd); RSV Not Detected (Not Detectd)
[2025-02-08] MEDS: MORPHINE SULFATE 4 MG/ML SYRINGE IVP STA (12:41)
[2025-02-08] MEDS: ACETAMINOPHEN TAB 500 MG TAB PO STA (12:43)
--- NOTE | 2025-02-08 14:14 | US ---
EXAMINATION TYPE: US venous doppler duplex LE LT DATE OF EXAM: 02/08/2025 1:52 PM COMPARISON: NONE CLINICAL INDICATION: Male, 64 years old with history of LLE edema and pain; On blood thinners, Pain TECHNIQUE: The lower extremity deep venous system is examined utilizing real time linear array sonog radha with graded compression, color doppler sonography, and spectral doppler. SIDE PERFORMED: Left FINDINGS: VESSELS IMAGED: Common Femoral Vein Deep Femoral Vein Greater Saphenous Vein * Femoral Vein Popliteal Vein Small Saphenous Vein * Proximal Calf Veins (* superficial vessels) Left Leg: Negative for DVT, Color Doppler imaging shows patency of the vessels. Spectral waveforms a re within normal limits. IMPRESSION: 1. No evidence of acute deep vein thrombosis of the left lower extremity. [facility], , 02/08/2025 2:12 PM
--- NOTE | 2025-02-08 15:30 | XR ---
EXAMINATION TYPE: XR tibia fibula LT DATE OF EXAM: 02/08/2025 CLINICAL INDICATION: Male, 64 years old with history of Diffuse edema, pain, TECHNIQUE: Two views of the left leg are obtained. COMPARISON: None. FINDINGS: There is no acute fracture or dislocation seen in the left tibia or fibula. The left knee and ankle joints appear within normal limits. Moderate to severe diffuse subcutaneous edema is prese nt. No suspicious bony destruction. IMPRESSION: As above. [facility], , 02/08/2025 3:28 PM
--- NOTE | 2025-02-08 15:31 | XR ---
EXAMINATION TYPE: XR chest 2V DATE OF EXAM: 02/08/2025 CLINICAL INDICATION: Male, 64 years old with history of difficulty breathing, TECHNIQUE: Frontal and lateral views of the chest are obtained. COMPARISON: Chest x-ray January 2023 FINDINGS: There is persistent cardiomegaly with single lead pacemaker/defibrillator. There is persi stent elevated left hemidiaphragm and left basilar opacity favoring chronic consolidation/atelectasis . Mild central vascular congestion is present. The osseous structures are intact. IMPRESSION: Cardiomegaly with mild central vascular congestion. Correlate for CHF exacerbation/fluid overload state. [facility], , 02/08/2025 3:29 PM
[2025-02-08] MEDS: FUROSEMIDE 10 MG/ML 4 ML VIAL IV STA (16:33)
[2025-02-08] MEDS ORDERED: MORPHINE SULFATE 4 MG/ML SYRINGE IV PRN (17:00)
[2025-02-08] MEDS ORDERED: ONDANSETRON 4 MG/2 ML VIAL IVP PRN (17:00)
[2025-02-08] MEDS ORDERED: NALOXONE 0.4 MG/ML 1 ML VIAL IV PRN (17:00)
[2025-02-08] MEDS: LABETALOL 5 MG/ML VIAL MDV IVP STA (17:55)
[2025-02-08] MEDS: carvediloL 12.5 MG TAB PO SCH (23:05)
[2025-02-09] MEDS: SPIRONOLACTONE 25 MG TAB PO SCH (08:47)
[2025-02-09] MEDS: ATORVASTATIN 10 MG TAB PO SCH (08:47)
[2025-02-09] MEDS: lisinopriL 5 MG TAB PO SCH (08:47)
[2025-02-09] MEDS: FUROSEMIDE 80 MG TAB PO SCH (08:47)
[2025-02-09] MEDS: RIVAROXABAN 20 MG TAB PO SCH (08:47)
[2025-02-09] MEDS ORDERED: CALAMINE/ZINC OXIDE LOTION 177 ML BTL TOPICAL PRN (12:29)
--- NOTE | 2025-02-09 12:31 | CA ---
Transthoracic Echo Report Name: Bunny Ruiz Age: 64 Gender: M : 1960 Exam Date: 02/08/2025 18:02 Exam Location: [place] [facility] Ht (in): 74 Wt (lb): 298 Ordering Physician: Abdelrahman Butterfield Attending/Referring Phys: Participant Administrator Zhane Lora RDCS Procedure CPT: Indications: Pulmonary edema, BLE edema Cardiac Hx: Technical Quality: Very technically difficult study Contrast 1: Definity Total Dose (mL): 2 Contrast 2: Total Dose (mL): MEASUREMENTS (Male / Female) Normal Values 2D ECHO LV Diastolic Diameter PLAX 4.8 cm 4.2 - 5.9 / 3.9 - 5.3 cm LV Systolic Diameter PLAX 4.2 cm IVS Diastolic Thickness 1.4 cm 0.6 - 1.0 / 0.6 - 0.9 cm LVPW Diastolic Thickness 1.5 cm 0.6 - 1.0 / 0.6 - 0.9 cm LV Relative Wall Thickness 0.6 LA Systolic Diameter LX 3.7 cm 3.0 - 4.0 / 2.7 - 3.8 cm M-MODE Aortic Root Diameter MM 4.0 cm LA Systolic Diameter MM 2.3 cm LA Ao Ratio MM 0.6 DOPPLER AV Peak Velocity 104.2 cm/s AV Peak Gradient 4.3 mmHg Mitral E Point Velocity 67.1 cm/s Mitral A Point Velocity 75.5 cm/s Mitral E to A Ratio 0.9 MV Deceleration Time 231.0 ms TR Peak Velocity 252.6 cm/s TR Peak Gradient 25.5 mmHg Right Ventricular Systolic Press 45.0 mmHg FINDINGS Left Ventricle Left ventricular ejection fraction is estimated at 30-35 %. Left ventricular cavity size normal. Moderately increased septal wall thickness. Moderately reduced global left ventricular systolic function. Right Ventricle Right ventricle not well visualized.moderate pulmonary hypertension. Right ventricular systolic pressure estimated at 45 mm hg. Right Atrium Right atrium not well visualized. Left Atrium Normal left atrial size. No left atrial thrombus or mass present. Mitral Valve Structurally normal mitral valve. No mitral stenosis, regurgitation or prolapse. Aortic Valve Trileaflet aortic valve. No aortic valve stenosis or regurgitation. Tricuspid Valve Mild tricuspid regurgitation. Pulmonic Valve Pulmonic valve not well visualized. No pulmonic regurgitation. Pericardium No echocardiographic findings to suggest a hemodynamically significant pericardial effusion. Aorta Mild aortic dilatation at the level of the sinuses of valsalva 40 mm. CONCLUSIONS LVEF 30% Mid to distal antral lateral and apical wall hypokinesia Severely reduced global LV systolic function Mildly dilated LV cavity RVSP estimated at 45 mmHg No significant valvular dysfunction appreciated. Technically difficult study Previewed by: Dr Tim Agrawal (Electronically Signed) Final Date: 09 February 2025 12:30
--- NOTE | 2025-02-09 14:02 | P.HPIM ---
History of Present Illness Chief Complaint: Shortness of breath Gibran is a 64-year-old male well-known to my practice. I also see him at the wound center for his venous leg ulcers to the bilateral lower extremities. He reports a several day history of increased shortness of breath. He was came to the emergency room for this. He is found to be mildly hypoxic 89% on room air on presentation. Laboratory studies show no white count h emoglobin was normal blood chemistries show his also normal. Glucose is slightly elevated. Beta natriuretic peptide was 257. Normal troponin. Beta natruretic peptide was 257. Viral culture is negative. Chest x-ray shows cardiomegaly with mild vascular congestion. Left basilar opacity possibly chronic consolidation or atelectasis. Venous Doppler shows no DVT echocardiogram showed LVEF of 30% severely reduced global left ventricular systolic function mild apical and lateral wall hypokinesis. Past Medical History Past Medical History: COPD, Rheumatoid Arthritis (RA), Vascular Disorder Additional Past Medical History / Comment(s): pad, see Dr Jameson H & P, SOB w/exertion History of Any Multi-Drug Resistant Organisms: None Reported Past Surgical History: Heart Catheterization Additional Past Surgical History / Comment(s): varicose veins sx 1991, heart defibrillator Past Anesthesia/Blood Transfusion Reactions: No Reported Reaction Past Psychological History: No Psychological Hx Reported Additional Psychological History / Comment(s): pt is independant. lives withhis sig other of 35 years( vicky barajas) and 1 pet dog. no home care services recieved. no medical equipment at home. no service in back ground. used to work construction. currently on disabilty. Smoking Status: Never smoker Past Alcohol Use History: Occasional Past Drug Use History: None Reported - Past Family History Mother Family Medical History: Cancer Additional Family Medical History / Comment(s): bone cancer Father History Unknown: Yes Additional Family Medical History / Comment(s): never knew his dad Medications and Allergies Home Medications Medication Instructions Recorded Confirmed Type RX: Spironolactone [Aldactone] 25 mg PO DAILY #30 tablet 04/08/17 02/08/25 Rx RX: Atorvastatin [Lipitor] 10 mg PO DAILY 11/07/21 02/08/25 History RX: carvediloL [Coreg] 25 mg PO BID 11/07/21 02/08/25 History RX: lisinopriL [Zestril] 5 mg PO DAILY 11/07/21 02/08/25 History Rivaroxaban [Xarelto] 20 mg PO DAILY 5 Days #5 tab 11/14/21 02/08/25 Rx Furosemide [Lasix] 80 mg PO DAILY 02/08/25 02/08/25 History RX: Ketoconazole 2% Cream [Nizoral 1 applic TOPICAL BID 02/08/25 02/08/25 History 2%] Allergies Allergy/AdvReac Type Severity Reaction Status Date / Time ibuprofen Allergy Rash/Hives Verified 02/08/25 14:17 Physical Exam Vitals: Vital Signs Temp Pulse Pulse Resp BP BP Pulse Ox 02/09/25 07:27 98.2 F 72 18 125/71 95 02/09/25 02:24 94 22 02/09/25 01:56 97.8 F 73 17 104/62 95 02/08/25 21:19 98.5 F 91 22 125/72 95 02/08/25 20:31 97.6 F 94 18 128/85 93 L 02/08/25 20:28 98.2 F 81 22 150/87 98 02/08/25 19:14 98.4 F 81 22 102/73 94 L 02/08/25 18:19 74 18 99/61 02/08/25 17:50 86 20 177/115 95 02/08/25 16:32 81 20 167/109 96 02/08/25 15:15 83 19 124/71 94 L Intake and Output 02/08/25 02/09/25 02/09/25 22:59 06:59 14:59 Intake Total 540 1620 480 Balance 540 1620 480 Intake: Oral 540 1620 480 Other: Voiding Method Urinal # Voids 4 Weight 135.171 kg Results CBC & Chem 7: 02/08/25 09:49 02/08/25 09:49 Thrombosis Risk Factor Assmnt - DVT/VTE Prophylaxis DVT/VTE Prophylaxis: Pharmacologic Prophylaxis ordered (Continue Xarelto) - Choose All That Apply Each Factor Represents 1 point: Abnormal pulmonary function (COPD), Swollen legs (current) Each Risk Factor Represents 2 Points: Age 61-74 years Each Risk Factor Represents 3 Points: History of DVT/PE Thrombosis Risk Factor Assessment Total Risk Factor Score: 7 Thrombosis Risk Factor Assessment Level: High Risk Assessment and Plan Plan: Acute hypoxic respiratory failure: Patient is not on oxygen at home but does have known nonischemic cardiomyopathy. Echo definitely shows significantly red uced ejection fraction possibly acute diastolic congestive heart failure, wait on further recommendations from cardiology. Nonischemic cardiomyopathy: As above COPD: Most likely stable at this time though the is a non-smoker at this time. History of AICD placement Peripheral vascular disease Long-term anticoagulation Venous hypertension with venous leg ulcer bilaterally Nonpressure ulcer right lower extremity with muscle involvement without necrosis Nonpressure ulcer left lower extremity with other specified complication Hypertension Hyperlipidemia Wait on further recommendations from cardiology, for wound care we will apply Opticell AG to his lower extremity wounds apply Calmoseptine to the periwound area and use an Roosevelt wrap for compression bilaterally. He is on Aldactone and furosemide at this time for diuresis along with lisinopril. Remains on atorvastatin for hyperlipidemia. We will repeat labs in a.m. and reevaluate him in the next 24 hours.
[2025-02-09 18:49] LABS: ABG Oxygen Saturation 94.2 % (94-97); ABG PH 7.25 (7.35-7.45); ABG PO2 74 mmHg (83-108); Allen Test Performed? Yes
[2025-02-09 18:53] LABS: ABG PCO2 >98 mmHg (35-45)
[2025-02-09] MEDS: FUROSEMIDE 10 MG/ML 4 ML VIAL IV SCH (20:37)
[2025-02-09] MEDS: ACETAMINOPHEN TAB 325 MG TAB PO PRN (20:37)
[2025-02-10 00:39] LABS: Chol/HDL Ratio 2.45 Ratio; LDL Cholesterol,Calculated 63.2 mg/dL (0.0-131.0); VLDL Calculation 15.56 mg/dL (5.00-40.00)
[2025-02-10 08:43] LABS: ABG Base Excess 10.6 mmol/L; ABG Oxygen Saturation 96.4 % (94-97); ABG PH 7.35 (7.35-7.45); ABG PO2 77 mmHg (83-108); ABG TCO2 42 mmol/L (19-24); Allen Test Performed? Yes
[2025-02-10 08:46] LABS: ABG HCO3 40 mmol/L (21-25); ABG PCO2 72 mmHg (35-45)
--- NOTE | 2025-02-10 09:20 | P.PN ---
Subjective February 10, 2025: Gibran is reevaluated today. Staff report he is quite somnolent and confused. Verbally responses are minimal. Overnight he is PCO2 was found to be significantly elevated at greater than 98, at that time pulmonology was consulted repeat this morning is 72. He is still confused and on BiPAP. He has a Tmax of 100.8 at 1930 last night. He has been mostly febrile for the past 24 hours. Pulse is normal blood pressures slightly decreased with the 100/59 most recently. He is on BiPAP at 40% O2. Staff report has been incontinent of urine on the floor. His wounds he has Opticell silver to his right and left leg venous leg ulcers. There is Roosevelt wrap's in place. Repeat blood gas this morning showed a pH of 7.35 the pCO2 is improved to 72 from greater than 98 and PO2 is now 77. While still low there are improved, cardiology and pulmonology consults are pending. He remains on BiPAP, furosemide and Aldactone at this time. He is anticoagulated with Xarelto or at home medication and continues on carvedilol for hypertension and atorvastatin for hyperlipidemia. Objective - Vital Signs Vital signs: Vital Signs Temp 100.2 F H 02/10/25 07:48 Pulse 68 02/10/25 07:48 Resp 14 02/10/25 07:48 BP 100/59 02/10/25 07:48 Pulse Ox 98 02/10/25 07:48 FiO2 40 02/10/25 08:29 Intake & Output 02/09/25 02/10/25 02/10/25 18:59 06:59 18:59 Intake Total 2120 Output Total 600 Balance 2120 -600 Weight 134.6 kg Intake: Oral 2120 Output: Urine 600 Other: Voiding Method Diaper # Voids 1 # Bowel Movements 1 - Exam General: The patient is somnolent difficult to arouse, BiPAP is in place, Neck: The neck is supple, there is no thyromegaly, lymphadenopathy, tenderness or JVD. Cardiovascular: S1S2 is normal, There is a regular rate and rhythm. No murmur, rub or gallop is appreciated. Respiratory: Lungs are diminished bilaterally, Gastrointestinal: Soft, non-distended, non-tender abdomen without masses or organomegaly noted. There is no rebound or guarding present. Bowel sounds are unremarkable. Musculoskeletal: Normal ROM, no tenderness, There is no pedal edema. There is no calf tenderness or swelling. No cords were appreciated. Neurological: CN II-XII intact, there are no obvious motor or sensory deficits. Coordination appears grossly intact. Speech is normal. Skin: Skin is warm and dry and no rashes, dressings are intact on his lower extremities - Labs CBC & Chem 7: 02/08/25 09:49 02/08/25 09:49 Labs: Abnormal Lab Results - Last 24 Hours (Table) 02/09/25 02/09/25 02/10/25 Range/Units 14:33 18:45 08:34 ABG pH 7.25 L (7.35-7.45) ABG pCO2 >98 H* 72 H* (35-45) mmHg ABG pO2 74 L 77 L (83-108) mmHg ABG HCO3 40 H* (21-25) mmol/L ABG Total CO2 42 H (19-24) mmol/L Hemoglobin A1c 6.2 H (<=6.0) % Assessment and Plan Plan: Acute hypoxic respiratory failure: Patient is on furosemide spironolactone and a BiPAP, repeat blood gases shows some improvement, x-ray pending for today Fever: Will start him on Zosyn at this time Metabolic encephalopathy suspect: He does take Xarelto, will order stat CT brain without contrast to evaluate for any occult bleeding Nonischemic cardiomyopathy: As above COPD: Appears now to be decompensated, continue medications, we will add updrafts and wait on pulmonology consult History of AICD placement: Cardiology is on consult Peripheral vascular disease Long-term anticoagulation: Continue with Xarelto, until results of the CT brain are available Venous hypertension with venous leg ulcer bilaterally Nonpressure ulcer right lower extremity with muscle involvement without necrosis continue Opticell and Curlex wraps Nonpressure ulcer left lower extremity with other specified complication: As above Hypertension: Continue to monitor, blood pressure little low, will reduce his carvedilol at this time Hyperlipidemia: He will continue on his atorvastatin Weight and consult recommendations, get a stat CT brain due to his encephalopathy to rule out any intracranial bleeding, start him on Zosyn for his fever, DuoNeb updrafts, with reduce his carvedilol due to his soft blood pressures, continue his BiPAP, if he worsens he may need intensive care unit transfer, we will reevaluate in the next 24 hours and wait on upcoming test results.
--- NOTE | 2025-02-10 09:42 | XR ---
EXAMINATION TYPE: XR chest 1V DATE OF EXAM: 02/10/2025 9:23 AM COMPARISON: 02/08/2025 CLINICAL INDICATION: Male, 64 years old with history of hypoxia, TECHNIQUE: XR chest 1V view(s) obtained. FINDINGS: The heart size is enlarged. Pacemaker overlies left chest. The pulmonary vasculature is prominent. Moderate left pleural effusion is present. IMPRESSION: 1. Cardiomegaly with prominent pulmonary vascular markings and a moderate left pleural effusion. Zaki elate for congestive heart failure. Findings appear stable from comparison [facility], , 02/10/2025 9:39 AM
--- NOTE | 2025-02-10 09:43 | CT ---
EXAMINATION TYPE: CT brain wo con DATE OF EXAM: 02/10/2025 9:29 AM COMPARISON: None. CLINICAL INDICATION: Male, 64 years old with history of mentation changes, MENTATION CHANGES TECHNIQUE: CT of the brain is performed utilizing 3 mm thick sections through the posterior fossa and 3 mm thick sections through the remaining calvarium. Study is performed within 24 hours of arrival to the hospital. Contrast used: mL of , (none if empty) CT DLP: 1238.4 mGycm, Automated exposure control for dose reduction was used. FINDINGS: No abnormal hyperdensity is present to suggest an acute intracranial hemorrhage. No mass lesion is evident. No acute infarcts are evident. Ventricles and sulci are appropriate for the patient age. Paranasal sinuses and mastoid air cells within the [id number] are clear. IMPRESSION: 1. No acute intracranial process. Follow up MRI can be performed as clinically indicated. [facility], , 02/10/2025 9:41 AM
[2025-02-10] MEDS: methylPREDNISolone SOD SUCCI 125 MG/2 ML VIAL IV STA (09:51)
[2025-02-10] MEDS: PANTOPRAZOLE 40 MG/10 ML VIAL IVP SCH (09:51)
[2025-02-10] MEDS: PIPERACILLIN-TAZOBACTAM 3.375 GM in SODIUM CHLORIDE 0.9% 100 ML IVPB SCH ×2 (11:20→19:44)
[2025-02-10 11:21] LABS: Basophils # (A) 0.02 10*3/uL (0.00-0.10); Basophils % (A) 0.2 %; Eosinophils # (A) 0.05 10*3/uL (0.04-0.35); Eosinophils % (A) 0.6 %; HCT 46.3 % (39.6-50.0); HGB 15.1 g/dL (13.0-17.0); Lymphocytes # (A) 2.08 10*3/uL (0.90-5.00); Lymphocytes % (A) 23.8 %; MCH 32.5 pg (27.0-32.0); MCHC 32.6 g/dL (32.0-37.0); MCV 99.8 fL (80.0-97.0); Mean Platelet Volume 9.9 fL (9.5-12.2); Monocytes # (A) 0.88 10*3/uL (0.20-1.00); Monocytes % (A) 10.1 %; Neutrophils # (A) 5.68 10*3/uL (1.80-7.70); Platelet Count 181 10*3/uL (140-440); RBC 4.64 10*6/uL (4.40-5.60); RDW 13.4 % (11.5-14.5); WBC 8.74 10*3/uL (4.50-10.00)
--- NOTE | 2025-02-10 11:34 | P.CRDCN ---
History of Present Illness Consult date: 02/09/25 History of present illness: HISTORY OF PRESENTING ILLNESS: 64-year-old with history of chronic venous ulcers in bilateral lower extremity. He has been reporting increased worsening shortness of breath for which he presented to the hospital. He was found to be hypoxic and mildly febrile on admission. Cardiology was consulted for CHF evaluation. Admission Vitals: 100/59, heart rate 68, mildly febrile Admission Labs: Hb 15, WBC 8, BUN 10, creatinine 0.6, A1c 6.2, NT-proBNP 427, LDL 63, TG 77, TSH 0.6 Imaging: Chest x-ray from admission shows increased interstitial markings suggestive of mild pulmonary congestion with small to moderate left-sided pleural effusion with cardiomegaly. Prior cardiac testing: Echo from this admission shows an EF of 30%, mid to distal anterolateral and apical wall hypokinesia Severe reduced LV systolic function, RVSP 45 mmHg, REVIEW OF SYSTEMS: 14 point review of system is negative except what is mentioned above in HPI. PHYSICAL EXAMINATION: Neck: Brisk carotid upstroke, no jugular venous distention. Lungs: Clear to auscultation. Heart: Regular rate and rhythm, S1-S2, , no murmur or rub. Abdomen: Soft nontender, positive bowel sounds. Extremities: Chronic bilateral lower extremity edema with chronic skin changes, also noticed bilateral lower extremity Neuro: Alert, oritented, no focal deficits. Detailed neuro exam was not performed. ASSESSMENT: # Acute hypoxic respiratory failure # History of nonischemic cardiomyopathy # History of AICD # Peripheral arterial disease # Prediabetes # Essential hypertension # Dyslipidemia # Chronic venous nonpressure ulcer in bilateral lower extremity # Chronic bilateral venous insufficiency # On anticoagulation likely for prior history of DVT PLAN: Obtain EKG Continue Lasix 40 IV twice daily, continue lisinopril, Xarelto, Aldactone Further recommendations to follow Tim Agrawal MD, FACC, RPVI Thank you for allowing [facility] to participate in this patient's care. Feel free to reach out in case of any followup questions. Past Medical History Past Medical History: COPD, Rheumatoid Arthritis (RA), Vascular Disorder Additional Past Medical History / Comment(s): pad, see Dr Jameson H & P, SOB w/exertion History of Any Multi-Drug Resistant Organisms: None Reported Past Surgical History: Heart Catheterization Additional Past Surgical History / Comment(s): varicose veins sx 1991, heart defibrillator Past Anesthesia/Blood Transfusion Reactions: No Reported Reaction Past Psychological History: No Psychological Hx Reported Additional Psychological History / Comment(s): pt is independant. lives withhis sig other of 35 years( vicky barajas) and 1 pet dog. no home care services recieved. no medical equipment at home. no service in back ground. used to work construction. currently on disabilty. Smoking Status: Never smoker Past Alcohol Use History: Occasional Past Drug Use History: None Reported - Past Family History Mother Family Medical History: Cancer Additional Family Medical History / Comment(s): bone cancer Father History Unknown: Yes Additional Family Medical History / Comment(s): never knew his dad Medications and Allergies Home Medications Medication Instructions Recorded Confirmed Type Spironolactone [Aldactone] 25 mg PO DAILY #30 tablet 04/08/17 02/08/25 Rx Atorvastatin [Lipitor] 10 mg PO DAILY 11/07/21 02/08/25 History carvediloL [Coreg] 25 mg PO BID 11/07/21 02/08/25 History lisinopriL [Zestril] 5 mg PO DAILY 11/07/21 02/08/25 History Rivaroxaban [Xarelto] 20 mg PO DAILY 5 Days #5 tab 11/14/21 02/08/25 Rx Furosemide [Lasix] 80 mg PO DAILY 02/08/25 02/08/25 History Ketoconazole 2% Cream [Nizoral 2%] 1 applic TOPICAL BID 02/08/25 02/08/25 History Allergies Allergy/AdvReac Type Severity Reaction Status Date / Time ibuprofen Allergy Rash/Hives Verified 02/08/25 14:17 Physical Exam Vitals: Vital Signs Temp Pulse Resp BP Pulse Ox FiO2 02/10/25 11:29 100.1 F H 75 16 126/76 96 40 02/10/25 08:29 40 02/10/25 07:48 100.2 F H 68 14 100/59 98 02/10/25 03:40 99.9 F H 94 19 93/57 40 02/10/25 03:04 40 02/09/25 23:39 98.9 F 71 15 117/53 96 40 02/09/25 23:18 40 02/09/25 21:08 40 02/09/25 19:50 21 02/09/25 19:30 100.8 F H 72 21 113/58 40 02/09/25 19:06 40 02/09/25 18:56 40 02/09/25 18:32 72 16 112/68 94 L 02/09/25 16:32 82 120/63 02/09/25 13:39 98.2 F 71 18 92/59 93 L Intake and Output 02/09/25 02/10/25 02/10/25 22:59 06:59 14:59 Intake Total 1640 Output Total 600 Balance 1640 -600 Intake: Oral 1640 Output: Urine 600 Other: Voiding Method Diaper Diaper # Voids 1 1 # Bowel Movements 1 Weight 134.6 kg Results 02/10/25 11:00 02/08/25 09:49 Lipids 02/09/25 Range/Units 14:33 Triglycerides 77.80 (0.00-149.00) mg/dL Cholesterol 133.00 (0.00-200.00) mg/dL HDL Cholesterol 54.20 (40.00-60.00) mg/dL Cholesterol/HDL Ratio 2.45 Ratio CBC 02/10/25 Range/Units 11:00 WBC 8.74 (4.50-10.00) 10*3/uL RBC 4.64 (4.40-5.60) 10*6/uL Hgb 15.1 (13.0-17.0) g/dL Hct 46.3 (39.6-50.0) % Plt Count 181 (140-440) 10*3/uL Current Medications Generic Name Dose Route Start Last Admin Trade Name Freq PRN Reason Stop Dose Admin Acetaminophen 650 mg 02/08/25 17:00 02/09/25 20:37 Acetaminophen Tab 325 Mg Tab PO 650 mg Q6HR PRN Administration Mild Pain or Fever > 100.5 Albuterol/Ipratropium 3 ml 02/10/25 12:00 Ipratropium-Albuterol 3 Ml Neb INHALATION RT-QID TRISTEN Atorvastatin Calcium 10 mg 02/09/25 09:00 02/10/25 09:39 Atorvastatin 10 Mg Tab PO Not Given DAILY TRISTEN Calamine 1 applic 02/09/25 12:29 Calamine/Zinc Oxide Lotion 177 Ml Btl TOPICAL QID PRN Skin Irritation Protocol Carvedilol 25 mg 02/08/25 21:00 02/10/25 06:36 Carvedilol 12.5 Mg Tab PO 25 mg BID-W/MEALS TRISTEN Administration Furosemide 40 mg 02/09/25 21:00 02/10/25 09:43 Furosemide 10 Mg/Ml 4 Ml Vial IV 40 mg Q12HR TRISTEN Administration Piperacillin Sod/Tazobactam 100 mls @ 25 mls/hr 02/10/25 08:45 02/10/25 11:20 Sod 3.375 gm/ Sodium Chloride IVPB 25 mls/hr Q8HR TRISTEN Administration Protocol Daptomycin 600 mg/ Sodium 50 mls @ 100 mls/hr 02/10/25 12:00 Chloride IVPB Q24HR@1200 [facility] Protocol Lisinopril 5 mg 02/09/25 09:00 02/10/25 09:40 Lisinopril 5 Mg Tab PO Not Given DAILY [facility] Methylprednisolone Sodium Succinate 60 mg 02/10/25 12:00 Methylprednisolone Sod Succi 125 Mg/2 Ml Vial IV Q6HR [facility] Morphine Sulfate 4 mg 02/08/25 17:00 Morphine Sulfate 4 Mg/Ml Syringe IV Q4HR PRN Severe Pain (Scale 7 to 10) Naloxone HCl 0.2 mg 02/08/25 17:00 Naloxone 0.4 Mg/Ml 1 Ml Vial IV Q2M PRN Opioid Reversal Ondansetron HCl 4 mg 02/08/25 17:00 Ondansetron 4 Mg/2 Ml Vial IVP Q8HR PRN Nausea And Vomiting Pantoprazole Sodium 40 mg 02/10/25 09:30 02/10/25 09:51 Pantoprazole 40 Mg/10 Ml Vial IVP 40 mg DAILY TRISTEN Administration Rivaroxaban 20 mg 02/09/25 09:00 02/10/25 11:20 Rivaroxaban 20 Mg Tab PO 20 mg DAILY [facility] Administration Protocol Spironolactone 25 mg 02/09/25 09:00 02/10/25 09:40 Spironolactone 25 Mg Tab PO Not Given DAILY [facility] Intake and Output 02/09/25 02/10/25 02/10/25 22:59 06:59 14:59 Intake Total 1640 Output Total 600 Balance 1640 -600 Intake: Oral 1640 Output: Urine 600 Other: Voiding Method Diaper Diaper # Voids 1 1 # Bowel Movements 1 Weight 134.6 kg 02/10/25 11:00 02/08/25 09:49
[2025-02-10 11:37] LABS: African American GFR (CKD) >90 (>60 ml/min/1.73 sqM); Blood Urea Nitrogen 25 mg/dL (9-20); Calcium 9.2 mg/dL (8.4-10.2); Chloride 87 mmol/L (98-107); Glucose 111 mg/dL (74-99); Magnesium 1.9 mg/dL (1.6-2.3); Non-African American GFR(CKD) 82 (>60 ml/min/1.73 sqM); Potassium 4.5 mmol/L (3.5-5.1); Sodium 136 mmol/L (137-145)
[2025-02-10 11:43] LABS: Anion Gap 7 mmol/L
[2025-02-10 11:46] LABS: NT-Pro-B-Type Natriuretic Pept 46 pg/mL
[2025-02-10 11:47] LABS: Carbon Dioxide 42 mmol/L (22-30)
--- NOTE | 2025-02-10 11:47 | P.PN ---
Subjective Progress Note Date: 02/10/25 HISTORY OF PRESENTING ILLNESS: 64-year-old with history of chronic venous ulcers in bilateral lower extremity. He has been reporting increased worsening shortness of breath for which he presented to the hospital. He was found to be hypoxic and mildly febrile on admission. Cardiology was consulted for CHF evaluation. Admission Vitals: 100/59, heart rate 68, mildly febrile Admission Labs: Hb 15, WBC 8, BUN 10, creatinine 0.6, A1c 6.2, NT-proBNP 427, LDL 63, TG 77, TSH 0.6 Imaging: Chest x-ray from admission shows increased interstitial markings suggestive of mild pulmonary congestion with small to moderate left-sided pleural effusion with cardiomegaly. Prior cardiac testing: Echo from this admission shows an EF of 30%, mid to distal anterolateral and apical wall hypokinesia Severe reduced LV systolic function, RVSP 45 mmHg, No evidence of DVT in bilateral lower extremity Last heart catheter in 2018 shows nonischemic cardiomyopathy EF 20% with mild nonobstructive CAD Progress note 02/10/2025 BP 100/59, heart rate 68, Hb 15, pCO2 72, PO277, bicarb is higher suggestive of acute on chronic hypercapnic respiratory failure Patient is very somnolent, on BiPAP support. Denies any chest pain chest pressure. Does report shortness of breath. Does report feeling generalized weakness. Reports slight improvement since admission. PHYSICAL EXAMINATION: Neck: Brisk carotid upstroke, no jugular venous distention. Lungs: Clear to auscultation. On BiPAP support Heart: Regular rate and rhythm, S1-S2, , no murmur or rub. Abdomen: Soft nontender, positive bowel sounds. Extremities: 2-3+ swelling in bilateral legs chronic bilateral lower extremity edema with chronic skin changes, also noticed bilateral lower extremity Neuro: Alert, oritented, no focal deficits. Detailed neuro exam was not performed. ASSESSMENT: # Acute on chronic hypoxic and hypercapnic respiratory failure # History of nonischemic cardiomyopathy # History of AICD # Peripheral arterial disease # Prediabetes # Essential hypertension # Dyslipidemia # Chronic venous nonpressure ulcer in bilateral lower extremity # Chronic bilateral venous insufficiency # On anticoagulation likely for prior history of DVT PLAN: Obtain EKG Continue Lasix 40 IV twice daily, Add acetazolamide to 250 mg twice daily for 2 days for elevated bicarb Start metoprolol 5 mg daily. Start Aldactone 25 mg daily Continue lisinopril 5 mg daily. Not able to uptitrate because of borderline BP Once patient is tolerating oral, start Farxiga Continue BiPAP support Home oxygen evaluation prior to discharge Objective - Vital Signs Vital signs: Vital Signs Temp 100.1 F H 02/10/25 11:29 Pulse 75 02/10/25 11:29 Resp 16 02/10/25 11:29 BP 126/76 02/10/25 11:29 Pulse Ox 96 02/10/25 11:29 FiO2 40 02/10/25 11:29 Intake & Output 02/09/25 02/10/25 02/10/25 18:59 06:59 18:59 Intake Total 2120 Output Total 600 Balance 2120 -600 Weight 134.6 kg Intake: Oral 2120 Output: Urine 600 Other: Voiding Method Diaper # Voids 1 1 # Bowel Movements 1 - Labs CBC & Chem 7: 02/10/25 11:00 02/08/25 09:49 Labs: Abnormal Lab Results - Last 24 Hours (Table) 02/09/25 02/09/25 02/10/25 Range/Units 14:33 18:45 08:34 MCV (80.0-97.0) fL MCH (27.0-32.0) pg ABG pH 7.25 L (7.35-7.45) ABG pCO2 >98 H* 72 H* (35-45) mmHg ABG pO2 74 L 77 L (83-108) mmHg ABG HCO3 40 H* (21-25) mmol/L ABG Total CO2 42 H (19-24) mmol/L Hemoglobin A1c 6.2 H (<=6.0) % 02/10/25 Range/Units 11:00 MCV 99.8 H (80.0-97.0) fL MCH 32.5 H (27.0-32.0) pg ABG pH (7.35-7.45) ABG pCO2 (35-45) mmHg ABG pO2 (83-108) mmHg ABG HCO3 (21-25) mmol/L ABG Total CO2 (19-24) mmol/L Hemoglobin A1c (<=6.0) %
[2025-02-10] MEDS: IPRATROPIUM-ALBUTEROL 3 ML NEB INHALATION STA (12:16)
[2025-02-10] MEDS: IPRATROPIUM-ALBUTEROL 3 ML NEB INHALATION SCH (12:34)
[2025-02-10] MEDS: methylPREDNISolone SOD SUCCI 125 MG/2 ML VIAL IV SCH (13:02)
[2025-02-10] MEDS: metOLazone 5 MG TAB PO SCH (13:02)
[2025-02-10] MEDS: acetaZOLAMIDE 250 MG TAB PO SCH (13:09)
--- NOTE | 2025-02-10 13:49 | P.CNPUL ---
History of Present Illness Consult date: 02/10/25 Reason for consult: dyspnea History of present illness: 64-year-old male patient who is currently being seen for altered mentation, acute on top of chronic hypoxic and hypercapnic respiratory failure. The patient was hospitalized for lower extremity wounds and cellulitis. Overnight, the patient became more lethargic and hypercapnic and the patient accordingly was placed on a BiPAP and currently BiPAP is running at a pressure of 16 over 5 cm of water with FiO2 of 40%. The patient is generating adequate tidal volume while being on the BiPAP. Meanwhile, the patient's chest x-ray showed cardiomegaly and mild pulm vas congestion consistent with CHF. Repeat chest x- ray was done today that showed similar findings on the patient's CAT scan of the brain was negative. The white cell count at 8.7 with a heme of 15.1 and a platelet count of 181. Most recent blood gas showed a pH of 7.35 with a pCO2 of 72 and pO2 of 77 while being on the BiPAP. There is improvement in acid-base status. Serum bicarbonate 42 with a sodium of 136. BUN is 25 with a creatinine of 0.9. The viral screen has been negative. While on the BiPAP, the patient is awake and alert and communicating. In regards to his lower extremity wounds, the patient has had previous wound cultures showing stenotrophomonas and Enterobacter and E. coli and Enterococcus. He has also had Proteus vulgaris. As such, this has been an polymicrobial growth. For now, the patient is on Zosyn and I added daptomycin. He is also on Lasix 40 mg IV every 12 hours. Producing adequate amount of urine output. He is chronically maintained on Diamox. He is maintained on anticoagulation with Xarelto. Review of Systems Constitutional: Reports daytime sleepiness, Reports fatigue, Reports lethargy, Reports poor appetite, Reports weight gain Eyes: denies as per HPI, denies blurred vision, denies bulging eye, denies decreased vision, denies diplopia, denies discharge, denies dry eye, denies irritation, denies itching, denies pain, denies photophobia, denies loss of peripheral vision, denies loss of vision, denies tunnel vision/blind spots Ears: deny: decreased hearing, ear discharge, earache, tinnitus Ears, nose, mouth and throat: Reports as per HPI Breasts: absent: as per HPI, gynecomastia Cardiovascular: Reports decreased exercise tolerance, Reports dyspnea on exertion, Reports leg edema Respiratory: Reports dyspnea, Reports home oxygen, Reports sleep apnea, Reports wheezing Gastrointestinal: Reports as per HPI Genitourinary: Reports as per HPI Musculoskeletal: Reports as per HPI Musculoskeletal: bilateral: ankle swelling, absent: ankle pain, ankle stiffness, as per HPI, elbow pain, elbow stiffness, elbow swelling, foot pain, foot stiffness, foot swelling, hand pain, hand stiffness, hand swelling, hip pain, hip stiffness, hip swelling, knee pain, knee stiffness, knee swelling, shoulder pain, shoulder stiffness, shoulder swelling, wrist pain, wrist stiffness, wrist swelling Integumentary: Reports as per HPI, Reports wounds Neurological: Reports as per HPI, Reports gait dysfunction Psychiatric: Reports as per HPI Endocrine: Reports as per HPI, Reports fatigue Hematologic/Lymphatic: Reports as per HPI Allergic/Immunologic: Reports as per HPI Past Medical History Past Medical History: COPD, Rheumatoid Arthritis (RA), Sleep Apnea/CPAP/BIPAP, Vascular Disorder Additional Past Medical History / Comment(s): PAD, chronic more than edema in the lower extremities bilaterally. History of Any Multi-Drug Resistant Organisms: None Reported Past Surgical History: Heart Catheterization Additional Past Surgical History / Comment(s): varicose veins sx 1991, heart defibrillator Past Anesthesia/Blood Transfusion Reactions: No Reported Reaction Past Psychological History: No Psychological Hx Reported Additional Psychological History / Comment(s): pt is independant. lives withhis sig other of 35 years( vicky barajas) and 1 pet dog. no home care services recieved. no medical equipment at home. no service in back ground. used to work construction. currently on disabilty. Smoking Status: Never smoker Past Alcohol Use History: Occasional Past Drug Use History: None Reported - Past Family History Mother Family Medical History: Cancer Additional Family Medical History / Comment(s): bone cancer Father History Unknown: Yes Additional Family Medical History / Comment(s): never knew his dad Medications and Allergies Home Medications Medication Instructions Recorded Confirmed Type Spironolactone [Aldactone] 25 mg PO DAILY #30 tablet 04/08/17 02/08/25 Rx Atorvastatin [Lipitor] 10 mg PO DAILY 11/07/21 02/08/25 History carvediloL [Coreg] 25 mg PO BID 11/07/21 02/08/25 History lisinopriL [Zestril] 5 mg PO DAILY 11/07/21 02/08/25 History Rivaroxaban [Xarelto] 20 mg PO DAILY 5 Days #5 tab 11/14/21 02/08/25 Rx Furosemide [Lasix] 80 mg PO DAILY 02/08/25 02/08/25 History Ketoconazole 2% Cream [Nizoral 2%] 1 applic TOPICAL BID 02/08/25 02/08/25 History Allergies Allergy/AdvReac Type Severity Reaction Status Date / Time ibuprofen Allergy Rash/Hives Verified 02/08/25 14:17 Physical Exam Vitals: Vital Signs Temp Pulse Resp BP Pulse Ox FiO2 02/10/25 08:29 40 02/10/25 07:48 100.2 F H 68 14 100/59 98 02/10/25 03:40 99.9 F H 94 19 93/57 40 02/10/25 03:04 40 02/09/25 23:39 98.9 F 71 15 117/53 96 40 02/09/25 23:18 40 02/09/25 21:08 40 02/09/25 19:50 21 02/09/25 19:30 100.8 F H 72 21 113/58 40 02/09/25 19:06 40 02/09/25 18:56 40 02/09/25 18:32 72 16 112/68 94 L 02/09/25 16:32 82 120/63 02/09/25 13:39 98.2 F 71 18 92/59 93 L Intake and Output 02/09/25 02/10/25 02/10/25 22:59 06:59 14:59 Intake Total 1640 Output Total 600 Balance 1640 -600 Intake: Oral 1640 Output: Urine 600 Other: Voiding Method Diaper Diaper # Voids 1 1 # Bowel Movements 1 Weight 134.6 kg The patient appeared awake and alert on BiPAP and is able to tolerate the BiPAP without any major difficulties. The patient is on a pressure of 16/5 with an FiO2 of 40%. No signs of any significant respiratory distress. Head exam is unremarkable. No scleral icterus or corneal arcus noted. Neck is without jugular venous distension, thyromegaly, or carotid bruits. Carotid upstrokes are brisk bilaterally. Mallampati class IV with significantly low posterior pharynx Lungs are clear to auscultation and percussion. Diminished breath sounds bilaterally along with scattered expiratory wheezes Cardiac exam reveals the PMI to be normally sized and situated. Rhythm is regular. First and second heart sounds normal. No murmurs, rubs or gallops. Abdominal exam reveals normal bowel sounds, no masses, no organomegaly and no aortic enlargement. Extremities are are swollen and there is evidence of cellulitis and chronic wounds that are essentially covered at this point in time. Pulses are diminished at the present. Examination of the skin revealed no evidence of significant rashes, suspicious appearing nevi or other concerning lesions. Neurologically, the patient is awake and alert and the patient does not have any focal neurological deficit. Cranial nerves are essentially intact. Results - Laboratory Findings CBC and BMP: 02/10/25 11:00 02/10/25 11:00 ABG ABG pH 7.35 (7.35-7.45) 02/10/25 08:34 ABG pCO2 72 mmHg (35-45) H* 02/10/25 08:34 ABG pO2 77 mmHg (83-108) L 02/10/25 08:34 ABG O2 Saturation 96.4 % (94-97) 02/10/25 08:34 PT/INR, D-dimer PT 11.6 sec (10.0-12.5) 02/08/25 09:49 INR 1.1 (<1.2) 02/08/25 09:49 Abnormal lab findings: Abnormal Labs 02/08/25 02/08/25 02/09/25 09:49 09:49 14:33 MCH 32.2 H ABG pH ABG pCO2 ABG pO2 ABG HCO3 ABG Total CO2 Chloride 96 L Carbon Dioxide 36 H Glucose 139 H Hemoglobin A1c 6.2 H 02/09/25 02/10/25 18:45 08:34 MCH ABG pH 7.25 L ABG pCO2 >98 H* 72 H* ABG pO2 74 L 77 L ABG HCO3 40 H* ABG Total CO2 42 H Chloride Carbon Dioxide Glucose Hemoglobin A1c - Diagnostic Findings Chest x-ray: image reviewed Assessment and Plan Plan: Acute on chronic hypoxic/hypercapnic respiratory failure. Respiratory failure is multifactorial triggered by lower extremity cellulitis. However, the patient has chronic COPD/sleep apnea with chronic hypoxic and hypercapnic respiratory failure and the patient has also chronic left-sided hemidiaphragmatic dysfunction contributing to his respiratory failure. Currently on a BiPAP and the patient is able to tolerate the treatment reasonably well. Altered mentation secondary to above, improved while being on the BiPAP Chronic lower extremity wounds with secondary infection and the patient has been followed up with the wound center. 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 COPD Nonischemic cardiomyopathy with impaired left a ejection fraction of 30% History of AICD placement Rheumatoid arthritis Peripheral vascular disease Previous history of DVT or pulmonary embolism and the patient is currently on Xarelto Plan Continue BiPAP for respiratory support for the next 24 hours Antibiotic coverage with a combination of Zosyn and daptomycin ID consult and wound care IV Lasix 40 mg every 12 hours IV Solu-Medrol DuoNeb nebulized treatments [id number] Monitor electrolytes and continue Diamox Continue anticoagulation with Xarelto Will continue to follow Time with Patient: Greater than 30
[2025-02-10] MEDS: carvediloL 12.5 MG TAB PO SCH (18:01)
[2025-02-11 11:39] LABS: African American GFR (CKD) 89 (>60 ml/min/1.73 sqM); Anion Gap 11 mmol/L; Blood Urea Nitrogen 27 mg/dL (9-20); Calcium 9.7 mg/dL (8.4-10.2); Carbon Dioxide 37 mmol/L (22-30); Chloride 86 mmol/L (98-107); Glucose 238 mg/dL (74-99); Non-African American GFR(CKD) 77 (>60 ml/min/1.73 sqM); Potassium 3.2 mmol/L (3.5-5.1); Sodium 134 mmol/L (137-145)
--- NOTE | 2025-02-11 11:52 | P.PN ---
Subjective Progress Note Date: 02/11/25 History of Present Illness 02/09/2025 Chief Complaint: Shortness of breath Gibran is a 64-year-old male well-known to my practice. I also see him at the wound center for his venous leg ulcers to the bilateral lower extremities. He reports a several day history of increased shortness of breath. He was came to the emergency room for this. He is found to be mildly hypoxic 89% on room air on presentation. Laboratory studies show no white count hemoglobin was normal blood chemistries show his also normal. Glucose is slightly elevated. Beta natriuretic peptide was 257. Normal troponin. Beta natruretic peptide was 257. Viral culture is negative. Chest x-ray shows cardiomegaly with mild vascular congestion. Left basilar opacity possibly chronic consolidation or atelectasis. Venous Doppler shows no DVT echocardiogram showed LVEF of 30% severely reduced global left ventricular systolic function mild apical and lateral wall hypokinesis. February 10, 2025: Gibran is reevaluated today. Staff report he is quite somnolent and confused. Verbally responses are minimal. Overnight he is PCO2 was found to be significantly elevated at greater than 98, at that time pulmonology was consulted repeat this morning is 72. He is still confused and on BiPAP. He has a Tmax of 100.8 at 1930 last night. He has been mostly febrile for the past 24 hours. Pulse is normal blood pressures slightly decreased with the 100/59 most recently. He is on BiPAP at 40% O2. Staff report has been incontinent of urine on the floor. His wounds he has Opticell silver to his right and left leg venous leg ulcers. There is Roosevelt wrap's in place. Repeat blood gas this morning showed a pH of 7.35 the pCO2 is improved to 72 from greater than 98 and PO2 is now 77. While still low there are improved, cardiology and pulmonology consults are pending. He remains on BiPAP, furosemide and Aldactone at this time. He is anticoagulated with Xarelto or at home medication and continues on carvedilol for hypertension and atorvastatin for hyperlipidemia. 02/11/[address] reported no acute intracranial process. Maintained on daptomycin and Zosyn for stenotrophomonas and Enterobacter, and Proteus cellulitis ( wound cultures prior to this visit) . Tmax 100.2. Using BiPAP at night, currently maintaining O2 sats in the 90s on 4 L nasal cannula. Echo had reported EF of 30%. Good urine output, 24-hour I&O reflecting a negative fluid balance. continues on Diamox, bicarb 42. Objective - Vital Signs Vital signs: Vital Signs Temp 98.3 F 02/11/25 08:00 Pulse 87 02/11/25 08:35 Resp 18 02/11/25 08:00 BP 120/64 02/11/25 08:00 Pulse Ox 95 02/11/25 08:24 FiO2 40 02/11/25 04:05 Intake & Output 02/10/25 02/11/25 02/11/25 18:59 06:59 18:59 Intake Total 120 118 Output Total 750 200 550 Balance -630 -200 -432 Weight 130.9 kg Intake: Oral 120 118 Output: Urine 750 200 550 Other: # Voids 1 1 1 - Exam General: Alert and oriented x 3, sitting up in chair, no acute distress Neck: supple,no JVD. Cardiovascular: S1S2 is normal, There is a regular rate and rhythm. No murmur, rub or gallop is appreciated. Respiratory: Equal air entry, lungs are diminished bilaterally. Gastrointestinal: Soft, non-tender abdomen without masses or organomegaly appreciated. No guarding. Positive bowel Extremities: Positive edema, dressings of chronic wounds, clean dry and intact. Neurological: CN II-XII intact, no focal deficits. Skin: Skin is warm and dry and no rashes, - Labs CBC & Chem 7: 02/10/25 11:00 02/13/25 06:05 Labs: Abnormal Lab Results - Last 24 Hours (Table) 02/10/25 Range/Units 11:00 Sodium 136 L (137-145) mmol/L Chloride 87 L (98-107) mmol/L Carbon Dioxide 42 H* (22-30) mmol/L BUN 25 H (9-20) mg/dL Glucose 111 H (74-99) mg/dL Assessment and Plan Assessment: Acute on chronic hypoxic and hypercapnic respiratory failure Obstructive sleep apnea, doesnot wear Bipap at home Acute metabolic encephalopathy, improved with BiPAP Fever Nonischemic cardiomyopathy, EF 30% COPD Chronic elevation of left hemidiaphragm History of AICD placement Rheumatoid arthritis Peripheral vascular disease History of DVT, PE on Xarelto Venous hypertension with venous leg ulcer bilaterally Chronic nonpressure ulcer right lower extremity with muscle involvement without necrosis continue Opticell and Curlex wraps. Follows with wound care center. Chronic nonpressure ulcer left lower extremity with other specified complication: As above Hypertension: Continue to monitor, blood pressure little low, Coreg dose decreased Hyperlipidemia Plan: Continue on current medication resume ,monitoring and symptomatic treatment. Aggressive pulmonary toileting with nebulized bronchodilator, IV steroids, IV push Lasix, Diamox ,BiPAP. Maintain antibiotics, currently on Zosyn and daptomycin in regards to stenotrophomonas and Enterobacter, and Proteus cellulitis-from prior cultures before this visit. local wound care- wound care center/team consulted. The impression and plan of care has been dictated as directed. : I performed a history and examination of this patient, discussed the same with the dictator. I agree with the dictator's note ,documented as a scribe. Any additional findings or plans will be noted.
[2025-02-11] MEDS: POTASSIUM CHLORIDE ER 20 MEQ TAB.ER PO STA (12:38)
--- NOTE | 2025-02-11 12:48 | P.PN ---
Subjective HISTORY OF PRESENT ILLNESS: This is a 64-year-old male who follows in the office with Dr. Early. Patient has a history of congestive heart failure, pulmonary embolism, nonischemic cardiomyopathy, AICD implantation, COPD, paroxysmal atrial fibrillation, and chronic lower extremity edema. Patient is admitted to the hospital secondary to shortness of breath and congestive heart failure. Patient examined this morning the bedside. Patient is currently sitting up in the chair. He denies chest pain or pressure at the time of examination. PHYSICAL EXAM: VITAL SIGNS: Reviewed. GENERAL: Well-developed in no acute distress. NECK: Supple. No JVD or thyromegaly LUNGS: Respirations even and unlabored. Lungs essentially clear to auscultation bilaterally. HEART: Regular rate and rhythm. S1 and S2 heard. EXTREMITIES: Normal range of motion. No clubbing or cyanosis. Peripheral pulses intact. 3+ bilateral lower extremity edema with bilateral wraps, left greater than right. ASSESSMENT: Shortness of breath Acute on chronic hypoxic and hypercapnic respiratory failure History of nonischemic cardiomyopathy Mild nonobstructive CAD, per heart cath in 2018 Paroxysmal atrial fibrillation, on Xarelto outpatient Hypertension Hyperlipidemia Prediabetes Peripheral arterial disease History of AICD implantation PLAN: Awaiting labs from this a.m. Continue Diamox, Lipitor, carvedilol, lisinopril, Zaroxolyn, Xarelto, and Aldactone Continue IV Lasix 40 mg every 12 hours Daily weights, accurate intake output, measure of kidney function Further recommendations pending patient course Patient to follow-up postdischarge in the office with Dr. Early Nurse practitioner note has been reviewed by physician. Signing provider agrees with the documented findings, assessment, and plan of care documented by CHRISTIAN SCIENCE NURSE as a scribe. Objective - Vital Signs Vital signs: Vital Signs Temp 98.3 F 02/11/25 08:00 Pulse 87 02/11/25 08:35 Resp 18 02/11/25 08:00 BP 120/64 02/11/25 08:00 Pulse Ox 95 02/11/25 08:24 FiO2 40 02/11/25 04:05 Intake & Output 02/10/25 02/11/25 02/11/25 18:59 06:59 18:59 Intake Total 120 118 Output Total 750 200 550 Balance -630 -200 -432 Weight 130.9 kg Intake: Oral 120 118 Output: Urine 750 200 550 Other: # Voids 1 1 1 - Labs CBC & Chem 7: 02/10/25 11:00 02/11/25 10:29 Labs: Abnormal Lab Results - Last 24 Hours (Table) 02/11/25 Range/Units 10:29 Sodium 134 L (137-145) mmol/L Potassium 3.2 L (3.5-5.1) mmol/L Chloride 86 L (98-107) mmol/L Carbon Dioxide 37 H (22-30) mmol/L BUN 27 H (9-20) mg/dL Glucose 238 H (74-99) mg/dL
--- NOTE | 2025-02-11 16:19 | P.PN ---
Subjective Progress Note Date: 02/11/25 Principal diagnosis: Acute on chronic hypoxic and hypercapnic respiratory failure 64-year-old male patient who is currently being seen for altered mentation, acute on top of chronic hypoxic and hypercapnic respiratory failure. The patient was hospitalized for lower extremity wounds and cellulitis. Overnight, the patient became more lethargic and hypercapnic and the patient accordingly was placed on a BiPAP and currently BiPAP is running at a pressure of 16 over 5 cm of water with FiO2 of 40%. The patient is generating adequate tidal volume while being on the BiPAP. Meanwhile, the patient's chest x-ray showed cardiomegaly and mild pulm vas congestion consistent with CHF. Repeat chest x- ray was done today that showed similar findings on the patient's CAT scan of the brain was negative. The white cell count at 8.7 with a heme of 15.1 and a platelet count of 181. Most recent blood gas showed a pH of 7.35 with a pCO2 of 72 and pO2 of 77 while being on the BiPAP. There is improvement in acid-base status. Serum bicarbonate 42 with a sodium of 136. BUN is 25 with a creatinine of 0.9. The viral screen has been negative. While on the BiPAP, the patient is awake and alert and communicating. In regards to his lower extremity wounds, the patient has had previous wound cultures showing stenotrophomonas and Enterobacter and E. coli and Enterococcus. He has also had Proteus vulgaris. As such, this has been an polymicrobial growth. For now, the patient is on Zosyn and I added daptomycin. He is also on Lasix 40 mg IV every 12 hours. Producing adequate amount of urine output. He is chronically maintained on Diamox. He is maintained on anticoagulation with Xarelto. Patient was seen today on 02/11/2025, he is comfortable, not in distress, using BiPAP at night, but he is now on nasal cannula, 4 L/min with O2 sat of 94%. Patient is hemodynamically stable, does not seem to be in distress. Remains on antibiotics for his stenotrophomonas and Enterobacter, and Proteus cellulitis, patient is on Zosyn and daptomycin he is also on Lasix. Good urine output, again seems to be quite comfortable. Objective - Vital Signs Vital signs: Vital Signs Temp 98.5 F 02/11/25 12:00 Pulse 74 02/11/25 14:00 Resp 18 02/11/25 14:00 BP 108/67 02/11/25 12:00 Pulse Ox 94 L 02/11/25 12:00 FiO2 40 02/11/25 04:05 Intake & Output 02/10/25 02/11/25 02/11/25 18:59 06:59 18:59 Intake Total 120 118 Output Total 750 200 550 Balance -630 -200 -432 Weight 130.9 kg Intake: Oral 120 118 Output: Urine 750 200 550 Other: Voiding Method Diaper # Voids 1 1 1 - Exam Physical exam reveals 64-year-old white male in no distress Head: Atraumatic normocephalic HEENT: PERRLA EOMI nonicteric no neck masses no JVD Pulmonary: Diminished breath sound bilaterally no rhonchi no wheezes Cardiac: Distant S1-S2, no S3 gallop, no murmur. Abdomen: Obese soft nontender no rebound no guarding Extremities: Swollen and evidence of cellulitis chronic wounds noted Neurologic: Alert oriented x 3 no focal deficit Psychiatric: Normal mood and affect no mental status examination Musculoskeletal: No deformities no limitation range of motion . - Labs CBC & Chem 7: 02/10/25 11:00 02/11/25 10:29 Labs: Abnormal Lab Results - Last 24 Hours (Table) 02/11/25 Range/Units 10:29 Sodium 134 L (137-145) mmol/L Potassium 3.2 L (3.5-5.1) mmol/L Chloride 86 L (98-107) mmol/L Carbon Dioxide 37 H (22-30) mmol/L BUN 27 H (9-20) mg/dL Glucose 238 H (74-99) mg/dL Assessment and Plan Assessment: Impression: Acute on chronic hypoxic/hypercapnic respiratory failure. Patient has underlying COPD, hemidiaphragm paralysis, and obstructive sleep apnea syndrome. Altered mentation secondary to above, improved while being on the BiPAP Chronic lower extremity wounds with secondary infection and the patient has been followed up with the wound center. 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
[2025-02-12 07:37] LABS: African American GFR (CKD) 58 (>60 ml/min/1.73 sqM); Blood Urea Nitrogen 42 mg/dL (9-20); Calcium 9.4 mg/dL (8.4-10.2); Chloride 89 mmol/L (98-107); Glucose 152 mg/dL (74-99); Non-African American GFR(CKD) 50 (>60 ml/min/1.73 sqM); Sodium 136 mmol/L (137-145)
[2025-02-12 07:55] LABS: Anion Gap 9 mmol/L
[2025-02-12 08:09] LABS: Carbon Dioxide 38 mmol/L (22-30)
[2025-02-12] MEDS: POTASSIUM CHLORIDE ER 20 MEQ TAB.ER PO SCH (09:40)
[2025-02-12] MEDS: metOLazone 5 MG TAB PO SCH (09:40)
--- NOTE | 2025-02-12 10:30 | P.PN ---
Subjective HISTORY OF PRESENT ILLNESS: This is a 64-year-old male who follows in the office with Dr. Early. Patient has a history of congestive heart failure, pulmonary embolism, nonischemic cardiomyopathy, AICD implantation, COPD, paroxysmal atrial fibrillation, and chronic lower extremity edema. Patient is admitted to the hospital secondary to shortness of breath and congestive heart failure. Patient examined this morning the bedside. Patient is currently sitting up in the chair. He denies chest pain or pressure at the time of examination. 02/12/2025 Patient seen and examined resting comfortably in bed in no acute distress. Laboratory data reviewed, sodium 136, potassium 3.0, carbon dioxide 38, creatinine 1.45. Blood pressure 108/62 heart rate 95 afebrile maintaining oxygen saturation on nasal cannula. PHYSICAL EXAM: GENERAL: Well-developed in no acute distress. NECK: Supple. No JVD or thyromegaly LUNGS: Respirations even and unlabored. Lungs essentially clear to auscultation bilaterally. HEART: Regular rate and rhythm. S1 and S2 heard. EXTREMITIES: Normal range of motion. No clubbing or cyanosis. Peripheral pulses intact. 3+ bilateral lower extremity edema with bilateral wraps, left greater than right. ASSESSMENT: Shortness of breath Acute on chronic hypoxic and hypercapnic respiratory failure History of nonischemic cardiomyopathy Mild nonobstructive CAD, per heart cath in 2018 Paroxysmal atrial fibrillation, on Xarelto outpatient Hypertension Hyperlipidemia Prediabetes Peripheral arterial disease History of AICD implantation PLAN: Decrease metolazone to 2.5 mg daily. Replace potassium. Continue IV Lasix 40 mg every 12 hours for another day and we will transition to p.o. tomorrow. Daily weights, accurate intake output, measure of kidney function Further recommendations pending patient course Patient to follow-up post discharge in the office with Dr. Early Nurse practitioner note has been reviewed by physician. Signing provider agrees with the documented findings, assessment, and plan of care documented by [employer] as a scribe. Objective - Vital Signs Vital signs: Vital Signs Temp 98.3 F 02/12/25 08:35 Pulse 95 02/12/25 08:35 Resp 18 02/12/25 08:35 BP 108/62 02/12/25 08:35 Pulse Ox 93 L 02/12/25 08:35 FiO2 40 02/11/25 04:05 Intake & Output 02/11/25 02/12/2502/12/25 18:59 06:59 18:59 Intake Total 478 460 Output Total 950 900 Balance -472 -900 460 Weight 135 kg Intake: Intake, IV Titration 100 Amount Piperacillin-Tazobactam 3 100 .375 gm In Sodium Chloride 0.9% 100 ml @ 25 mls/hr IVPB Q8H [facility] Rx#: [id number] Oral 478 360 Output: Urine 950 900 Other: Voiding Method Diaper Urinal Urinal Diaper Diaper # Voids 1 - Labs CBC & Chem 7: 02/10/25 11:00 02/12/25 05:31 Labs: Abnormal Lab Results - Last 24 Hours (Table) 02/11/25 02/12/25 Range/Units 10:29 05:31 Sodium 134 L 136 L (137-145) mmol/L Potassium 3.2 L 3.0 L (3.5-5.1) mmol/L Chloride 86 L 89 L (98-107) mmol/L Carbon Dioxide 37 H 38 H (22-30) mmol/L BUN 27 H 42 H (9-20) mg/dL Creatinine 1.45 H (0.66-1.25) mg/dL Glucose 238 H 152 H (74-99) mg/dL Microbiology - Last 24 Hours (Table) 02/10/25 11:00 Blood Culture - Preliminary Blood
--- NOTE | 2025-02-12 10:49 | P.PN ---
Subjective Progress Note Date: 02/12/25 History of Present Illness 02/09/2025 Chief Complaint: Shortness of breath Gibran is a 64-year-old male well-known to my practice. I also see him at the wound center for his venous leg ulcers to the bilateral lower extremities. He reports a several day history of increased shortness of breath. He was came to the emergency room for this. He is found to be mildly hypoxic 89% on room air on presentation. Laboratory studies show no white count hemoglobin was normal blood chemistries show his also normal. Glucose is slightly elevated. Beta natriuretic peptide was 257. Normal troponin. Beta natruretic peptide was 257. Viral culture is negative. Chest x-ray shows cardiomegaly with mild vascular congestion. Left basilar opacity possibly chronic consolidation or atelectasis. Venous Doppler shows no DVT echocardiogram showed LVEF of 30% severely reduced global left ventricular systolic function mild apical and lateral wall hypokinesis. February 10, 2025: Gibran is reevaluated today. Staff report he is quite somnolent and confused. Verbally responses are minimal. Overnight he is PCO2 was found to be significantly elevated at greater than 98, at that time pulmonology was consulted repeat this morning is 72. He is still confused and on BiPAP. He has a Tmax of 100.8 at 1930 last night. He has been mostly febrile for the past 24 hours. Pulse is normal blood pressures slightly decreased with the 100/59 most recently. He is on BiPAP at 40% O2. Staff report has been incontinent of urine on the floor. His wounds he has Opticell silver to his right and left leg venous leg ulcers. There is Roosevelt wrap's in place. Repeat blood gas this morning showed a pH of 7.35 the pCO2 is improved to 72 from greater than 98 and PO2 is now 77. While still low there are improved, cardiology and pulmonology consults are pending. He remains on BiPAP, furosemide and Aldactone at this time. He is anticoagulated with Xarelto or at home medication and continues on carvedilol for hypertension and atorvastatin for hyperlipidemia. 02/11/[address] reported no acute intracranial process. Maintained on daptomycin and Zosyn for stenotrophomonas and Enterobacter, and Proteus cellulitis ( wound cultures prior to this visit), . Tmax 100.2. Using BiPAP at night, currently maintaining O2 sats in the 90s on 4 L nasal cannula. Echo had reported EF of 30%. Good urine output, 24-hour I&O reflecting a negative fluid balance. continues on Diamox, bicarb 42. 02/12/2025 continues on Zosyn, daptomycin, nebulized bronchodilators, IV steroids, diuretics. maintaining O2 sats in the low 90s on 4 L nasal cannula. Declined BiPAP throughout the night. afebrile. Diuresing well on Lasix IV push with 24-hour VILMA reflecting a negative fluid balance. Blood pressures soft, maps low 60s to 70s. bicarb decreased to 37, BUN increased to 42, creatinine increased to 1.45, GFR decreased to 50. Potassium 3, receiving supplementation. Blood sugars controlled. Objective - Vital Signs Vital signs: Vital Signs Temp 98.3 F 02/12/25 08:35 Pulse 95 02/12/25 08:35 Resp 18 02/12/25 08:35 BP 108/62 02/12/25 08:35 Pulse Ox 93 L 02/12/25 08:35 FiO2 40 02/11/25 04:05 Intake & Output 02/11/25 02/12/25 02/12/25 18:59 06:59 18:59 Intake Total 478 460 Output Total 950 900 Balance -472 -900 460 Weight 135 kg Intake: Intake, IV Titration 100 Amount Piperacillin-Tazobactam 3 100 .375 gm In Sodium Chloride 0.9% 100 ml @ 25 mls/hr IVPB Q8H [facility] Rx#: [id number] Oral 478 360 Output: Urine 950 900 Other: Voiding Method Diaper Urinal Urinal Diaper Diaper # Voids 1 - Exam General: Alert and oriented x 3, sitting up in chair, no acute distress Neck: supple,no JVD. Cardiovascular: S1S2 is normal, There is a regular rate and rhythm. No murmur, rub or gallop is appreciated. Respiratory: Equal air entry, lungs are diminished bilaterally. Gastrointestinal: Soft, non-tender abdomen without masses or organomegaly appreciated. No guarding. Positive bowel Extremities: Positive edema, dressings of chronic wounds, clean dry and intact. Neurological: CN II-XII intact, no focal deficits. Skin: Skin is warm and dry and no rashes, - Labs CBC & Chem 7: 02/10/25 11:00 02/13/25 06:05 Labs: Abnormal Lab Results - Last 24 Hours (Table) 02/11/25 02/12/25 Range/Units 10:29 05:31 Sodium 134 L 136 L (137-145) mmol/L Potassium 3.2 L 3.0 L (3.5-5.1) mmol/L Chloride 86 L 89 L (98-107) mmol/L Carbon Dioxide 37 H 38 H (22-30) mmol/L BUN 27 H 42 H (9-20) mg/dL Creatinine 1.45 H (0.66-1.25) mg/dL Glucose 238 H 152 H (74-99) mg/dL Microbiology - Last 24 Hours (Table) 02/10/25 11:00 Blood Culture - Preliminary Blood Assessment and Plan Assessment: Acute on chronic hypoxic and hypercapnic respiratory failure secondary to left lower extremity cellulitis, chronic left hemidiaphragm paralysis, obstructive sleep apnea, underlying COPD. acute systolic CHF ruled out,BNP 257 on admission. Acute renal injury, cardiorenal, secondary to hypotension, medication induced, d iuretics, ROOSEVELT inhibitor Obstructive sleep apnea, does not wear Bipap at home Acute metabolic encephalopathy, improved with BiPAP Fever Nonischemic cardiomyopathy, EF 30% Chronic systolic CHF COPD Chronic elevation of left hemidiaphragm History of AICD placement Rheumatoid arthritis Peripheral vascular disease History of PE DVT, on Xarelto Venous hypertension with venous leg ulcer bilaterally Chronic nonpressure ulcer right lower extremity with muscle involvement without necrosis continue Opticell and Curlex wraps. Follows with wound care center. Chronic nonpressure ulcer left lower extremity with other specified complication: As above Hypertension: Continue to monitor, blood pressure little low, Coreg dose decreased Hyperlipidemia Hemoglobin A1c 6.2 Hypokalemia Morbid obesity, BMI 38 Plan: Continue on current medication resume ,monitoring and symptomatic treatment. Potassium replacement in progress. diuresing with worsening renal function. ROOSEVELT inhibitor discontinued. close monitoring of renal function, electrolytes with repeat labs ordered for a.m. nephrology consult in place. Aggressive pulmonary toileting with nebulized bronchodilator, IV steroids, antibiotics , prn BiPAP. local wound care. The impression and plan of care has been dictated as directed. : I performed a history and examination of this patient, discussed the same with the dictator. I agree with the dictator's note ,documented as a scribe. Any additional findings or plans will be noted.
--- NOTE | 2025-02-12 11:11 | P.CONS ---
History of Present Illness - Reason for Consult Consult date: 02/12/25 wound care - History of Present Illness This is a 64-year-old patient known to the wound care center being seen on 3 S. for nonhealing ulcerations to bilateral lower extremities. Patient was seen on Tuesday in the wound care center by Dr. Huynh who found him to have increased swelling and shortness of breath. Patient was sent to the emergency room for evaluation.Original cause of wound was Blister. The date acquired was: 09/20/2024. The wound has been in treatment 20 weeks. The wound is currently classified as a Full Thickness Without Exposed Support Structures wound with etiology of Venous Leg Ulcer and is located on the Left,Circumferential Lower Leg. The wound measures 10.2cm length x 27cm width x 0.1cm depth; 216.299cm^2 area and 21.63cm^3 volume. There is Fat Layer (Subcutaneous Tissue) exposed. Th ere is no tunneling or undermining noted. There is a large amount of serosanguineous drainage noted. The wound margin is flat and intact. There is large (67-100%) red granulation within the wound bed. There is a small (1-33%) amount of necrotic tissue within the wound bed including Adherent Slough. The periwound skin appearance exhibited: Excoriation, Maceration, Hemosiderin Staining, Erythema. The periwound skin appearance did not exhibit: Callus, Crepitus, Induration, Scarring, Dry/Scaly, Atrophie Sturtevant, Cyanosis, Ecchymosis, Mottled, Pallor, Rubor. The surrounding wound skin color is noted with erythema which is circumferential. Periwound temperature was noted as No Abnormality. Original cause of wound was Gradually Appeared. The date acquired was: 11/15/2024. The wound has been in treatment 12 weeks. The wound is currently classified as a Full Thickness Without Exposed Support Structures wound with etiologies of Venous Leg Ulcer and Lymphedema and is located on the Right,Lateral Lower Leg. The wound measures 2.3cm length x 0.8cm width x 0.1cm depth; 1.445cm^2 area and 0.145cm^3 volume. There is Fat Layer (Subcutaneous Tissue) exposed. There is no tunneling or undermining noted. There is a medium amount of serous drainage noted. The wound margin is flat and intact. There is m edium (34-66%) pink granulation within the wound bed. There is a medium (34-66%) amount of necrotic tissue within the wound bed including Adherent Slough. The periwound skin appearance exhibited: Scarring, Maceration, Hemosiderin Staining, Erythema. The periwound skin appearance did not exhibit: Callus, Crepitus, Excoriation, Induration, Rash, Dry/Scaly, Atrophie Ani, Cyanosis, Ecchymosis, Mottled, Pallor, Rubor. The surrounding wound skin color is noted with erythema which is circumferential. Periwound temperature was noted as No Abnormality. Original cause of wound was Gradually Appeared. The date acquired was: 04/26/2024. The wound has been in treatment 41 weeks. The wound is currently classified as a Full Thickness Without Exposed Support Structures wound with etiology of Venous Leg Ulcer and is located on the Right,Medial Ankle. The wound measures 1.7cm length x 0.9cm width x 0.1cm depth; 1.202cm^2 area and 0.12cm^3 volume. There is Fat Layer (Subcutaneous Tissue) exposed. There is no tunneling or undermining noted. There is a medium amount of serous drainage noted. The wound margin is epibole. There is large (67-100%) pink granulation within the wound bed. There is a small (1-33%) amount of necrotic tissue within the wound bed. The periwound skin appearance exhibited: Scarring, Maceration, Hemosiderin Staining. The periwound skin appearance did not exhibit: Callus, Crepitus, Excoriation, Induration, Rash, Dry/Scaly, Atrophie Sturte[place], Cyanosis, Ecchymosis, Mottled, Pallor, Rubor, Erythema. Periwound temperature was noted as No Abnormality. The periwound has tenderness on palpation. Review Of Systems: Constitutional: No fever, no chills, no night sweats. No weight change. No weakness, fatigue or lethargy. No daytime sleepiness. Integumentary:reports wounds, no lesions. No rash or pruritus. No unusual bruising. No change in hair or nails. Physical exam: General Appearance: Alert, cooperative, no distress, appears stated age. Skin: See HPI all other Skin color, texture, tugor normal, no rashes or lesions. Neurologic: Alert oriented x3 Assessment: 1.Chronic venous hypertension (idiopathic) with ulcer of bilateral lower extremity 2. Non-pressure chronic ulcer of other part of right lower leg with necrosis of muscle 3. Non-pressure chronic ulcer of other part of left lower leg with fat layer exposed 4. Lymphedema, not elsewhere classified 5. Other specified noninfective disorders of lymphatic vessels and lymph nodes Plan: 1. Apply absorptive silver moistened dry gauze roll gauze secured with paper tape. Wrap with Roosevelt wrap for compression. Elevate legs greater than the heart for 30 minutes 3 times a day. Patient will return to the wound care center for his next appointment on February 14 at 1030 or February 21 at 1030 if patient is not discharged in time for his February 14 appointment. Thank you for the consultation any questions please contact the wound care center DNP note has been reviewed and discussed with Dr. Marie and the impression and plan of care has been directed as dictated. Past Medical History Past Medical History: COPD, Rheumatoid Arthritis (RA), Sleep Apnea/CPAP/BIPAP, Vascular Disorder Additional Past Medical History / Comment(s): PAD, chronic more than edema in the lower extremities bilaterally. History of Any Multi-Drug Resistant Organisms: None Reported Past Surgical History: Heart Catheterization Additional Past Surgical History / Comment(s): varicose veins sx 1991, heart defibrillator Past Anesthesia/Blood Transfusion Reactions: No Reported Reaction Past Psychological History: No Psychological Hx Reported Additional Psychological History / Comment(s): pt is independant. lives withhis sig other of 35 years( vicky barajas) and 1 pet dog. no home care services recie anam. no medical equipment at home. no service in back ground. used to work construction. currently on disabilty. Smoking Status: Never smoker Past Alcohol Use History: Occasional Past Drug Use History: None Reported - Past Family History Mother Family Medical History: Cancer Additional Family Medical History / Comment(s): bone cancer Father History Unknown: Yes Additional Family Medical History / Comment(s): never knew his dad Medications and Allergies Home Medications Medication Instructions Recorded Confirmed Type Spironolactone [Aldactone] 25 mg PO DAILY #30 tablet 04/08/17 02/08/25 Rx Atorvastatin [Lipitor] 10 mg PO DAILY 11/07/21 02/08/25 History carvediloL [Coreg] 25 mg PO BID 11/07/21 02/08/25 History lisinopriL [Zestril] 5 mg PO DAILY 11/07/21 02/08/25 History Rivaroxaban [Xarelto] 20 mg PO DAILY 5 Days #5 tab 11/14/21 02/08/25 Rx Furosemide [Lasix] 80 mg PO DAILY 02/08/25 02/08/25 History Ketoconazole 2% Cream [Nizoral 2%] 1 applic TOPICAL BID 02/08/25 02/08/25 History Allergies Allergy/AdvReac Type Severity Reaction Status Date / Time ibuprofen Allergy Rash/Hives Verified 02/08/25 14:17 Physical Exam Vitals: Vital Signs Temp Pulse Pulse Resp BP Pulse Ox 02/12/25 08:35 98.3 F 95 18 108/62 93 L 02/12/25 08:03 80 02/12/25 07:48 77 91 L 02/12/25 04:47 86 17 91/47 91 L 02/12/25 00:00 97.7 F 88 17 99/59 90 L 02/11/25 21:32 92 02/11/25 21:17 89 02/11/25 20:49 99 17 108/67 93 L 02/11/25 16:30 74 02/11/25 16:15 75 02/11/25 16:00 98.8 F 80 18 116/70 94 L 02/11/25 14:00 74 18 02/11/25 12:46 87 02/11/25 12:37 85 02/11/25 12:00 98.5 F 74 18 108/67 94 L Intake and Output 02/11/25 02/12/25 02/12/25 22:59 06:59 14:59 Intake Total 460 Output Total 400 900 Balance -400 -900 460 Intake: Intake, IV Titration 100 Amount Piperacillin-Tazobactam 3 100 .375 gm In Sodium Chloride 0.9% 100 ml @ 25 mls/hr IVPB Q8H [facility] Rx#: [id number] Oral 360 Output: Urine 400 900 Other: Voiding Method Urinal Urinal Urinal Diaper Diaper Diaper Weight 135 kg Results CBC & Chem 7: 02/10/25 11:00 02/12/25 05:31 Labs: Abnormal Lab Results - Last 24 Hours (Table) 02/11/25 02/12/25 Range/Units 10:29 05:31 Sodium 134 L 136 L (137-145) mmol/L Potassium 3.2 L 3.0 L (3.5-5.1) mmol/L Chloride 86 L 89 L (98-107) mmol/L Carbon Dioxide 37 H 38 H (22-30) mmol/L BUN 27 H 42 H (9-20) mg/dL Creatinine 1.45 H (0.66-1.25) mg/dL Glucose 238 H 152 H (74-99) mg/dL Microbiology - Last 24 Hours (Table) 02/10/25 11:00 Blood Culture - Preliminary Blood
--- NOTE | 2025-02-12 13:07 | P.PN ---
Subjective Progress Note Date: 02/12/25 Principal diagnosis: Acute on chronic hypoxic and hypercapnic respiratory failure 64-year-old male patient who is currently being seen for altered mentation, acute on top of chronic hypoxic and hypercapnic respiratory failure. The patient was hospitalized for lower extremity wounds and cellulitis. Overnight, the patient became more lethargic and hypercapnic and the patient accordingly was placed on a BiPAP and currently BiPAP is running at a pressure of 16 over 5 cm of water with FiO2 of 40%. The patient is generating adequate tidal volume while being on the BiPAP. Meanwhile, the patient's chest x-ray showed cardiomegaly and mild pulm vas congestion consistent with CHF. Repeat chest x- ray was done today that showed similar findings on the patient's CAT scan of the brain was negative. The white cell count at 8.7 with a heme of 15.1 and a platelet count of 181. Most recent blood gas showed a pH of 7.35 with a pCO2 of 72 and pO2 of 77 while being on the BiPAP. There is improvement in acid-base status. Serum bicarbonate 42 with a sodium of 136. BUN is 25 with a creatinine of 0.9. The viral screen has been negative. While on the BiPAP, the patient is awake and alert and communicating. In regards to his lower extremity wounds, the patient has had previous wound cultures showing stenotrophomonas and Enterobacter and E. coli and Enterococcus. He has also had Proteus vulgaris. As such, this has been an polymicrobial growth. For now, the patient is on Zosyn and I added daptomycin. He is also on Lasix 40 mg IV every 12 hours. Producing adequate amount of urine output. He is chronically maintained on Diamox. He is maintained on anticoagulation with Xarelto. Patient was seen today on 02/11/2025, he is comfortable, not in distress, using BiPAP at night, but he is now on nasal cannula, 4 L/min with O2 sat of 94%. Patient is hemodynamically stable, does not seem to be in distress. Remains on antibiotics for his stenotrophomonas and Enterobacter, and Proteus cellulitis, patient is on Zosyn and daptomycin he is also on Lasix. Good urine output, again seems to be quite comfortable. Seen today on 02/12/2025, patient remains on 4 L nasal cannula, O2 sats is 90%, he is hemodynamically stable, blood pressure is 92/57 with a mean of 68, patient is feeling better his electrolytes are normal except for low potassium of 3.0, bicarb is 38 BUN is 42 creat 1.45 his metolazone has been decreased to 2.5 mg daily remains on Lasix at 40 mg IV push twice daily, patient remains on antibiotics for his wound infections, as noted on previous notes. Patient was seen today by wound care, he is being seen for chronic venous hypertension with ulcer of bilateral lower extremities and nonpressure chronic ulcers with lymphedema. Objective - Vital Signs Vital signs: Vital Signs Temp 97.7 F 02/12/25 12:05 Pulse 88 02/12/25 12:05 Resp 18 02/12/25 12:05 BP 92/57 02/12/25 12:05 Pulse Ox 90 L 02/12/25 12:05 FiO2 40 02/11/25 04:05 Intake & Output 02/11/25 02/12/25 02/12/25 18:59 06:59 18:59 Intake Total 478 820 Output Total 950 900 700 Balance -472 -900 120 Weight 135 kg Intake: Intake, IV Titration 100 Amount Piperacillin-Tazobactam 3 100 .375 gm In Sodium Chloride 0.9% 100 ml @ 25 mls/hr IVPB Q8H [facility] Rx#: [id number] Oral 478 720 Output: Urine 950 900 700 Other: Voiding Method Diaper Urinal Urinal Diaper Diaper # Voids 1 - Exam Physical exam reveals 64-year-old white male in no distress, on 4 L nasal luiz dorinda Head: Atraumatic normocephalic HEENT: PERRLA EOMI nonicteric no neck masses no JVD Pulmonary: Diminished breath sound bilaterally scattered rhonchi noted Cardiac: Distant S1-S2, no S3 gallop, no murmur. Abdomen: Obese soft nontender no rebound no guarding Extremities: Swollen and evidence of cellulitis chronic wounds noted Neurologic: Alert oriented x 3 no focal deficit Psychiatric: Normal mood and affect no mental status examination Musculoskeletal: No deformities no limitation range of motion . - Labs CBC & Chem 7: 02/10/25 11:00 02/12/25 05:31 Labs: Abnormal Lab Results - Last 24 Hours (Table) 02/12/25 Range/Units 05:31 Sodium 136 L (137-145) mmol/L Potassium 3.0 L (3.5-5.1) mmol/L Chloride 89 L (98-107) mmol/L Carbon Dioxide 38 H (22-30) mmol/L BUN 42 H (9-20) mg/dL Creatinine 1.45 H (0.66-1.25) mg/dL Glucose 152 H (74-99) mg/dL Microbiology - Last 24 Hours (Table) 02/10/25 11:00 Blood Culture - Preliminary Blood Assessment and Plan Assessment: Impression: Acute on chronic hypoxic/hypercapnic respiratory failure. Patient has underlying COPD, hemidiaphragm paralysis, and obstructive sleep apnea syndrome. Altered mentation secondary to above, improved while being on the BiPAP Chronic lower extremity wounds with secondary infection and the patient has been followed up with the wound center. 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
[2025-02-13 07:39] LABS: African American GFR (CKD) 39 (>60 ml/min/1.73 sqM); Blood Urea Nitrogen 69 mg/dL (9-20); Calcium 9.2 mg/dL (8.4-10.2); Chloride 87 mmol/L (98-107); Glucose 156 mg/dL (74-99); Non-African American GFR(CKD) 34 (>60 ml/min/1.73 sqM); Potassium 3.2 mmol/L (3.5-5.1); Sodium 135 mmol/L (137-145)
[2025-02-13 07:46] LABS: Anion Gap 12 mmol/L
[2025-02-13 07:53] LABS: Carbon Dioxide 36 mmol/L (22-30)
--- NOTE | 2025-02-13 09:19 | P.PN ---
Subjective Progress Note Date: 02/13/25 History of Present Illness 02/09/2025 Chief Complaint: Shortness of breath Gibran is a 64-year-old male well-known to my practice. I also see him at the wound center for his venous leg ulcers to the bilateral lower extremities. He reports a several day history of increased shortness of breath. He was came to the emergency room for this. He is found to be mildly hypoxic 89% on room air on presentation. Laboratory studies show no white count hemoglobin was normal blood chemistries show his also normal. Glucose is slightly elevated. Beta natriuretic peptide was 257. Normal troponin. Beta natruretic peptide was 257. Viral culture is negative. Chest x-ray shows cardiomegaly with mild vascular congestion. Left basilar opacity possibly chronic consolidation or atelectasis. Venous Doppler shows no DVT echocardiogram showed LVEF of 30% severely reduced global left ventricular systolic function mild apical and lateral wall hypokinesis. February 10, 2025: Gibran is reevaluated today. Staff report he is quite somnolent and confused. Verbally responses are minimal. Overnight he is PCO2 was found to be significantly elevated at greater than 98, at that time pulmonology was consulted repeat this morning is 72. He is still confused and on BiPAP. He has a Tmax of 100.8 at 1930 last night. He has been mostly febrile for the past 24 hours. Pulse is normal blood pressures slightly decreased with the 100/59 most recently. He is on BiPAP at 40% O2. Staff report has been incontinent of urine on the floor. His wounds he has Opticell silver to his right and left leg venous leg ulcers. There is Roosevelt wrap's in place. Repeat blood gas this morning showed a pH of 7.35 the pCO2 is improved to 72 from greater than 98 and PO2 is now 77. While still low there are improved, cardiology and pulmonology consults are pending. He remains on BiPAP, furosemide and Aldactone at this time. He is anticoagulated with Xarelto or at home medication and continues on carvedilol for hypertension and atorvastatin for hyperlipidemia. 02/11/[address] reported no acute intracranial process. Maintained on daptomycin and Zosyn for stenotrophomonas and Enterobacter, and Proteus cellulitis ( wound cultures prior to this visit), . Tmax 100.2. Using BiPAP at night, currently maintaining O2 sats in the 90s on 4 L nasal cannula. Echo had reported EF of 30%. Good urine output, 24-hour I&O reflecting a negative fluid balance. continues on Diamox, bicarb 42. 02/12/2025 continues on Zosyn, daptomycin, nebulized bronchodilators, IV steroids, diuretics. maintaining O2 sats in the low 90s on 4 L nasal cannula. Afebrile. Diuresing well on Lasix IV push with 24-hour VILMA reflecting a negative fluid balance. Bicarb decreased to 37, BUN increased to 42, creatinine increased to 1.45, GFR decreased to 50. Potassium 3, receiving supplementation. Blood sugars controlled. 02/13/2025 Diamox decreased yesterday, remained on Lasix IV push, to transition to oral today as per cardiology. Renal function worse, bicarb 36, BUN 69, creatinine 2.01, GFR 34. Blood pressures remain soft with mean arterial pressure currently in the 70s. Patient apparently refused his BiPAP throughout the night. Maintaining O2 sats in the low 90s on 4 L nasal cannula. Maintained on daptomycin and Zosyn,afebrile. Objective - Vital Signs Vital signs: Vital Signs Temp 98.5 F 02/12/25 21:18 Pulse 82 02/13/25 08:07 Resp 18 02/13/25 03:37 BP 97/57 02/13/25 03:37 Pulse Ox 96 02/13/25 07:59 FiO2 40 02/12/25 15:50 Intake & Output 02/12/25 02/13/25 02/13/25 18:59 06:59 18:59 Intake Total 1420 240 Output Total 700 1050 Balance 720 -1050 240 Weight 138.2 kg Intake: Intake, IV Titration 100 Amount Piperacillin-Tazobactam 3 100 .375 gm In Sodium Chloride 0.9% 100 ml @ 25 mls/hr IVPB Q8H [facility] Rx#: [id number] Oral 1320 240 Output: Urine 700 1050 Other: Voiding Method Urinal Urinal Diaper Diaper # Voids 1 - Exam General: Alert and oriented x 3, sitting up in chair, no acute distress Neck: supple,no JVD. Cardiovascular: S1S2 is normal, There is a regular rate and rhythm. No murmur, rub or gallop is appreciated. Respiratory: Equal air entry, diminished with scattered rhonchi throughout Gastrointestinal: Soft, obese, non-tender abdomen No guarding. Positive bowel sounds. Extremities: Positive edema, dressings of chronic wounds, clean dry and intact. Neurological: CN II-XII intact, no focal deficits. Skin: Skin is warm and dry and no rashes, - Labs CBC & Chem 7: 02/10/25 11:00 02/14/25 05:44 Labs: Abnormal Lab Results - Last 24 Hours (Table) 02/13/25 Range/Units 06:05 Sodium 135 L (137-145) mmol/L Potassium 3.2 L (3.5-5.1) mmol/L Chloride 87 L (98-107) mmol/L Carbon Dioxide 36 H (22-30) mmol/L BUN 69 H (9-20) mg/dL Creatinine 2.01 H (0.66-1.25) mg/dL Glucose 156 H (74-99) mg/dL Microbiology - Last 24 Hours (Table) 02/10/25 11:00 Blood Culture - Preliminary Blood Assessment and Plan Assessment: Acute on chronic hypoxic and hypercapnic respiratory failure secondary to left lower extremity cellulitis, chronic left hemidiaphragm paralysis, obstructive sleep apnea, underlying COPD. acute systolic CHF ruled out,BNP 257 on admission. Acute renal injury, cardiorenal syndrome secondary to hypotension, medication induced Obstructive sleep apnea, does not wear Bipap at home Acute metabolic encephalopathy, improved with BiPAP Fever Nonischemic cardiomyopathy, EF 30% Chronic systolic CHF COPD Chronic elevation of left hemidiaphragm History of AICD placement Rheumatoid arthritis Peripheral vascular disease History of PE DVT, on Xarelto Venous hypertension with venous leg ulcer bilaterally Chronic nonpressure ulcer right lower extremity with muscle involvement without necrosis continue Opticell and Curlex wraps. Follows with wound care center. Chronic nonpressure ulcer left lower extremity with other specified complication: As above Hypertension: Continue to monitor, blood pressure little low, Coreg dose decreased Hyperlipidemia Hemoglobin A1c 6.2 Hypokalemia Morbid obesity, BMI 38 Plan: Continue on current medication resume ,monitoring and symptomatic treatment. Diuretics as per cardiology-transitioned to oral .worsening renal fu nction. ROOSEVELT inhibitor discontinued .nephrology consult in place. Close monitoring of renal function, electrolytes with repeat labs ordered for a.m. Aggressive pulmonary toileting with nebulized bronchodilator, IV steroids, antibiotics. Reinforced prn BiPAP at night and during daytime naps. local wound care- wound care center/team. Discharge planning in progress potentially for tomorrow, pending improvement in renal function, final DC recommendations and clearance as per cardiology and pulmonary. The impression and plan of care has been dictated as directed. : I performed a history and examination of this patient, discussed the same with the dictator. I agree with the dictator's note ,documented as a scribe. Any additional findings or plans will be noted.
[2025-02-13] MEDS: POTASSIUM CHLORIDE ER 20 MEQ TAB.ER PO STA (09:21)
--- NOTE | 2025-02-13 11:01 | P.PN ---
Subjective HISTORY OF PRESENT ILLNESS: This is a 64-year-old male who follows in the office with Dr. Early. Patient has a history of congestive heart failure, pulmonary embolism, nonischemic cardiomyopathy, AICD implantation, COPD, paroxysmal atrial fibrillation, and chronic lower extremity edema. Patient is admitted to the hospital secondary to shortness of breath and congestive heart failure. Patient examined this morning the bedside. Patient is currently sitting up in the chair. He denies chest pain or pressure at the time of examination. 02/13/2025 Patient examined this morning. He is sitting up in the chair. Patient currently denies chest pain or pressure. He denies shortness of breath. He remains on IV Lasix. He continues to have lower extremity edema. PHYSICAL EXAM: VITAL SIGNS: Reviewed. GENERAL: Well-developed in no acute distress. NECK: Supple. No JVD or thyromegaly LUNGS: Respirations even and unlabored. Lungs essentially clear to auscultation bilaterally. HEART: Regular rate and rhythm. S1 and S2 heard. EXTREMITIES: Normal range of motion. No clubbing or cyanosis. Peripheral pulses intact. 2+ bilateral lower extremity edema with bilateral wraps, left greater than right. ASSESSMENT: Shortness of breath Acute on chronic hypoxic and hypercapnic respiratory failure History of nonischemic cardiomyopathy Mild nonobstructive CAD, per heart cath in 2018 Paroxysmal atrial fibrillation, on Xarelto outpatient Hypertension Hyperlipidemia Prediabetes Peripheral arterial disease History of AICD implantation PLAN: Discontinue IV Lasix. Begin oral Lasix 60 mg in the morning and 40 mg at night Continue Lipitor, carvedilol, Zaroxolyn, Xarelto, and Aldactone Possible discharge home tomorrow patient remained stable Further recommendations pending patient course Patient to follow-up postdischarge in the office with Dr. Early Nurse practitioner note has been reviewed by physician. Signing provider agrees with the documented findings, assessment, and plan of care documented by [facility] [employer]ATOR as a scribe. Objective - Vital Signs Vital signs: Vital Signs Temp 97.2 F L 02/13/25 08:00 Pulse 82 02/13/25 08:07 Resp 20 02/13/25 08:00 BP 107/64 02/13/25 08:00 Pulse Ox 96 02/13/25 08:00 FiO2 40 02/12/25 15:50 Intake & Output 02/12/25 02/13/25 02/13/25 18:59 06:59 18:59 Intake Total 1420 480 Output Total 700 1050 1400 Balance 720 -1050 -920 Weight 138.2 kg Intake: Intake, IV Titration 100 Amount Piperacillin-Tazobactam 3 100 .375 gm In Sodium Chloride 0.9% 100 ml @ 25 mls/hr IVPB Q8H [facility] Rx#: [id number] Oral 1320 480 Output: Urine 700 1050 1400 Other: Voiding Method Urinal Urinal Toilet Diaper Diaper Urinal Diaper # Voids 1 1 - Labs CBC & Chem 7: 02/10/25 11:00 02/13/25 06:05 Labs: Abnormal Lab Results - Last 24 Hours (Table) 02/13/25 Range/Units 06:05 Sodium 135 L (137-145) mmol/L Potassium 3.2 L (3.5-5.1) mmol/L Chloride 87 L (98-107) mmol/L Carbon Dioxide 36 H (22-30) mmol/L BUN 69 H (9-20) mg/dL Creatinine 2.01 H (0.66-1.25) mg/dL Glucose 156 H (74-99) mg/dL Microbiology - Last 24 Hours (Table) 02/10/25 11:00 Blood Culture - Preliminary Blood
--- NOTE | 2025-02-13 12:15 | P.NPCON ---
History of Present Illness - Reason for Consult acute renal failure - History of Present Illness Patient is a 64-year-old male with history of COPD, rheumatoid arthritis and chronic lower extremity ulcers who was admitted to the hospital with shortness of breath. Chest x-ray showed evidence of pulmonary vascular congestion and patient has been diuresed. EF noted to be 30 to 35% on echocardiogram done this admission. Hypotension noted with systolic blood pressure in the 90s. Patient is maintained on JUANI inhibitors He has been voiding with 24-hour urine output documented at 1.7 L Serum creatinine was 0.9 on initial admission and is increased to 2.0 today. Past Medical History Past Medical History: COPD, Rheumatoid Arthritis (RA), Sleep Apnea/CPAP/BIPAP, Vascular Disorder Additional Past Medical History / Comment(s): PAD, chronic more than edema in the lower extremities bilaterally. History of Any Multi-Drug Resistant Organisms: None Reported Past Surgical History: Heart Catheterization Additional Past Surgical History / Comment(s): varicose veins sx 1991, heart defibrillator Past Anesthesia/Blood Transfusion Reactions: No Reported Reaction Past Psychological History: No Psychological Hx Reported Additional Psychological History / Comment(s): pt is independant. lives withhis sig other of 35 years( vicky barajas) and 1 pet dog. no home care services recieved. no medical equipment at home. no service in back ground. used to work construction. currently on disabilty. Smoking Status: Never smoker Past Alcohol Use History: Occasional Past Drug Use History: None Reported - Past Family History Mother Family Medical History: Cancer Additional Family Medical History / Comment(s): bone cancer Father History Unknown: Yes Additional Family Medical History / Comment(s): never knew his dad Medications and Allergies Home Medications Medication Instructions Recorded Confirmed Type Spironolactone [Aldactone] 25 mg PO DAILY #30 tablet 04/08/17 02/08/25 Rx Atorvastatin [Lipitor] 10 mg PO DAILY 11/07/21 02/08/25 History carvediloL [Coreg] 25 mg PO BID 11/07/21 02/08/25 History lisinopriL [Zestril] 5 mg PO DAILY 11/07/21 02/08/25 History Rivaroxaban [Xarelto] 20 mg PO DAILY 5 Days #5 tab 11/14/21 02/08/25 Rx Furosemide [Lasix] 80 mg PO DAILY 02/08/25 02/08/25 History Ketoconazole 2% Cream [Nizoral 2%] 1 applic TOPICAL BID 02/08/25 02/08/25 History Allergies Allergy/AdvReac Type Severity Reaction Status Date / Time ibuprofen Allergy Rash/Hives Verified 02/08/25 14:17 Physical Exam Vitals: Vital Signs Temp Pulse Pulse Resp BP Pulse Ox FiO2 02/13/25 11:58 80 02/13/25 11:52 70 18 93/54 92 L 02/13/25 11:48 80 02/13/25 08:07 82 02/13/25 08:00 97.2 F L 83 20 107/64 96 02/13/25 07:59 80 96 02/13/25 03:37 95 18 97/57 94 L 02/12/25 23:51 85 18 90/50 92 L 02/12/25 21:18 98.5 F 75 18 92/52 94 L 02/12/25 18:38 84 02/12/25 18:28 82 02/12/25 15:50 97.6 F 91 15 97/62 94 L 40 02/12/25 15:36 78 02/12/25 15:34 40 02/12/25 15:22 76 Intake and Output 02/12/25 02/13/25 02/13/25 22:59 06:59 14:59 Intake Total 600 480 Output Total 1050 1900 Balance 600 -1050 -1420 Intake: Oral 600 480 Output: Urine 1050 1900 Other: Voiding Method Urinal Urinal Toilet Diaper Diaper Urinal Diaper # Voids 1 1 Weight 138.2 kg Patient is awake, comfortable, no acute distress Examination of the heart S1 and S2 Examination of the lungs bilateral breath sounds are heard Abdomen is soft obese nontender Examination of lower extremities shows chronic skin changes, 2+ edema, legs are wrapped [facility] exam grossly intact Results - Lab Results Most recent lab results ABG pH 7.35 (7.35-7.45) 02/10/25 08:34 ABG pCO2 72 mmHg (35-45) H* 02/10/25 08:34 ABG pO2 77 mmHg (83-108) L 02/10/25 08:34 ABG HCO3 40 mmol/L (21-25) H* 02/10/25 08:34 ABG O2 Saturation 96.4 % (94-97) 02/10/25 08:34 Calcium 9.2 mg/dL (8.4-10.2) 02/13/25 06:05 Magnesium 1.9 mg/dL (1.6-2.3) 02/10/25 11:00 02/10/25 11:00 02/13/25 06:05 Assessment and Plan Assessment: 1. Acute kidney injury, cardiorenal, exacerbated with hypotension in the setting of use of JUANI inhibitors. Rule out urine retention. Check UA. Check ultrasound of the kidneys 2. Hypokalemia secondary to diuretics 3. Volume overload 4. CHF with reduced ejection fraction of 30 to 35% 5. Obstructive sleep apnea 6. Chronic venous ulcers of lower extremity Plan: Hold lisinopril given the significant hypotension and worsening renal function Check bladder scan Check UA repeat labs in a.m. Continue current dose of Lasix Replace potassium Thank you for the consultation. We will continue to follow the patient with you during his hospitalization.
[2025-02-13 12:36] VITALS: BMI 39.1
--- NOTE | 2025-02-13 13:38 | US ---
EXAMINATION TYPE: US kidneys/renal and bladder DATE OF EXAM: 02/13/2025 COMPARISON: NONE CLINICAL INDICATION: Male, 64 years old with history of valarie; TECHNIQUE: Grayscale imaging of the bilateral kidneys and urinary bladder: FINDINGS: EXAM MEASUREMENTS: Right Kidney: 12.1x6.3x6.9 cm Left Kidney: 12.2x6.9x5.0 cm limited visualization due to pt body habitus & overlying bowel Right Kidney: wnl as best seen Left Kidney: wnl as best seen Bladder: wnl Bilateral Jets seen: yes IMPRESSION: 1. Unremarkable renal ultrasound as visualized [facility] Margarita Giron, , 02/13/2025 1:36 PM
[2025-02-13 14:59] LABS: Appearance,Urine Clear (Clear); Bilirubin,Urine Negative (Negative); Blood,Urine Negative (Negative); Color,Urine Colorless; Glucose,Urine (UA) Negative (Negative); Ketones,Urine Negative (Negative); Leukocyte Esterase,Urine Negative (Negative); Nitrite,Urine Negative (Negative); Protein,Urine Negative (Negative); Specific Gravity,Urine 1.014 (1.001-1.035); Urobilinogen,Urine <2.0 mg/dL (<2.0)
[2025-02-13] MEDS: FUROSEMIDE 40 MG TAB PO SCH (15:56)
--- NOTE | 2025-02-13 16:26 | P.PN ---
Subjective Progress Note Date: 02/13/25 64-year-old male patient who is currently being seen for altered mentation, acute on top of chronic hypoxic and hypercapnic respiratory failure. The patient was hospitalized for lower extremity wounds and cellulitis. Overnight, the patient became more lethargic and hypercapnic and the patient accordingly was placed on a BiPAP and currently BiPAP is running at a pressure of 16 over 5 cm of water with FiO2 of 40%. The patient is generating adequate tidal volume while being on the BiPAP. Meanwhile, the patient's chest x-ray showed cardiomegaly and mild pulm vas congestion consistent with CHF. Repeat chest x- ray was done today that showed similar findings on the patient's CAT scan of the brain was negative. The white cell count at 8.7 with a heme of 15.1 and a platelet count of 181. Most recent blood gas showed a pH of 7.35 with a pCO2 of 72 and pO2 of 77 while being on the BiPAP. There is improvement in acid-base status. Serum bicarbonate 42 with a sodium of 136. BUN is 25 with a creatinine of 0.9. The viral screen has been negative. While on the BiPAP, the patient is awake and alert and communicating. In regards to his lower extremity wounds, the patient has had previous wound cultures showing stenotrophomonas and Enterobacter and E. coli and Enterococcus. He has also had Proteus vulgaris. As such, this has been an polymicrobial growth. For now, the patient is on Zosyn and I added daptomycin. He is also on Lasix 40 mg IV every 12 hours. Producing adequate amount of urine output. He is chronically maintained on Diamox. He is maintained on anticoagulation with Xarelto. Patient was seen today on 02/11/2025, he is comfortable, not in distress, using BiPAP at night, but he is now on nasal cannula, 4 L/min with O2 sat of 94%. Patient is hemodynamically stable, does not seem to be in distress. Remains on antibiotics for his stenotrophomonas and Enterobacter, and Proteus cellulitis, patient is on Zosyn and daptomycin he is also on Lasix. Good urine output, aga in seems to be quite comfortable. Seen today on 02/12/2025, patient remains on 4 L nasal cannula, O2 sats is 90%, he is hemodynamically stable, blood pressure is 92/57 with a mean of 68, patient is feeling better his electrolytes are normal except for low potassium of 3.0, bicarb is 38 BUN is 42 creat 1.45 his metolazone has been decreased to 2.5 mg daily remains on Lasix at 40 mg IV push twice daily, patient remains on antibiotics for his wound infections, as noted on previous notes. Patient was seen today by wound care, he is being seen for chronic venous hypertension with ulcer of bilateral lower extremities and nonpressure chronic ulcers with lymphedema. The patient is seen today February 13, 2025 in follow-up on the selective care unit. He is currently sitting up in a chair at the bedside. Awake and alert in no acute distress. Maintaining O2 saturations in the 90s on 4 L/min per nasal cannula. He has been afebrile. Hemodynamically stable. Blood culture revealed no growth. Sodium 135. Potassium 3.2. Bicarb 36. BUN 69. Creatinine 2.01. Glucose 156. Urinalysis clean. He remains on DuoNeb inhalations, Solu-Medrol. Remains on daptomycin and Zosyn. Anticoagulated with Xarelto. Objective - Vital Signs Vital signs: Vital Signs Temp 97.5 F L 02/13/25 16:00 Pulse 84 02/13/25 16:08 Resp 17 02/13/25 16:00 BP 110/62 02/13/25 16:00 Pulse Ox 88 L 02/13/25 16:00 FiO2 40 02/12/25 15:50 Intake & Output 02/12/25 02/13/25 02/13/25 18:59 06:59 18:59 Intake Total 1420 960 Output Total 700 1050 2250 Balance 720 -1050 -1290 Weight 138.2 kg 138.2 kg Intake: Intake, IV Titration 100 Amount Piperacillin-Tazobactam 3 100 .375 gm In Sodium Chloride 0.9% 100 ml @ 25 mls/hr IVPB Q8H [facility] Rx#: [id number] Oral 1320 960 Output: Urine 700 1050 2250 Other: Voiding Method Urinal Urinal Toilet Diaper Diaper Urinal Diaper # Voids 1 1 - Exam Physical exam reveals a 64-year-old pleasant male, up in a chair, in no distress, on 4 L nasal cannula Head: Atraumatic normocephalic HEENT: PERRLA EOMI nonicteric no neck masses no JVD Pulmonary: Diminished breath sound bilaterally scattered rhonchi noted Cardiac: Distant S1-S2, no S3 gallop, no murmur. Abdomen: Obese soft nontender no rebound no guarding Extremities: Swollen and evidence of cellulitis chronic wounds noted Neurologic: Alert oriented x 3 no focal deficit Psychiatric: Normal mood and affect no mental status examination Musculoskeletal: No deformities no limitation range of motion - Labs CBC & Chem 7: 02/10/25 11:00 02/13/25 06:05 Labs: Abnormal Lab Results - Last 24 Hours (Table) 02/13/25 Range/Units 06:05 Sodium 135 L (137-145) mmol/L Potassium 3.2 L (3.5-5.1) mmol/L Chloride 87 L (98-107) mmol/L Carbon Dioxide 36 H (22-30) mmol/L BUN 69 H (9-20) mg/dL Creatinine 2.01 H (0.66-1.25) mg/dL Glucose 156 H (74-99) mg/dL Microbiology - Last 24 Hours (Table) 02/10/25 11:00 Blood Culture - Preliminary Blood Assessment and Plan Assessment: Acute on chronic hypoxic/hypercapnic respiratory failure. Patient has underlying COPD, hemidiaphragm paralysis, and obstructive sleep apnea syndrome. Altered mentation secondary to above, improved while being on the BiPAP Chronic lower extremity wounds with secondary infection and the patient has been followed up with the wound center. 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 COPD Nonischemic cardiomyopathy with impaired left a ejection fraction of 30% History of AICD placement Rheumatoid arthritis Peripheral vascular disease Previous history of DVT or pulmonary embolism and the patient is currently on Xarelto Plan: The patient was seen and evaluated Labs and medications reviewed Continue DuoNeb inhalations Continue IV Solu-Medrol Continue diuretics Continue daptomycin and Zosyn Anticoagulated with Xarelto Titrate down the FiO2 as tolerated Increase his activity as tolerated We will continue to follow I have personally seen and examined the patient, performed the documentation and the assessment and plan as written. Number of minutes spent on the visit: 10 Dictation was produced using [employer] software. Please excuse any gr ammatical, word or spelling errors.
[2025-02-14 05:08] VITALS: TEMP 97.6
[2025-02-14 07:22] LABS: African American GFR (CKD) 81 (>60 ml/min/1.73 sqM); Blood Urea Nitrogen 60 mg/dL (9-20); Calcium 9.4 mg/dL (8.4-10.2); Chloride 84 mmol/L (98-107); Glucose 123 mg/dL (74-99); Non-African American GFR(CKD) 70 (>60 ml/min/1.73 sqM); Potassium 3.4 mmol/L (3.5-5.1); Sodium 134 mmol/L (137-145)
[2025-02-14 07:30] LABS: Anion Gap 11 mmol/L
[2025-02-14 07:51] LABS: Carbon Dioxide 39 mmol/L (22-30)
[2025-02-14 09:09] VITALS: BP 104/56; RESP 16
[2025-02-14] MEDS: FUROSEMIDE 20 MG TAB PO SCH (09:46)
[2025-02-14] MEDS: POTASSIUM CHLORIDE ER 20 MEQ TAB.ER PO SCH (09:47)
[2025-02-14 11:00] VITALS: PULSE 86
[2025-02-14] MEDS: predniSONE 20 MG TAB PO SCH (11:30)
--- NOTE | 2025-02-14 11:32 | P.DS ---
Providers Date of admission: 02/08/25 16:19 Expected date of discharge: 02/14/25 Attending physician: Moreno Domingo Consults: 02/08/25 17:00 Consult Physician Stat Consulting Provider: Rodger Hubbard Consult Reason/Comments: Pleural effusion, hypoxia, BLE edema Do you want consulting provider notified?: Yes, Notify in am 02/09/25 18:36 Consult Physician Stat Consulting Provider: Vaishali Durbin Consult Reason/Comments: hypoxia/Hypercapnia Do you want consulting provider notified?: Yes 02/12/25 10:51 Consult Physician Routine Consulting Provider: Elsa Salinas Consult Reason/Comments: Acute renal insuff, Do you want consulting provider notified?: Yes Primary care physician: [facility] Course: Final Diagnoses: Acute on chronic hypoxic and hypercapnic respiratory failure secondary to left lower extremity cellulitis, chronic left hemidiaphragm paralysis, obstructive sleep apnea, underlying COPD. acute systolic CHF ruled out,BNP 257 on admission. Acute renal injury, cardiorenal syndrome secondary to hypotension, medication induced Obstructive sleep apnea, does not wear Bipap at home Acute metabolic encephalopathy, improved with BiPAP Fever Nonischemic cardiomyopathy, EF 30% Chronic systolic CHF COPD Chronic elevation of left hemidiaphragm History of AICD placement Rheumatoid arthritis Peripheral vascular disease History of PE DVT, on Xarelto Venous hypertension with venous leg ulcer bilaterally Chronic nonpressure ulcer right lower extremity with muscle involvement without necrosis continue Opticell and Curlex wraps. Follows with wound care center. Recent cultures 11/27 reported stenotrophomonas. History of Enterobacter, and Proteus cellulitis. Chronic nonpressure ulcer left lower extremity with other specified complication: As above Hypertension: Continue to monitor, blood pressure little low, Coreg dose decreased Hyperlipidemia Hemoglobin A1c 6.2 Hypokalemia Morbid obesity, BMI 38 Hospital course:Gibran is a 64-year-old male well-known to my practice. I also see him at the wound center for his venous leg ulcers to the bilateral lower extremities. He reports a several day history of increased shortness of breath. He was came to the emergency room for this. He is found to be mildly hypoxic 89% on room air on presentation. Laboratory studies show no white count hemoglobin was normal blood chemistries show his also normal. Glucose is slightly elevated. Beta natriuretic peptide was 257. Normal troponin. Beta natruretic peptide was 257. Viral culture is negative. Chest x-ray shows cardiomegaly with mild vascular congestion. Left basilar opacity possibly chronic consolidation or atelectasis. Venous Doppler shows no DVT echocardiogram showed LVEF of 30% severely reduced global left ventricular systolic function mild apical and lateral wall hypokinesis. February 10, 2025: Gibran is reevaluated today. Staff report he is quite somnolent and confused. Verbally responses are minimal. Overnight he is PCO2 was found to be significantly elevated at greater than 98, at that time pulmonology was consulted repeat this morning is 72. He is still confused and on BiPAP. He has a Tmax of 100.8 at 1930 last night. He has been mostly febrile for the past 24 hours. Pulse is normal blood pressures slightly decreased with the 100/59 most recently. He is on BiPAP at 40% O2. Staff report has been incontinent of urine on the floor. His wounds he has Opticell silver to his right and left leg venous leg ulcers. There is Roosevelt wrap's in place. Repeat blood gas this morning showed a pH of 7.35 the pCO2 is improved to 72 from greater than 98 and PO2 is now 77. While still low there are improved, cardiology and pulmonology consults are pending. He remains on BiPAP, furosemide and Aldactone at this time. He is anticoagulated with Xarelto or at home medication and continues on carvedilol for hypertension and atorvastatin for hyperlipidemia. 02/11/[address] reported no acute intracranial process. Maintained on daptomycin and Zosyn for stenotrophomonas and Enterobacter, and Proteus cellulitis ( wound cultures prior to this visit), . Tmax 100.2. Using BiPAP at night, currently maintaining O2 sats in the 90s on 4 L nasal cannula. Echo had reported EF of 30%. Good urine output, 24-hour I&O reflecting a negative fluid balance. continues on Diamox, bicarb 42. 02/12/2025 continues on Zosyn, daptomycin, nebulized bronchodilators, IV steroids, diuretics. maintaining O2 sats in the low 90s on 4 L nasal cannula. Afebrile. Diuresing well on Lasix IV push with 24-hour VILMA reflecting a negative fluid balance. Bicarb decreased to 37, BUN increased to 42, creatinine increased to 1.45, GFR decreased to 50. Potassium 3, receiving supplementation. Blood sugars controlled. 02/13/2025 Diamox decreased yesterday, remained on Lasix IV push, to transition to oral today as per cardiology. Renal function worse, bicarb 36, BUN 69, creatinine 2.01, GFR 34. Blood pressures remain soft with mean arterial pressure currently in the 70s. Patient apparently refused his BiPAP throughout the night. Maintaining O2 sats in the low 90s on 4 L nasal cannula. Maintained on daptomycin and Zosyn,afebrile. Diuretics as per cardiology-transitioned to oral .worsening renal function. ROOSEVELT inhibitor discontinued .nephrology consult in place. Close monitoring of renal function, electrolytes with repeat labs ordered for a.m. Aggressive pulmonary toileting with nebulized bronchodilator, IV steroids, antibiotics. Reinforced prn BiPAP at night and during daytime naps. local wound care- wound care center/team. Discharge planning in progress potentially for tomorrow, pending improvement in renal function, final DC recommendations and clearance as per cardiology and pulmonary. 02/14/2025 decline BiPAP last night. Maintaining O2 sats in the 90s on 4 L. Significant clinical and renal function, bicarb 39, BUN 60, creatinine decreased to 1.1 with GFR 70. Denies chest pain, palpitations or increase in shortness of breath. Sitting up at bedside, reading newspaper, eating breakfast. Patient has been cleared for discharge per cardiology, pulmonary and nephrology. Patient will be discharged home with home care today in a stable condition with guarded prognosis. The impression and plan of care has been dictated as directed. : I performed a history and examination of this patient, discussed the same with the dictator. I agree with the dictator's note ,documented as a scribe. Any additional findings or plans will be noted. Patient Condition at Discharge: Stable Plan - Discharge Summary Discharge Rx Participant: No New Discharge Prescriptions: New carvediloL [Coreg*] 12.5 mg PO BID-W/MEALS #60 tab Calamine/Zinc Oxide Lotion [Calamine Lotion] 1 applic TOPICAL QID PRN each PRN Reason: Skin Irritation Ipratropium-Albuterol Nebulize [Duoneb 0.5 mg-3 mg/3 ml Soln] 3 ml INHALATION RT-QID #120 each Potassium Chloride ER [K-Dur 20] 20 meq PO DAILY 30 Days #30 tab Furosemide [Lasix] 60 mg PO DAILY@0900 #30 tab Furosemide [Lasix] 40 mg PO DAILY@1600 #30 tab Levofloxacin [Levaquin] 500 mg PO DAILY 5 Days #1 tab predniSONE 10 mg PO DIRECTED #30 tab Pantoprazole Sodium [Protonix] 40 mg PO DAILY #30 tab metOLazone [Zaroxolyn] 2.5 mg PO DAILY #30 tab Discontinued carvediloL [Coreg] 25 mg PO BID lisinopriL [Zestril] 5 mg PO DAILY Furosemide [Lasix] 80 mg PO DAILY No Action Spironolactone [Aldactone] 25 mg PO DAILY #30 tablet Atorvastatin [Lipitor] 10 mg PO DAILY Rivaroxaban [Xarelto] 20 mg PO DAILY 5 Days #5 tab Ketoconazole 2% Cream [Nizoral 2%] 1 applic TOPICAL BID Discharge Medication List Spironolactone [Aldactone] 25 mg PO DAILY #30 tablet 04/08/17 [Rx] Atorvastatin [Lipitor] 10 mg PO DAILY 11/07/21 [History] Rivaroxaban [Xarelto] 20 mg PO DAILY 5 Days #5 tab 11/14/21 [Rx] Ketoconazole 2% Cream [Nizoral 2%] 1 applic TOPICAL BID 02/08/25 [History] Calamine/Zinc Oxide Lotion [Calamine Lotion] 1 applic TOPICAL QID PRN each 02/14/25 [Rx] Furosemide [Lasix] 40 mg PO DAILY@1600 #30 tab 02/14/25 [Rx] Furosemide [Lasix] 60 mg PO DAILY@0900 #30 tab 02/14/25 [Rx] Ipratropium-Albuterol Nebulize [Duoneb 0.5 mg-3 mg/3 ml Soln] 3 ml INHALATION RT-QID #120 each 02/14/25 [Rx] Levofloxacin [Levaquin] 500 mg PO DAILY 5 Days #1 tab 02/14/25 [Rx] Pantoprazole Sodium [Protonix] 40 mg PO DAILY #30 tab 02/14/25 [Rx] Potassium Chloride ER [K-Dur 20] 20 meq PO DAILY 30 Days #30 tab 02/14/25 [Rx] carvediloL [Coreg*] 12.5 mg PO BID-W/MEALS #60 tab 02/14/25 [Rx] metOLazone [Zaroxolyn] 2.5 mg PO DAILY #30 tab 02/14/25 [Rx] predniSONE 10 mg PO DIRECTED #30 tab 02/14/25 [Rx] Follow up Appointment(s)/Referral(s): Prasanth Nava Jr, DO [Primary Care Provider] - [facility] [NON-STAFF] - 02/21/25 10:30 am (Patient will return to the wound care center for his next appointment on February 14 at 1030 or February 21 at 1030 if patient is not discharged in time for his February 14 appointment. ) Vaishali Durbin MD [STAFF PHYSICIAN] - 2 Weeks [facility], [NON-STAFF] - Ambulatory/Diagnostic Orders: Basic Metabolic Panel [LAB.AMB] Time Frame: 3 Days, Location: None Selected Activity/Diet/Wound Care/Special Instructions: 4 L nasal cannula O2 at dc Wound care:Apply absorptive silver moistened dry gauze roll gauze secured with paper tape. Wrap with Roosevelt wrap for compression. Elevate legs greater than the heart for 30 minutes 3 times a day. Discharge Disposition: HOME WITH HOME HEALTH SERVICES
--- NOTE | 2025-02-14 12:31 | P.PN ---
Subjective HISTORY OF PRESENT ILLNESS: This is a 64-year-old male who follows in the office with Dr. Early. Patient has a history of congestive heart failure, pulmonary embolism, nonischemic cardiomyopathy, AICD implantation, COPD, paroxysmal atrial fibrillation, and chronic lower extremity edema. Patient is admitted to the hospital secondary to shortness of breath and congestive heart failure. Patient examined this morning the bedside. Patient is currently sitting up in the chair. He denies chest pain or pressure at the time of examination. 02/13/2025 Patient examined this morning. He is sitting up in the chair. Patient currently denies chest pain or pressure. He denies shortness of breath. He remains on IV Lasix. He continues to have lower extremity edema. 02/14/2025 Patient examined this morning to bedside. Patient currently denies chest pain or pressure. He denies shortness of breath. Vital signs are stable. PHYSICAL EXAM: VITAL SIGNS: Reviewed. GENERAL: Well-developed in no acute distress. NECK: Supple. No JVD or thyromegaly LUNGS: Respirations even and unlabored. Lungs essentially clear to auscultation bilaterally. HEART: Regular rate and rhythm. S1 and S2 heard. EXTREMITIES: Normal range of motion. No clubbing or cyanosis. Peripheral pulses intact. 2+ bilateral lower extremity edema with bilateral wraps, left greater than right. ASSESSMENT: Shortness of breath Acute on chronic hypoxic and hypercapnic respiratory failure History of nonischemic cardiomyopathy Mild nonobstructive CAD, per heart cath in 2018 Paroxysmal atrial fibrillation, on Xarelto outpatient Hypertension Hyperlipidemia Prediabetes Peripheral arterial disease History of AICD implantation PLAN: Continue Lasix Lipitor, carvedilol, Zaroxolyn, Xarelto, and Aldactone Patient is stable for discharge home today from a cardiac standpoint Patient to follow-up postdischarge in the office with Dr. Early We will sign off. Please reconsult if needed. Nurse practitioner note has been reviewed by physician. Signing provider agrees with the documented findings, assessment, and plan of care documented by [employer] as a scribe. Objective - Vital Signs Vital signs: Vital Signs Temp 97.6 F 02/14/25 04:00 Pulse 86 02/14/25 10:59 Resp 16 02/14/25 09:08 BP 104/56 02/14/25 09:08 Pulse Ox 91 L 02/14/25 09:08 FiO2 40 06/10/25 15:50 Intake & Output 02/13/25 02/14/25 02/14/25 18:59 06:59 18:59 Intake Total 1200 181 240 Output Total 3150 1400 350 Balance -1950 1219 -110 Weight 138.2 kg 136.9 kg Intake: IV 181 0.9 80 Piperacillin-Tazobactam 3 100 .375 gm In Sodium Chloride 0.9% 100 ml @ 25 mls/hr IVPB Q8H [facility] Rx#: [id number] Solu-Medrol 1 Oral 1200 240 Output: Urine 3150 1400 350 Other: Voiding Method Toilet Toilet Toilet Urinal Urinal Urinal Diaper # Voids 2 1 - Labs CBC & Chem 7: 02/10/25 11:00 02/14/25 05:44 Labs: Abnormal Lab Results - Last 24 Hours (Table) 02/14/25 02/14/25 Range/Units 05:44 05:44 Sodium 134 L (137-145) mmol/L Potassium 3.4 L (3.5-5.1) mmol/L Chloride 84 L (98-107) mmol/L Carbon Dioxide 39 H (22-30) mmol/L BUN 60 H (9-20) mg/dL Glucose 123 H (74-99) mg/dL Magnesium 2.5 H (1.6-2.3) mg/dL Microbiology - Last 24 Hours (Table) 02/10/25 11:00 Blood Culture - Preliminary Blood
--- NOTE | 2025-02-14 14:20 | P.PN ---
Subjective Progress Note Date: 02/14/25 Principal diagnosis: Acute on chronic hypoxic and hypercapnic respiratory failure 64-year-old male patient who is currently being seen for altered mentation, acute on top of chronic hypoxic and hypercapnic respiratory failure. The patient was hospitalized for lower extremity wounds and cellulitis. Overnight, the patient became more lethargic and hypercapnic and the patient accordingly was placed on a BiPAP and currently BiPAP is running at a pressure of 16 over 5 cm of water with FiO2 of 40%. The patient is generating adequate tidal volume while being on the BiPAP. Meanwhile, the patient's chest x-ray showed cardiomegaly and mild pulm vas congestion consistent with CHF. Repeat chest x- ray was done today that showed similar findings on the patient's CAT scan of the brain was negative. The white cell count at 8.7 with a heme of 15.1 and a platelet count of 181. Most recent blood gas showed a pH of 7.35 with a pCO2 of 72 and pO2 of 77 while being on the BiPAP. There is improvement in acid-base status. Serum bicarbonate 42 with a sodium of 136. BUN is 25 with a creatinine of 0.9. The viral screen has been negative. While on the BiPAP, the patient is awake and alert and communicating. In regards to his lower extremity wounds, the patient has had previous wound cultures showing stenotrophomonas and Enterobacter and E. coli and Enterococcus. He has also had Proteus vulgaris. As such, this has been an polymicrobial growth. For now, the patient is on Zosyn and I added daptomycin. He is also on Lasix 40 mg IV every 12 hours. Producing adequate amount of urine output. He is chronically maintained on Diamox. He is maintained on anticoagulation with Xarelto. Patient was seen today on 02/11/2025, he is comfortable, not in distress, using BiPAP at night, but he is now on nasal cannula, 4 L/min with O2 sat of 94%. Patient is hemodynamically stable, does not seem to be in distress. Remains on antibiotics for his stenotrophomonas and Enterobacter, and Proteus cellulitis, patient is on Zosyn and daptomycin he is also on Lasix. Good urine output, again seems to be quite comfortable. Seen today on 02/12/2025, patient remains on 4 L nasal cannula, O2 sats is 90%, he is hemodynamically stable, blood pressure is 92/57 with a mean of 68, patient is feeling better his electrolytes are normal except for low potassium of 3.0, bicarb is 38 BUN is 42 creat 1.45 his metolazone has been decreased to 2.5 mg daily remains on Lasix at 40 mg IV push twice daily, patient remains on antibiotics for his wound infections, as noted on previous notes. Patient was seen today by wound care, he is being seen for chronic venous hypertension with ulcer of bilateral lower extremities and nonpressure chronic ulcers with lymphedema. Patient was seen today on 02/14/2025, patient is doing well, hardly any pulmonary symptoms, on physical examination he sounded fairly clear. Discharge planning is in progress on this patient, he will likely be home today on home O2. His basic metabolic profile is normal his BUN is 60 creatinine 1.10. Objective - Vital Signs Vital signs: Vital Signs Temp 97.6 F 02/14/25 04:00 Pulse 86 02/14/25 10:59 Resp 16 02/14/25 09:08 BP 104/56 02/14/25 09:08 Pulse Ox 91 L 02/14/25 09:08 FiO2 40 02/12/25 15:50 Intake & Output 02/13/25 02/14/25 02/14/25 18:59 06:59 18:59 Intake Total 1200 181 240 Output Total 3150 1400 350 Balance -1950 -1219 -110 Weight 138.2 kg 136.9 kg Intake: IV 181 0.9 80 Piperacillin-Tazobactam 3 100 .375 gm In Sodium Chloride 0.9% 100 ml @ 25 mls/hr IVPB Q8H [facility] Rx#: [id number] Solu-Medrol 1 Oral 1200 240 Output: Urine 3150 1400 350 Other: Voiding Method Toilet Toilet Toilet Urinal Urinal Urinal Diaper # Voids 2 1 - Exam Physical exam reveals 64-year-old white male in no distress, on 4 L nasal cannula Head: Atraumatic normocephalic HEENT: PERRLA EOMI nonicteric no neck masses no JVD Pulmonary: Diminished breath sound bilaterally scattered rhonchi noted Cardiac: Distant S1-S2, no S3 gallop, no murmur. Abdomen: Obese soft nontender no rebound no guarding Extremities: Swollen and evidence of cellulitis chronic wounds noted Neurologic: Alert oriented x 3 no focal deficit Psychiatric: Normal mood and affect no mental status examination Musculoskeletal: No deformities no limitation range of motion . - Labs CBC & Chem 7: 02/10/25 11:00 02/14/25 05:44 Labs: Abnormal Lab Results - Last 24 Hours (Table) 02/14/25 02/14/25 Range/Units 05:44 05:44 Sodium 134 L (137-145) mmol/L Potassium 3.4 L (3.5-5.1) mmol/L Chloride 84 L (98-107) mmol/L Carbon Dioxide 39 H (22-30) mmol/L BUN 60 H (9-20) mg/dL Glucose 123 H (74-99) mg/dL Magnesium 2.5 H (1.6-2.3) mg/dL Microbiology - Last 24 Hours (Table) 02/10/25 11:00 Blood Culture - Preliminary Blood Assessment and Plan Assessment: Impression: acute on chronic hypoxic/hypercapnic respiratory failure. Patient has underlying COPD, hemidiaphragm paralysis, and obstructive sleep apnea syndrome. Altered mentation secondary to above, improved while being on the BiPAP Chronic lower extremity wounds with secondary infection and the patient has been followed up with the wound center. 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 COPD Nonischemic cardiomyopathy with impaired left a ejection fraction of 30% History of AICD placement Rheumatoid arthritis Peripheral vascular disease Previous history of DVT or pulmonary embolism and the patient is currently on Xarelto Recommendation: Home O2 if the patient qualifies, BiPAP at home Continue diuretics Continue Xarelto Continue GI prophylaxis Continue bronchodilators Will clear for discharge if cleared by other consultants Time with Patient: Less than 30
--- NOTE | 2025-02-14 15:12 | P.PN ---
Subjective Patient is seen for follow-up for acute kidney injury. Renal function has improved. Serum creatinine down to 1.0 No significant complaints today Objective - Vital Signs Vital signs: Vital Signs Temp 97.6 F 02/14/25 04:00 Pulse 86 02/14/25 10:59 Resp 16 02/14/25 09:08 BP 104/56 02/14/25 09:08 Pulse Ox 91 L 02/14/25 09:08 FiO2 40 02/12/25 15:50 Intake & Output 02/13/25 02/14/25 02/14/25 18:59 06:59 18:59 Intake Total 1200 181 240 Output Total 3150 1400 350 Balance -1950 -1219 -110 Weight 138.2 kg 136.9 kg Intake: IV 181 0.9 80 Piperacillin-Tazobactam 3 100 .375 gm In Sodium Chloride 0.9% 100 ml @ 25 mls/hr IVPB Q8H [facility] Rx#: [id number] Solu-Medrol 1 Oral 1200 240 Output: Urine 3150 1400 350 Other: Voiding Method Toilet Toilet Toilet Urinal Urinal Urinal Diaper # Voids 2 1 - Exam Patient is awake, comfortable, no acute distress Examination of the heart S1 and S2 Examination of the lungs bilateral breath sounds are heard Examination lower extremity shows chronic edema and chronic skin changes - Labs CBC & Chem 7: 02/10/25 11:00 02/14/25 05:44 Labs: Abnormal Lab Results - Last 24 Hours (Table) 02/14/25 02/14/25 Range/Units 05:44 05:44 Sodium 134 L (137-145) mmol/L Potassium 3.4 L (3.5-5.1) mmol/L Chloride 84 L (98-107) mmol/L Carbon Dioxide 39 H (22-30) mmol/L BUN 60 H (9-20) mg/dL Glucose 123 H (74-99) mg/dL Magnesium 2.5 H (1.6-2.3) mg/dL Microbiology - Last 24 Hours (Table) 02/10/25 11:00 Blood Culture - Preliminary Blood Assessment and Plan Assessment: 1. Acute kidney injury, cardiorenal, exacerbated with hypotension in the setting of use of JUANI inhibitors. UA is completely benign and ultrasound is unremarkable 3. Volume overload 4. CHF with reduced ejection fraction of 30 to 35% 5. Obstructive sleep apnea 6. Chronic venous ulcers of lower extremity Plan: Patient is stable for discharge from nephrology standpoint Continue current dose of Lasix Replace potassium
== END 2025-02-14 13:50 | disposition home health service (06) | DRG 291 ==
LOC: EC 09:28 → 4SSUR 16:18 → OBSVTOIN 16:19 → 4SSUR 17:26 → 3SCARD 02-09 19:02
PROVIDERS: ADMIT Family Medicine; ATTEND Family Medicine
PROC: 5A09357 Assistance with Respiratory Ventilation, Less than 24 Consecutive Hours, Continuous Positive Airway Pressure (ICD-10-PCS; principal; 2025-02-10)
DX: I11.0 Hypertensive heart disease with heart failure (principal); G93.41 Metabolic encephalopathy; J96.21 Acute and chronic respiratory failure with hypoxia; J96.22 Acute and chronic respiratory failure with hypercapnia; J44.9 Chronic obstructive pulmonary disease, unspecified; M06.9 Rheumatoid arthritis, unspecified; E66.01 Morbid (severe) obesity due to excess calories; I73.9 Peripheral vascular disease, unspecified; I83.218 Varicose veins of right lower extremity with both ulcer of other part of lower extremity and inflammation; L97.822 Non-pressure chronic ulcer of other part of left lower leg with fat layer exposed; I83.228 Varicose veins of left lower extremity with both ulcer of other part of lower extremity and inflammation; L97.813 Non-pressure chronic ulcer of other part of right lower leg with necrosis of muscle; L03.116 Cellulitis of left lower limb; N17.9 Acute kidney failure, unspecified; B95.2 Enterococcus as the cause of diseases classified elsewhere; J98.6 Disorders of diaphragm; I95.2 Hypotension due to drugs; I50.22 Chronic systolic (congestive) heart failure; I42.8 Other cardiomyopathies; I48.0 Paroxysmal atrial fibrillation; G47.33 Obstructive sleep apnea (adult) (pediatric); E78.5 Hyperlipidemia, unspecified; E87.6 Hypokalemia; I25.10 Atherosclerotic heart disease of native coronary artery without angina pectoris; I89.0 Lymphedema, not elsewhere classified; T50.2X5A Adverse effect of carbonic-anhydrase inhibitors, benzothiadiazides and other diuretics, initial encounter; R73.03 Prediabetes; R32 Unspecified urinary incontinence; B96.20 Unspecified Escherichia coli [E. coli] as the cause of diseases classified elsewhere; B96.89 Other specified bacterial agents as the cause of diseases classified elsewhere; B96.4 Proteus (mirabilis) (morganii) as the cause of diseases classified elsewhere; Z68.38 Body mass index [BMI] 38.0-38.9, adult; Z79.01 Long term (current) use of anticoagulants; Z79.899 Other long term (current) drug therapy; Z95.810 Presence of automatic (implantable) cardiac defibrillator; Z86.718 Personal history of other venous thrombosis and embolism; Z86.711 Personal history of pulmonary embolism; Z86.19 Personal history of other infectious and parasitic diseases
CPT/HCPCS: 36415; 36600; 70450; 71045; 71046; 76770; 80048; 80053; 80061; 81003; 82805; 83036; 83605; 83735; 83880; 84443; 84484; 85025; 85610; 85730; 87040; 87636; 93005; 93306; 94640; 94660; 94760; 96361; 96374; 96375; 99285

== ENCOUNTER 2025-03-05 01:47 | Inpatient (IN) | payer MEDICARE ==
--- NOTE | 2025-03-05 02:37 | ED ---
Arrhythmia/Palpitations HPI - General Source: patient Mode of arrival: wheelchair Limitations: no limitations <Yasmany Irwin - Last Filed: 03/05/25 02:35> <Eliza Zuluaga - Last Filed: 03/05/25 07:02> - General Chief Complaint: Arrhythmia/Palpitations Stated Complaint: Internal Defibrillator activated Time Seen by Provider: 03/05/25 02:35 - History of Present Illness Initial Comments: Quick note: 64-year-old male presenting for evaluation after his AICD went off twice tonight. Once at 1900 and once at 0100. States that he was laying in bed when this happened. States that he feels fine at this time, he denies any chest pain, difficulty breathing, palpitations, nausea, vomiting, abdominal pain, numbness, tingling, weakness. (Yasmany Irwin) 64-year-old male presents to the emergency department stating that his defibrillator went off. Patient reports the first time was around 7 PM when he was lying down. The second time the patient was asleep and it awoke him from sleep. He denies that he felt any symptoms prior to the defibrillation. Reports that he feels fine at this time. No chest pain or shortness of breath. He was recently hospitalized for congestive heart failure. He did have a few medication changes and has been taking his medications as they are instructed. He states that his defibrillator has never gone off on him before. He does have a Medtronic device. No other alleviating, precipitating or modifying factors (Eliza Zuluaga) - Related Data Home Medications Medication Instructions Recorded Confirmed Atorvastatin [Lipitor] 10 mg PO DAILY 11/07/21 02/08/25 Ketoconazole 2% Cream [Nizoral 2%] 1 applic TOPICAL BID 02/08/25 02/08/25 Previous Rx's Medication Instructions Recorded Spironolactone [Aldactone] 25 mg PO DAILY #30 tablet 04/08/17 Rivaroxaban [Xarelto] 20 mg PO DAILY 5 Days #5 tab 11/14/21 Calamine/Zinc Oxide Lotion 1 applic TOPICAL QID PRN each 02/14/25 [Calamine Lotion] Furosemide [Lasix] 40 mg PO DAILY@1600 #30 tab 02/14/25 Furosemide [Lasix] 60 mg PO DAILY@0900 #30 tab 02/14/25 Ipratropium-Albuterol Nebulize 3 ml INHALATION RT-QID #120 each 02/14/25 [Duoneb 0.5 mg-3 mg/3 ml Soln] Levofloxacin [Levaquin] 500 mg PO DAILY 5 Days #1 tab 02/14/25 Pantoprazole Sodium [Protonix] 40 mg PO DAILY #30 tab 02/14/25 Potassium Chloride ER [K-Dur 20] 20 meq PO DAILY 30 Days #30 tab 02/14/25 carvediloL [Coreg*] 12.5 mg PO BID-W/MEALS #60 tab 02/14/25 metOLazone [Zaroxolyn] 2.5 mg PO DAILY #30 tab 02/14/25 predniSONE 10 mg PO DIRECTED #30 tab 02/14/25 Allergies Allergy/AdvReac Type Severity Reaction Status Date / Time ibuprofen Allergy Rash/Hives Verified 03/05/25 02:11 Review of Systems ROS Other: All systems not noted in ROS Statement are negative. <Yasmany Irwin - Last Filed: 03/05/25 02:35> ROS Other: All systems not noted in ROS Statement are negative. <Eliza Zuluaga - Last Filed: 03/05/25 07:02> ROS Statement: Those systems with pertinent positive or pertinent negative responses have been documented in the HPI. Past Medical History Past Medical History: COPD, Rheumatoid Arthritis (RA), Sleep Apnea/CPAP/BIPAP, Vascular Disorder Additional Past Medical History / Comment(s): PAD, chronic more than edema in the lower extremities bilaterally. Hypoxia History of Any Multi-Drug Resistant Organisms: None Reported Past Surgical History: AICD, Heart Catheterization Additional Past Surgical History / Comment(s): varicose veins sx 1991, heart defibrillator Past Anesthesia/Blood Transfusion Reactions: No Reported Reaction Past Psychological History: No Psychological Hx Reported Smoking Status: Never smoker Past Alcohol Use History: Occasional Past Drug Use History: None Reported - Past Family History Mother Family Medical History: Cancer Additional Family Medical History / Comment(s): bone cancer Father History Unknown: Yes Additional Family Medical History / Comment(s): never knew his dad <Yasmany Irwin - Last Filed: 03/05/25 02:35> General Exam Limitations: no limitations <Yasmany Irwin - Last Filed: 03/05/25 02:35> General appearance: alert, in no apparent distress Head exam: Present: atraumatic, normocephalic, normal inspection Eye exam: Present: normal appearance, PERRL, EOMI. Absent: scleral icterus, conjunctival injection, periorbital swelling ENT exam: Present: normal exam, mucous membranes moist Neck exam: Present: normal inspection. Absent: tenderness, meningismus, lymphadenopathy Respiratory exam: Present: normal lung sounds bilaterally. Absent: respiratory distress, wheezes, rales, rhonchi, stridor Cardiovascular Exam: Present: regular rate, normal rhythm, normal heart sounds. Absent: systolic murmur, diastolic murmur, rubs, gallop, clicks GI/Abdominal exam: Present: soft, normal bowel sounds. Absent: distended, tenderness, guarding, rebound, rigid Extremities exam: Present: normal inspection, full ROM, normal capillary refill. Absent: tenderness, pedal edema, joint swelling, calf tenderness Back exam: Present: normal inspection Neurological exam: Present: alert, oriented X3, CN II-XII intact Psychiatric exam: Present: normal affect, normal mood Skin exam: Present: warm, dry, intact, normal color. Absent: rash <Eliza Zuluaga - Last Filed: 03/05/25 07:02> - General Exam Comments Initial Comments: Visual Physical Exam Vital signs reviewed General: Well-appearing, nontoxic, no acute distress. Head: Normocephalic, atraumatic Eyes: PERRLA, EOMI ENT: Airway patent Chest: Nonlabored breathing Skin: No visual rash, normal skin tone Neuro: Alert and oriented 3 Musculoskeletal: No gross abnormalities (Yasmany Irwin) Course Vital Signs 03/05/25 03/05/25 03/05/25 02:12 04:14 06:46 Temperature 97.2 F L Pulse Rate 95 85 93 Respiratory 18 18 18 Rate Blood Pressure 116/78 112/82 129/83 O2 Sat by Pulse 96 96 97 Oximetry Medical Decision Making <Yasmany Irwin - Last Filed: 03/05/25 02:35> - Lab Data Result diagrams: 03/05/25 02:30 03/05/25 02:30 <Eliza Zuluaga - Last Filed: 03/05/25 07:02> - Medical Decision Making I performed the quick note portion of this visit, electronically signed Yasmany Irwin PA-C (Yasmany Irwin) Was pt. sent in by a medical professional or institution (DANNY Johnston, WATER SUPERINTENDENT, urgent care, hospital, or half-way...) When possible be specific @ -No Did you speak to anyone other than the patient for history (EMS, parent, family, police, friend...)? What history was obtained from this source @ -No Did you review nursing and triage notes (agree or disagree)? Why? @ -I reviewed and agree with nursing and triage notes Were old charts reviewed (outside hosp., previous admission, EMS record, old EKG, old radiological studies, urgent care reports/EKG's, half-way records)? Report findings @ -I reviewed discharge summary from February 13 Differential Diagnosis (chest pain, altered mental status, abdominal pain women, abdominal pain men, vaginal bleeding, weakness, fever, dyspnea, syncope, headache, dizziness, GI bleed, back pain, seizure, CVA, palpatations, mental health, musculoskeletal)? @ -Differential Chest Pain: Stable Angina, Unstable Angina, STEMI, NSTEMI Aortic Dissection, Pneumothorax, Musculoskeletal, Esophageal Spasm GERD, Cholecystitis, Pancreatitis, Zoster, this is not meant to be an all-inclusive list. EKG interpreted by me (3pts min.). @ -Yes and demonstrates sinus rhythm with a rate of 93. MI interval 185. QRS 120. QTc of 435. Mild ST depression 2, aVL V2-v5. one PVC X-rays interpreted by me (1pt min.). @ -Yes which demonstrates no acute process CT interpreted by me (1pt min.). @ -None done U/S interpreted by me (1pt. min.). @ -None done What testing was considered but not performed or refused? (CT, X-rays, U/S, labs)? Why? @ -Attempted interrogation of the patient's fibrillator however we are having issues with the Medtronic machine What meds were considered but not given or refused? Why? @ -None Did you discuss the management of the patient with other professionals (professionals i.e. DANNY Johnston, WATER SUPERINTENDENT, lab, RT, psych nurse, rn social services, entertainment reporter, teacher, dog control officer, field nurse case manager)? Give summary @ -Spoke with Dr. Domingo for the admission Was smoking cessation discussed for >3mins.? @ -No Was critical care preformed (if so, how long)? @ -No Were there social determinants of health that impacted care today? How? (Homelessness, low income, unemployed, alcoholism, drug addiction, transportation, low edu. Level, literacy, decrease access to med. care, [facility], rehab)? @ -No Was there de-escalation of care discussed even if they declined (Discuss DNR or withdrawal of care, Hospice)? DNR status @ -No What co-morbidities impacted this encounter? (DM, HTN, Smoking, COPD, CAD, Cancer, CVA, ARF, Chemo, Hep., AIDS, mental health diagnosis, sleep apnea, morbid obesity)? @ -Nonischemic cardiomyopathy with ICD Was patient admitted / discharged? Hospital course, mention meds given and route, prescriptions, significant lab abnormalities, going to OR and other pertinent info. @ -Upon arrival patient seen and evaluated in bed 8. Thorough history and physical exam was performed. IV access was established. Laboratory studies were conducted. Chest x-ray was performed. We did attempt to interrogate the patient's device however there are issues with the [employer] machine. We do attempt the machine on the third floor as well. At this time the patient will be admitted pending cardiology consultation. I did replace the patient's potassium and magnesium. Spoke with Dr. Domingo for the admission Undiagnosed new problem with uncertain prognosis? @ -No Drug Therapy requiring intensive monitoring for toxicity (Heparin, Nitro, Insulin, Cardizem)? @ -No Were any procedures done? @ -No Diagnosis/symptom? @ -Acute defibrillator discharge x 2, acute hypokalemia, acute hypomagnesemia Acute, or Chronic, or Acute on Chronic? @ -Acute Uncomplicated (without systemic symptoms) or Complicated (systemic symptoms)? @ -Complicated Side effects of treatment? @ -No Exacerbation, Progression, or Severe Exacerbation? @ -No Poses a threat to life or bodily function? How? (Chest pain, [place], [place], pneumonia, PE, COPD, DKA, ARF, appy, cholecystitis, CVA, Diverticulitis, Homicidal, Suicidal, threat to staff... and all critical care pts) @ -Yes as patient's device went off on him (Eliza Zuluaga) - Lab Data Lab Results 03/05/25 03/05/25 03/05/25 Range/Units 02:30 02:30 02:30 WBC 6.92 (4.50-10.00) 10*3/uL RBC 4.33 L (4.40-5.60) 10*6/uL Hgb 14.2 (13.0-17.0) g/dL Hct 40.3 (39.6-50.0) % MCV 93.1 D (80.0-97.0) fL MCH 32.8 H (27.0-32.0) pg MCHC 35.2 (32.0-37.0) g/dL Plt Count 145 (140-440) 10*3/uL MPV 10.2 (9.5-12.2) fL Immature Gran % (Auto) 0.6 % Neutrophils % 57.1 % Lymphocytes % 29.3 % Monocytes % 10.0 % Eosinophils % 2.7 % Basophils % 0.3 % Immature Gran # 0.04 (0.00-0.04) 10*3/uL Neutrophils # 3.95 (1.80-7.70) 10*3/uL Lymphocytes # 2.03 (0.90-5.00) 10*3/uL Monocytes # 0.69 (0.20-1.00) 10*3/uL Eosinophils # 0.19 (0.04-0.35) 10*3/uL Basophils # 0.02 (0.00-0.10) 10*3/uL PT 12.6 H (10.0-12.5) sec INR 1.2 H (<1.2) APTT 29.8 (22.0-30.0) sec Sodium 134 L (137-145) mmol/L Potassium 2.9 L (3.5-5.1) mmol/L Chloride 83 L (98-107) mmol/L Carbon Dioxide 39 H (22-30) mmol/L Anion Gap 11 mmol/L BUN 43 H (9-20) mg/dL Creatinine 0.74 (0.66-1.25) mg/dL Est GFR (CKD-EPI)AfAm >90 (>60 ml/min/1.73 sqM) Est GFR (CKD-EPI)NonAf >90 (>60 ml/min/1.73 sqM) Glucose 184 H (74-99) mg/dL Calcium 9.5 (8.4-10.2) mg/dL Magnesium 1.6 (1.6-2.3) mg/dL Total Bilirubin 0.7 (0.2-1.3) mg/dL AST 41 (17-59) U/L ALT 41 (4-49) U/L Alkaline Phosphatase 154 H (38-126) U/L Troponin I (0.000-0.034) ng/mL Total Protein 6.0 L (6.3-8.2) g/dL Albumin 3.7 (3.5-5.0) g/dL 03/05/25 Range/Units 02:30 WBC (4.50-10.00) 10*3/uL RBC (4.40-5.60) 10*6/uL Hgb (13.0-17.0) g/dL Hct (39.6-50.0) % MCV (80.0-97.0) fL MCH (27.0-32.0) pg MCHC (32.0-37.0) g/dL Plt Count (140-440) 10*3/uL MPV (9.5-12.2) fL Immature Gran % (Auto) % Neutrophils % % Lymphocytes % % Monocytes % % Eosinophils % % Basophils % % Immature Gran # (0.00-0.04) 10*3/uL Neutrophils # (1.80-7.70) 10*3/uL Lymphocytes # (0.90-5.00) 10*3/uL Monocytes # (0.20-1.00) 10*3/uL Eosinophils # (0.04-0.35) 10*3/uL Basophils # (0.00-0.10) 10*3/uL PT (10.0-12.5) sec INR (<1.2) APTT (22.0-30.0) sec Sodium (137-145) mmol/L Potassium (3.5-5.1) mmol/L Chloride (98-107) mmol/L Carbon Dioxide (22-30) mmol/L Anion Gap mmol/L BUN (9-20) mg/dL Creatinine (0.66-1.25) mg/dL Est GFR (CKD-EPI)AfAm (>60 ml/min/1.73 sqM) Est GFR (CKD-EPI)NonAf (>60 ml/min/1.73 sqM) Glucose (74-99) mg/dL Calcium (8.4-10.2) mg/dL Magnesium (1.6-2.3) mg/dL Total Bilirubin (0.2-1.3) mg/dL AST (17-59) U/L ALT (4-49) U/L Alkaline Phosphatase (38-126) U/L Troponin I 0.020 (0.000-0.034) ng/mL Total Protein (6.3-8.2) g/dL Albumin (3.5-5.0) g/dL Disposition <Yasmany Irwin - Last Filed: 03/05/25 02:35> Is patient prescribed a controlled substance at d/c from ED?: No Time of Disposition: 04:59 Decision to Admit Reason: Admit from EC Decision Date: 03/05/25 Decision Time: 05:00 <Eliza Zuluaga - Last Filed: 03/05/25 07:02> Clinical Impression: Defibrillator discharge, Hypokalemia Disposition: ADMITTED IP TO THIS [facility] Condition: Stable
[2025-03-05 02:47] LABS: Basophils # (A) 0.02 10*3/uL (0.00-0.10); Basophils % (A) 0.3 %; Eosinophils # (A) 0.19 10*3/uL (0.04-0.35); Eosinophils % (A) 2.7 %; HCT 40.3 % (39.6-50.0); HGB 14.2 g/dL (13.0-17.0); Lymphocytes # (A) 2.03 10*3/uL (0.90-5.00); Lymphocytes % (A) 29.3 %; MCH 32.8 pg (27.0-32.0); MCHC 35.2 g/dL (32.0-37.0); Monocytes # (A) 0.69 10*3/uL (0.20-1.00); Monocytes % (A) 10.0 %; Neutrophils # (A) 3.95 10*3/uL (1.80-7.70); Neutrophils % (A) 57.1 %; Platelet Count 145 10*3/uL (140-440); RBC 4.33 10*6/uL (4.40-5.60); RDW 12.1 % (11.5-14.5); WBC 6.92 10*3/uL (4.50-10.00)
[2025-03-05 02:56] LABS: INR 1.2 (<1.2); MCV 93.1 fL (80.0-97.0); Partial Thromboplastin Time 29.8 sec (22.0-30.0); Prothrombin Time 12.6 sec (10.0-12.5)
[2025-03-05 03:55] LABS: ALT 41 U/L (4-49); AST 41 U/L (17-59); African American GFR (CKD) >90 (>60 ml/min/1.73 sqM); Albumin 3.7 g/dL (3.5-5.0); Alkaline Phosphatase 154 U/L (38-126); Anion Gap 11 mmol/L; Blood Urea Nitrogen 43 mg/dL (9-20); Calcium 9.5 mg/dL (8.4-10.2); Chloride 83 mmol/L (98-107); Glucose 184 mg/dL (74-99); Magnesium 1.6 mg/dL (1.6-2.3); Non-African American GFR(CKD) >90 (>60 ml/min/1.73 sqM); Potassium 2.9 mmol/L (3.5-5.1); Sodium 134 mmol/L (137-145); Total Protein 6.0 g/dL (6.3-8.2)
--- NOTE | 2025-03-05 04:04 | XR ---
EXAM: XR Chest, 2 Views CLINICAL HISTORY: ITS.REASON XR Reason: dysrhythmia TECHNIQUE: Frontal and lateral views of the chest. COMPARISON: 02/08/2025. FINDINGS: Lungs: Small amount of bibasilar atelectasis. Pleural space: Unremarkable. Mediastinum: Cardiomegaly. Bones/joints: No acute findings. Tubes, lines and devices: Left pacer is again noted. Upper abdomen: Elevated left hemidiaphragm is again noted. IMPRESSION: Bibasilar atelectasis.
[2025-03-05 04:14] LABS: Carbon Dioxide 39 mmol/L (22-30)
[2025-03-05] MEDS: POTASSIUM CHLORIDE ER 20 MEQ TAB.ER PO STA (04:38)
[2025-03-05] MEDS: POTASSIUM CHLORIDE 20 MEQ in WATER FOR INJECTION 1 100ML.BAG IVPB STA (04:40)
[2025-03-05] MEDS ORDERED: NALOXONE 0.4 MG/ML 1 ML VIAL IV PRN (05:02)
[2025-03-05] MEDS: MAGNESIUM SULFATE-D5W PMX 1 GM in DEXTROSE/WATER 1 100ML.BAG IVPB SCH (06:42)
[2025-03-05] MEDS: DEXTROSE 5% IN WATER 100 ML with AMIODARONE 150 MG IV ONE (09:56)
[2025-03-05] MEDS: diphenhydrAMINE 50 MG/ML 1 ML VIAL IVP PRN (10:04)
[2025-03-05] MEDS: AMIODARONE 360 MG in DEXTROSE 5% IN WATER 200 ML IV ONE (10:19)
--- NOTE | 2025-03-05 10:48 | P.HPIM ---
History of Present Illness H&P Date: 03/05/25 Chief Complaint: Defibrillator discharge This is a 64-year-old male with past medical history of nonischemic cardiomyopathy, AICD implantation, CHF, PE, paroxysmal atrial fibrillation, chronic lower extremity lymphedema-follows at [facility] for his chronic nonpressure venous leg ulcers of the bilateral lower extremities ,prediabetic with last hemoglobin A1c 6.2 on 02/09/2025 and multiple medical issues presented to the ER with complaints of his defibrillator firing twice last night, woke up on the floor. Denies chest pain, palpitations or shortness of breath. Maintaining O2 sats in the 90s on 3 L nasal cannula. Denies nausea, vomiting. Denies abdominal pain. Reports medication compliance. Cardiology consult in place, interrogation pending. Received potassium and magnesium supplementation for potassium of 2.8 and magnesium 1.6. patient apparently had an allergic reaction to amiodarone, chest tightness, reddened face with shortness of breath. Amiodarone discontinued and receiving prn Benadryl. EKG reported sinus rhythm occasional PVC. Chest x-ray reported bibasilar atelectasis, afebrile, normal WBC, hematology unremarkable, INR 1.2. On admission potassium 2.9 magnesium 1.6 supplemented with repeat levels pending. Patient reports he became mixed up on his medications and has been taking Lasix 100 mg every morning and 40 mg at night since his last discharge. Review of Systems ROS Statement: Those systems with pertinent positive or pertinent negative responses have been documented in the HPI. ROS Other: All systems not noted in ROS Statement are negative. Past Medical History Past Medical History: COPD, Rheumatoid Arthritis (RA), Sleep Apnea/CPAP/BIPAP, Vascular Disorder Additional Past Medical History / Comment(s): PAD, chronic more than edema in the lower extremities bilaterally. Hypoxia History of Any Multi-Drug Resistant Organisms: None Reported Past Surgical History: AICD, Heart Catheterization Additional Past Surgical History / Comment(s): varicose veins sx 1991, heart defibrillator Past Anesthesia/Blood Transfusion Reactions: No Reported Reaction Past Psychological History: No Psychological Hx Reported Smoking Status: Never smoker Past Alcohol Use History: Occasional Past Drug Use History: None Reported - Past Family History Mother Family Medical History: Cancer Additional Family Medical History / Comment(s): bone cancer Father History Unknown: Yes Additional Family Medical History / Comment(s): never knew his dad Medications and Allergies Home Medications Medication Instructions Recorded Confirmed Type Spironolactone [Aldactone] 25 mg PO DAILY #30 tablet 04/08/17 03/05/25 Rx Atorvastatin [Lipitor] 10 mg PO DAILY 11/07/21 03/05/25 History Rivaroxaban [Xarelto] 20 mg PO DAILY 5 Days #5 tab 11/14/21 03/05/25 Rx Ketoconazole 2% Cream [Nizoral 2%] 1 applic TOPICAL BID 02/08/25 03/05/25 History Furosemide [Lasix] 40 mg PO DAILY@1600 #30 tab 02/14/25 03/05/25 Rx Furosemide [Lasix] 60 mg PO DAILY@0900 #30 tab 02/14/25 03/05/25 Rx Ipratropium-Albuterol Nebulize 3 ml INHALATION RT-QID #120 each 02/14/25 03/05/25 Rx [Duoneb 0.5 mg-3 mg/3 ml Soln] Pantoprazole Sodium [Protonix] 40 mg PO DAILY #30 tab 02/14/25 03/05/25 Rx Potassium Chloride ER [K-Dur 20] 20 meq PO DAILY 30 Days #30 tab 02/14/25 03/05/25 Rx metOLazone [Zaroxolyn] 2.5 mg PO DAILY #30 tab 02/14/25 03/05/25 Rx Ipratropium-Albuterol Nebulize 3 ml INHALATION RT-Q4H PRN 03/05/25 03/05/25 History [Duoneb 0.5 mg-3 mg/3 ml Soln] SILVER sulfADIAZINE Cream 1 applic TOPICAL DAILY 03/05/25 03/05/25 History [Silvadene 1% Cream] carvediloL [Coreg*] 12.5 mg PO W/BRKFST 03/05/25 03/05/25 History Allergies Allergy/AdvReac Type Severity Reaction Status Date / Time amiodarone Allergy Chest Pain Verified 03/05/25 11:02 ibuprofen Allergy Rash/Hives Verified 03/05/25 11:02 Physical Exam Vitals: Vital Signs Temp Pulse Resp BP BP Pulse Ox 03/05/25 10:14 85 22 143/93 96 03/05/25 10:01 90 24 105/81 93 L 03/05/25 09:52 18 112/72 98 03/05/25 07:47 95 18 124/80 96 03/05/25 06:46 93 18 129/83 97 03/05/25 04:14 85 18 112/82 96 03/05/25 02:12 97.2 F L 95 18 116/78 96 Intake and Output 03/04/25 03/05/25 03/05/25 22:59 06:59 14:59 Other: Weight 140.16 kg General: Alert and oriented x 3, sitting up in stretcher, no acute distress Neck: supple,no JVD. Cardiovascular: S1S2 is normal, There is a regular rate and rhythm. No murmur, rub or gallop is appreciated. Respiratory: Equal air entry, diminished . Gastrointestinal: Soft, obese, non-tender abdomen No guarding. Positive bowel sounds. Extremities: Chronic lymphedema, dressings of chronic wounds, clean dry and intact. Neurological: CN II-XII intact, no focal deficits. Skin: Skin is warm and dry and no rashes, Results CBC & Chem 7: 03/05/25 02:30 03/05/25 10:42 Labs: Abnormal Lab Results - Last 24 Hours (Table) 03/05/25 03/05/25 03/05/25 Range/Units 02:30 02:30 02:30 RBC 4.33 L (4.40-5.60) 10*6/uL MCH 32.8 H (27.0-32.0) pg PT 12.6 H (10.0-12.5) sec INR 1.2 H (<1.2) Sodium 134 L (137-145) mmol/L Potassium 2.9 L (3.5-5.1) mmol/L Chloride 83 L (98-107) mmol/L Carbon Dioxide 39 H (22-30) mmol/L BUN 43 H (9-20) mg/dL Glucose 184 H (74-99) mg/dL Alkaline Phosphatase 154 H (38-126) U/L Total Protein 6.0 L (6.3-8.2) g/dL Assessment and Plan Assessment: AICD firing Hypokalemia, incorrectly taking his Lasix. Hypomagnesemia Chronic hypoxic and hypercapnic respiratory failure COPD Obstructive sleep apnea, does not wear BiPAP at home Chronic elevation of left hemidiaphragm Nonischemic cardiomyopathy, EF 30% Chronic systolic CHF History of AICD placement Paroxysmal atrial fibrillation Rheumatoid arthritis Peripheral vascular disease History of PE DVT, on Xarelto Venous hypertension with venous leg ulcer bilaterally Chronic nonpressure ulcer right lower extremity with muscle involvement without necrosis continue Opticell and Curlex wraps. Follows with wound care center. Recent cultures 11/27 reported stenotrophomonas. History of Enterobacter, and Proteus cellulitis. Chronic nonpressure ulcer left lower extremity with other specified complication: As above Hypertension: Continue to monitor, blood pressure little low, Coreg dose decreased Hyperlipidemia Hemoglobin A1c 6.2 Morbid obesity, BMI 38 Plan Current medication regimen ,monitoring and symptomatic treatment. Interrogation of device pending. Echo pending. cardiology consult in place. Repeat electrolyte levels pending. Close monitoring of electrolytes, renal function with repeat labs ordered for a.m. potassium replacement protocol ordered. The impression and plan of care has been dictated as directed. : I performed a history and examination of this patient, discussed the same with the dictator. I agree with the dictator's note ,documented as a scribe. Any additional findings or plans will be noted.
[2025-03-05] MEDS ORDERED: IPRATROPIUM-ALBUTEROL 3 ML NEB INHALATION PRN (10:53)
[2025-03-05] MEDS: PANTOPRAZOLE 40 MG/10 ML VIAL IVP SCH (11:15)
[2025-03-05 11:23] LABS: African American GFR (CKD) >90 (>60 ml/min/1.73 sqM); Blood Urea Nitrogen 38 mg/dL (9-20); Calcium 9.5 mg/dL (8.4-10.2); Chloride 83 mmol/L (98-107); Glucose 158 mg/dL (74-99); Magnesium 2.1 mg/dL (1.6-2.3); Non-African American GFR(CKD) >90 (>60 ml/min/1.73 sqM); Sodium 139 mmol/L (137-145)
[2025-03-05 11:29] LABS: Anion Gap 9 mmol/L
[2025-03-05 11:35] LABS: Potassium 2.7 mmol/L (3.5-5.1)
[2025-03-05 11:36] LABS: Carbon Dioxide 47 mmol/L (22-30)
[2025-03-05] MEDS ORDERED: Potassium Replacement Protocol 1 EACH MISC MISCELLANE PRN (12:41)
[2025-03-05] MEDS: IPRATROPIUM-ALBUTEROL 3 ML NEB INHALATION SCH (12:52)
--- NOTE | 2025-03-05 13:46 | P.CRDCN ---
History of Present Illness Consult date: 03/05/25 Reason for Consult (text): Defibrillator discharge History of present illness: This is a 64-year-old male patient of Dr. Granger with past medical history of chronic systolic heart failure, history of pulmonary embolism, nonischemic cardiomyopathy, status post AICD, COPD, paroxysmal atrial fibrillation, lower extremity edema. We have been asked to evaluate the patient for defibrillator discharge. Patient states that he was eating something up in the microwave and all of a sudden he woke up and he was laying on the floor. His AICD went off apparently twice last evening. He currently denies any chest pain no shortness of breath no palpitations. Blood pressure 102/82, heart rate 88, pulse ox 96% on 3 L nasal cannula. Patient seen in the emergency center waiting for a bed on the cardiac stepdown unit. -EKG: Sinus rhythm at 93 bpm occasional PVCs. -Chest x-ray: Bibasilar atelectasis. -Laboratory studies: CBC unremarkable. Potassium 2.7, CO2 47, BUN 38 creatinine 0.79. Troponin negative x 1. -Home cardiac medications: Atorvastatin 10 mg daily, Coreg 12.5 mg with breakfast, Lasix 60 mg in the morning and 40 mg in the afternoon, metolazone 2.5 mg daily, K. Dur 20 mill equivalents daily, Xarelto 20 mg daily, spironolactone 25 mg daily - Echocardiogram performed in the office 04/25/2023 revealed EF 35 to 40%, mild mitral regurgitation, mild to moderate tricuspid regurgitation, PASP 39 mmHg. Review Of Systems: At the time of my exam: CONSTITUTIONAL: Denies fever or chills. HEENT: Denies blurred vision, vision changes, or eye pain. Denies hemoptysis CARDIOVASCULAR: Denies chest pain. Denies orthopnea. Denies PND. Denies palpitations RESPIRATORY: Denies shortness of breath. GASTROINTESTINAL: Denies abdominal pain. Denies nausea or vomiting. HEMATOLOGIC: Denies bleeding disorders. GENITOURINARY: Denies any blood in urine. SKIN: Denies puritis. Denies rash. Physical examination: Gen: This is 64-year-old male in no acute distress. VS: reviewed HEENT: Head is atraumatic, normocephalic. Pupils equal, round. Sclerae is anicteric. NECK: Supple. No JVD. LUNGS: Clear to auscultation. No wheezes or rhonchi. No intercostal retractions. HEART: Regular rate and rhythm. No murmur. ABDOMEN: Soft No tenderness. EXTREMITIES: Bilateral lower extremity edema. No calf tenderness. NEUROLOGICAL: Patient is awake, alert and oriented x3. Assessment: AICD discharge Hypokalemia Chronic systolic heart failure History of pulmonary embolism Nonischemic cardiomyopathy COPD Paroxysmal atrial fibrillation Plan: Resume patient's home cardiac medications Hold metolazone due to low blood pressure readings. Interrogate ICD Amiodarone was started but patient had what appeared to be allergic reaction and this was discontinued. Patient started on Benadryl as needed. Obtain 2-D echocardiogram and Doppler study to assess cardiac structure and function Further recommendations to follow based upon clinical course Thank you kindly for this consultation. Nurse practitioner note has been reviewed, I agree with documented findings and plan of care. Patient was seen and examined. Past Medical History Past Medical History: COPD, Rheumatoid Arthritis (RA), Sleep Apnea/CPAP/BIPAP, Vascular Disorder Additional Past Medical History / Comment(s): PAD, chronic more than edema in the lower extremities bilaterally. Hypoxia History of Any Multi-Drug Resistant Organisms: None Reported Past Surgical History: AICD, Heart Catheterization Additional Past Surgical History / Comment(s): varicose veins sx 1991, heart defibrillator Past Anesthesia/Blood Transfusion Reactions: No Reported Reaction Past Psychological History: No Psychological Hx Reported Smoking Status: Never smoker Past Alcohol Use History: Occasional Past Drug Use History: None Reported - Past Family History Mother Family Medical History: Cancer Additional Family Medical History / Comment(s): bone cancer Father History Unknown: Yes Additional Family Medical History / Comment(s): never knew his dad Medications and Allergies Home Medications Medication Instructions Recorded Confirmed Type Spironolactone [Aldactone] 25 mg PO DAILY #30 tablet 04/08/17 03/05/25 Rx Atorvastatin [Lipitor] 10 mg PO DAILY 11/07/21 03/05/25 History Rivaroxaban [Xarelto] 20 mg PO DAILY 5 Days #5 tab 11/14/21 03/05/25 Rx Ketoconazole 2% Cream [Nizoral 2%] 1 applic TOPICAL BID 02/08/25 03/05/25 History Furosemide [Lasix] 40 mg PO DAILY@1600 #30 tab 02/14/25 03/05/25 Rx Furosemide [Lasix] 60 mg PO DAILY@0900 #30 tab 02/14/25 03/05/25 Rx Ipratropium-Albuterol Nebulize 3 ml INHALATION RT-QID #120 each 02/14/25 03/05/25 Rx [Duoneb 0.5 mg-3 mg/3 ml Soln] Pantoprazole Sodium [Protonix] 40 mg PO DAILY #30 tab 02/14/25 03/05/25 Rx Potassium Chloride ER [K-Dur 20] 20 meq PO DAILY 30 Days #30 tab 02/14/25 03/05/25 Rx metOLazone [Zaroxolyn] 2.5 mg PO DAILY #30 tab 02/14/25 03/05/25 Rx Ipratropium-Albuterol Nebulize 3 ml INHALATION RT-Q4H PRN 03/05/25 03/05/25 History [Duoneb 0.5 mg-3 mg/3 ml Soln] SILVER sulfADIAZINE Cream 1 applic TOPICAL DAILY 03/05/25 03/05/25 History [Silvadene 1% Cream] carvediloL [Coreg*] 12.5 mg PO W/BRKFST 03/05/25 03/05/25 History Allergies Allergy/AdvReac Type Severity Reaction Status Date / Time amiodarone Allergy Chest Pain Verified 03/05/25 11:02 ibuprofen Allergy Rash/Hives Verified 03/05/25 11:02 Physical Exam Vitals: Vital Signs Temp Pulse Resp BP Pulse Ox 03/05/25 06:46 93 18 129/83 97 03/05/25 04:14 85 18 112/82 96 03/05/25 02:12 97.2 F L 95 18 116/78 96 Intake and Output 03/04/25 03/05/25 03/05/25 22:59 06:59 14:59 Other: Weight 140.16 kg Results 03/05/25 02:30 03/05/25 10:42 Cardiac Enzymes 03/05/25 03/05/25 Range/Units 02:30 02:30 AST 41 (17-59) U/L Troponin I 0.020 (0.000-0.034) ng/mL Coagulation 03/05/25 Range/Units 02:30 PT 12.6 H (10.0-12.5) sec APTT 29.8 (22.0-30.0) sec CBC 03/05/25 Range/Units 02:30 WBC 6.92 (4.50-10.00) 10*3/uL RBC 4.33 L (4.40-5.60) 10*6/uL Hgb 14.2 (13.0-17.0) g/dL Hct 40.3 (39.6-50.0) % Plt Count 145 (140-440) 10*3/uL Comprehensive Metabolic Panel 03/05/25 Range/Units 02:30 Sodium 134 L (137-145) mmol/L Potassium 2.9 L (3.5-5.1) mmol/L Chloride 83 L (98-107) mmol/L Carbon Dioxide 39 H (22-30) mmol/L BUN 43 H (9-20) mg/dL Creatinine 0.74 (0.66-1.25) mg/dL Glucose 184 H (74-99) mg/dL Calcium 9.5 (8.4-10.2) mg/dL AST 41 (17-59) U/L ALT 41 (4-49) U/L Alkaline Phosphatase 154 H (38-126) U/L Total Protein 6.0 L (6.3-8.2) g/dL Albumin 3.7 (3.5-5.0) g/dL Current Medications Generic Name Dose Route Start Last Admin Trade Name Freq PRN Reason Stop Dose Admin Naloxone HCl 0.2 mg 03/05/25 05:02 Naloxone 0.4 Mg/Ml 1 Ml Vial IV Q2M PRN Opioid Reversal Intake and Output 03/04/25 03/05/25 03/05/25 22:59 06:59 14:59 Other: Weight 140.16 kg 03/05/25 02:30 03/05/25 02:30
[2025-03-05] MEDS ORDERED: AMIODARONE 450 MG in DEXTROSE 5% IN WATER 250 ML IV SCH (14:30)
[2025-03-05] MEDS: RIVAROXABAN 20 MG TAB PO SCH (15:07)
[2025-03-05] MEDS: FUROSEMIDE 40 MG TAB PO SCH (15:07)
[2025-03-05] MEDS ORDERED: DEXTROSE 50% SYRINGE 50 ML IVP PRN ×2 (16:09)
[2025-03-05 17:36] LABS: Glucose,Whole Blood 113 mg/dL (70-110)
[2025-03-05] MEDS: INSULIN LISPRO (HumaLOG) 100 UNIT/ML 10 mL VL SQ SCH (17:53)
[2025-03-05 20:47] LABS: Glucose,Whole Blood 123 mg/dL (70-110)
[2025-03-06] MEDS: POTASSIUM CHLORIDE ER 20 MEQ TAB.ER PO SCH ×5 (02:13→22:54)
[2025-03-06 06:23] LABS: Basophils # (A) 0.04 10*3/uL (0.00-0.10); Basophils % (A) 0.6 %; Eosinophils # (A) 0.26 10*3/uL (0.04-0.35); Eosinophils % (A) 4.2 %; HCT 41.2 % (39.6-50.0); HGB 14.2 g/dL (13.0-17.0); Immature Platelet Fraction 3.8 % (1.1-6.1); Lymphocytes # (A) 1.87 10*3/uL (0.90-5.00); Lymphocytes % (A) 29.9 %; MCH 33.2 pg (27.0-32.0); MCHC 34.5 g/dL (32.0-37.0); MCV 96.3 fL (80.0-97.0); Monocytes # (A) 0.61 10*3/uL (0.20-1.00); Monocytes % (A) 9.8 %; Neutrophils # (A) 3.42 10*3/uL (1.80-7.70); Neutrophils % (A) 54.7 %; Platelet Count 145 10*3/uL (140-440); RBC 4.28 10*6/uL (4.40-5.60); RDW 12.5 % (11.5-14.5); WBC 6.25 10*3/uL (4.50-10.00)
[2025-03-06 06:31] LABS: African American GFR (CKD) >90 (>60 ml/min/1.73 sqM); Blood Urea Nitrogen 33 mg/dL (9-20); Calcium 9.1 mg/dL (8.4-10.2); Chloride 88 mmol/L (98-107); Glucose 123 mg/dL (74-99); Magnesium 2.0 mg/dL (1.6-2.3); Non-African American GFR(CKD) >90 (>60 ml/min/1.73 sqM); Potassium 3.1 mmol/L (3.5-5.1); Sodium 138 mmol/L (137-145)
[2025-03-06 06:38] LABS: Anion Gap 6 mmol/L
[2025-03-06 07:23] LABS: Carbon Dioxide 44 mmol/L (22-30)
[2025-03-06 08:39] LABS: Glucose,Whole Blood 153 mg/dL (70-110)
[2025-03-06] MEDS ORDERED: POTASSIUM CHLORIDE ER 20 MEQ TAB.ER PO SCH (09:00)
[2025-03-06] MEDS: FUROSEMIDE 20 MG TAB PO SCH (09:35)
[2025-03-06] MEDS: SPIRONOLACTONE 25 MG TAB PO SCH (09:35)
[2025-03-06] MEDS: ATORVASTATIN 10 MG TAB PO SCH (09:35)
--- NOTE | 2025-03-06 09:36 | P.PN ---
Subjective Progress Note Date: 03/06/25 Reason for Consult (text): Defibrillator discharge History of present illness: This is a 64-year-old male patient of Dr. Early's with past medical history of chronic systolic heart failure, history of pulmonary embolism, nonischemic cardiomyopathy, status post AICD, COPD, paroxysmal atrial fibrillation, lower extremity edema. We have been asked to evaluate the patient for defibrillator discharge. Patient states that he was eating something up in the microwave and all of a sudden he woke up and he was laying on the floor. His AICD went off a pparently twice last evening. He currently denies any chest pain no shortness of breath no palpitations. Blood pressure 102/82, heart rate 88, pulse ox 96% on 3 L nasal cannula. Patient seen in the emergency center waiting for a bed on the cardiac stepdown unit. -EKG: Sinus rhythm at 93 bpm occasional PVCs. -Chest x-ray: Bibasilar atelectasis. -Laboratory studies: CBC unremarkable. Potassium 2.7, CO2 47, BUN 38 creatinine 0.79. Troponin negative x 1. -Home cardiac medications: Atorvastatin 10 mg daily, Coreg 12.5 mg with breakfast, Lasix 60 mg in the morning and 40 mg in the afternoon, metolazone 2.5 mg daily, K. Dur 20 mill equivalents daily, Xarelto 20 mg daily, spironolactone 25 mg daily - Echocardiogram performed in the office 04/25/2023 revealed EF 35 to 40%, mild mitral regurgitation, mild to moderate tricuspid regurgitation, PASP 39 mmHg. 03/06/2025 Patient seen and examined in the emergency center. He remains waiting for bed on the cardiac stepdown unit. Yesterday patient developed allergic reaction to amiodarone and this was discontinued. Echocardiogram is pending as well as interrogation is pending. Lab work for today reveals potassium 3.1, magnesium 2.0. Other lab work reveals A1c 6.5, CO2 44. Repeat troponin 0.022 Physical examination: Gen: This is 64-year-old male in no acute distress. VS: reviewed HEENT: Head is atraumatic, normocephalic. Pupils equal, round. Sclerae is anicteric. NECK: Supple. No JVD. LUNGS: Clear to auscultation. No wheezes or rhonchi. No intercostal retractions. HEART: Regular rate and rhythm. No murmur. ABDOMEN: Soft No tenderness. EXTREMITIES: Bilateral lower extremity edema. No calf tenderness. NEUROLOGICAL: Patient is awake, alert and oriented x3. Assessment: AICD discharge Allergic reaction to amiodarone, stable Hypokalemia Chronic systolic heart failure History of pulmonary embolism Nonischemic cardiomyopathy COPD Paroxysmal atrial fibrillation Plan: Continue patient's home cardiac medications Hold metolazone due to low blood pressure readings. Interrogate ICD Obtain 2-D echocardiogram and Doppler study to assess cardiac structure and function Await results of echocardiogram and may consider adding mexiletine Further recommendations to follow based upon clinical course Depending on above results, may consider discharge later today. Nurse practitioner note has been reviewed, I agree with documented findings and plan of care. Patient was seen and examined. Objective - Vital Signs Vital signs: Vital Signs Temp 97.7 F 03/06/25 07:26 Pulse 89 03/06/25 07:26 Resp 16 03/06/25 07:26 BP 105/84 03/06/25 07:26 Pulse Ox 96 03/06/25 07:26 FiO2 - Labs CBC & Chem 7: 03/06/25 06:07 03/06/25 06:07 Labs: Abnormal Lab Results - Last 24 Hours (Table) 03/05/25 03/05/25 03/05/25 Range/Units 10:42 17:34 20:46 RBC (4.40-5.60) 10*6/uL MCH (27.0-32.0) pg Immature Gran # (0.00-0.04) 10*3/uL Potassium 2.7 L* (3.5-5.1) mmol/L Chloride 83 L (98-107) mmol/L Carbon Dioxide 47 H* (22-30) mmol/L BUN 38 H (9-20) mg/dL Glucose 158 H (74-99) mg/dL POC Glucose (mg/dL) 113 H 123 H (70-110) mg/dL 03/06/25 03/06/25 03/06/25 Range/Units 01:01 06:07 06:07 RBC 4.28 L (4.40-5.60) 10*6/uL MCH 33.2 H (27.0-32.0) pg Immature Gran # 0.05 H (0.00-0.04) 10*3/uL Potassium 2.8 L 3.1 L (3.5-5.1) mmol/L Chloride 88 L (98-107) mmol/L Carbon Dioxide 44 H* (22-30) mmol/L BUN 33 H (9-20) mg/dL Glucose 123 H (74-99) mg/dL POC Glucose (mg/dL) (70-110) mg/dL
[2025-03-06 12:03] LABS: Glucose,Whole Blood 135 mg/dL (70-110)
[2025-03-06] MEDS: MEXILETINE 150 MG CAP PO SCH (13:48)
--- NOTE | 2025-03-06 16:15 | P.PN ---
Subjective Progress Note Date: 03/06/25 H&P Date: 03/05/25 Chief Complaint: Defibrillator discharge This is a 64-year-old male with past medical history of nonischemic cardiomyopathy, AICD implantation, CHF, PE, paroxysmal atrial fibrillation, chronic lower extremity lymphedema-follows at [facility] for his chronic nonpressure venous leg ulcers of the bilateral lower extremities ,prediabetic with last hemoglobin A1c 6.2 on 02/09/2025 and multiple medical issues presented to the ER with complaints of his defibrillator firing twice last night, woke up on the floor. Denies chest pain, palpitations or shortness of breath. Maintaining O2 sats in the 90s on 3 L nasal cannula. Denies nausea, vomiting. Denies abdominal pain. Reports medication compliance. [facility], interrogation pending. Received potassium and magnesium supplementation for potassium of 2.8 and magnesium 1.6. patient apparently had an allergic reaction to amiodarone, chest tightness, reddened face with shortness of breath. Amiodarone discontinued and receiving prn Benadryl. EKG reported sinus rhythm occasional PVC. Chest x-ray reported bibasilar atelectasis, afebrile, normal WBC, hematology unremarkable, INR 1.2. On admission potassium 2.9 magnesium 1.6 supplemented with repeat levels pending. Patient reports he became mixed up on his medications and has been taking Lasix 100 mg every morning and 40 mg at night since his last discharge. 03-06-25 potassium 3.1, supplementation ordered. Magnesium 2. Device interrogation pending. Denies further firing of AICD. Denies chest pain, palpitations or shortness of breath. Troponin this morning 0.022. Blood sugars controlled. Objective - Vital Signs Vital signs: Vital Signs Temp 97.7 F 03/06/25 07:26 Pulse 93 03/06/25 10:21 Resp 16 03/06/25 10:21 BP 144/85 03/06/25 10:21 Pulse Ox 97 03/06/25 10:21 FiO2 - Exam General:Alert and oriented x 3,sitting up in stretcher,no acute distress Neck: supple,no JVD. Cardiovascular: S1S2 is normal, There is a regular rate and rhythm. No murmur, rub or gallop is appreciated. Respiratory: Unlabored, equal air entry, clear to auscultation with bilateral bases diminished. Gastrointestinal: Soft, obese, non-tender abdomen No guarding. Positive bowel sounds. Extremities: Chronic lymphedema, dressings of chronic wounds, clean dry and intact. Neurological: CN II-XII intact, no focal deficits. Skin: Skin is warm and dry and no rashes, - Labs CBC & Chem 7: 03/06/25 06:07 03/06/25 06:07 Labs: Abnormal Lab Results - Last 24 Hours (Table) 03/05/25 03/05/25 03/06/25 Range/Units 17:34 20:46 01:01 RBC (4.40-5.60) 10*6/uL MCH (27.0-32.0) pg Immature Gran # (0.00-0.04) 10*3/uL Potassium 2.8 L (3.5-5.1) mmol/L Chloride (98-107) mmol/L Carbon Dioxide (22-30) mmol/L BUN (9-20) mg/dL Glucose (74-99) mg/dL POC Glucose (mg/dL) 113 H 123 H (70-110) mg/dL Hemoglobin A1c (<=6.0) % 03/06/25 03/06/25 03/06/25 Range/Units 06:07 06:07 06:07 RBC 4.28 L (4.40-5.60) 10*6/uL MCH 33.2 H (27.0-32.0) pg Immature Gran # 0.05 H (0.00-0.04) 10*3/uL Potassium 3.1 L (3.5-5.1) mmol/L Chloride 88 L (98-107) mmol/L Carbon Dioxide 44 H* (22-30) mmol/L BUN 33 H (9-20) mg/dL Glucose 123 H (74-99) mg/dL POC Glucose (mg/dL) (70-110) mg/dL Hemoglobin A1c 6.5 H (<=6.0) % 03/06/25 03/06/25 Range/Units 08:37 12:02 RBC (4.40-5.60) 10*6/uL MCH (27.0-32.0) pg Immature Gran # (0.00-0.04) 10*3/uL Potassium (3.5-5.1) mmol/L Chloride (98-107) mmol/L Carbon Dioxide (22-30) mmol/L BUN (9-20) mg/dL Glucose (74-99) mg/dL POC Glucose (mg/dL) 153 H 135 H (70-110) mg/dL Hemoglobin A1c (<=6.0) % Assessment and Plan Assessment: AICD discharge Hypokalemia, incorrectly taking his Lasix. Hypomagnesemia Chronic hypoxic and hypercapnic respiratory failure COPD Obstructive sleep apnea, does not wear BiPAP at home Chronic elevation of left hemidiaphragm Nonischemic cardiomyopathy, EF 30% Chronic systolic CHF History of AICD placement Paroxysmal atrial fibrillation Rheumatoid arthritis Peripheral vascular disease History of PE DVT, on Xarelto Venous hypertension with venous leg ulcer bilaterally Chronic nonpressure ulcer right lower extremity with muscle involvement without necrosis continue Opticell and Curlex wraps. Follows with wound care center. Recent cultures 11/27 reported stenotrophomonas. History of Enterobacter, and Proteus cellulitis. Chronic nonpressure ulcer left lower extremity with other specified complication: As above Hypertension: Continue to monitor, blood pressure little low, Coreg dose decreased Hyperlipidemia Hemoglobin A1c 6.2 Morbid obesity, BMI 38 Plan Current medication regimen ,monitoring and symptomatic treatment. Potassium supplementation ordered. Repeat potassium levels ordered .interrogation of device pending/last echo completed on 02/08/2025; repeat echo has been ordered by cardiology. Discharge planning in progress, pending final DC recommendations and clearance per cardiology. The impression and plan of care has been dictated as directed. : I performed a history and examination of this patient, discussed the same with the dictator. I agree with the dictator's note ,documented as a scribe. Any additional findings or plans will be noted.
[2025-03-06 17:35] LABS: Glucose,Whole Blood 129 mg/dL (70-110)
[2025-03-06 21:06] LABS: Glucose,Whole Blood 217 mg/dL (70-110)
[2025-03-07 06:10] LABS: Glucose,Whole Blood 136 mg/dL (70-110)
[2025-03-07 08:09] VITALS: RESP 20
[2025-03-07 08:30] LABS: African American GFR (CKD) >90 (>60 ml/min/1.73 sqM); Blood Urea Nitrogen 27 mg/dL (9-20); Calcium 8.7 mg/dL (8.4-10.2); Chloride 90 mmol/L (98-107); Glucose 159 mg/dL (74-99); Non-African American GFR(CKD) >90 (>60 ml/min/1.73 sqM); Potassium 3.7 mmol/L (3.5-5.1); Sodium 137 mmol/L (137-145)
[2025-03-07 08:40] LABS: Anion Gap 4 mmol/L
[2025-03-07 08:49] LABS: Carbon Dioxide 43 mmol/L (22-30)
--- NOTE | 2025-03-07 10:17 | P.DS ---
Providers Date of admission: 03/05/25 05:23 Expected date of discharge: 03/07/25 Attending physician: Moreno Domingo Consults: 03/05/25 05:21 Consult Physician Urgent Consulting Provider: [facility] Consult Reason/Comments: Defibrillator discharge Do you want consulting provider notified?: Yes Primary care physician: [facility] Course: Final Diagnoses: AICD discharge Hypokalemia, incorrectly taking his Lasix. Hypomagnesemia Chronic hypoxic and hypercapnic respiratory failure in a patient with underlying COPD, hemidiaphragm paralysis, obstructive sleep apnea syndrome COPD Obstructive sleep apnea, does not wear BiPAP at home Chronic elevation of left hemidiaphragm Nonischemic cardiomyopathy, EF 30% Chronic systolic CHF History of AICD placement Paroxysmal atrial fibrillation Rheumatoid arthritis Peripheral vascular disease History of PE DVT, on Xarelto Venous hypertension with venous leg ulcer bilaterally Chronic nonpressure ulcer right lower extremity with muscle involvement without necrosis continue Opticell and Curlex wraps. Follows with wound care center. Recent cultures 11/27 reported stenotrophomonas. History of Enterobacter, and Proteus cellulitis. Chronic nonpressure ulcer left lower extremity with other specified complication: As above Hypertension: Continue to monitor, blood pressure little low, Coreg dose decreased Hyperlipidemia Hemoglobin A1c 6.2 Morbid obesity, BMI 38 Hospital course: This is a 64-year-old male with past medical history of nonischemic cardiomyopathy, AICD implantation, CHF, PE, paroxysmal atrial fibrillation, chronic lower extremity lymphedema-follows at wound center for his chronic nonpressure venous leg ulcers of the bilateral lower extremities ,prediabetic with last hemoglobin A1c 6.2 on 02/09/2025 and multiple medical issues presented to the ER with complaints of his defibrillator firing twice last night, woke up on the floor. Denies chest pain, palpitations or shortness of breath. Maintaining O2 sats in the 90s on 3 L nasal cannula. Denies nausea, vomiting. Denies abdominal pain. Reports medication compliance. Cardiology consult in place, interrogation pending. Received potassium and magnesium supplementation for potassium of 2.8 and magnesium 1.6. patient apparently had an allergic reaction to amiodarone, chest tightness, reddened face with shortness of breath. Amiodarone discontinued and receiving prn Benadryl. EKG reported sinus rhythm occasional PVC. Chest x-ray reported bibasilar atelectasis, afebrile, normal WBC, hematology unremarkable, INR 1.2. On admission potassium 2.9 magnesium 1.6 supplemented with repeat levels pending. Patient reports he became mixed up on his medications and has been taking Lasix 100 mg every morning and 40 mg at night since his last discharge. 03-06-25 potassium 3.1, supplementation ordered. Magnesium 2. Device interrogation pending. Denies further firing of AICD. Denies chest pain, palpitations or shortness of breath. Troponin this morning 0.022. Blood sugars controlled. Potassium supplementation ordered. Repeat potassium levels ordered .interrogation of device pending/last echo completed on 02/08/2025; repeat echo has been ordered by cardiology. Discharge planning in progress, pending final DC recommendations and clearance per cardiology. 04/03/2025 significant clinical improvement. Denies lightheadedness dizziness or focal deficits. Denies further discharging of AICD. Interrogation reading/report in progress. Denies chest pain, palpitations or shortness of breath. Labs pending. Patient will be discharged home today in a stable condition with guarded prognosis pending final DC recommendations and clearance per cardiology. Patient will proceed to wound care center for wrapping of his bilateral lower extremities as previously scheduled. The impression and plan of care has been dictated as directed. .: I performed a history and examination of this patient, discussed the same with the dictator. I agree with the dictator's note ,documented as a scribe. Any additional findings or plans will be noted. N the impression and plan of care has been dictated as directed. Dr.: I performed a history and examination of this patient, discussed the same with the dictator. I agree with the dictator's note ,documented as a scribe. Any additional findings or plans will be noted. Patient Condition at Discharge: Stable Plan - Discharge Summary Discharge Rx Participant: Yes New Discharge Prescriptions: Continue Spironolactone [Aldactone] 25 mg PO DAILY #30 tablet Atorvastatin [Lipitor] 10 mg PO DAILY Rivaroxaban [Xarelto] 20 mg PO DAILY 5 Days #5 tab Ketoconazole 2% Cream [Nizoral 2%] 1 applic TOPICAL BID SILVER sulfADIAZINE Cream [Silvadene 1% Cream] 1 applic TOPICAL DAILY Ipratropium-Albuterol Nebulize [Duoneb 0.5 mg-3 mg/3 ml Soln] 3 ml INHALATION RT-Q4H PRN PRN Reason: Shortness Of Breath Ipratropium-Albuterol Nebulize [Duoneb 0.5 mg-3 mg/3 ml Soln] 3 ml INHALATION RT-QID #120 each Furosemide [Lasix] 60 mg PO DAILY@0900 #30 tab Furosemide [Lasix] 40 mg PO DAILY@1600 #30 tab Pantoprazole Sodium [Protonix] 40 mg PO DAILY #30 tab carvediloL [Coreg*] 12.5 mg PO W/BRKFST Changed Potassium Chloride ER [K-Dur 20] 40 meq PO DAILY 30 Days #60 tab Discontinued metOLazone [Zaroxolyn] 2.5 mg PO DAILY #30 tab Discharge Medication List Spironolactone [Aldactone] 25 mg PO DAILY #30 tablet 04/08/17 [Rx] Atorvastatin [Lipitor] 10 mg PO DAILY 11/07/21 [History] Rivaroxaban [Xarelto] 20 mg PO DAILY 5 Days #5 tab 11/14/21 [Rx] Ketoconazole 2% Cream [Nizoral 2%] 1 applic TOPICAL BID 02/08/25 [History] Furosemide [Lasix] 40 mg PO DAILY@1600 #30 tab 02/14/25 [Rx] Furosemide [Lasix] 60 mg PO DAILY@0900 #30 tab 02/14/25 [Rx] Ipratropium-Albuterol Nebulize [Duoneb 0.5 mg-3 mg/3 ml Soln] 3 ml INHALATION RT-QID #120 each 02/14/25 [Rx] Pantoprazole Sodium [Protonix] 40 mg PO DAILY #30 tab 02/14/25 [Rx] Ipratropium-Albuterol Nebulize [Duoneb 0.5 mg-3 mg/3 ml Soln] 3 ml INHALATION RT-Q4H PRN 03/05/25 [History] SILVER sulfADIAZINE Cream [Silvadene 1% Cream] 1 applic TOPICAL DAILY 03/05/25 [History] carvediloL [Coreg*] 12.5 mg PO W/BRKFST 03/05/25 [History] Potassium Chloride ER [K-Dur 20] 40 meq PO DAILY 30 Days #60 tab 03/07/25 [Rx] Follow up Appointment(s)/Referral(s): Prasanth Nava Jr, [Primary Care Provider] - 3 Days [facility] [NON-STAFF] - 03/07/25 10:30 am Ambulatory/Diagnostic Orders: Basic Metabolic Panel [LAB.AMB] Time Frame: 3 Days, Location: None Selected
[2025-03-07 11:28] VITALS: BP 101/65; PULSE 82; TEMP 97.4
[2025-03-07 12:08] LABS: Glucose,Whole Blood 212 mg/dL (70-110)
--- NOTE | 2025-03-07 14:49 | P.PN ---
Subjective Progress Note Date: 03/07/25 Reason for Consult (text): Defibrillator discharge History of present illness: This is a 64-year-old male patient of Dr. Early's with past medical history of chronic systolic heart failure, history of pulmonary embolism, nonischemic cardiomyopathy, status post AICD, COPD, paroxysmal atrial fibrillation, lower extremity edema. We have been asked to evaluate the patient for defibrillator discharge. Patient states that he was eating something up in the microwave and all of a sudden he woke up and he was laying on the floor. His AICD went off a pparently twice last evening. He currently denies any chest pain no shortness of breath no palpitations. Blood pressure 102/82, heart rate 88, pulse ox 96% on 3 L nasal cannula. Patient seen in the emergency center waiting for a bed on the cardiac stepdown unit. -EKG: Sinus rhythm at 93 bpm occasional PVCs. -Chest x-ray: Bibasilar atelectasis. -Laboratory studies: CBC unremarkable. Potassium 2.7, CO2 47, BUN 38 creatinine 0.79. Troponin negative x 1. -Home cardiac medications: Atorvastatin 10 mg daily, Coreg 12.5 mg with breakfast, Lasix 60 mg in the morning and 40 mg in the afternoon, metolazone 2.5 mg daily, K. Dur 20 mill equivalents daily, Xarelto 20 mg daily, spironolactone 25 mg daily - Echocardiogram performed in the office 04/25/2023 revealed EF 35 to 40%, mild mitral regurgitation, mild to moderate tricuspid regurgitation, PASP 39 mmHg. 03/06/2025 Patient seen and examined in the emergency center. He remains waiting for bed on the cardiac stepdown unit. Yesterday patient developed allergic reaction to amiodarone and this was discontinued. Echocardiogram is pending as well as interrogation is pending. Lab work for today reveals potassium 3.1, magnesium 2.0. Other lab work reveals A1c 6.5, CO2 44. Repeat troponin 0.022 03/07/2025 Patient seen and examined. Interrogation reviewed by Dr. Hubbard. Patient had episodes of atrial fibrillation. No episodes of V. tach. Patient denies chest pain or shortness of breath. No lightheadedness or dizziness. Blood pressure 101/65, heart rate 82, pulse ox 97% on 3 L nasal cannula. Echocardiogram was performed on 02/08/2025 which revealed EF of 30 to 35%, mild to distal antral lateral and apical wall hypokinesia, mildly dilated LV cavity, RVSP estimated at 45 mmHg. No significant valvular dysfunction. Technically difficult study. Physical examination: Gen: This is 64-year-old male in no acute distress. VS: reviewed HEENT: Head is atraumatic, normocephalic. Pupils equal, round. Sclerae is anicteric. NECK: Supple. No JVD. LUNGS: Clear to auscultation. No wheezes or rhonchi. No intercostal retractions. HEART: Regular rate and rhythm. No murmur. ABDOMEN: Soft No tenderness. EXTREMITIES: Bilateral lower extremity edema. No calf tenderness. NEUROLOGICAL: Patient is awake, alert and oriented x3. Assessment: AICD discharge Allergic reaction to amiodarone, stable Hypokalemia Chronic systolic heart failure History of pulmonary embolism Nonischemic cardiomyopathy COPD Paroxysmal atrial fibrillation Plan: Continue patient's home cardiac medications Hold metolazone due to low blood pressure readings. Continue the addition of mexiletine Patient is cleared for discharge from a cardiology perspective and will follow- up with Dr. Early in 1 week. Nurse practitioner note has been reviewed, I agree with documented findings and plan of care. Patient was seen and examined. Objective - Vital Signs Vital signs: Vital Signs Temp 97.7 F 03/07/25 04:00 Pulse 80 03/07/25 09:02 Resp 20 03/07/25 08:07 BP 96/62 03/07/25 08:07 Pulse Ox 97 03/07/25 08:07 FiO2 Intake & Output 03/06/25 03/07/25 03/07/25 18:59 06:59 18:59 Intake Total 600 Balance 600 Weight 143.8 kg Intake: Oral 600 Other: Voiding Method Toilet # Voids 1 - Labs CBC & Chem 7: 03/06/25 06:07 03/07/25 07:30 Labs: Abnormal Lab Results - Last 24 Hours (Table) 03/06/25 03/06/25 03/06/25 Range/Units 12:02 16:00 17:34 Potassium 3.3 L (3.5-5.1) mmol/L Chloride (98-107) mmol/L Carbon Dioxide (22-30) mmol/L BUN (9-20) mg/dL Glucose (74-99) mg/dL POC Glucose (mg/dL) 135 H 129 H (70-110) mg/dL 03/06/25 03/07/25 03/07/25 Range/Units 21:04 06:08 07:30 Potassium (3.5-5.1) mmol/L Chloride 90 L (98-107) mmol/L Carbon Dioxide 43 H* (22-30) mmol/L BUN 27 H (9-20) mg/dL Glucose 159 H (74-99) mg/dL POC Glucose (mg/dL) 217 H 136 H (70-110) mg/dL
== END 2025-03-07 12:52 | disposition home or self-care (01) | DRG 309 ==
LOC: EC 01:47 → 3SCARD 05:23
PROVIDERS: ADMIT Family Medicine; ATTEND Family Medicine
DX: I48.0 Paroxysmal atrial fibrillation (principal); I50.22 Chronic systolic (congestive) heart failure; J96.12 Chronic respiratory failure with hypercapnia; I87.313 Chronic venous hypertension (idiopathic) with ulcer of bilateral lower extremity; I11.0 Hypertensive heart disease with heart failure; J98.6 Disorders of diaphragm; Z68.41 Body mass index [BMI] 40.0-44.9, adult; J44.9 Chronic obstructive pulmonary disease, unspecified; M06.9 Rheumatoid arthritis, unspecified; I73.9 Peripheral vascular disease, unspecified; I07.1 Rheumatic tricuspid insufficiency; L97.815 Non-pressure chronic ulcer of other part of right lower leg with muscle involvement without evidence of necrosis; L97.825 Non-pressure chronic ulcer of other part of left lower leg with muscle involvement without evidence of necrosis; J96.11 Chronic respiratory failure with hypoxia; J98.11 Atelectasis; E66.01 Morbid (severe) obesity due to excess calories; I42.8 Other cardiomyopathies; T46.2X5A Adverse effect of other antidysrhythmic drugs, initial encounter; E87.6 Hypokalemia; I49.3 Ventricular premature depolarization; E83.42 Hypomagnesemia; I89.0 Lymphedema, not elsewhere classified; G47.33 Obstructive sleep apnea (adult) (pediatric); E78.5 Hyperlipidemia, unspecified; Z79.01 Long term (current) use of anticoagulants; Z79.899 Other long term (current) drug therapy; Z95.810 Presence of automatic (implantable) cardiac defibrillator; Z86.711 Personal history of pulmonary embolism; Z88.6 Allergy status to analgesic agent; R73.03 Prediabetes
CPT/HCPCS: 36415; 71046; 80048; 80053; 83036; 83735; 84132; 84484; 85025; 85610; 85730; 93005; 94640; 94760; 96365; 96366; 96368; 96375; 96376; 99285

== ENCOUNTER 2025-03-11 18:12 | Emergency (ER) | payer MEDICARE ==
[2025-03-11 18:33] VITALS: RESP 20; TEMP 98.4
[2025-03-11 18:57] LABS: Basophils # (A) 0.04 10*3/uL (0.00-0.10); Basophils % (A) 0.3 %; Eosinophils # (A) 0.10 10*3/uL (0.04-0.35); Eosinophils % (A) 0.9 %; HCT 41.5 % (39.6-50.0); HGB 14.9 g/dL (13.0-17.0); Lymphocytes # (A) 1.88 10*3/uL (0.90-5.00); Lymphocytes % (A) 16.4 %; MCH 32.5 pg (27.0-32.0); MCHC 35.9 g/dL (32.0-37.0); Monocytes # (A) 0.83 10*3/uL (0.20-1.00); Monocytes % (A) 7.2 %; Neutrophils # (A) 8.57 10*3/uL (1.80-7.70); Neutrophils % (A) 74.6 %; Platelet Count 162 10*3/uL (140-440); RBC 4.58 10*6/uL (4.40-5.60); RDW 12.2 % (11.5-14.5); WBC 11.49 10*3/uL (4.50-10.00)
[2025-03-11 18:59] LABS: MCV 90.6 fL (80.0-97.0)
[2025-03-11 19:14] LABS: ALT 47 U/L (4-49); AST 42 U/L (17-59); African American GFR (CKD) >90 (>60 ml/min/1.73 sqM); Albumin 4.1 g/dL (3.5-5.0); Alkaline Phosphatase 136 U/L (38-126); Blood Urea Nitrogen 32 mg/dL (9-20); Calcium 9.7 mg/dL (8.4-10.2); Chloride 82 mmol/L (98-107); Glucose 119 mg/dL (74-99); Non-African American GFR(CKD) >90 (>60 ml/min/1.73 sqM); Potassium 3.1 mmol/L (3.5-5.1); Sodium 133 mmol/L (137-145); Total Protein 6.7 g/dL (6.3-8.2)
[2025-03-11 19:20] LABS: Anion Gap 9 mmol/L
[2025-03-11 19:27] LABS: Carbon Dioxide 42 mmol/L (22-30)
--- NOTE | 2025-03-11 19:38 | ED ---
Recheck HPI - General Chief Complaint: Recheck/Abnormal Lab/Rx Stated Complaint: Abn Labs Time Seen by Provider: 03/11/25 19:38 Source: patient, family, RN notes reviewed, old records reviewed Mode of arrival: ambulatory Limitations: no limitations - History of Present Illness Initial Comments: This is a 64-year-old male to the ER for evaluation he does have recent inpatient hospital admission. Patient has no complaints today no cough no congestion no shortness of breath states he was called by his primary care and sent to the ER for evaluation of abnormal outpatient lab test MD Complaint: abnormal lab (Elevated CO2) Returns Today for: Called Because of Abnormal Lab/Test Symptoms Since Prior Visit: no new symptoms Context: called for abnormal lab result Associated Symptoms: none Treatments Prior to Arrival: other (0) - Related Data Home Medications Medication Instructions Recorded Confirmed Atorvastatin [Lipitor] 10 mg PO DAILY 11/07/21 03/05/25 Ketoconazole 2% Cream [Nizoral 2%] 1 applic TOPICAL BID 02/08/25 03/05/25 Ipratropium-Albuterol Nebulize 3 ml INHALATION RT-Q4H PRN 03/05/25 03/05/25 [Duoneb 0.5 mg-3 mg/3 ml Soln] SILVER sulfADIAZINE Cream 1 applic TOPICAL DAILY 03/05/25 03/05/25 [Silvadene 1% Cream] carvediloL [Coreg*] 12.5 mg PO W/BRKFST 03/05/25 03/05/25 Previous Rx's Medication Instructions Recorded Spironolactone [Aldactone] 25 mg PO DAILY #30 tablet 04/08/17 Rivaroxaban [Xarelto] 20 mg PO DAILY 5 Days #5 tab 11/14/21 Furosemide [Lasix] 40 mg PO DAILY@1600 #30 tab 02/14/25 Furosemide [Lasix] 60 mg PO DAILY@0900 #30 tab 02/14/25 Ipratropium-Albuterol Nebulize 3 ml INHALATION RT-QID #120 each 02/14/25 [Duoneb 0.5 mg-3 mg/3 ml Soln] Pantoprazole Sodium [Protonix] 40 mg PO DAILY #30 tab 02/14/25 Potassium Chloride ER [K-Dur 20] 40 meq PO DAILY 30 Days #60 tab 03/07/25 Allergies Allergy/AdvReac Type Severity Reaction Status Date / Time amiodarone Allergy Chest Pain Verified 03/06/25 11:55 ibuprofen Allergy Rash/Hives Verified 03/05/25 11:02 Review of Systems ROS Statement: Those systems with pertinent positive or pertinent negative responses have been documented in the HPI. ROS Other: All systems not noted in ROS Statement are negative. Past Medical History Past Medical History: Atrial Fibrillation, Heart Failure, COPD, Pulmonary Embolus (PE), Rheumatoid Arthritis (RA), Sleep Apnea/CPAP/BIPAP, Vascular Disorder Additional Past Medical History / Comment(s): PAD, chronic more than edema in the lower extremities bilaterally. Hypoxia. cardiomyopathy History of Any Multi-Drug Resistant Organisms: None Reported Past Surgical History: AICD, Heart Catheterization Additional Past Surgical History / Comment(s): varicose veins sx 1991, heart defibrillator Past Anesthesia/Blood Transfusion Reactions: No Reported Reaction Type of Cardiac Device: AICD Device Placement Date:: unknown Past Psychological History: No Psychological Hx Reported Smoking Status: Never smoker Past Alcohol Use History: Occasional Past Drug Use History: None Reported - Past Family History Mother Family Medical History: Cancer Additional Family Medical History / Comment(s): bone cancer Father History Unknown: Yes Additional Family Medical History / Comment(s): never knew his dad General Exam Limitations: no limitations General appearance: alert, in no apparent distress Head exam: Present: atraumatic, normocephalic, normal inspection Eye exam: Present: normal appearance, PERRL, EOMI. Absent: scleral icterus, conjunctival injection, periorbital swelling ENT exam: Present: normal exam, mucous membranes moist Neck exam: Present: normal inspection. Absent: tenderness, meningismus, lymphadenopathy Respiratory exam: Present: wheezes. Absent: respiratory distress, rales, rhonchi, stridor Cardiovascular Exam: Present: regular rate, normal rhythm, normal heart sounds. Absent: systolic murmur, diastolic murmur, rubs, gallop, clicks GI/Abdominal exam: Present: soft, normal bowel sounds. Absent: distended, tenderness, guarding, rebound, rigid Extremities exam: Present: normal inspection, full ROM, normal capillary refill. Absent: tenderness, pedal edema, joint swelling, calf tenderness Back exam: Present: normal inspection Neurological exam: Present: alert, oriented X3, CN II-XII intact Psychiatric exam: Present: normal affect, normal mood Skin exam: Present: warm, dry, intact, normal color. Absent: rash Course Vital Signs 03/11/25 18:30 Temperature 98.4 F Pulse Rate 102 H Respiratory 20 Rate Blood Pressure 148/75 O2 Sat by Pulse 94 L Oximetry - Reevaluation(s) Reevaluation #1: 03/11/25 20:02 Medical records reviewed Reevaluation #2: 03/11/25 20:02 Patient remains asymptomatic Reevaluation #3: 03/11/25 20:02 Patient informed of results and questions answered Reevaluation #4: Was pt. sent in by a medical professional or institution (, DANNY, PROGRAM MANAGEMENT MANAGER, urgent care, hospital, or care home...) When possible be specific @ -no Did you speak to anyone other than the patient for history (EMS, parent, family, police, friend...)? What history was obtained from this source @ -no Did you review nursing and triage notes (agree or disagree)? Why? @ -agree Are old charts reviewed (outside hosp., previous admission, EMS record, old EKG, old radiological studies, urgent care reports/EKG's, care home records)? Report findings @ -yes Differential Diagnosis (chest pain, altered mental status, abdominal pain women, abdominal pain men, vaginal bleeding, weakness, fever, dyspnea, syncope, headache, dizziness, GI bleed, back pain, seizure, CVA, palpatations, mental health, musculoskeletal)? @ -prior EKG interpreted by me (3pts min.). @ -yes X-rays interpreted by me (1pt min.). @ -yes negative for acute disease CT interpreted by me (1pt min.). @ -no U/S interpreted by me (1pt. min.). @ -no What testing was considered but not performed or refused? (CT, X-rays, U/S, labs)? Why? @ -none What meds were considered but not given or refused? Why? @ -none Did you discuss the management of the patient with other professionals (prof dixon i.e. DANNY Johnston, PROGRAM MANAGEMENT MANAGER, lab, RT, psych nurse, professor of social work, structural biologist, teacher, probation officer, showcase maker)? Give summary @ -no Was smoking cessation discussed for >3mins.? @ -no Was critical care preformed (if so, how long)? @ -no Were there social determinants of health that impacted care today? How? (Homelessness, low income, unemployed, alcoholism, drug addiction, transportation, low edu. Level, literacy, decrease access to med. care, custodial, rehab)? @ -none Was there de-escalation of care discussed even if they declined (Discuss DNR or withdrawal of care, Hospice)? DNR status @ -no What co-morbidities impacted this encounter? (DM, HTN, Smoking, COPD, CAD, Cancer, CVA, ARF, Chemo, Hep., AIDS, mental health diagnosis, sleep apnea, morbid obesity)? @ -none Was patient admitted / discharged? Hospital course, mention meds given and route, prescriptions, significant lab abnormalities, going to OR and other pertinent info. @ - Undiagnosed new problem with uncertain prognosis? @ -no Drug Therapy requiring intensive monitoring for toxicity (Heparin, Nitro, Insulin, Cardizem)? @ -no Were any procedures done? @ -no Diagnosis/symptom? @ - Acute, or Chronic, or Acute on Chronic? @ -Acute Uncomplicated (without systemic symptoms) or Complicated (systemic symptoms)? @ -Complicated Side effects of treatment? @ -no Exacerbation, Progression, or Severe Exacerbation? @ -exacerbation Poses a threat to life or bodily function? How? (Chest pain, [place], [place], pneumonia, PE, COPD, DKA, ARF, appy, cholecystitis, CVA, Diverticulitis, Homicidal, Suicidal, threat to staff... and all critical care pts) @ -yes Reevaluation #5: Differential Dyspnea: Coronary syndrome, arrhythmia, tamponade, asthma, COPD, pulmonary embolism, pneu monia, pneumothorax, pulmonary effusion, anaphylaxis, diabetic ketoacidosis, flailed chest, pulmonary contusion, diaphragmatic rupture, anemia, neuromuscular, this is not meant to be an all-inclusive list. Medical Decision Making - Medical Decision Making 64 male to the ED for abnormal outpatint labs, to be discharged home, elevated bicarbonate level in the blood, no dyspnea or shortness of breath here in the ER, patient will follow-up with pulmonology and PCP - Lab Data Result diagrams: 03/11/25 18:47 03/11/25 18:47 Lab Results 03/11/25 03/11/25 Range/Units 18:47 18:47 WBC 11.49 H (4.50-10.00) 10*3/uL RBC 4.58 (4.40-5.60) 10*6/uL Hgb 14.9 (13.0-17.0) g/dL Hct 41.5 (39.6-50.0) % MCV 90.6 D (80.0-97.0) fL MCH 32.5 H (27.0-32.0) pg MCHC 35.9 (32.0-37.0) g/dL Plt Count 162 (140-440) 10*3/uL MPV 9.6 (9.5-12.2) fL Immature Gran % (Auto) 0.6 % Neutrophils % 74.6 % Lymphocytes % 16.4 % Monocytes % 7.2 % Eosinophils % 0.9 % Basophils % 0.3 % Immature Gran # 0.07 H (0.00-0.04) 10*3/uL Neutrophils # 8.57 H (1.80-7.70) 10*3/uL Lymphocytes # 1.88 (0.90-5.00) 10*3/uL Monocytes # 0.83 (0.20-1.00) 10*3/uL Eosinophils # 0.10 (0.04-0.35) 10*3/uL Basophils # 0.04 (0.00-0.10) 10*3/uL Sodium 133 L (137-145) mmol/L Potassium 3.1 L (3.5-5.1) mmol/L Chloride 82 L (98-107) mmol/L Carbon Dioxide 42 H* (22-30) mmol/L Anion Gap 9 mmol/L BUN 32 H (9-20) mg/dL Creatinine 0.80 (0.66-1.25) mg/dL Est GFR (CKD-EPI)AfAm >90 (>60 ml/min/1.73 sqM) Est GFR (CKD-EPI)NonAf >90 (>60 ml/min/1.73 sqM) Glucose 119 H (74-99) mg/dL Calcium 9.7 (8.4-10.2) mg/dL Total Bilirubin 1.0 (0.2-1.3) mg/dL AST 42 (17-59) U/L ALT 47 (4-49) U/L Alkaline Phosphatase 136 H (38-126) U/L Total Protein 6.7 (6.3-8.2) g/dL Albumin 4.1 (3.5-5.0) g/dL Disposition Clinical Impression: COPD (chronic obstructive pulmonary disease), Hypercarbia Disposition: HOME SELF-CARE Condition: Fair Instructions (If sedation given, give patient instructions): COPD (Chronic Obstructive Pulmonary Disease) (ED) Is patient prescribed a controlled substance at d/c from ED?: No Referrals: Prasanth Nava Jr, [Primary Care Provider] - 1-2 days Time of Disposition: 20:00
[2025-03-11] MEDS: POTASSIUM BICARBONATE/CIT AC 20 MEQ TABLET.EFF PO ONE ×2 (20:17)
[2025-03-11] MEDS: MAGNESIUM OXIDE 400 MG TAB PO STA ×2 (20:18)
[2025-03-11 20:40] VITALS: BP 114/75; PULSE 95
== END 2025-03-11 20:40 | disposition home or self-care (01) ==
LOC: EC 18:12
DX: J44.9 Chronic obstructive pulmonary disease, unspecified (principal); R06.89 Other abnormalities of breathing; Z88.6 Allergy status to analgesic agent; Z88.8 Allergy status to other drugs, medicaments and biological substances
CPT/HCPCS: 36415; 80053; 85025; 99283

== ENCOUNTER 2025-03-25 18:11 | Emergency (ER) | payer MEDICARE ==
[2025-03-25 18:20] VITALS: TEMP 97.8
[2025-03-25 19:23] LABS: Basophils # (A) 0.06 10*3/uL (0.00-0.10); Basophils % (A) 0.7 %; Eosinophils # (A) 0.10 10*3/uL (0.04-0.35); Eosinophils % (A) 1.2 %; HCT 42.4 % (39.6-50.0); HGB 15.4 g/dL (13.0-17.0); Lymphocytes # (A) 2.25 10*3/uL (0.90-5.00); Lymphocytes % (A) 27.8 %; MCH 32.9 pg (27.0-32.0); MCHC 36.3 g/dL (32.0-37.0); MCV 90.6 fL (80.0-97.0); Monocytes # (A) 0.89 10*3/uL (0.20-1.00); Monocytes % (A) 11.0 %; Neutrophils # (A) 4.75 10*3/uL (1.80-7.70); Neutrophils % (A) 58.7 %; Platelet Count 229 10*3/uL (140-440); RBC 4.68 10*6/uL (4.40-5.60); RDW 12.5 % (11.5-14.5); WBC 8.10 10*3/uL (4.50-10.00)
[2025-03-25 19:41] LABS: VBG HCO3 45.0 mmol/L (24-28); VBG PCO2 61.0 mmHg (37-51); VBG PH 7.48 (7.31-7.41)
--- NOTE | 2025-03-25 19:44 | ED ---
General Adult HPI - General Chief complaint: Recheck/Abnormal Lab/Rx Stated complaint: Abn labs Time Seen by Provider: 03/25/25 19:05 Source: patient Mode of arrival: wheelchair Limitations: no limitations - History of Present Illness Initial comments: Dictation was produced using ehealthtracker dictation software. please excuse any grammatical, word or spelling errors. Chief Complaint: 65-year-old male presents to the emergency department for abnormal outpatient lab History of Present Illness: Patient 65-year-old male oxygen dependent with history of A-fib heart failure COPD. Presents to the ER after he had blood work drawn today. States that he had extremely high bicarb and that he should come to the ER. Patient states he feels at baseline with no complaints The ROS documented in this emergency department record has been reviewed and confirmed by me. Those systems with pertinent positive or negative responses have been documented in the HPI. All other systems are other negative and/or noncontributory. - Related Data Home Medications Medication Instructions Recorded Confirmed Atorvastatin [Lipitor] 10 mg PO DAILY 11/07/21 03/25/25 Ketoconazole 2% Cream [Nizoral 2%] 1 applic TOPICAL BID 02/08/25 03/25/25 Ipratropium-Albuterol Nebulize 3 ml INHALATION RT-Q4H PRN 03/05/25 03/25/25 [Duoneb 0.5 mg-3 mg/3 ml Soln] SILVER sulfADIAZINE Cream 1 applic TOPICAL DAILY 03/05/25 03/25/25 [Silvadene 1% Cream] carvediloL [Coreg*] 12.5 mg PO W/BRKFST 03/05/25 03/25/25 Previous Rx's Medication Instructions Recorded Spironolactone [Aldactone] 25 mg PO DAILY #30 tablet 04/08/17 Rivaroxaban [Xarelto] 20 mg PO DAILY 5 Days #5 tab 11/14/21 Furosemide [Lasix] 40 mg PO DAILY@1600 #30 tab 02/14/25 Furosemide [Lasix] 60 mg PO DAILY@0900 #30 tab 02/14/25 Ipratropium-Albuterol Nebulize 3 ml INHALATION RT-QID #120 each 02/14/25 [Duoneb 0.5 mg-3 mg/3 ml Soln] Pantoprazole Sodium [Protonix] 40 mg PO DAILY #30 tab 02/14/25 Potassium Chloride ER [K-Dur 20] 40 meq PO DAILY 30 Days #60 tab 03/07/25 Allergies Allergy/AdvReac Type Severity Reaction Status Date / Time amiodarone Allergy Chest Pain Verified 03/25/25 20:25 ibuprofen Allergy Rash/Hives Verified 03/25/25 20:25 Review of Systems ROS Statement: Those systems with pertinent positive or pertinent negative responses have been documented in the HPI. ROS Other: All systems not noted in ROS Statement are negative. Past Medical History Past Medical History: Atrial Fibrillation, Heart Failure, COPD, Pulmonary Embolus (PE), Rheumatoid Arthritis (RA), Sleep Apnea/CPAP/BIPAP, Vascular Disorder Additional Past Medical History / Comment(s): PAD, chronic more than edema in the lower extremities bilaterally. Hypoxia. cardiomyopathy History of Any Multi-Drug Resistant Organisms: None Reported Past Surgical History: AICD, Heart Catheterization Additional Past Surgical History / Comment(s): varicose veins sx 1991, heart defibrillator Past Anesthesia/Blood Transfusion Reactions: No Reported Reaction Type of Cardiac Device: AICD Device Placement Date:: unknown Past Psychological History: No Psychological Hx Reported Smoking Status: Never smoker Past Alcohol Use History: Occasional Past Drug Use History: None Reported - Past Family History Mother Family Medical History: Cancer Additional Family Medical History / Comment(s): bone cancer Father History Unknown: Yes Additional Family Medical History / Comment(s): never knew his dad General Exam - General Exam Comments Initial Comments: PHYSICAL EXAM: General Impression: Alert and oriented x3, not in acute distress HEENT: Normocephalic atraumatic, extra-ocular movements intact, pupils equal and reactive to light bilaterally, mucous membranes moist. Cardiovascular: Heart regular rate and rhythm Chest: Able to complete full sentences, no retractions, no tachypnea Abdomen: abdomen soft, non-tender, non-distended, no organomegaly Musculoskeletal: Pulses present and equal in all extremities, no peripheral edema Motor: no focal deficits noted Neurological: CN II-XII grossly intact, no focal motor or sensory deficits noted Skin: Intact with no visualized rashes Psych: Normal affect and mood Limitations: no limitations Course Vital Signs 03/25/25 03/25/25 18:17 19:25 Temperature 97.8 F 97.8 F Pulse Rate 91 90 Respiratory 18 18 Rate Blood Pressure 117/77 128/80 O2 Sat by Pulse 94 L 97 Oximetry Medical Decision Making - Medical Decision Making Was pt. sent in by a medical professional or institution (, PA, DIGITAL MEASUREMENT ADVISOR, urgent care, hospital, or usp...) When possible be specific @ -Sent in by primary care physician office Did you speak to anyone other than the patient for history (EMS, parent, family, police, friend...)? What history was obtained from this source @ -No Did you review nursing and triage notes (agree or disagree)? Why? @ -I reviewed and agree with nursing and triage notes Were old charts reviewed (outside hosp., previous admission, EMS record, old EKG, old radiological studies, urgent care reports/EKG's, usp records)? Report findings @ -No old charts were reviewed Differential Diagnosis (chest pain, altered mental status, abdominal pain women, abdominal pain men, vaginal bleeding, musculoskeletal, weakness, fever, dyspnea, syncope, headache, dizziness, GI bleed, back pain, seizure, CVA, palpatations, mental health)? @ -Not applicable EKG interpreted by me (3pts min.). @ -None done X-rays interpreted by me (1pt min.). @ -None done CT interpreted by me (1pt min.). @ -None done U/S interpreted by me (1pt. min.). @ -None done What testing was considered but not performed or refused? (CT, X-rays, U/S, labs)? Why? @ -None What meds were considered but not given or refused? Why? @ -None Was smoking cessation discussed for >3mins.? @ -No Were there social determinants of health that impacted care today? How? (Homelessness, low income, unemployed, alcoholism, drug addiction, transportation, low edu. Level, literacy, decrease access to med. care, skilled nursing, rehab)? @ -No Was there de-escalation of care discussed even if they declined (Discuss DNR or withdrawal of care, Hospice)? DNR status @ -No What co-morbidities impacted this encounter? (DM, HTN, Smoking, COPD, CAD, C ancer, CVA, ARF, Chemo, Hep., AIDS, mental health diagnosis, sleep apnea, morbid obesity)? @ -None Was patient admitted / discharged? Hospital course, mention meds given and route, prescriptions, significant lab abnormalities, going to OR and other pertinent info. @ -65-year-old male presents with elevated bicarb. Vital signs stable. Patient no acute distress well-appearing at the bedside. Patient has chronically elevated bicarb due to respiratory issues chronic CO2 retention. Laboratory evaluation obtained. Potassium 2.7. Bicarb is 38. Case discussed with Dr. Domingo request that patient be given IV potassium and discharged home follow-up with PCP office. Did you discuss the management of the patient with other professionals (professionals i.e. , PA, DIGITAL MEASUREMENT ADVISOR, lab, RT, psych nurse, secondary social studies teacher, laboratory geneticist, teacher, unemployment insurance hearing officer, rn field case manager)? Give summary @ -See above Was critical care preformed (if so, how long)? @ -No Undiagnosed new problem with uncertain prognosis? @ -No Drug Therapy requiring intensive monitoring for toxicity (Heparin, Nitro, Insulin, Cardizem)? @ -No Were any procedures done? @ -No Diagnosis/symptom? Acute, or Chronic, or Acute on Chronic? Uncomplicated (without systemic symptoms) or Complicated (systemic symptoms)? @ -Hypokalemia Side effects of treatment? @ -No Exacerbation, Progression, or Severe Exacerbation? @ -No Poses a threat to life or bodily function? How? (Chest pain, [place], [place], pneumonia, PE, COPD, DKA, ARF, appy, cholecystitis, CVA, Diverticulitis, Homicidal, Suicidal, threat to staff... and all critical care pts) @ -yes - Lab Data Result diagrams: 03/25/25 19:13 03/25/25 19:13 Lab Results 03/25/25 03/25/25 03/25/25 Range/Units 19:13 19:13 19:30 WBC 8.10 (4.50-10.00) 10*3/uL RBC 4.68 (4.40-5.60) 10*6/uL Hgb 15.4 (13.0-17.0) g/dL Hct 42.4 (39.6-50.0) % MCV 90.6 (80.0-97.0) fL MCH 32.9 H (27.0-32.0) pg MCHC 36.3 (32.0-37.0) g/dL Plt Count 229 (140-440) 10*3/uL MPV 10.5 (9.5-12.2) fL Immature Gran % (Auto) 0.6 % Neutrophils % 58.7 % Lymphocytes % 27.8 % Monocytes % 11.0 % Eosinophils % 1.2 % Basophils % 0.7 % Immature Gran # 0.05 H (0.00-0.04) 10*3/uL Neutrophils # 4.75 (1.80-7.70) 10*3/uL Lymphocytes # 2.25 (0.90-5.00) 10*3/uL Monocytes # 0.89 (0.20-1.00) 10*3/uL Eosinophils # 0.10 (0.04-0.35) 10*3/uL Basophils # 0.06 (0.00-0.10) 10*3/uL VBG pH 7.48 H (7.31-7.41) VBG pCO2 61 H (37-51) mmHg VBG HCO3 45 H (24-28) mmol/L Sodium 137 (137-145) mmol/L Potassium 2.7 L* (3.5-5.1) mmol/L Chloride 87 L (98-107) mmol/L Carbon Dioxide 38 H (22-30) mmol/L Anion Gap 12 mmol/L BUN 34 H (9-20) mg/dL Creatinine 0.75 (0.66-1.25) mg/dL Est GFR (CKD-EPI)AfAm >90 (>60 ml/min/1.73 sqM) Est GFR (CKD-EPI)NonAf >90 (>60 ml/min/1.73 sqM) Glucose 118 H (74-99) mg/dL Calcium 9.9 (8.4-10.2) mg/dL Total Bilirubin 0.9 (0.2-1.3) mg/dL AST 48 (17-59) U/L ALT 45 (4-49) U/L Alkaline Phosphatase 142 H (38-126) U/L Total Protein 7.2 (6.3-8.2) g/dL Albumin 4.5 (3.5-5.0) g/dL Disposition Clinical Impression: Hypokalemia Disposition: HOME SELF-CARE Condition: Good Instructions (If sedation given, give patient instructions): Hypokalemia (ED) Is patient prescribed a controlled substance at d/c from ED?: No Referrals: Prasanth Nava Jr, DO [Primary Care Provider] - 1-2 days Time of Disposition: 20:43
[2025-03-25 19:58] LABS: ALT 45 U/L (4-49); AST 48 U/L (17-59); African American GFR (CKD) >90 (>60 ml/min/1.73 sqM); Albumin 4.5 g/dL (3.5-5.0); Alkaline Phosphatase 142 U/L (38-126); Blood Urea Nitrogen 34 mg/dL (9-20); Calcium 9.9 mg/dL (8.4-10.2); Chloride 87 mmol/L (98-107); Glucose 118 mg/dL (74-99); Non-African American GFR(CKD) >90 (>60 ml/min/1.73 sqM); Sodium 137 mmol/L (137-145); Total Protein 7.2 g/dL (6.3-8.2)
[2025-03-25 20:05] LABS: Anion Gap 12 mmol/L
[2025-03-25 20:21] LABS: Potassium 2.7 mmol/L (3.5-5.1)
[2025-03-25 20:22] LABS: Carbon Dioxide 38 mmol/L (22-30)
[2025-03-25] MEDS: POTASSIUM CHLORIDE 40 MEQ in WATER FOR INJECTION 1 100ML.BAG IVPB STA (20:45)
[2025-03-25] MEDS: POTASSIUM CHLORIDE ER 20 MEQ TAB.ER PO STA (20:52)
[2025-03-26 00:35] VITALS: RESP 16
[2025-03-26 01:56] VITALS: BP 139/83; PULSE 87
== END 2025-03-26 01:59 | disposition home or self-care (01) ==
LOC: EC 18:11
DX: E87.6 Hypokalemia (principal); Z99.81 Dependence on supplemental oxygen; Z88.8 Allergy status to other drugs, medicaments and biological substances
CPT/HCPCS: 36415; 80053; 82803; 85025; 99283; 96365; 96366; J3480

== ENCOUNTER → 2025-03-28 | Outpatient (CLI) | payer MEDICARE ==
[2025-03-29 02:23] LABS: HCT 42.8 % (39.6-50.0); HGB 14.7 g/dL (13.0-17.0); MCH 32.0 pg (27.0-32.0); MCHC 34.3 g/dL (32.0-37.0); MCV 93.0 FL (80.0-97.0); NRBC Per 100 WBC 0 X 10*3/uL (0.00-0.01); Platelet Count 222 X 10*3/uL (140-440); RBC 4.60 X 10*6/uL (4.40-5.60); RDW 12.9 % (11.5-14.5); WBC 7.24 X 10*3/uL (4.50-10.00)
[2025-03-29 03:00] LABS: Albumin 4.4 g/dL (3.8-4.9); Anion Gap 12.80 mmol/L (4.00-12.00); BUN/Creat Ratio 30.71 Ratio (12.00-20.00); Blood Urea Nitrogen 21.5 mg/dL (9.0-27.0); Calcium 9.6 mg/dL (8.7-10.3); Carbon Dioxide 35.2 mmol/L (21.6-31.8); Chloride 92 mmol/L (96-109); Glucose 121 mg/dL (70-110); Potassium 2.8 mmol/L (3.5-5.5); Sodium 140 mmol/L (135-145)
== END | disposition home or self-care (01) ==
LOC: LABWHC1 15:40
PROVIDERS: ATTEND Internal Medicine
DX: N39.0 Urinary tract infection, site not specified (principal); R06.02 Shortness of breath
CPT/HCPCS: 36415; 80069; 85027

== ENCOUNTER → 2025-04-01 | Outpatient (CLI) | payer MEDICARE ==
[2025-04-01 20:27] LABS: Anion Gap 7.90 mmol/L (4.00-12.00); BUN/Creat Ratio 27.00 Ratio (12.00-20.00); Blood Urea Nitrogen 18.9 mg/dL (9.0-27.0); Calcium 9.2 mg/dL (8.7-10.3); Carbon Dioxide 30.1 mmol/L (21.6-31.8); Chloride 100 mmol/L (96-109); Glucose 119 mg/dL (70-110); Potassium 5.5 mmol/L (3.5-5.5); Sodium 138 mmol/L (135-145)
== END | disposition home or self-care (01) ==
LOC: LABWHC1 13:48
PROVIDERS: ATTEND Nurse Practitioner Adult Health
DX: I10 Essential (primary) hypertension (principal)
CPT/HCPCS: 36415; 80048